=== PATIENT | male | born 1980 | race Caucasian/White ===

== ENCOUNTER → 2019-06-25 | Emergency (ER) | payer MEDICARE, OTHER ==
[~2019-06-25] VITALS: Ht 467.4 cm; Wt 127.0 kg
[~2019-06-25] MED LIST: ACETAMINOPHEN-1 EAC1 PO; AMITRIPTYLINE100 MG PO; ASPIRIN EC325 MG PO; ASPIRIN325 MG PO; ATORVASTATIN CA20 MG PO; BENADRYL25 MG PO; BUPROPION XL150 MG PO; CARVEDILOL12.5 MG PO; CARVEDILOL3.125 MG PO; CARVEDILOL6.25 MG PO; CEPHALEXIN500 MG PO; CYCLOBENZAPRINE10 MG PO; DOXYCYCLINE HY100 MG PO; DULOXETINE HCL60 MG PO; GABAPENTIN300 MG PO; LISINOPRIL10 MG PO; LYRICA75 MG PO; MELOXICAM7.5 MG PO; NORCO 5-325 TA1 EACH PO; OMEPRAZOLE20 MG PO; PROMETHAZINE HC25 M1 PO; VENTOLIN HFA18 GM INH; ZANAFLEX4 MG PO
--- OUTSIDE RECORDS SUMMARY | ~2019-06-25 | XMS | Clinical Summary ---
Demographics + + + | Address | [address] | | | [place] [address] | + + + | Home Phone | | + + + | Preferred Language | Unknown | + + + | Marital Status | Single | + + + | Nondenominational Affiliation | CHR | + + + | Race | White | + + + | Ethnic Group | Not or | + + + Author + + + | Author | [facility] | + + + | Organization | [facility] | + + + | Address | Unknown | + + + | Phone | Unavailable | + + + Support + + +---------+ + | Name | Relationship | Address | Phone | + + +---------+ + | Ramin Lomeli | ECON | Unknown | | + + +---------+ + | Maria Eugenia Razo | ECON | Unknown | | + + +---------+ + Care Team Providers + +------+ + | Care Reed Polisher Name | Role | Phone | + +------+ + | Figueroa Mazariegos MD | PCP | | + +------+ + Source Comments NINO is fully live on both EpicCare Ambulatory and EpicCare InPatient.[facility] Allergies + + + + + + | Active Allergy | Reactions | Severity | Noted | Comments | | | | | Date | | + + + + + + | Diltiazem Hcl | Diarrhea | | 06/12/20 | | | | | | 11 | | + + + + + + | Metoprolol | Diarrhea | | 06/12/20 | | | | | | 11 | | + + + + + + | Penicillin G | Anaphylaxis | High | 06/12/20 | | | | | | 11 | | + + + + + + Medications + + + +---------+------+------+-------+ | Medication | Sig | Dispensed | Refills | Star | End | Statu | | | | | | t | Date | s | | | | | | Date | | | + + + +---------+------+------+-------+ | omeprazole 20 mg | Take 20 mg by mouth | | 0 | | | Activ | | Oral Capsule, | once daily. | | | | | e | | Delayed | | | | | | | | Release(E.C.) | | | | | | | + + + +---------+------+------+-------+ | lisinopril 5 mg | Take 5 mg by mouth | | 0 | | | Activ | | Oral Tablet | once daily. | | | | | e | + + + +---------+------+------+-------+ | sucralfate 1 gram | Take 1 g by mouth | | 0 | | | Activ | | Oral Tablet | four times daily. | | | | | e | + + + +---------+------+------+-------+ | carvedilol 6.25 mg | Take 6.25 mg by | | 0 | | | Activ | | Oral Tablet | mouth two times | | | | | e | | | daily. Administer | | | | | | | | with food. | | | | | | + + + +---------+------+------+-------+ | FLUOXETINE HCL | Take 20 mg by mouth | | 0 | | | Activ | | (FLUOXETINE ORAL) | once daily. | | | | | e | + + + +---------+------+------+-------+ | BUPROPION HCL | Take 100 mg by mouth | | 0 | | | Activ | | (WELLBUTRIN ORAL) | once daily. | | | | | e | + + + +---------+------+------+-------+ | HYDROCODONE | Take 7.5 mg by mouth | | 0 | | | Activ | | BIT/ACETAMINOPHEN | as needed. 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 | + + + + + | Overview: ICD10 | + + + + + | Neck pain | 06/12/2011 | + + + | Nasal drainage | 06/12/2011 | + + + | Headache | 06/12/2011 | + + + + + | Overview: ICD10 | + + + + + | Abnormal smell | 06/12/2011 | + + + | BMI 32.0-32.9,adult | 06/12/2011 | + + + Family History + + +---------+ + | Medical History | Relation | Name | Comments | + + +---------+ + | Heart Disease | Father | moi | grandfather | + + +---------+ + | Hypertension | Father | moi | | + + +---------+ + | Psychiatry | Father | moi | brother,daughter,son | + + +---------+ + | Arthritis | Mother | marita | sister | + + +---------+ + | Cancer | Mother | marita | | + + +---------+ + | Diabetes | Mother | marita | | + + +---------+ + + + + + + | Relation | Name | Status | Comments | + + + + + | Brother | pauline | Alive | mental health issues | | | | (Age 35) | | + + + + + | Daughter | eighva | Alive | | | | | (Age 10) | | + + + + + | Daughter | cindi | Alive | | | | | (Age 9) | | + + + + + | Daughter | kenia | Alive | | | | | (Age 5) | | + + + + + | Father | moi | Alive | poor | | | | (Age 55) | | + + + + + | Mother | marita | | | | | | (Age | | | | | 56) | | + + + + + | Sister | noe | Alive | | | | | (Age 24) | | + + + + + | Sister | ozzy | Alive | poor | | | | (Age 31) | | + + + + + | Sister | ben | Alive | | + + + + + | Sister | nilesh | Alive | | | | | (Age 25) | | + + + + + | Sister | audreye | Alive | poor | | | | (Age 36) | | + + + + + | Son | kamlesh | Alive | | | | | (Age 14) | | + + + + + Social History + + + +--------+------+ | Tobacco Use | Types | Packs/Day | Years | Date | | | | | Used | | + + + +--------+------+ | Current Every Day | Cigarettes | 1 | 16 | | | Smoker | | | | | + + + +--------+------+ + +---+---+---+ | Smokeless Tobacco: | | | | | Never Used | | | | + +---+---+---+ + + | Tobacco Cessation: Ready to Quit: No; Counseling Given: Yes | + + + + +---------+ + | Alcohol Use | Drinks/Week | oz/Week | Comments | + + +---------+ + | No | | | | + + +---------+ + + + + | Sex Assigned at | Date Recorded | | | | + + + | Not on file | | + + + + + + + | Job Start Date | Occupation | Industry | + + + + | Not on file | Not on file | Not on file | + + + + + + + + | Travel History | Travel Start | Travel End | + + + + + + | No recent travel history available. | + + Last Filed Vital Signs + + + + + | Vital Sign | Reading | Time Taken | Comments | + + + + + | Blood Pressure | 129/86 | 06/07/2012 11:28 AM | | | | | PDT | | + + + + + | Pulse | 64 | 06/07/2012 11:28 AM | | | | | PDT | | + + + + + | Temperature | 36.6 C (97.8 F) | 06/07/2012 11:28 AM | | | | | PDT | | + + + + + | Respiratory Rate | 16 | 09/25/2011 12:13 PM | | | | | PST | | + + + + + | Oxygen Saturation | 97% | 07/02/2011 11:06 AM | | | | | PST | | + + + + + | Inhaled Oxygen | - | - | | | Concentration | | | | + + + + + | Weight | 117.7 kg (259 lb 6.4 | 06/07/2012 11:28 AM | | | | oz) | PDT | | + + + + + | Height | 180.3 cm (5' 11") | 09/25/2011 12:13 PM | | | | | PST | | + + + + + | Body Mass Index | 36.18 | 09/25/2011 12:13 PM | | | | | PST | | + + + + + Plan of Treatment + + + + + | Health Maintenance | Due Date | Last Done | Comments | + + + + + | Pneumococcal | | | | | vaccination (1 of 1 | 4 | | | | - PPSV23) | | | | + + + + + | Influenza (Flu) | | | | | vaccination (#1) | 9 | | | + + + + + Results Not on filefrom Last 3 Months Insurance + +--------+ +--------+-------+---------+--------+ | Payer | Benefi | Subscriber | Effect | Phone | Address | Type | | | t Plan | ID | majo | | | | | | / | | Dates | | | | | | Group | | | | | | + +--------+ +--------+-------+---------+--------+ | BRIQUETTER OPERATOR MEDICAID | BRIQUETTER OPERATOR | xxxxxxxx | | | | Medica | | | [place] | | 014-Pr | | | id | | | [place] | | esent | | | | + +--------+ +--------+-------+---------+--------+ + +--------+ +--------+ + + | Guarantor Name | Accoun | Relation to | Date | Phone | Billing Address | | | t Type | Patient | of | | | | | | | | | | + +--------+ +--------+ + + | Uri Pierre | Person | Self [birth year] | [address] | | | al/Fam | | 1980 | [phone] | [place] [address] | | | hola | | | 2 (Home) | | + +--------+ +--------+ + + Advance Directives + + + + + | Code Status | Date | Date | Comments | | | Activated | Inactivated | | + + + + + | Full Code | 07/01/2011 | 07/02/2011 | | | | 6:08 AM | 8:01 PM | | + + + + +
--- OUTSIDE RECORDS SUMMARY | ~2019-06-25 | XMS | Encounter Summary ---
Demographics + + + | Address | [address] | | | [place] [address] | + + + | Home Phone | | + + + | Preferred Language | Unknown | + + + | Marital Status | Single | + + + | Mandaeism Affiliation | CHR | + + + | Race | White | + + + | Ethnic Group | Not or | + + + Author + + + | Author | [facility] | + + + | Organization | [facility] | + + + | Address | [...] Team Providers + +------+ + | Care Weaver Tire Cord Name | Role | Phone | + +------+ + | Daniel Velez DO | PCP | | + +------+ + Reason for Visit + + + | Reason | Comments | + + + | Neoplasm of | | | pituitary gland | | + + + Encounter Details +--------+ + + + + | Date | Type | Department | Care Team | Description | +--------+ + + + + | 06/22/ | Telephone | Neurosurgery at | Alek Elliott, | Neoplasm of | | 2010 | | [facility] [address] | MD | pituitary gland | | | | [place] Mailcode: CH8N | | | | | | [facility] | | | | | | and Healing, | | | | | | [address], | | | | | | Floor [place], [place] | | | | | | [address] | | | | | | [phone] | | | +--------+ + + + [...] recent travel history available. | + + documented as of this encounter Plan of Treatment Not on filedocumented as of this encounter Visit Diagnoses Not on filedocumented in this encounter"
--- OUTSIDE RECORDS SUMMARY | ~2019-06-25 | XMS | Encounter Summary ---
Demographics + + + | Address | [address] | | | [place] [address] | + + + | Home Phone | | + + + | Preferred Language | Unknown | + + + | Marital Status | Single | + + + | Restorationist Affiliation | CHR | + + + | Race | White | + + + | Ethnic Group | Not or | + + + Author + + + | Author | [facility] | + + + | Organization | [facility] | + + + | [...] Team Providers + +------+ + | Care Ed Case Manager Name | Role | Phone | + +------+ + | Alejandro Dowling DO | PCP | | + +------+ + Reason for Visit +---------+ + | Reason | Comments | +---------+ + | Post Op | | +---------+ + PROC - Inpatient Surgery (Routine) +--------+--------+ + + + + | Status | Reason | Specialty | Diagnoses / | Referred By | Referred To | | | | | Procedures | Contact | Contact | +--------+--------+ + + + + | Closed | | Neurological | Diagnoses | [place], | [place], | | | | Surgery | Neoplasm of | Alek D, | Alek D, | | | | | uncertain | MD [address] | MD [address] | | | | | behavior of | [address] | [address] | | | | | pituitary | [place], [place] | [place] | | | | | gland and | [address] | [address] | | | | | craniopharyn | | | | | | | geal duct | | | | | | | (HCC) DX: | | | | | | | 237.0 CPT: | | | | | | | [id number]/[id number]/ | | | | | | | [address] | | | | | | | Procedures | | | | | | | CA EXCIS | | | | | | | SUPRATENT | | | | | | | BRAIN TUMOR | | | | | | | CA SCAN | | | | | | | PROC CRANIAL | | | | | | | INTRA CA | | | | | | | SCAN PROC | | | | | | | CRANIAL | | | | | | | EXTRA CA | | | | | | | MICROSURG | | | | | | | TECHNIQUES,R | | | | | | | EQ OPER | | | | | | | MICROSCOPE | | | | | | | CA | | | | | | | NEUROENDOSCO | | | | | | | P,EXC,PIT | | | | | | | RHYS,TRANSNAS | | | | | | | /SPHEN CA | | | | | | | SCAN PROC | | | | | | | CRANIAL | | | | | | | INTRA CA | | | | | | | SCAN PROC | | | | | | | CRANIAL | | | | | | | EXTRA | | | +--------+--------+ + + + + Encounter Details +--------+---------+ + + + | Date | Type | Department | Care Team | Description | +--------+---------+ + + + | 08/04/ | Office | Otolaryngology | Hamzah Sorensen MD | Pituitary adenoma | | 2010 | Visit | Head and Neck | | ([facility]); Nasal | | | | Surgery Services at | | drainage | | | | [facility] [address] | | | | | | [facility] | | | | | | Mailcode: PV01 | | | | | | Physician's [place] | | | | | | [place], [place] | | | | | | [address] | | | | | | [phone] | | | +--------+---------+ + + + Social History [...] + + + | Blood Pressure | 121/75 | 08/04/2011 10:31 AM | | | | | PST | | + + + + + | Pulse | 80 | 08/04/2011 10:31 AM | | | | | PST | | + + + + + | Temperature | - | - | | + + + + + | Respiratory Rate | - | - | | + + + + + | Oxygen Saturation | - | - | | + + + + + | Inhaled Oxygen | - | - | | | Concentration | | | | + + + + + | Weight | 113.9 kg (251 lb) | 08/04/2011 10:31 AM | | | | | PST | | + + + + + | Height | - | - | | + + + + + | Body Mass Index | 32.23 | 08/03/2011 11:46 AM | | | | | PST | | + + + + + documented in this encounter Progress Notes Hamzah Sorensen MD - 08/04/2011 11:02 AM PST Head and Neck Surgery Follow-Up Note ~1 month s/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 S: Right ear pressure; intermittent fevers and night sweats denies new otalgia, dysphagia, odynophagia, hemoptysis, or hoarseness diet- regular Wt Readings from Last 4 Encounters: 08/04/11 113.853 kg (251 lb) 08/03/11 113 kg (249 lb 1.9 oz) 07/01/11 117.7 kg (259 lb 7.7 oz) 06/12/11 116.121 kg (256 lb) O: BP 121/75 | Pulse 80 | Wt 113.853 kg (251 lb) Gen- comfortable, nontoxic Speech regular Face- no asymmetry, no suspicious cutaneous lesions facial mobility normal Eyes- pupils equal and reactive, EOMI; no chemosis, proptosis Ears- right TM dull but no erythema or purulence; left TM retracted but mobile Nose- external deformity; septum deviates to right; mucosa healing well Mouth- no buccal, lingual or gingival lesions posterior o/p is clear Neck- no adenopathy, thyromegaly or masses Nasal endoscopy- 1% topical xylocaine with epi Septum deviates to right Mucous crusting at left posterior septum No infection nasopharynx, hypopharynx normal A: Stable with s/p endoscopic pituitary surgery Doing well P: Recommend increased saline irrigation Pain Rx refilled but patient told that I will not refill Hamzah Sorensen M.D., F.A.C.S. Pump House Technician, Head & Neck Surgery and Oncology Thyroid and Parathyroid Surgery Director, Head & Neck /Thyroid Robotic Surgery Qa Analyst, Head & Neck Clinical Trials [facility] [place] [email or web address] in this encounter Plan of Treatment Not on filedocumented as of this encounter Procedures + +--------+ + + + | Procedure Name | Priori | Date/Time | Associated Diagnosis | Comments | | | ty | | | | + +--------+ + + + | CA | Routin | 08/04/2011 | Nasal drainage | | | LARYNGOSCOPY,FLEXIBL | e | 11:16 AM | | | | E, DIAGNOSTIC | | PST | | | + +--------+ + + + documented in this encounter Visit Diagnoses + + | Diagnosis | + + | Pituitary adenoma (HCC) Benign neoplasm of pituitary gland and craniopharyngeal duct | | (pouch) | + + | Nasal drainage Other diseases of nasal cavity and sinuses | + + documented in this encounter"
--- OUTSIDE RECORDS SUMMARY | ~2019-06-25 | XMS | Encounter Summary ---
Demographics + + + | Address | [address] | | | [place] [address] | + + + | Home Phone | | + + + | Preferred Language | Unknown | + + + | Marital Status | Single | + + + | Buddhism Affiliation | CHR | + + + | Race | White | + + + | Ethnic Group | Not or | + + + Author + + + | Author | [facility] | + + + | Organization | [facility] | + + + | Address [...] Team Providers + +------+ + | Care Manager Training Name | Role | Phone | + +------+ + | Giovanni Huffman MD | PCP | | + +------+ + Encounter Details +--------+ + + + + | Date | Type | Department | Care Team | Description | +--------+ + + + + | 06/07/ | Documentati | Neurosurgery at | Ashley Duron PA | | | 2011 | on | [facility] [address] | [address] | | | | | [place] Mailcode: CHRyanN | [place], | | | | | [facility] | [place] [address] | | | | | and Healing, | [phone] | | | | | Building | | | | | | Floor [place], [place] | | | | | | [address] | | | | | | [phone] | | | +--------+ + + + [...]
--- OUTSIDE RECORDS SUMMARY | ~2019-06-25 | XMS | Encounter Summary ---
Demographics + + + | Address | [address] | | | [place] [address] | + + + | Home Phone | | + + + | Preferred Language | Unknown | + + + | Marital Status | Single | + + + | Baptism Affiliation | CHR | + + + | Race | White | + + + | Ethnic Group | Not or | + + + Author + + + | Author | [facility] | + + + | Organization | [facility] | + + + | [...] Team Providers + +------+ + | Care Neurology Physician Assistant Name | Role | Phone | + +------+ + | Alejandro Dowling DO | PCP | | + +------+ + Encounter Details +--------+ + + + + | Date | Type | Department | Care Team | Description | +--------+ + + + + | 08/27/ | Telephone | Neurosurgery at | Ashley Duron PA | | | 2011 | | [facility] [address] | [address] | | | | | [place] Mailcode: CH8N | [place] [place], | | | | | [facility] | [place] [address] | | | | | and Healing, | [phone] | | | | | Building | | | | | | Floor [place], [place] | | | | | | [address] | | | | | | [phone] | | | +--------+ + + + [...]
--- OUTSIDE RECORDS SUMMARY | ~2019-06-25 | XMS | Encounter Summary ---
Demographics + + + | Address | [address] | | | [place] [address] | + + + | Home Phone | | + + + | Preferred Language | Unknown | + + + | Marital Status | Single | + + + | Sikh Affiliation | CHR | + + + | Race | White | + + + | Ethnic Group | Not or | + + + Author + + + | Author | [facility] | + + + | Organization | [facility] | + + + | [...] Team Providers + +------+ + | Care Drop Clipper Name | Role | Phone | + +------+ + | Giovanni Huffman MD | PCP | | + +------+ + Reason for Visit + + + | Reason | Comments | + + + | Return Patient | | + + + Consultation (Routine) +--------+--------+ + + + + | Status | Reason | Specialty | Diagnoses / | Referred By | Referred To | | | | | Procedures | Contact | Contact | +--------+--------+ + + + + | Closed | | Neurological | Diagnoses | Agust[place], | [place], | | | | Surgery | Unspecified | DO Daniel | MD [place] | | | | | disorder of | [place] | [address] | | | | | the | INTERNAL | [place] | | | | | pituitary | MEDICINE | [address] [place], | | | | | gland and | [address] | [place] | | | | | its | [place] | [address] | | | | | hypothalamic | [address] | Phone: | | | | | control | [place], | [phone] | | | | | Family Care | [place] [address] | Fax: | | | | | OHP ID# | Phone: | [phone] | | | | | [id number] | [phone] | | | | | | Auth# | Fax: | | | | | | [id number] | [phone] | | | | | | 05/19-05/19/12 | | | | | | | Procedures | | | | | | | CONSULT TO | | | | | | | PITUITARY | | | +--------+--------+ + + + + Encounter Details +--------+---------+ + + + | Date | Type | Department | Care Team | Description | +--------+---------+ + + + | 09/25/ | Office | Neurosurgery at | [place] Pinzon, | Pituitary adenoma | | 2011 | Visit | [facility] [address] | [address] | ([facility]) (Primary Dx); | | | | Ave Mailcode: CH[address]N | [address] | Headache; History of | | | | [facility] | [place], [place] | adrenal | | | | and Healing, | [address] | insufficiency | | | | [address] | [phone] | | | | | [place], [place] | | | | | | [address] | | | | | | [phone] | | | +--------+---------+ + + + [...] + + + | Blood Pressure | 139/92 | 09/25/2011 12:07 PM | | | | | PST | | + + + + + | Pulse | 72 | 09/25/2011 12:07 PM | | | | | PST | | + + + + + | Temperature | 36.3 C (97.4 F) | 09/25/2011 12:07 PM | | | | | PST | | + + + + + | Respiratory Rate | 16 | 09/25/2011 12:07 PM | | | | | PST | | + + + + + | Oxygen Saturation | - | - | | + + + + + | Inhaled Oxygen | - | - | | | Concentration | | | | + + + + + | Weight | 120.7 kg (266 lb) | 09/25/2011 12:07 PM | | | | | PST | | + + + + + | Height | 180.3 cm (5' 11") | 09/25/2011 12:07 PM | | | | | PST | | + + + + + | Body Mass Index | 37.1 | 09/25/2011 12:07 PM | | | | | PST | | + + + + + documented in this encounter Progress Notes Carolina Pinzon MD - 09/25/2011 12:09 PM PSTFormatting of this note might be different fro m the original. Reason for visit: review of symptoms and followup 3 mo s/p resection of a microadenoma. History of Present Illness: Mr. Pierre is a 31 year-old man with several months history of progressively worse headache , sensation of smelling something burning, and pain in the back of his neck. MRI in ED local ly showed evidence of 8 mm microadenoma. He also reported fluctuating weight between 190-30 5 lbs, severe fatigue, nausea, swelling in his ankles and fingers and development of reddish stretch delong on his stomach, back of his knees and under his arms, facial rounding and inc reased thirst. In 10/03 diagnosed with atrial fibrillation and is tx with Atenolol. He underw ent transsphenoidal resection by Dr Elliott 07/01/2011 Recently was told he has heart failure, EF 40%? Per report ( no records avail) Dr Andres sims Headaches daily Presented to [facility] with URI and was treated with Z-pack for strep nasal drainage usually howie spencer has appt with ENT tomorrow. Some blurry vision. Migraine type. Was gone when he woke up. No diplopia or no peripheral v ision changes Some nausea and dizziness with exertion Generalized body aching Does have AFib but feels this is controlled Fatigues Not taken any medication in 2 days. Has some polydipsia , drinks all day long with q 1 hr nocturia. Smokes marijuana at night To sleep Some night sweats and general temperature dysregulation Some swelling in hands No breast discomfort or discharge Exact date of onset of symptoms is unknown Review of systems negative other than as stated above. Physical Exam: Blood pressure 139/92, pulse 72, temperature 36.3 C (97.4 F), temperature source Oral, resp. rate 16, height 1.803 m (5' 11"), weight 120.657 kg (266 lb). General: A pleasant man who looks stated age in no acute distress, well nourished, and well developed. HEENT: Normocephalic and atraumatic. Pupils are equally responsive and reactive to light. E xtraocular movements are intact. Visual spaulding are normal to confrontation as are the remain viviana of cranial nerves. No acne, facial plethora, no facial rounding, frontal bossing, protru ding jaw, or gaps between the teeth. Neck: Without dorsocervical hump or supraclavicular fat pad filling. No lymphadenopathy or jugular vein distention. Thyroid is normal in size and texture without bruits. Lungs: Clear to auscultation. No rhonchi, rales, or wheezes. Abdomen: Positive bowel sounds, nontender, and nondistended. No organomegaly, no truncal ob esity, no violaceous striae. Breasts: Without tenderness : Deferred. Skin: No hyperpigmentation or dry, sweaty, or oily. No skin tags, thinning of skin or bruis ing. Extremities: Upper extremities: Without proximal muscle weakness, no carpal tunnel syndrome . No hand enlargement or tremor. Lower extremities: Without edema. Neurologic: Patient is al ert and oriented x3, 5/5 motor and sensory throughout. LABS BMP, IGF-1, TSH, Free T4, LH, FSH, Testosterone, Prolactin, serum and urine osmolality pend ing SURGICAL PATHOLOGY (no units) Date Value Range Status 07/01/2011 Corrected Value: THIS IS AN AMENDED REPORT SOURCE OF SPECIMEN:A Pituitary lesion Final Pathologic Diagnosis: Amendment This report is amended to include the results of reticulin staining. This revealed a nonneoplastic architecture of the pituitary. The final diagnosis is unchanged. A: Pituitary lesion: - Pituitary tissue and amorphous cellular debris (see comment) Comment: The specimen consists of a small fragment of normal anterior pituitary gland that stains appropriately with all hormone stains. There is also abundant amorphous pink cellular debris. Although no cyst lining is indentified, the overall findings are most consistent with cyst contents. There is no evidence of meningioma, craniopharyngioma, germinoma, or pituitary adenoma in the sample provided. Case seen by: Rob Rojas M.D. / Neuropathology Fellow Madhav Boyer M.D., PhD. / Neuropathologist ; [facility] Amendment seen by: Madhav Boyer M.D., PhD. / Neuropathologist Clinical History: The patient is a 31-year-old male who presents with complaint of headache, neck pain, nasal drainage, bizarre smells. He reports loss of energy, weight fluctuations, thinning skin, development of stria, excessive thirst. Imaging showed an 8 mm enhancing nodule in the pituitary infundibulum with possibilities including small meningioma, papillary variant craniopharyngioma, germinoma, and aneurysm. Hormone work-up was within normal limits. Gross Description: Received is 1 specimen in formalin in a container labeled with the patient name (initials GM) and "pituitary lesion." Received are multiple irregular, soft, gelatinous, [id number] hemorrhagic purple tissues measuring 0.8 x 0.8 x 0.6 cm in aggregate. The entire specimen is submitted. Cassette Index: A1, wrapped JKK:tp IHC Results: Immunohistochemical stains are performed on formalin-fixed, paraffin embedded tissue, using a biotin-free protocol that includes appropriate positive and negative controls. Block A1 Population: anterior pituitary cells Marker Result Comment Adrenocorticotropic Hormone Positive Human Growth Hormone Positive Prolactin Positive Cyto-Keratin CAM 5.2 Normal Somatostatin Receptor 2A Positive focal KI67 % Positive < 1% p53 Negative SF-1 Positive (Analyte specific reagents are used in many laboratory tests necessary for standard medical care and generally do not require FDA approval. This test was developed and its performance characteristics determined by [employer]. It has not been cleared or approved by the U.S. Food and Drug Administration.) My electronic signature indicates that I have personally reviewed all diagnostic slides, the gross and/or microscopic portion of this report and formulated the final diagnosis. Rendering Diagnostician: Madhav Boyer M.D., Ph.D. Pathologist Electronically Signed 07/06/2011 8:00PM Component Latest Ref Rng 08/03/2011 08/03/2011 08/03/2011 12:15 PM 12:15 PM 12:15 PM GLUCOSE, PLASMA (LAB) 60 - 99 mg/dL BUN, PLASMA (LAB) 6 - 20 mg/dL CREATININE PLASMA (LAB) 0.70 - 1.30 mg/dL SODIUM, PLASMA (LAB) 134 - 143 mmol/L POTASSIUM, PLASMA (LAB) 3.4 - 5.0 mmol/L CHLORIDE, PLASMA (LAB) 97 - 108 mmol/L TOTAL CO2, PLASMA (LAB) 22 - 29 mmol/L CALCIUM, PLASMA (LAB) 8.6 - 10.2 mg/dL EGFR - CHINESE > 60 mL/min EGFR NON -CHINESE > 60 mL/min ANION GAP 4 - 11 mmol/L OSMOLALITY, MEASURED 275 - 295 mOsm/kgH20 OSMOLALITY, CALCULATED 275 - 295 mOsm/kgH20 OSMOLALITY GAP -10 - 10 mOsm/kgH20 OSMOLALITY URINE mOsm/Kg H2O FREE T4, SERUM 0.6 - 1.2 ng/dL IGF-1 115 - 307 ng/mL PROLACTIN 3 - 13 ng/ml 7 TESTOSTERONE, SERUM 175 - 781 ng/dl 394 TSH 0.34 - 5.60 uIU/ml 0.60 Component Latest Ref Rng 08/03/2011 08/03/2011 08/03/2011 12:15 PM 12:15 PM 12:15 PM GLUCOSE, PLASMA (LAB) 60 - 99 mg/dL 107 (H) BUN, PLASMA (LAB) 6 - 20 mg/dL 13 CREATININE PLASMA (LAB) 0.70 - 1.30 mg/dL 0.93 SODIUM, PLASMA (LAB) 134 - 143 mmol/L 139 POTASSIUM, PLASMA (LAB) 3.4 - 5.0 mmol/L 3.5 CHLORIDE, PLASMA (LAB) 97 - 108 mmol/L 108 TOTAL CO2, PLASMA (LAB) 22 - 29 mmol/L 22 CALCIUM, PLASMA (LAB) 8.6 - 10.2 mg/dL 9.6 EGFR - CHINESE > 60 mL/min > 60 EGFR NON -CHINESE > 60 mL/min > 60 ANION GAP 4 - 11 mmol/L 9 OSMOLALITY, MEASURED 275 - 295 mOsm/kgH20 OSMOLALITY, CALCULATED 275 - 295 mOsm/kgH20 OSMOLALITY GAP -10 - 10 mOsm/kgH20 OSMOLALITY URINE mOsm/Kg H2O FREE T4, SERUM 0.6 - 1.2 ng/dL 0.8 IGF-1 115 - 307 ng/mL 189 PROLACTIN 3 - 13 ng/ml TESTOSTERONE, SERUM 175 - 781 ng/dl TSH 0.34 - 5.60 uIU/ml Component Latest Ref Rn 08/03/2011 08/03/2011 12:15 PM 12:15 PM GLUCOSE, PLASMA (LAB) 60 - 99 mg/dL BUN, PLASMA (LAB) 6 - 20 mg/dL CREATININE PLASMA (LAB) 0.70 - 1.30 mg/dL SODIUM, PLASMA (LAB) 134 - 143 mmol/L POTASSIUM, PLASMA (LAB) 3.4 - 5.0 mmol/L CHLORIDE, PLASMA (LAB) 97 - 108 mmol/L TOTAL CO2, PLASMA (LAB) 22 - 29 mmol/L CALCIUM, PLASMA (LAB) 8.6 - 10.2 mg/dL EGFR - CHINESE > 60 mL/min EGFR NON -CHINESE > 60 mL/min ANION GAP 4 - 11 mmol/L OSMOLALITY, MEASURED 275 - 295 mOsm/kgH20 298 (H) OSMOLALITY, CALCULATED 275 - 295 mOsm/kgH20 298 (H) OSMOLALITY GAP -10 - 10 mOsm/kgH20 0 OSMOLALITY URINE mOsm/Kg H2O 1016 FREE T4, SERUM 0.6 - 1.2 ng/dL IGF-1 115 - 307 ng/mL PROLACTIN 3 - 13 ng/ml TESTOSTERONE, SERUM 175 - 781 ng/dl TSH 0.34 - 5.60 uIU/ml Assessment and discussion Pt complained of headaches post op and has been treated for suspected strep infection wit h z pac He reports nasal congestion and clear drainage but is not worse with bending forward. He do es complain of some dizziness with standing and nausea after hold his hydrocortisone. He has been using marijuana nightly to help him sleep. We discussed the effects of glucoco rticoids and consequences of inadequate adrenal function. He will follow up with ENT again a s persistent rhinitis symptoms. He reports symptoms of DI improved. Will have pt RTC at 9 mths post op for FLAP CURER with MRI. I explained the pt that pathology was consistent with cyst but this was done at [facility] and did not contain the lesion in his stalk. He will discuss further with Dr Elliott I answered pt questions to his satisfaction Plan: 1. Pituitary functions. 1.1. Adrenal. The patient has a history of adrenal insufficiency. FLAP CURER this visit. Will cont inue hydrocortisone 20mg q am until that time. 1.2. Thyroid. The patient has been euthyroid. Free T 4 is pending, however No thyroid repla cement is anticipated to be indicated. 1.3. Gonadal. Testosterone level pending. Will start replacement if low. Pt will f.up with PCP re rectal exam and PSA prior to starting tx. 1.4. Growth hormone. IGF-1 level is pending. No GH is anticipated to be indicated. 1.5. Prolactin. Level pending, however no dopamine agonist therapy is anticipated to be ind icated. 1.6. Vasopressin. The patient complains of polyuria, polydipsia, or signs and symptoms of diabetes insipidus. 2. Followup.is scheduled with labs in [address] Elliott will discuss with pt and review timing of MRI. Uri Pierre, [id number] Reason for visit: Chief Complaint Patient presents with Return Patient Uri Pierre is a 31 y.o. male, who presented to Pituitary clinic on 09/25/2011 for a consultation and low dose cortrosyn stimulation test. 227.3P Pituitary adenoma 784.0 Headache 255.41BB Adrenal insufficiency. Procedure note: ( In addition to my consultation ) I performed a one mcg cortrosyn stimulation test to test for pituitary caused adrenal insu fficiency in the light of the patient's pituitary symptoms. Risks and benefits of the proce dure were discussed with the patient and questions were answered. After an IV was placed in the patient's arm, baseline cortisol and ACTH as well as other labs were drawn. A dilution of one mcg per cc of cortrosyn was prepared by reconstituting a 250 mcg vial of lyophylise d cortrosyn and injecting this into 250 cc of Normal Saline. One mcg (or one cc) of Cortr osyn was administered to the patient and a second cortisol was drawn hour later. The IV was then removed and the site dressed. There were no adverse events or effects. We discussed diagnosis, treatment, imaging studies and follow up. I spent 40 minutes [id number] time with this patient ( separately from time spent on test ing) of which over 50% was spent in medically indicated counseling and education pertaining to the issues discussed above. Component Latest Ref Rng 09/25/2011 09/25/2011 09/25/2011 09/25/2011 10:25 AM 12:15 PM 12:15 PM 12:15 PM GLUCOSE, PLASMA (LAB) 60 - 99 mg/dL BUN, PLASMA (LAB) 6 - 20 mg/dL CREATININE PLASMA (LAB) 0.70 - 1.30 mg/dL SODIUM, PLASMA (LAB) 134 - 143 mmol/L POTASSIUM, PLASMA (LAB) 3.4 - 5.0 mmol/L CHLORIDE, PLASMA (LAB) 97 - 108 mmol/L TOTAL CO2, PLASMA (LAB) 22 - 29 mmol/L CALCIUM, PLASMA (LAB) 8.6 - 10.2 mg/dL EGFR - CHINESE > 60 mL/min EGFR NON -CHINESE > 60 mL/min ANION GAP 4 - 11 mmol/L CORTISOL, TOTAL SERUM ug/dl TIME Hrs:mins SITE FREE T4, SERUM 0.6 - 1.2 ng/dL FSH,SERUM < 19 mIU/mL LUTEINIZING HORMONE,SERUM < 11 mIU/mL PROLACTIN 3 - 13 ng/ml 8 TESTOSTERONE, SERUM 175 - 781 ng/dl 321 TSH 0.34 - 5.60 uIU/ml 1.37 CREATININE, POC 0.7 - 1.3 mg/dL 1.0 Component Latest Ref Rng 09/25/2011 09/25/2011 09/25/2011 09/25/2011 12:15 PM 12:15 PM 12:15 PM 12:15 PM GLUCOSE, PLASMA (LAB) 60 - 99 mg/dL 114 (H) BUN, PLASMA (LAB) 6 - 20 mg/dL 15 CREATININE PLASMA (LAB) 0.70 - 1.30 mg/dL 0.87 SODIUM, PLASMA (LAB) 134 - 143 mmol/L 138 POTASSIUM, PLASMA (LAB) 3.4 - 5.0 mmol/L 3.9 CHLORIDE, PLASMA (LAB) 97 - 108 mmol/L 103 TOTAL CO2, PLASMA (LAB) 22 - 29 mmol/L 25 CALCIUM, PLASMA (LAB) 8.6 - 10.2 mg/dL 9.0 EGFR - CHINESE > 60 mL/min > 60 EGFR NON -CHINESE > 60 mL/min > 60 ANION GAP 4 - 11 mmol/L 10 CORTISOL, TOTAL SERUM ug/dl TIME Hrs:mins SITE FREE T4, SERUM 0.6 - 1.2 ng/dL 0.7 FSH,SERUM < 19 mIU/mL 5 LUTEINIZING HORMONE,SERUM < 11 mIU/mL 3 PROLACTIN 3 - 13 ng/ml TESTOSTERONE, SERUM 175 - 781 ng/dl TSH 0.34 - 5.60 uIU/ml CREATININE, POC 0.7 - 1.3 mg/dL Component Latest Ref Rn 09/25/2011 09/25/2011 12:15 PM 12:45 PM GLUCOSE, PLASMA (LAB) 60 - 99 mg/dL BUN, PLASMA (LAB) 6 - 20 mg/dL CREATININE PLASMA (LAB) 0.70 - 1.30 mg/dL SODIUM, PLASMA (LAB) 134 - 143 mmol/L POTASSIUM, PLASMA (LAB) 3.4 - 5.0 mmol/L CHLORIDE, PLASMA (LAB) 97 - 108 mmol/L TOTAL CO2, PLASMA (LAB) 22 - 29 mmol/L CALCIUM, PLASMA (LAB) 8.6 - 10.2 mg/dL EGFR - CHINESE > 60 mL/min EGFR NON -CHINESE > 60 mL/min ANION GAP 4 - 11 mmol/L CORTISOL, TOTAL SERUM ug/dl 9.6 21.8 TIME Hrs:mins 0 30 SITE None Given None Given FREE T4, SERUM 0.6 - 1.2 ng/dL FSH,SERUM < 19 mIU/mL LUTEINIZING HORMONE,SERUM < 11 mIU/mL PROLACTIN 3 - 13 ng/ml TESTOSTERONE, SERUM 175 - 781 ng/dl TSH 0.34 - 5.60 uIU/ml CREATININE, POC 0.7 - 1.3 mg/dL Despite stalk abnormalities ( of unclear etiology) pituitary function is OK. Good news. All labs are normal, no need for HC or testosterone. Good luck with your heart testing and see you in 6 months. Regards, MD Yamileth Luciano, 6 mo MRI, FLAP CURER/RM ,CGYLexi ( duong Ramirez order MRI after you ask Dr Elliott if he wants a regular pituitary one or someth ing else to look better at the stalk pathology) Thanks, [place] documented in this en counter Plan of Treatment Not on filedocumented as of this encounter Procedures + +--------+ + + + | Procedure Name | Priori | Date/Time | Associated Diagnosis | Comments | | | ty | | | | + +--------+ + + + | CORTISOL, SERUM | Routin | 09/25/2011 | Pituitary adenoma | Results for this | | | e | 12:45 PM | ([facility]) | procedure are in the | | | | PST | | results section. | + +--------+ + + + | ACTH, PLASMA | Routin | 09/25/2011 | Pituitary adenoma | Results for this | | | e | 12:15 PM | (HCC) | procedure are in the | | | | PST | | results section. | + +--------+ + + + | BASIC METABOLIC SET | Routin | 09/25/2011 | Pituitary adenoma | Results for this | | (NA, K, CL, TCO2, | e | 12:15 PM | (HCC) | procedure are in the | | BUN, CR, GLU, CA) | | PST | | results section. | + +--------+ + + + | INSULIN GROWTH | Routin | 09/25/2011 | Pituitary adenoma | Results for this | | FACTOR-1, SERUM | e | 12:15 PM | (HCC) | procedure are in the | | | | PST | | results section. | + +--------+ + + + | FREE T4 | Routin | 09/25/2011 | Pituitary adenoma | Results for this | | | e | 12:15 PM | (HCC) | procedure are in the | | | | PST | | results section. | + +--------+ + + + | PROLACTIN | Routin | 09/25/2011 | Pituitary adenoma | Results for this | | | e | 12:15 PM | (HCC) | procedure are in the | | | | PST | | results section. | + +--------+ + + + | TSH | Routin | 09/25/2011 | Pituitary adenoma | Results for this | | | e | 12:15 PM | (HCC) | procedure are in the | | | | PST | | results section. | + +--------+ + + + | TESTOSTERONE, SERUM | Routin | 09/25/2011 | Pituitary adenoma | Results for this | | | e | 12:15 PM | (HCC) | procedure are in the | | | | PST | | results section. | + +--------+ + + + | LUTEINIZING HORMONE, | Routin | 09/25/2011 | Pituitary adenoma | Results for this | | SERUM | e | 12:15 PM | (HCC) | procedure are in the | | | | PST | | results section. | + +--------+ + + + | FSH, SERUM | Routin | 09/25/2011 | Pituitary adenoma | Results for this | | | e | 12:15 PM | (HCC) | procedure are in the | | | | PST | | results section. | + +--------+ + + + | CORTISOL, SERUM | Routin | 09/25/2011 | Pituitary adenoma | Results for this | | | e | 12:15 PM | (HCC) | procedure are in the | | | | PST | | results section. | + +--------+ + + + documented in this encounter Results CORTISOL, SERUM (09/25/2011 12:45 PM PST) + + + + + + | Component | Value | Ref Range | Performed | Pathologist | | | | | At | Signature | + + + + + + | CORTISOL, | 21.8 | ug/dl | [facility] | | | TOTAL SERUM | | | REGIONAL | | | | | | LABORATORY | | + + + + + + | TIME | 30 | Hrs:mins | [facility] | | | | | | REGIONAL | | | | | | LABORATORY | | + + + + + + | SITE | None Given | | [facility] | | | | | | [facility]AL | | | | | | LABORATORY | | + + + + + + + + | Specimen | + + | Blood - Blood | + + + + + | Narrative | Performed At | + + + | Cortisol Reference Ranges | [facility] | | AM Reference Range: 7.0 - 23.0 ug/dl | REGIONAL | | PM Reference Range: Less than 10.0 ug/dl | LABORATORY | | [facility] | | | [facility] [place] [address] | | | [place] [address] | | + + + + + + + + | Performing | Address | City/State/Zipcode | Phone Number | | Organization | | | | + + + + + | [facility] | [address] | [place] [address] | | | LABORATORY | | | | + + + + + TSH (09/25/2011 12:15 PM PST) + +-------+ + + + | Component | Value | Ref Range | Performed | Pathologist | | | | | At | Signature | + +-------+ + + + | TSH | 1.37 | 0.34 - 5.60 | [facility] | | | | | uIU/ml | REGIONAL | | | | | | LABORATORY | | + +-------+ + + + + + | Specimen | + + | Blood - Blood | + + + + + | Narrative | Performed At | + + + | [facility]) | [facility] | | [facility] [place] [address] | REGIONAL | | [place] [address] | LABORATORY | + + + + + + + + | Performing | Address | City/State/Zipcode | Phone Number | | Organization | | | | + + + + + | [facility] | [address] | [place] [address] | | | LABORATORY | | | | + + + + + TESTOSTERONE, SERUM (09/25/2011 12:15 PM PST) + +-------+ + + + | Component | Value | Ref Range | Performed | Pathologist | | | | | At | Signature | + +-------+ + + + | TESTOSTERON | 321 | 175 - 781 ng/dl | [facility] | | | E, SERUM | | | REGIONAL | | | | | | LABORATORY | | + +-------+ + + + + + | Specimen | + + | Blood - Blood | + + + + + | Narrative | Performed At | + + + | [facility] | [facility] | | [place] [address] [facility] | REGIONAL | | [place] [address] | LABORATORY | + + + + + + + + | Performing | Address | City/State/Zipcode | Phone Number | | Organization | | | | + + + + + | [facility] | [address] [facility] | [place] [address] | | | LABORATORY | | | | + + + + + PROLACTIN, SERUM (09/25/2011 12:15 PM PST) + +-------+ + + + | Component | Value | Ref Range | Performed | Pathologist | | | | | At | Signature | + +-------+ + + + | PROLACTIN | 8 | 3 - 13 ng/ml | [facility] | | | | | | REGIONAL | | | | | | LABORATORY | | + +-------+ + + + + + | Specimen | + + | Blood - Blood | + + + + + | Narrative | Performed At | + + + | [facility] | [facility] | | [facility] [place] [address] | REGIONAL | | [place] [address] | LABORATORY | + + + + + + + + | Performing | Address | City/State/Zipcode | Phone Number | | Organization | | | | + + + + + | [facility] | [address] | [place] [address] | | | LABORATORY | | | | + + + + + LUTEINIZING HORMONE, SERUM (09/25/2011 12:15 PM PST) + +-------+ + + + | Component | Value | Ref Range | Performed | Pathologist | | | | | At | Signature | + +-------+ + + + | LUTEINIZING | 3 | <11 mIU/mL | [facility] | | | | | | REGIONAL | | | HORMONE,SER | | | LABORATORY | | | UM | | | | | + +-------+ + + + + + | Specimen | + + | Blood - Blood | + + + + + | Narrative | Performed At | + + + | [facility] | [facility] | | [facility] [place] [address] | REGIONAL | | [place] [address] | LABORATORY | + + + + + + + + | Performing | Address | City/State/Zipcode | Phone Number | | Organization | | | | + + + + + | [facility] | [address] | [place] [address] | | | LABORATORY | | | | + + + + + INSULIN GROWTH FACTOR-1, SERUM (09/25/2011 12:15 PM PST) + +-------+ + + + | Component | Value | Ref Range | Performed | Pathologist | | | | | At | Signature | + +-------+ + + + | IGF-1 | 201 | 115 - 307 ng/mL | [facility] | | | | | | REGIONAL | | | | | | LABORATORY | | + +-------+ + + + + + | Specimen | + + | Blood - Blood | + + + + + | Narrative | Performed At | + + + | [facility] | [facility] | | [facility] [place] [address] [facility] [address] [facility] | REGIONAL | | [place] [address] | LABORATORY | + + + + + + + + | Performing | Address | City/State/Zipcode | Phone Number | | Organization | | | | + + + + + | [facility] | [address] | [place] [address] | | | LABORATORY | | | | + + + + + FSH, SERUM (09/25/2011 12:15 PM PST) + +-------+ + + + | Component | Value | Ref Range | Performed | Pathologist | | | | | At | Signature | + +-------+ + + + | FSH,SERUM | 5 | <19 mIU/mL | [facility] | | | | | | REG[facility] | | | | | | LABORATORY | | + +-------+ + + + + + | Specimen | + + | Blood - Blood | + + + + + | Narrative | Performed At | + + + | [facility] | [facility] | | [place] [address] | REGIONAL | | [place] [address] | LABORATORY | + + + + + + + + | Performing | Address | City/State/Zipcode | Phone Number | | Organization | | | | + + + + + | [facility] | [address] | [place] [address] | | | LABORATORY | | | | + + + + + FREE T4, SERUM (09/25/2011 12:15 PM PST) + +-------+ + + + | Component | Value | Ref Range | Performed | Pathologist | | | | | At | Signature | + +-------+ + + + | FREE T4, | 0.7 | 0.6 - 1.2 ng/dL | [facility] | | | SERUM | | | REGIONAL | | | | | | LABORATORY | | + +-------+ + + + + + | Specimen | + + | Blood - Blood | + + + + + | Narrative | Performed At | + + + | [facility] ([facility]) Lai | LAI | | [place] [address] [place] [address] [employer] [facility] | [facility] | | [place] [address] | LABORATORY | + + + + + + + + | Performing | Address | City/State/Zipcode | Phone Number | | Organization | | | | + + + + + | [facility] | [address] | [place] [address] | | | LABORATORY | | | | + + + + + BASIC METABOLIC SET (NA, K, CL, TCO2, BUN, CR, GLU, CA) (09/25/2011 12:15 PM PST) + + + + + + | Component | Value | Ref Range | Performed | Pathologist | | | | | At | Signature | + + + + + + | GLUCOSE, | 114 (H) | 60 - 99 mg/dL | [facility] | | | PLASMA | | | DEPARTMENT | | | (LAB) | | | OF | | | | | | PATHOLOGY | | + + + + + + | BUN, PLASMA | 15 | 6 - 20 mg/dL | [facility] | | | (LAB) | | | DEPARTMENT | | | | | | OF | | | | | | PATHOLOGY | | + + + + + + | CREATININE | 0.87 | 0.70 - 1.30 | [facility] | | | PLASMA | | mg/dL | DEPARTMENT | | | (LAB) | | | OF | | | | | | PATHOLOGY | | + + + + + + | SODIUM, | 138 | 134 - 143 | [facility] | | | PLASMA | | mmol/L | DEPARTMENT | | | (LAB) | | | OF | | | | | | PATHOLOGY | | + + + + + + | POTASSIUM, | 3.9 | 3.4 - 5.0 | [facility] | | | PLASMA | | mmol/L | DEPARTMENT | | | (LAB) | | | OF | | | | | | PATHOLOGY | | + + + + + + | CHLORIDE, | 103 | 97 - 108 mmol/L | [facility] | | | PLASMA | | | DEPARTMENT | | | (LAB) | | | OF | | | | | | PATHOLOGY | | + + + + + + | TOTAL CO2, | 25 | 22 - 29 mmol/L | [facility] | | | PLASMA | | | DEPARTMENT | | | (LAB) | | | OF | | | | | | PATHOLOGY | | + + + + + + | CALCIUM, | 9.0 | 8.6 - 10.2 | [facility] | | | PLASMA | | mg/dL | DEPARTMENT | | | (LAB) | | | OF | | | | | | PATHOLOGY | | + + + + + + | EGFR | > 60 | >60 mL/min | [facility] | | | - | | | DEPARTMENT | | | CHINESE | | | OF | | | | | | PATHOLOGY | | + + + + + + | EGFR NON | > 60Comment: GFR is | >60 mL/min | [facility] | | | -JOSH | estimated using the MDRD | | DEPARTMENT | | | RICAN | equation recommended by | | OF | | | | theNational Kidney | | PATHOLOGY | | | | Disease Education | | | | | | Program. Estimated GFR | | | | | | Interpretive | | | | | | Information: <60 | | | | | | mL/min/1.73 sq m | | | | | | Chronic Kidney Disease | | | | | | <15 mL/min/1.73 sq m | | | | | | Kidney Failure | | | | | | Estimated GFR greater | | | | | | than 60mL/min/1.73 is of | | | | | | limited clinical Value. | | | | | | The MDRD equation is | | | | | | not valid in the | | | | | | following situations: - | | | | | | Patients under 18 years | | | | | | of age - Severe | | | | | | malnutrition or obesity | | | | | | - Vegetarian diet - | | | | | | Rapidly changing kidney | | | | | | function | | | | + + + + + + | ANION GAP | 10 | 4 - 11 mmol/L | [facility] | | | | | [...] | + + + + + | [facility] | [address] | [place] [address] | | | PATHOLOGY | [address] | | | + + + + + CORTISOL, SERUM (09/25/2011 12:15 PM PST) + + + + + + | Component | Value | Ref Range | Performed | Pathologist | | | | | At | Signature | + + + + + + | CORTISOL, | 9.6 | ug/dl | [facility] | | | TOTAL SERUM | | | REGIONAL | | | | | | LABORATORY | | + + + + + + | TIME | 0 | Hrs:mins | [facility] | | | | | | REGIONAL | | | | | | LABORATORY | | + + + + + + | SITE | None Given | | [facility] | | | | | | REGIONAL | | | | | | LABORATORY | | + + + + + + + + | Specimen | + + | Blood - Blood | + + + + + | Narrative | Performed At | + + + | Cortisol Reference Ranges | [facility] | | AM Reference Range: 7.0 - 23.0 ug/dl | REGIONAL | | PM Reference Range: Less than 10.0 ug/dl | LABORATORY | | [facility] ([facility]) | | | [facility] [place] [address] | | | [place] [address] | | + + + + + + + + | Performing | Address | City/State/Zipcode | Phone Number | | Organization | | | | + + + + + | [facility] | [address] | [place] [address] | | | LABORATORY | | | | + + + + + ACTH, PLASMA (09/25/2011 12:15 PM PST) + + + + + + | Component | Value | Ref Range | Performed | Pathologist | | | | | At | Signature | + + + + + + | ACTH,PLASMA | 8 | <46 pg/mL | [facility] | | | | | | REGIONAL | | | | | | LABORATORY | | + + + + + + | TIME | 0 | Hrs:mins | [facility] | | | | | | REGIONAL | | | | | | LABORATORY | | + + + + + + | SITE | None Given | | [facility] | | | | | | REGIONAL | | | | | | LABORATORY | | + + + + + + + + | Specimen | + + | Blood - Blood | + + + + + | Narrative | Performed At | + + + | [facility] ([employer] [facility]) | [facility] | | [facility] [place] [address] | REGIONAL | | [place] [address] | LABORATORY | + + + + + + + + | Performing | Address | City/State/Zipcode | Phone Number | | Organization | | | | + + + + + | [facility] | [address] | [place] [address] | | | LABORATORY | | | | + + + + + documented in this encounter Visit Diagnoses + + | Diagnosis | + + | Pituitary adenoma (HCC) - Primary Benign neoplasm of pituitary gland and | | craniopharyngeal duct (pouch) | + + | Headache(784.0) Headache | + + | History of adrenal insufficiency Personal history of other endocrine, metabolic, and | | immunity disorders | + + documented in this encounter
--- OUTSIDE RECORDS SUMMARY | ~2019-06-25 | XMS | Encounter Summary ---
Demographics + + + | Address | [address] | | | [place] [address] | + + + | Home Phone | | + + + | Preferred Language | Unknown | + + + | Marital Status | Single | + + + | Yazdanism Affiliation | CHR | + + + | Race | White | + + + | Ethnic Group | Not or | + + + Author + + + | Author | [facility] | + + + | Organization | [facility] | + + + | Address [...] Team Providers + +------+ + | Care Section Leader Name | Role | Phone | + +------+ + | Giovanni Huffman MD | PCP | | + +------+ + Encounter Details +--------+ + + + + | Date | Type | Department | Care Team | Description | +--------+ + + + + | 04/01/ | Outside | UNKNOWN DEPARTMENT | Other, Faculty | | | 2011 | Records | [address] [facility] | [phone] | | | | | [address] | | | | | | [place], [place] | | | | | | [address] | | | +--------+ + + + [...]
--- OUTSIDE RECORDS SUMMARY | ~2019-06-25 | XMS | Encounter Summary ---
Demographics + + + | Address | [address] | | | [place] [address] | + + + | Home Phone | | + + + | Preferred Language | Unknown | + + + | Marital Status | Single | + + + | Latter-Day Affiliation | CHR | + + + | Race | White | + + + | Ethnic Group | Not or | + + + Author + + + | Author | [facility] | + + + | Organization | [facility] | + + + | [...] Team Providers + +------+ + | Care Rigging Supervisor Name | Role | Phone | + +------+ + | Giovanni Huffman MD | PCP | | + +------+ + Reason for Visit + + + | Reason | Comments | + + + | Return Patient | | + + + Encounter Details +--------+---------+ + + + | Date | Type | Department | Care Team | Description | +--------+---------+ + + + | 09/25/ | Office | Neurosurgery at | Alek Elliott, | Follow-up | | 2011 | Visit | [facility] [address] | | examination, | | | | Ave Mailcode: CH8N | | following other | | | | [facility] | | surgery (Primary Dx) | | | | and Healing, | | | | | | Building [address], 8th | | | | | | Floor [place], [place] | | | | | | [address] | | | | | | [phone] | | | +--------+---------+ + + + [...] | Blood Pressure | 139/92 | 09/25/2011 12:13 PM | | | | | PST | | + + + + + | Pulse | 71 | 09/25/2011 12:13 PM | | | | | PST | | + + + + + | Temperature | 36.3 C (97.4 F) | 09/25/2011 12:13 PM | | | [...] | 120.7 kg (266 lb) | 09/25/2011 12:13 PM | | | | | PST | | + + + + + | Height | 180.3 cm (5' 11") | 09/25/2011 12:13 PM | | | | | PST | | + + + + + | Body Mass Index | 37.1 | 09/25/2011 12:13 PM | | | | | PST | | + + + + + documented in this encounter Progress Notes Alek Elliott MD - 09/25/2011 5:24 PM PSTNeurosurgery Attending Note I saw and evaluated this patient on 09/25/2011 with Ms. Duron during clinic. 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 Complaining of sinus congestion. MRI reviewed: No recurrent cyst. Persistent 7 mm infundibular enhancing mass unchanged in size compared to MRI from March of 2011. 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 Sorensen from ENT for sinus concerns I spent more than 15 minutes [id number] with the patient of which greater than 50% was sp ent counseling the patient regarding the details of their progress. I answered all question s and the patient expressed understanding at the conclusion of this office visit. In additi on, I instructed the patient to call the office or return should any issues or concerns gregg carroll Ashley Gaitan PA- C - 09/25/2011 12:54 PM [facility] PN Uri Pierre returns to clinic for routine follow up today. He is 3 months post-op from a transphenoidal for resection of cyst. He reports chronic sinus type pressure and un changed occipital headaches. He has seen Dr. Sorensen for follow up who recommended saline irr igation prn. He denies nasal drainage. He denies double vision or loss in vision. He has discontinued oxycodone use, substituted with marijuana for chronic neck and back pain and fo r headaches. Ht 180.3 cm (5' 11")( < 3 %ile), Wt 120.657 kg (266 lbs)( < 3 %ile), BP 139/92, Pulse 71, T emperature 36.3 C (97.4 F), Temperature source Oral, RR 16, BMI 37.10 kg/(m^2). PE: Alert, oriented x3. Pupils brisk, equal. Vision intact. VFF bilat. EOMI, no nystagmus. LT facial sensation intact. Face symmetric. Tongue midline. Shoulder shrug equal. No nasal drainage. Strength full throughout. No drift. Imaging: MRI pit 2/3: Decompressed cyst, expected changes. Impression: 31YOM s/p EEA TSH for biopsy of pituitary cyst, 3 mos post-op. Plan: RTC in 6 mos for repeat MRI. FU with Dr. Sorensen prn NEUROSURGERY [address] Mailcode: Ch8n [facility], 8th Floor [facility] [address] documented in this enco unter Plan of Treatment Not on filedocumented as of this encounter Visit Diagnoses + + | Diagnosis | + + | Follow-up examination, following other surgery - Primary | + + documented in this encounter
--- OUTSIDE RECORDS SUMMARY | ~2019-06-25 | XMS | Encounter Summary ---
Demographics + + + | Address | [address] | | | [place] [address] | + + + | Home Phone | | + + + | Preferred Language | Unknown | + + + | Marital Status | Single | + + + | Caodaism Affiliation | CHR | + + + | Race | White | + + + | Ethnic Group | Not or | + + + Author + + + | Author | [facility] | + + + | Organization | [facility] | + + + | [...] Team Providers + +------+ + | Care Mailroom Associate Name | Role | Phone | + +------+ + | Daniel Velez DO | PCP | | + +------+ + Reason for Visit + + + | Reason | Comments | + + + | Pre-Op Question | | + + + Encounter Details +--------+ + + + + | Date | Type | Department | Care Team | Description | +--------+ + + + + | 06/18/ | Telephone | Neurosurgery at | Alek Elliott, | Pre-Op Question | | 2010 | | [facility] [address] | | | | | | [address] Mailcode: CH8N | | | | | | [facility] | | | | | | and [place], | | | | | | [facility] [address], | | | | | | [place], [place] | | | | | | [address] | | | | | | [phone] | | | +--------+ + + + [...]
--- OUTSIDE RECORDS SUMMARY | ~2019-06-25 | XMS | Encounter Summary ---
Demographics + + + | Address | [address] | | | [place] [address] | + + + | Home Phone | | + + + | Preferred Language | Unknown | + + + | Marital Status | Single | + + + | Samaritan Affiliation | CHR | + + + | Race | White | + + + | Ethnic Group | Not or | + + + Author + + + | Author | [facility] | + + + | Organization | [facility] | + + + | [...] Team Providers + +------+ + | Care Wrap Turner Name | Role | Phone | + +------+ + | Figueroa Mazariegos MD | PCP | | + +------+ + Encounter Details +--------+ + + + + | Date | Type | Department | Care Team | Description | +--------+ + + + + | 02/18/ | Abstract | Digestive Health | Clinic, | | | 2014 | | [facility] [address] | Gastroenterology | | | | | [address] | | | | | | Mailcode: OC8D | | | | | | [facility] | | | | | | and Healing, | | | | | | [address] | | | | | | [place], [place] | | | | | | [address] | | | | | | [phone] | | | +--------+ + + + [...]
--- OUTSIDE RECORDS SUMMARY | ~2019-06-25 | XMS | Encounter Summary ---
Demographics + + + | Address | [address] | | | [place] [address] | + + + | Home Phone | | + + + | Preferred Language | Unknown | + + + | Marital Status | Single | + + + | Pentecostal Affiliation | CHR | + + + | Race | White | + + + | Ethnic Group | Not or | + + + Author + + + | Author | [facility] | + + + | Organization | [facility] | + + + | Address [...] Team Providers + +------+ + | Care Health Center Manager Name | Role | Phone | + +------+ + | Giovanni Huffman MD | PCP | | + +------+ + Reason for Referral Diagnostic Testing (Routine) +--------+--------+ + + + + | Status | Reason | Specialty | Diagnoses / | Referred By | Referred To | | | | | Procedures | Contact | Contact | +--------+--------+ + + + + | Closed | | Radiology | Diagnoses | [place], Ashley | [facility] | | | | | Pituitary | [address] [place] [address] | | | | | adenoma | [address] | [address] | | | | | (HCC) | [address] | [address] | | | | | Procedures | Rd | Mailcode: | | | | | MR PITUITARY | [place], [place] | [address] | | | | | [address] | [address] | [place] | | | | | CONTRAST | Phone: | Research | | | | | | [phone] | [address] | | | | | | Fax: | [place], [place] | | | | | | [phone] | [address] | | | | | | | Phone: | | | | | | | [phone] | | | | | | | Fax: | | | | | | | [phone] | +--------+--------+ + + + + Reason for Visit Diagnostic Testing (Routine) +--------+--------+ + + + + | Status | Reason | Specialty | Diagnoses / | Referred By | Referred To | | | | | Procedures | Contact | Contact | +--------+--------+ + + + + | Closed | | Radiology | Diagnoses | Domi, Ashley | [facility] | | | | | Pituitary | [address] [place] [address] | | | | | adenoma | [facility] | [address] | | | | | ([facility]) | [address] | [address] | | | | | Procedures | Rd | Mailcode: | | | | | MR PIT[address] | [place], [place] | [address] | | | | | [address] | [address] | [place] | | | | | CONTRAST | Phone: | Research | | | | | | [phone] | [address] | | | | | | Fax: | [place], [place] | | | | | | [phone] | [address] | | | | | | | Phone: | | | | | | | [phone] | | | | | | | Fax: | | | | | | | [phone] | +--------+--------+ + + + + Encounter Details +--------+ + + + + | Date | Type | Department | Care Team | Description | +--------+ + + + + | 06/07/ | Hospital | Radiology/Imaging | | | | 2011 | Encounter | Lab at [facility] [address] | | | | | [address] Mailcode: | | | | | | [facility] [place] [facility] | | | | | | Health and Healing, | | | | | | Building [address] | | | | | | Floor [place], [place] | | | | | | [address] | | | | | | [phone] | | | +--------+ + + + [...] + + documented as of this encounter Medications at Time of Discharge + + + +---------+--------+ + | Medication | Sig | Dispensed | Refills | Start | End Date | | | | | | Date | | + + + +---------+--------+ + | BUPROPION HCL | Take 100 mg by mouth | | 0 | | | | (WELLBUTRIN ORAL) | once daily. | | | | | + + + +---------+--------+ + | carvedilol 6.25 mg | Take 6.25 mg by | | 0 | | | | Oral Tablet | mouth two times | | | | | | | daily. Administer | | | | | | | with food. | | | | | + + + +---------+--------+ + | FLUOXETINE HCL | Take 20 mg by mouth | | 0 | | | | (FLUOXETINE ORAL) | once daily. | | | | | + + + +---------+--------+ + | HYDROCODONE | Take 7.5 mg by mouth | | 0 | | | | BIT/ACETAMINOPHEN | as needed. | | | | | | (HYDROCODONE-ACETAMI | | | | | | | NOPHEN ORAL) | | | | | | + + + +---------+--------+ + | lisinopril 5 mg | Take 5 mg by mouth | | 0 | | | | Oral Tablet | once daily. | | | | | + + + +---------+--------+ + | omeprazole 20 mg | Take 20 mg by mouth | | 0 | | | | Oral Capsule, | once daily. | | | | | | Delayed | | | | | | | Release(E.C.) | | | | | | + + + +---------+--------+ + | sucralfate 1 gram | Take 1 g by mouth | | 0 | | | | Oral Tablet | four times daily. | | | | | + + + +---------+--------+ + documented as of this encounter Plan of Treatment Not on filedocumented as of this encounter Procedures + +--------+ + + + | Procedure Name | Priori | Date/Time | Associated Diagnosis | Comments | | | ty | | | | + +--------+ + + + | MRI PITUITARY W[facility] | Routin | 06/07/2012 | Pituitary adenoma | Results for this | | CONTRAST | e | 11:09 AM | (HCC) | procedure are in the | | | | PDT | | results section. | + +--------+ + + + | CREATININE, POC | Routin | 06/07/2012 | | Results for this | | | e | 10:30 AM | | procedure are in the | | | | PDT | | results section. | + +--------+ + + + documented in this encounter Results MR PITUITARY [facility] CONTRAST (06/07/2012 11:09 AM PDT) + + + + + + | Component | Value | Ref Range | Performed | Pathologist | | | | | At | Signature | + + + + + + | MR | MRI Pituitary WITH AND | | | | | PITUITARY | WITHOUT CONTRAST, | | | | | WWO | 06/07/12 11:09:00. | | | | | CONTRAST | INDICATION: Surveillance | | | | | | a cystic lesion status | | | | | | post biopsy.COMPARISON: | | | | | | MR of the brain from | | | | | | 09/25/11. TECHNIQUE: | | | | | | Multiplanar, | | | | | | multi-sequence MR | | | | | | imaging of the | | | | | | pituitarywas performed | | | | | | without and with | | | | | | Omniscan intravenous | | | | | | contrast. FINDINGS: | | | | | | Skull/Marrow/Soft | | | | | | tissues: Unremarkable | | | | | | Orbits/Optic nerves: | | | | | | Normal Sinuses: Clear | | | | | | Brain: No significant | | | | | | cerebral abnormality. | | | | | | Specifically, | | | | | | noevidence of | | | | | | hydrocephalus, neoplasm, | | | | | | infectious/inflammatory | | | | | | process,acute | | | | | | infarction, vascular | | | | | | lesion, or congenital | | | | | | abnormality. | | | | | | Enhancement: There is | | | | | | redemonstration of a | | | | | | 7-mm enhancing | | | | | | nodularfocus involving | | | | | | the superior aspect of | | | | | | the pituitary | | | | | | infundibulum,which is | | | | | | unchanged compared to | | | | | | the prior examination. | | | | | | The pituitarygland | | | | | | itself otherwise | | | | | | enhances normally | | | | | | without evidence | | | | | | ofhypoenhancing regions | | | | | | or masses. The | | | | | | pituitary stalk is | | | | | | slightlydeviated toward | | | | | | the right at its | | | | | | insertion, which is also | | | | | | unchanged. Additional | | | | | | Comments: None | | | | | | IMPRESSION:Unchanged | | | | | | appearance of enhancing | | | | | | nodule along the | | | | | | pituitaryinfundibulum as | | | | | | before. The pituitary | | | | | | gland itself has a | | | | | | normalappearance. | | | | | | Attending Radiologists: | | | | | | Sharif Shaw, | | | | | | M.D.Author: MIKI | | | | | | MD MARINA I have | | | | | | personally viewed this | | | | | | procedure/exam, reviewed | | | | | | this report,and made | | | | | | changes to it where | | | | | | appropriate. | | | | | | Final/Electronically | | | | | | signed / Sharif Shaw | | | | | | 06/07/2012 15:00 PM | | | | | | Pending final approval | | | | | | / MIKI GRAY | | | | | | 06/07/2012 14:56 PM | | | | | | Preliminary / MIKI | | | | | | MARINA 06/07/2012 12:08 | | | | | | PM | | | | + + + + + + + + | Specimen | + + | | + + + +---------+ + + | Performing | Address | City/State/Zipcode | Phone Number | | Organization | | | | + +---------+ + + | [facility] DEPARTMENT OF | | | | | RADIOLOGY | | | | + +---------+ + + ROUTINE CHEMISTRY TESTS (RADIOLOGY), POC (06/07/2012 10:30 AM PDT) + +-------+ + + + | Component | Value | Ref Range | Performed | Pathologist | | | | | At | Signature | + +-------+ + + + | CREATININE, | 1.0 | 0.7 - 1.3 mg/dL | [facility], | | | POC | | | POINT OF | | | | | | CARE TESTS | | + +-------+ + + + + + | Specimen | + + | | + + + + + + + | Performing | Address | City/State/Zipcode | Phone Number | | Organization | | | | + + + + + | [facility] | [address] | [place] [address] | | | OF CARE TESTS | | | | + + + + + documented in this encounter Visit Diagnoses + + | Diagnosis | + + | Pituitary adenoma (HCC) Benign neoplasm of pituitary gland and craniopharyngeal duct | | (pouch) | + + documented in this encounter"
--- OUTSIDE RECORDS SUMMARY | ~2019-06-25 | XMS | Encounter Summary ---
Demographics + + + | Address | [address] | | | [place] [address] | + + + | Home Phone [...] + + + | Author | [facility] | + + + | Organization | [facility] | + + + | Address | [...] Team Providers + +------+ + | Care Grinder Chipper Name | Role | Phone | + +------+ + | Giovanni Huffman MD | PCP | | + +------+ + Reason for Visit + + + | Reason | Comments | + + + | Follow-up in | | | outpatient clinic | | + + + Office Visit - E/M Services (Routine) +--------+--------+ + + + + | Status | Reason | Specialty | Diagnoses / | Referred By | Referred To | | | | | Procedures | Contact | Contact | +--------+--------+ + + + + | Closed | | Neurological | Diagnoses | Non-[facility] | [place], | | | | Surgery | Unspecified | Epic Dept | Caitlyn, | | | | | disorder of | | DNP,[employer] | | | | | the | | [address] | | | | | pituitary | | Ave | | | | | gland and | | [place], [place] | | | | | its | | [address] | | | | | hypothalamic | | Phone: | | | | | control | | [phone] | | | | | [facility] | | Fax: | | | | | [facility] ID# | | [phone] | | | | | [id number] | | | | | | | Procedures | | | | | | | CONSULT TO | | | | | | | PITUITARY | | | +--------+--------+ + + + + Encounter Details +--------+---------+ + + + | Date | Type | Department | Care Team | Description | +--------+---------+ + + + | 06/07/ | Office | Neurosurgery at | [place], | Unspecified disorder | | 2011 | Visit | [facility] [address] | Caitlyn, | of the pituitary | | | | Jen Mailcode: [id number] | DNP,[employer],[place] [address] | gland and its | | | [facility] | Anatoliy Li [place], | hypothalamic | | | | and Healing, | [place] [address] | control; Pituitary | | | | Building [address] | [phone] | adenoma (HCC) | | | | [place], [place] | | | | | | [address] | | | | | | [phone] | | | +--------+---------+ + + + [...] + documented in this encounter Progress Notes Caitlyn Mccormack, DNP,[employer],[place] - 06/07/2012 12:00 PM PDTFormatting of this note might be di fferent from the original. Reason for visit: review of symptoms and followup 6 weeks s/p resection of a microadenoma. History of Present Illness: Mr. Pierre is a 31 year-old man with a 2 month history of progressively worse headache, sen sation of smelling something burning, and pain in the back of his neck. MRI in ED showed ev idence of 8 mm microadenoma. He also reported fluctuating weight between 190-305 lbs, severe fatigue, nausea, swelling in his ankles and fingers and development of reddish stretch osiel s on his stomach, back of his knees and under his arms, facial rounding and increased thirs t. In 10/03 diagnosed with atrial fibrillation and is tx with Atenolol. He underwent transsp henoidal resection by Dr Elliott 07/01/2011 At this visit: Symptoms and Complaints: Hair Loss (on head): Same (06/07/121130) Facial Hair (women-increase; men-decrease): Same (06/07/121130) Headache: Worse (06/07/121130) Increase in space between teeth: Same (06/07/121130) Nasal dripping or salty taste in mouth: Same (06/07/121130) Facial rounding: Same (06/07/121130) Facial redness: Same (06/07/121130) Acne: Same (06/07/121130) Hump on back of neck: Same (06/07/121130) Fat filling around collar bones: Same (06/07/121130) Blurry Vision, intermittent: Same (06/07/121130) Constipation: Same (06/07/121130) Diarrhea: Same (06/07/121130) Breast tenderness (men): Same (06/07/121130) Breast enlargement (men): Same (06/07/121130) Belly discomfort: Worse (06/07/121130) Nausea: Worse (06/07/121130) Dry skin: Worse (06/07/121130) Weakness: Same (06/07/121130) Swelling / edema : Same (06/07/121130) Brittle fingernails: Same (06/07/121130) Joint aches: Same (06/07/121130) Tremor: Same (06/07/121130) Cramping: Same (06/07/121130) Increase in size of hands: Same (06/07/121130) Increase in size of feet: Same (06/07/121130) Hand / finger numbness (carpal tunnel syndrome): Same (06/07/121130) Memory problems: Worse (06/07/121130) Poor concentration: Worse (06/07/12 113) Sleep disturbances: Worse (06/07/121130) Fatigue: Worse (06/07/121130) Anxiety: Worse (06/07/121130) Depression: Worse (06/07/121130) Emotional ups and downs: Worse (06/07/121130) Feelings of social isolation: Worse (06/07/12 113) Dizziness with standing: Worse (06/07/121130) Headaches continuous Eczema on hands. of GI cancer 6 months ago. He is raising 4 children. Has constant nasal discomfort no sig infections. Did have a wisdom tooth removed recently. Some blurry vision. No diplopia or no peripheral vision changes Some nausea and dizziness with exertion Poor memory Generalized body aching with paresthesias in arms and legs Does have AFib but is controlled Persistent Fatigue Has some polydipsia , drinks all day long with Nocturia 2-3 time. Smokes marijuana at night to sleep Pain management by PCP Persistent night sweats and general temperature dysregulation No breast discomfort or discharge Ingrown hairs on legs. Exact date of onset of symptoms is unknown Review of systems negative other than as stated above. Physical Exam: Blood pressure 129/86, pulse 64, temperature 36.6 C (97.8 F), temperature source Forehe ad, weight 117.663 kg (259 lb 6.4 oz). General: A pleasant man who looks stated age in no acute distress, well nourished, and well developed. HEENT: Normocephalic and atraumatic. Pupils are equally responsive and reactive to light. Extraocular movements are intact. Visual spaulding are normal to confrontation as are the remai nder of cranial nerves. No acne, facial plethora, no facial rounding, frontal bossing, prot ruding jaw, or gaps between the teeth. Neck: Without dorsocervical hump or supraclavicular fat pad filling. No lymphadenopathy or jugular vein distention. Thyroid is normal in size and texture without bruits. Heart: Regular rate and rhythm. No murmurs, rubs, or gallops. Lungs: Clear to auscultation. No rhonchi, rales, [...] FSH, Testosterone, Prolactin, serum and urine osmolality pe nding SURGICAL PATHOLOGY (no units) Date Value Range [...] Madhav Boyer M.D., PhD. / Neuropathologist ; gdw Amendment seen by: Madhav Boyer M.D., PhD. [...] lesion." Received are multiple irregular, soft, gelatinous, ecy-ey-bcqgfoa hemorrhagic purple tissues measuring 0.8 x 0.8 [...] developed and its performance characteristics determined by [facility] laboratories. It has not been cleared or approved by the U.S. Food and Drug Administration.) My electronic signature indicates that I have personally reviewed all diagnostic slides, the gross and/or microscopic portion of this report and formulated the final diagnosis. Rendering Diagnostician: Madhav Boyer M.D., Ph.D. Pathologist Electronically Signed 07/06/2011 8:00PM Assessment and discussion Pt complains of constant headache. He has no further sinus infections. No symptoms suggest majo of ADY. No VF changes or deficits. Pt has not had follow up since immediately post oper atively. He has no clear symptoms of pituitary endocrinopathies. We reviewed MRI with pers istent but stable nodule along the pituitary Infundibulum. Radiology read pending. Recommen d follow up in 1-2 years. Recommend he follow up with local secondary education professor for VF exam in a bout 9 months. He denies symptoms of DI currently. Pt is asking for medication for headache. He is refe rred to PCP for management of narcotics. I answered pt questions to his satisfaction Plan: 1. Pituitary functions. 1.1. Adrenal. The patient has a history of adrenal insufficiency but discontinued treatment and was lost to follow up x 22 mths. CATEGORY DIRECTOR pending but no hydrocortisone is anticipated to b e indicated. 1.2. Thyroid. The patient has been euthyroid. Free T 4 is pending, however No thyroid repla cement is anticipated to be indicated. 1.3. Gonadal. Testosterone level pending. Will start replacement if low. Pt will f.up with PCP re rectal exam and PSA prior to starting tx. 1.4. Growth hormone. IGF-1 level is pending. No GH is indicated. 1.5. Prolactin. Level pending, however no dopamine agonist therapy is anticipated to be ind icated. 1.6. Vasopressin. No evidence of polyuria, polydipsia, or signs and symptoms of diabetes i nsipidus. No DDAVP indicated. 2. Followup.is scheduled for 12-18 months with MRI, CATEGORY DIRECTOR. RM or as per current labs. Uri Pierre, [id number] Reason for visit: Chief Complaint Patient presents with Follow-up in outpatient clinic Uri Pierre is a 31 y.o. male, who presented to Pituitary clinic on 06/07/2012 for a consultation and low dose cortrosyn stimulation test. 253.9 Unspecified disorder of the pituitary gland and its hypothalamic control 227.3P Pituitary adenoma. Procedure note: ( In addition to my [...] or effects. We discussed diagnosis, treatment, imaging and follow up. I spent 40 minutes inbi-gm-eekc time with this patient independent of the time spent in testing, of which over 50% was spen t in medically indicated counseling and education pertaining to the issues discussed above CAITLYN MCCORMACK DNP, [employer], [place] Lab Tech [facility] [place] [address] [facility] [place] [address] ACTH,PLASMA (pg/mL) Date Value 06/07/2012 16 03/18/2012 Not Recd 09/25/2011 8 CORTISOL, TOTAL SERUM (ug/dl) Date Value 06/07/2012 25.1 06/07/2012 14.4 03/18/2012 Not Recd PROLACTIN (ng/ml) Date Value 06/07/2012 7 03/18/2012 Not Recd 09/25/2011 8 FREE T4, SERUM (ng/dL) Date Value 06/07/2012 0.9 03/18/2012 Not Recd 09/25/2011 0.7 IGF-1 (ng/mL) Date Value 03/18/2012 Not Recd 09/25/2011 201 08/03/2011 189 IGF-1, SERUM SENDOUT (ng/mL) Date Value 06/12/2011 154 LUTEINIZING HORMONE,SERUM (mIU/mL) Date Value 09/25/2011 3 06/12/2011 5 TSH (uIU/ml) Date Value 06/07/2012 0.46 03/18/2012 Not Recd 09/25/2011 1.37 FSH,SERUM (mIU/mL) Date Value 09/25/2011 5 06/12/2011 6 GROWTH HORMONE (ng/mL) Date Value 06/12/2011 0.1 SODIUM, PLASMA (LAB) (mmol/L) Date Value 06/07/2012 139 SODIUM,WHOLE BLOOD (mmol/L) Date Value 07/02/2011 Discharged POTASSIUM, PLASMA (LAB) (mmol/L) Date Value 06/07/2012 4.0 CHLORIDE, PLASMA (LAB) (mmol/L) Date Value 06/07/2012 107 TOTAL CO2, PLASMA (LAB) (mmol/L) Date Value 06/07/2012 25 BUN, PLASMA (LAB) (mg/dL) Date Value 06/07/2012 13 CREATININE PLASMA (LAB) (mg/dL) Date Value 06/07/2012 0.82 CREATININE, POC (mg/dL) Date Value 06/07/2012 1.0 GLUCOSE, PLASMA (LAB) (mg/dL) Date Value 06/07/2012 87 CALCIUM, PLASMA (LAB) (mg/dL) Date Value 06/07/2012 9.0 MR PITUITARY WWO CONTRAST (no units) Date Value Range Status 06/07/2012 Final Value: MRI Pituitary WITH AND WITHOUT CONTRAST, 06/07/12 11:09:00. INDICATION: Surveillance a cystic lesion status post biopsy. COMPARISON: MR of the brain from 09/25/11. TECHNIQUE: Multiplanar, multi-sequence MR imaging of the pituitary was performed without and with Omniscan intravenous contrast. FINDINGS: Skull/Marrow/Soft tissues: Unremarkable Orbits/Optic nerves: Normal Sinuses: Clear Brain: No significant cerebral abnormality. Specifically, no evidence of hydrocephalus, neoplasm, infectious/inflammatory process, acute infarction, vascular lesion, or congenital abnormality. Enhancement: There is redemonstration of a 7-mm enhancing nodular focus involving the superior aspect of the pituitary infundibulum, which is unchanged compared to the prior examination. The pituitary gland itself otherwise enhances normally without evidence of hypoenhancing regions or masses. The pituitary stalk is slightly deviated toward the right at its insertion, which is also unchanged. Additional Comments: None IMPRESSION: Unchanged appearance of enhancing nodule along the pituitary infundibulum as before. The pituitary gland itself has a normal appearance. Attending Radiologists: Sharif Shaw M.D. Author: MIKI GRAY MD I have personally viewed this procedure/exam, reviewed this report, and made changes to it where appropriate. Final/Electronically signed / Sharif Shaw 06/07/2012 15:00 PM Pending final approval / MIKI GRAY 06/07/2012 14:56 PM Preliminary / MIKI GRAY 06/07/2012 12:08 PM Plan. 1. Pituitary functions normal follow up in 2 years 2. Follow up with PCP MRI in 2 years. Recommend yearly Visual field exam. Electronically si gned by Caitlyn Mccormack, AB[place]HAM,[employer],[place] at 06/13/2012 1:06 PM PDTdocumented in this encounter Plan of Treatment Not on filedocumented as of this encounter Procedures + +--------+ + + + | Procedure Name | Priori | Date/Time | Associated Diagnosis | Comments | | | ty | | | | + +--------+ + + + | LAB REPORTS | | 10/12/2014 | | Results for this | | | | 12:00 AM | | procedure are in the | | | | PST | | results section. | + +--------+ + + + | CORTISOL, SERUM | Routin | 06/07/2012 | Unspecified | Results for this | | | e | 12:15 PM | disorder of the | procedure are in the | | | | PDT | pituitary gland and | results section. | | | | | its hypothalamic | | | | | | control Pituitary | | | | | | adenoma (HCC) | | + +--------+ + + + | ACTH, PLASMA | Routin | 06/07/2012 | Unspecified | Results for this | | | e | 11:45 AM | disorder of the | procedure are in the | | | | PDT | pituitary gland and | results section. | | | | | its hypothalamic | | | | | | control Pituitary | | | | | | adenoma (HCC) | | + +--------+ + + + | BASIC METABOLIC SET | Routin | 06/07/2012 | Unspecified | Results for this | | (NA, K, CL, TCO2, | e | 11:45 AM | disorder of the | procedure are in the | | BUN, CR, GLU, CA) | | PDT | pituitary gland and | results section. | | | | | its hypothalamic | | | | | | control Pituitary | | | | | | adenoma (HCC) | | + +--------+ + + + | INSULIN GROWTH | Routin | 06/07/2012 | Unspecified | Results for this | | FACTOR-1, SERUM | e | 11:45 AM | disorder of the | procedure are in the | | | | PDT | pituitary gland and | results section. | | | | | its hypothalamic | | | | | | control Pituitary | | | | | | adenoma (HCC) | | + +--------+ + + + | FREE T4 | Routin | 06/07/2012 | Unspecified | Results for this | | | e | 11:45 AM | disorder of the | procedure are in the | | | | PDT | pituitary gland and | results section. | | | | | its hypothalamic | | | | | | control Pituitary | | | | | | adenoma (HCC) | | + +--------+ + + + | PROLACTIN | Routin | 06/07/2012 | Unspecified | Results for this | | | e | 11:45 AM | disorder of the | procedure are in the | | | | PDT | pituitary gland and | results section. | | | | | its hypothalamic | | | | | | control Pituitary | | | | | | adenoma (HCC) | | + +--------+ + + + | TSH | Routin | 06/07/2012 | Unspecified | Results for this | | | e | 11:45 AM | disorder of the | procedure are in the | | | | PDT | pituitary gland and | results section. | | | | | its hypothalamic | | | | | | control Pituitary | | | | | | adenoma (HCC) | | + +--------+ + + + | TESTOSTERONE, SERUM | Routin | 06/07/2012 | Unspecified | Results for this | | | e | 11:45 AM | disorder of the | procedure are in the | | | | PDT | pituitary gland and | results section. | | | | | its hypothalamic | | | | | | control Pituitary | | | | | | adenoma (HCC) | | + +--------+ + + + | CORTISOL, SERUM | Routin | 06/07/2012 | Unspecified | Results for this | | | e | 11:45 AM | disorder of the | procedure are in the | | | | PDT | pituitary gland and | results section. | | | | | its hypothalamic | | | | | | control Pituitary | | | | | | adenoma (HCC) | | + +--------+ + + + documented in this encounter Results LAB REPORTS (10/12/2014 12:00 AM PST) + + + | Narrative | Performed At | + + + | | | | | | + + + + + | Procedure Note | + + | Other, Faculty - 10/26/2014 9:48 AM PST | + + CORTISOL, SERUM (06/07/2012 12:15 PM PDT) + + + + + + | Component | Value | Ref Range | Performed | Pathologist | | | | | At | Signature | + + + + + + | CORTISOL, | 25.1 | ug/dl | [facility] | | | TOTAL SERUM | | | [facility] | | | | | | LAB[facility]AT[facility] | | + + + + + + | TIME | +30 MIN | Hrs:mins | [facility] | | | | | | [facility] | | | | | | [facility] | | + + + + + + | SITE | None Given | | [facility] | | | | | | [facility] | | | | | | [facility] | | + + + + + + + + | Specimen | + + | Blood - Blood | + + + + + + + | Performing | Address | City/State/Zipcode | Phone Number | | Organization | | | | + + + + + | [facility] | [address] | [place] [address] | | | LABORATORY | | | | + + + + + PROLACTIN, SERUM (06/07/2012 11:45 AM PDT) + +-------+ + + + | Component | Value | Ref Range | Performed | Pathologist | | | | | At | Signature | + +-------+ + + + | PROLACTIN | 7 | 3 - 13 ng/ml | [facility] | | | | | | [facility] | | | | | | LAB[facility] | | + +-------+ + + + + + | Specimen | + + | Blood - Blood | + + + + + + + | Performing | Address | City/State/Zipcode | Phone Number | | Organization | | | | + + + + + | [facility] | [address] | [place] [address] | | | LABORATORY | | | | + + + + + TESTOSTERONE, SERUM (06/07/2012 11:45 AM PDT) + +-------+ + + + | Component | Value | Ref Range | Performed | Pathologist | | | | | At | Signature | + +-------+ + + + | TESTOSTERON | 322 | 175 - 781 ng/dl | [facility] | | | E, SERUM | | [...] | + + + + + | [facility] | [address] | [place] [address] | | | LABORATORY | | | | + + + + + TSH (06/07/2012 11:45 AM PDT) + +-------+ + + + | Component | Value | Ref Range | Performed | Pathologist | | | | | At | Signature | + +-------+ + + + | TSH | 0.46 | 0.34 - 5.60 | [facility] | | | | | uIU/ml | [facility] | | | | | | LABORATORY | | + +-------+ + + + + + | Specimen | + + | Blood - Blood | + + + + + + + | Performing | Address | City/State/Zipcode | Phone Number | | Organization | | | | + + + + + | [facility] | [address] | [place] [address] | | | LABORATORY | | | | + + + + + INSULIN GROWTH FACTOR-1, SERUM (06/07/2012 11:45 AM PDT) + +-------+ + + + | Component | Value | Ref Range | Performed | Pathologist | | | | | At | Signature | + +-------+ + + + | IGF-1 | 168 | 115 - 307 ng/mL | [facility] | | | | | | [facility] | | | | | | LAB[facility]ORY | | + +-------+ + + + + + | Specimen | + + | Blood - Blood | + + + + + + + | Performing | Address | City/State/Zipcode | Phone Number | | Organization | | | | + + + + + | [facility] | [address] | [place] [address] | | | LABORATORY | | | | + + + + + FREE T4, SERUM (06/07/2012 11:45 AM PDT) + +-------+ + + + | Component | Value | Ref Range | Performed | Pathologist | | | | | At | Signature | + +-------+ + + + | FREE T4, | 0.9 | 0.6 - 1.2 ng/dL | [facility] | | | SERUM | | | [facility] | | | | | | LABORATORY | | + +-------+ + + + + + | Specimen | + + | Blood - Blood | + + + + + + + | Performing | Address | City/State/Zipcode | Phone Number | | Organization | | | | + + + + + | [facility] | [address] | [place] [address] | | | LABORATORY | | | | + + + + + BASIC METABOLIC SET (NA, K, CL, TCO2, BUN, CR, GLU, CA) (06/07/2012 11:45 AM PDT) + + + + + + | Component | Value | Ref Range | Performed | Pathologist | | | | | At | Signature | + + + + + + | GLUCOSE, | 87 | 60 - 99 mg/dL | [facility] | | | PLASMA | | | DEPARTMENT | | | (LAB) | | | OF | | | | | | PATHOLOGY | | + + + + + + | BUN, PLASMA | 13 | 6 - 20 mg/dL | [facility] | | | (LAB) | | | DEPARTMENT | | | | | | OF | | | | | | PATHOLOGY | | + + + + + + | CREATININE | 0.82 | 0.70 - 1.30 | [facility] | | | PLASMA | | mg/dL | DEPARTMENT | | | (LAB) | | | OF | | | | | | PATHOLOGY | | + + + + + + | SODIUM, | 139 | 136 - 145 | [facility] | | | PLASMA | | mmol/L | DEPARTMENT | | | (LAB) | | | OF | | | | | | PATHOLOGY | | + + + + + + | POTASSIUM, | 4.0 | 3.4 - 5.0 | [facility] | | | PLASMA | | mmol/L | DEPARTMENT | | | (LAB) | | | OF | | | | | | PATHOLOGY | | + + + + + + | CHLORIDE, | 107 | 97 - 108 mmol/L | [facility] | | | PLASMA | | | DEPARTMENT | | | (LAB) | | | OF | | | | | | PATHOLOGY | | + + + + + + | TOTAL CO2, | 25 | 21 - 32 mmol/L | [facility] | | | PLASMA [...] | | | DEPARTMENT | | | [facility] | | | OF | | | [...] + + + | ANION GAP | 7 | 4 - 11 mmol/L | [facility] | | | | | | DEPARTMENT | | | | | | OF | | | | | | PATHOLOGY | | + + + + + + + + | Specimen | + + | Blood - Blood | + + + + + | Narrative | Performed At | + + + | New reference ranges for ALT, Amylase, Total CO2, GGT, Lipase and | [facility] | | Sodium effective 04/05/12 | DEPARTMENT OF | | | PATHOLOGY | + + + + + + + + | Performing | Address | City/State/Zipcode | Phone Number | | Organization | | | | + + + + + | [facility] | [address] | [place] [address] | | | PATHOLOGY | [address] | | | + + + + + CORTISOL, SERUM (06/07/2012 11:45 AM PDT) + + + + + + | Component | Value | Ref Range | Performed | Pathologist | | | | | At | Signature | + + + + + + | CORTISOL, | 14.4 | ug/dl | [facility] | | | TOTAL SERUM | | | [facility] | | | | | | LAB[facility]ATORY | | + + + + + + | TIME | BASELINE | Hrs:mins | [facility] | | | | | | [facility] | | | | | | LAB[facility]ATORY | | + + + + + + | SITE | None Given | | [facility] | | | | | | [facility] | | | | | | LAB[facility]ORY | | + + + + + + + + | Specimen | + + | Blood - Blood | + + + + + + + | Performing | Address | City/State/Zipcode | Phone Number | | Organization | | | | + + + + + | [facility] | [address] | [place] [address] | | | LABORATORY | | | | + + + + + ACTH, PLASMA (06/07/2012 11:45 AM PDT) + + + + + + | Component | Value | Ref Range | Performed | Pathologist | | | | | At | Signature | + + + + + + | ACTH,PLASMA | 16 | <46 pg/mL | [facility] | | | | | | [facility] | | | | | | LAB[facility]ATORY | | + + + + + + | TIME | BASELINE | Hrs:mins | [facility] | | | | | | [facility] | | | | | | LAB[facility]ATORY | | + + + + + + | SITE | None Given | | [facility] | | | | | | [facility] | | | | | | LAB[facility]ORY | | + + + + + + + + | Specimen | + + | Blood - Blood | + + + + + + + | Performing | Address | City/State/Zipcode | Phone Number | | Organization | | | | + + + + + | [facility] | [address] | [place] [address] | | | LABORATORY | | | | + + + + + documented in this encounter Visit Diagnoses + + | Diagnosis | + + | Unspecified disorder of the pituitary gland and its hypothalamic control | + + | Pituitary adenoma (HCC) Benign neoplasm of pituitary gland and craniopharyngeal duct | | (pouch) | + + documented in this encounter
--- OUTSIDE RECORDS SUMMARY | ~2019-06-25 | XMS | Encounter Summary ---
Demographics + + + | Address | [address] | | | [place] [address] | + + + | Home Phone | | + + + | Preferred Language | Unknown | + + + | Marital Status | Single | + + + | Lutheran Affiliation | CHR | + + + | Race | White | + + + | Ethnic Group | Not or | + + + Author + + + | Author | [facility] | + + + | Organization | [facility] | + + + | [...] Team Providers + +------+ + | Care Knockout Worker Name | Role | Phone | + [...] Closed | | Radiology | Diagnoses | Beverly, Ashley | [facility] | | | | | Unspecified | [address] [place] [address] | | | | | disorder of | [address] | [address] | | | | | the | [address] | Rd | | | | | pituitary | Rd | Mailcode: | | | | | gland and | [place], [place] | [address] | | | | | its | [address] | [place] | | | | | hypothalamic | Phone: | Research | | | | | control | [phone] | Center | | | | | Procedures | Fax: | [place], [place] | | | | | MR PITUITARY | [phone] | [address] | | | | | [facility] | | Phone: | | | | | CONTRAST | | [phone] | | | | | | | Fax: | | | | | | | [phone] | +--------+--------+ + + + + Reason for Visit Diagnostic Testing (Routine) +--------+--------+ + + + + | Status | Reason | Specialty | Diagnoses / | Referred By | Referred To | | | | | Procedures | Contact | Contact | +--------+--------+ + + + + | Closed | | Radiology | Diagnoses | Beverly, Ashley | Rad [facility] | | | | | Unspecified | [address], [place] [address] | [address] | | | | | disorder of | [facility] | [address] | | | | | the | [address] | Rd | | | | | pituitary | Rd | Mailcode: | | | | | gland and | [place], [place] | [address] | | | | | its | [address] | [place] | | | | | hypothalamic | Phone: | Research | | | | | control | [phone] | Center | | | | | Procedures | Fax: | [place], [place] | | | | | MR PITUITARY | [phone] | [address] | | | | | [facility] | | Phone: | | | | | CONTRAST | | [phone] | | | | | | | Fax: | | | | | | | [phone] | +--------+--------+ + + + + Encounter Details +--------+ + + + + | Date | Type | Department | Care Team | Description | +--------+ + + + + | 09/25/ | Hospital | Radiology/Imaging | | | | 2011 | Encounter | Lab at [facility] [address] | | | | | | [address] Mailcode: | | | | | | [facility] [place] [facility] | | [facility], | | | | | | Building [address], [facility] | | | | | | Floor [place], [place] | | | | | | [address] | | | | | | [phone] | | | +--------+ + + + [...] | MRI PITUITARY [facility] | Routin | 09/25/2011 | Unspecified | Results for this | | CONTRAST | e | 11:00 AM | disorder of the | procedure are in the | | | | PST | pituitary gland and | results section. | | | | | its hypothalamic | | | | | | control | | + +--------+ + + + | CREATININE, POC | Routin | 09/25/2011 | Unspecified | Results for this | | | e | 10:25 AM | disorder of the | procedure are in the | | | | PST | pituitary gland and | results section. | | | | | its hypothalamic | | | | | | control | | + +--------+ + + + documented in this encounter Results MR PITUITARY [facility] CONTRAST (09/25/2011 11:00 AM PST) + + + + + + | Component | Value | Ref Range | Performed | Pathologist | | | | | At | Signature | + + + + + + | MR | Pituitary MRI with | | | | | PITUITARY | gadolinium 09/25/2011 | | | | | [facility] | Clinical History: | | | | | CONTRAST | Pituitary gland | | | | | | abnormality and history | | | | | | oftransphenoidal | | | | | | surgery. Technique: | | | | | | Dedicated thin section | | | | | | imaging was obtained | | | | | | through thepituitary | | | | | | gland using: coronal T1 | | | | | | and T2, dynamic contrast | | | | | | enhancedT1, and delayed | | | | | | post gadolinium coronal | | | | | | and sagittal | | | | | | T1-weightedimages. | | | | | | Limited axial DWI | | | | | | images were additionally | | | | | | obtained throughthe | | | | | | entire brain. Findings: | | | | | | Comparison is made to | | | | | | prior outside MRI dated | | | | | | 04/17/2011.By report | | | | | | there has been anterior | | | | | | pituitary biopsy however | | | | | | this wouldnot reflect | | | | | | histology of the | | | | | | infundibular mass if not | | | | | | separatelybiopsied. | | | | | | This location is | | | | | | extremely unusual for | | | | | | pituitary adenomasand | | | | | | considerations in this | | | | | | location would include | | | | | | neoplasms thatinclude | | | | | | inflammatory and | | | | | | infectious | | | | | | considerations such | | | | | | asinfundibular or a | | | | | | hypophysitis, sarcoid, | | | | | | Langerhans | | | | | | cellhistiocytosis, or | | | | | | granulomatous disorders. | | | | | | Neoplastic | | | | | | considerationsinclude | | | | | | primary pituitary | | | | | | neoplasms (pituicytoma), | | | | | | glial tumors | | | | | | andleukemia/lymphoma | | | | | | (more typically a | | | | | | secondary disseminated | | | | | | process inthis | | | | | | location), and | | | | | | metastatic disease. | | | | | | There is | | | | | | redemonstration | | | | | | ofmasslike enlargement | | | | | | of the superior aspect | | | | | | of the | | | | | | pituitaryinfundibulum | | | | | | which measures about 7 | | | | | | mm in thickness, | | | | | | unchanged fromprevious | | | | | | outside study. The | | | | | | remainder of the | | | | | | pituitary glands | | | | | | isrelatively normal in | | | | | | size and signal | | | | | | intensity. There is | | | | | | noinvolvement of the | | | | | | cavernous sinuses. | | | | | | Mild mucosal | | | | | | thickening ispresent in | | | | | | the sphenoid sinus; this | | | | | | may also represent post | | | | | | operativechange if | | | | | | there is such history. | | | | | | Diffusion weighted | | | | | | images of thebrain are | | | | | | within normal limits. | | | | | | The visible brain | | | | | | shows normalsignal | | | | | | intensity elsewhere with | | | | | | normal appearance of | | | | | | the | | | | | | visualizedventricular | | | | | | system and no midline | | | | | | shift. No other | | | | | | abnormal areas | | | | | | ofenhancement are | | | | | | demonstrated. The mass | | | | | | contacts but does | | | | | | notsignificantly | | | | | | displace the optic | | | | | | chiasm. Impression: | | | | | | Redemonstration of a | | | | | | 7-mm diameter enhancing | | | | | | massinvolving the upper | | | | | | pituitary infundibulum. | | | | | | This location is | | | | | | notcharacteristic for | | | | | | pituitary adenoma and | | | | | | considerations here | | | | | | wouldinclude both | | | | | | inflammatory and | | | | | | neoplastic (primary or | | | | | | secondary)infundibular | | | | | | etiologies, including | | | | | | infundibuloneurohypophys | | | | | | itis, asfurther | | | | | | described above. | | | | | | Attending Radiologists: | | | | | | Fauzia Gramajo, | | | | | | RatnaAuthor: Fauzia Villarreal | | | | | | Ratna Gramajo I have | | | | | | personally viewed this | | | | | | procedure/exam, reviewed | | | | | | this report,and made | | | | | | changes to it where | | | | | | appropriate. | | | | | | Final/Electronically | | | | | | signed / Fauzia Villarreal | | | | | | [place] 09/25/201115:42 | | | | | | PM | | | | + + + + + + + + | Specimen | + + | | + + + +---------+ + + | Performing | Address | City/State/Zipcode | Phone Number | | Organization | | | | + +---------+ + + | [facility] DEPARTMENT OF | | | | | RADIOLOGY | | | | + +---------+ + + ROUTINE CHEMISTRY TESTS (RADIOLOGY), POC (09/25/2011 10:25 AM PST) + +-------+ + + + | Component | Value | Ref Range | Performed | Pathologist | | | | | At | Signature | + +-------+ + + + | CREATININE, | 1.0 | 0.7 - 1.3 mg/dL | [facility], | | | POC | | | POINT OF | | | | | | CARE TESTS | | + +-------+ + + + + + | Specimen | + + | | + + + + + + + | Performing | Address | City/State/Zipcode | Phone Number | | Organization | | | | + + + + + | [facility] | [address] | [place] [address] | | | OF CARE TESTS | | | | + + + + + documented in this encounter Visit Diagnoses + + | Diagnosis | + + | 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
--- OUTSIDE RECORDS SUMMARY | ~2019-06-25 | XMS | Clinical Summary ---
Demographics + + + | Address | [address] | | | [place] [address] | + + + | Home Phone | | + + + | Preferred Language | Unknown | + + + | Marital Status | Single | + + + | Jehovah'S Witness Affiliation | Unknown | + + + | Race | Unknown | + + + | Ethnic Group | Unknown | + + + Author + + + | Author | [facility] (Historical as of | | | 04-08-19) | + + + | Organization | [facility] (Historical as of | | | 04-08-19) | + + + | Address | [...] | | + + +---------+ + | Brian Anderson | ECON | Unknown | | + + +---------+ + Care Team Providers + +------+ + | Care Hydraulic Operator Name | Role | Phone | + +------+ + | Celio Ba | PP | | + +------+ + Allergies + + + + + + | Active Allergy | Reactions | Severity | Noted | Comments | | | | | Date | | + + + + + + | Duloxetine | Other (See Comments) | Medium | 03/07/20 | Increased | | | | | 18 | agitation , anger | + + + + + + | Diltiazem | Diarrhea | Low | 03/02/20 | | | | | | 16 | | + + + + + + | Penicillins | Anaphylaxis | High | 03/02/20 | | | | | | 16 | | + + + + + + Current Medications + + +-------+---------+------+------+-------+ | Prescription | Sig. | Disp. | Refills | Star | End | Statu | | | | | | t | Date | s | | | | | | Date | | | + + +-------+---------+------+------+-------+ | nortriptyline | Take 50 mg by mouth | | 0 | 06/1 | | Activ | | (PAMELOR) 25 MG | nightly. | | | 2/20 | | e | | capsule | | | | 18 | | | + + +-------+---------+------+------+-------+ | omeprazole | Take 20 mg by mouth | | 0 | 07/1 | | Activ | | (PRILOSEC) 20 MG | daily. | | | 4/20 | | e | | capsule | | | | 18 | | | + + +-------+---------+------+------+-------+ | SPIRIVA HANDIHALER | Inhale 18 mcg into | | 0 | 07/1 | | Activ | | 18 MCG inhalation | the lungs daily. | | | 4/20 | | e | | capsule | | | | 18 | | | + + +-------+---------+------+------+-------+ | carvedilol (COREG) | Take 25 mg by mouth | | | | | Activ | | 25 MG tablet | 2 (two) times daily | | | | | e | | | with meals. | | | | | | + + +-------+---------+------+------+-------+ | albuterol | Inhale 2 puffs into | | | | | Activ | | (PROVENTIL | the lungs every 4 | | | | | e | | HFA;VENTOLIN HFA) | (four) hours as | | | | | | | 108 (90 Base) | needed for Wheezing. | | | | | | | MCG/ACT inhaler | | | | | | | + + +-------+---------+------+------+-------+ | meloxicam (MOBIC) | Take 7.5 mg by mouth | | 0 | 08/0 | | Activ | | 7.5 MG tablet | daily. | | | 6/20 | | e | | | | | | 18 | | | + + +-------+---------+------+------+-------+ | | Take 3 tablets by | | | | | Activ | | Glecaprevir-Pibrenta | mouth daily. | | | | | e | | svir 100-40 MG TABS | | | | | | | + + +-------+---------+------+------+-------+ | aspirin 325 MG EC | Take 325 mg by mouth | | | | | Activ | | tablet | daily with | | | | | e | | | breakfast. | | | | | | + + +-------+---------+------+------+-------+ Active Problems + + + | Problem | Noted Date | + + + | Essential hypertension | 01/30/2019 | + + + | Dyslipidemia | 11/09/2018 | + + + | Elevated liver enzymes | 11/09/2018 | + + + | Alcoholic cardiomyopathy (HCC) | 09/29/2018 | + + + | Family history of heart disease in male family member before age | 09/29/2018 | | 55 | | + + + | Atrial flutter (HCC) | 03/07/2018 | + + + | Paroxysmal atrial fibrillation (HCC) | 06/16/2016 | + + + | History of drug abuse | 06/16/2016 | + + + | Hepatitis C virus carrier state (HCC) | 06/16/2016 | + + + | Dyspnea on exertion | 03/10/2016 | + + + + + | Last Assessment & Plan: 35 yr old male with h/o HTN, hepc , | | depression, current smoker with strong fhx of CAD come for | | worsening dyspnea on exertion over last 3-4 months. No chest pain | | but he noticed his exercise capacity has declined significantly. | | He is EX IVDA, meth abuser, current smoker and marijuana user. | | Denies any syncope, orthopnea, PND, edema. He also reports on and | | off sudden palpitations lasting for minutes resolves on its own | | associated with dizziness during palpitations, no loss of | | consciousness. Will do stress MPI to evaluate for CAD statusEvent | | monitor to evaluate for arrhythmiasContinue coregAdvised to use | | ASA 81mg dailyAlso strongly advised to stop smoking and | | marijuanaF/u after tests. | + + + + + | Palpitation | 03/10/2016 | + + + | Chronic obstructive pulmonary disease (COPD) ([facility]) | 12/01/2012 | + + + Immunizations +------+ + + | Name | Dates Previously Given | Next Due | +------+ + + | DTaP | 12/01/2012 | | +------+ + + Family History + + +------+ + | Medical History | Relation | Name | Comments | + + +------+ + | Coronary art dis | Father | | | + + +------+ + | Heart attack | Father | | | + + +------+ + | Heart disease | Father | | | + + +------+ + | High cholesterol | Father | | | + + +------+ + | Hypertension | Father | | | + + +------+ + | Cancer | Mother | | | + + +------+ + | Diabetes type II | Mother | | | + + +------+ + | Lung cancer | Mother | | | + + +------+ + | Stomach cancer | Mother | | | + + +------+ + + +------+ + + | Relation | Name | Status | Comments | + +------+ + + | Father | | Alive | CAD, multiple stent , carotid stenosis w/ | | | | | CEA | + +------+ + + | Mother | | | cancer lung and stomach | | | | (Age | | | | | 52) | | + +------+ + + Social History + +-------+ +--------+------+ | Tobacco Use | Types | Packs/Day | Years | Date | | | | | Used | | + +-------+ +--------+------+ | Current Every Day | | 0.5 | 27 | | | Smoker | | | | | + +-------+ +--------+------+ + +---+---+---+ | Smokeless Tobacco: | | | | | Never Used | | | | + +---+---+---+ + + | Tobacco Cessation: Ready to Quit: No; Counseling Given: Yes | + + + + +---------+ + | Alcohol Use | Drinks/We | oz/Week | Comments | | | ek | | | + + +---------+ + | No | 0 | 0.0 | socially | | | Standard | | | | | drinks or | | | | | | | | | | equivalen | | | | | t | | | + + +---------+ + + + + | Sex Assigned at | Date Recorded | | | | + + + | Not on file | | + + + Last Filed Vital Signs + + + + | Vital Sign | Reading | Time Taken | + + + + | Blood Pressure | 129/85 | 12/12/2018 10:30 AM PDT | + + + + | Pulse | 63 | 12/12/2018 10:30 AM PDT | + + + + | Temperature | 36.1 C (97 F) | 12/12/2018 10:30 AM PDT | + + + + | Respiratory Rate | 16 | 12/12/2018 10:30 AM PDT | + + + + | Oxygen Saturation | 96% | 12/12/2018 10:30 AM PDT | + + + + | Inhaled Oxygen | - | - | | Concentration | | | + + + + | Weight | 121.6 kg (268 lb) | 12/12/2018 10:30 AM PDT | + + + + | Height | 185.4 cm (6' 1") | 12/12/2018 10:30 AM PDT | + + + + | Body Mass Index | 35.36 | 12/12/2018 10:30 AM PDT | + + + + Plan of Treatment + + + + + | Health Maintenance | Due Date | Last Done | Comments | + + + + + | Vaccine: | | | | | Pneumococcal 19-64 | 7 | | | | (PPSV23 only) Medium | | | | | Risk (1 of 1 - | | | | | PPSV23) | | | | + + + + + | Statin Therapy | | | | | (optimal intensity) | 7 | | | + + + + + | Vaccine: Influenza | | | | | (#1) | 9 | | | + + + + + | Vaccine: | | 12/01/2012 | | | Dtap/Tdap/Td (2 - | 3 | | | | Tdap) | | | | + + + + + Results Not on filefrom Last 3 Months Insurance + +--------+ +------+-------+ + | Payer | Benefi | Subscriber | Type | Phone | Address | | | t Plan | ID | | | | | | / | | | | | | | Group | | | | | + +--------+ +------+-------+ + | MEDICARE | MEDICA | [id number] | | | [address] | | | [place] | | | | [place] [address] | | | IP-OP | | | | | + +--------+ +------+-------+ + + +--------+ +--------+ + + | Guarantor Name | Accoun | Relation to | Date | Phone | Billing Address | | | t Type | Patient | of | | | | | | | | | | + +--------+ +--------+ + + | URI PIERRE | Person | Self [birth year] | Home: | [address] | | | al/Fam | | 1980 | [phone] [place] | | | [place] | | | [phone] | [phone] | + +--------+ +--------+ + +
--- OUTSIDE RECORDS SUMMARY | ~2019-06-25 | XMS | Encounter Summary ---
Demographics + + + | Address | [address] | | | [place] [address] | + + + | Home Phone | | + + + | Preferred Language | Unknown | + + + | Marital Status | Single | + + + | Mu-Ism Affiliation | CHR | + + + | Race | White | + + + | Ethnic Group | Not or | + + + Author + + + | Author | [facility] | + + + | Organization | [facility] | + + + | Address | [...] Team Providers + +------+ + | Care Skein Dyer Name | Role | Phone | + +------+ + | Daniel Velez DO | PCP | | + +------+ + Reason for Visit Consultation (Routine) +--------+--------+ + + + + | Status | Reason | Specialty | Diagnoses / | Referred By | Referred To | | | | | Procedures | Contact | Contact | +--------+--------+ + + + + | Closed | | Neurological | Diagnoses | Kervin Velez | | | | Surgery | Unspecified | DO Daniel | MD Carolina | | | | | disorder of | [place] | [address] [facility] | | | | | the | INTERNAL | [address] | | | | | pituitary | MEDICINE | [address] [place], | | | | | gland and | [address] | [place] | | | | | its | [place] | [address] | | | | | hypothalamic | [address] | Phone: | | | | | control | [place], | [phone] | | | | | Family Care | [place] [address] | Fax: | | | | | [facility] ID# | Phone: | [phone] | | | | | [phone] | [phone] | | | | | | Auth# | Fax: | | | | | | [id number] | [phone] | | | | | | 05/19-05/19/12 [...] + + | 06/12/ | Office | Neurosurgery at | Carolina Pinzon, | Abnormal weight | | 2010 | Visit | [address] | gain; Pituitary | | | | Ave Mailcode: CH8N | [address] | adenoma (HCC); | | | | [facility] | [place], [place] | Headache | | | | and Healing, | [address] | | | | | Building [address] | [phone] | | | | | [place], [place] | | | | | | [address] | | | | | | [phone] | | | +--------+---------+ + + + [...] + + + | Blood Pressure | 118/68 | 06/12/2011 10:55 AM | | | | | PDT | | + + + + + | Pulse | 84 | 06/12/2011 10:55 AM | | | | | PDT | | + + + + + | Temperature | 36.3 C (97.4 F) | 06/12/2011 10:55 AM | | | | | PDT | | + + + + + | Respiratory Rate | 16 | 06/12/2011 10:55 AM | | | | | PDT | | + + + + + | Oxygen Saturation | - | - | | + + + + + | Inhaled Oxygen | - | - | | | Concentration | | | | + + + + + | Weight | 116.1 kg (256 lb) | 06/12/2011 10:55 AM | | | | | PDT | | + + + + + | Height | 188 cm (6' 2") | 06/12/2011 10:55 AM | | | | | PDT | | + + + + + | Body Mass Index | 32.87 | 06/12/2011 10:55 AM | | | | | PDT | | + + + + + documented in this encounter Patient Instructions Patient Instructions Sharmaine Murphy MD - 06/12/2011 11:50 AM PDTEndocrine clinic: We would like you to perform 3 separate collections of 24 hours of urine. For each sample you will need to go to a local lab and collect the appropriate number of jugs to complete th e collection. On the mornings that you are going to perform the collections: -when you wake up urinate into the toilet -from that time on make sure to collect all of your urine into the jugs. -the next morning when you wake up urinate into the jug and then the collection is complet e. After you complete these 3 collections we will do another study which you can do at your [facility] lab. Please call use after the urine collections are complete and we will discuss the ne xt study (dexamethasone suppression test). Call Stella [phone]. documented in this encounter Progress Notes [place] Pinzon MD - 06/12/2011 1:14 PM PDTENDOCRINOLOGY STAFF Pt was seen in conjunction with Endocrinology Fellow , JASMIN Astudillo I personally interviewed the patient, duplicated the pertinent parts of the physical examin ation and personally formulated the plan with the Endocrine Fellow. .Please see note below e dited by me for the full details of the visit. I agree with history, exam, assessment and herbert loera plan as detailed there. Discussed at length follow-up of pituitary adenoma, potential risk of growing over time,l ow risk of malignancy,timeline of follow-up and work-up for pituitary disfunction. Reviewed available literature and answered all questions. Discussed with Dr Elliott, reviewed MRi report, images not avail at time of the visit. Not cl ear if this tumor is pittuitary or not, could clearly induce pit dysfunction. Diff diag is b road and reviewed with pt. Sharmaine Viera MD - 06/12/2011 11:02 AM PDT Endocrine Pituitary Clinic: Attending: Dr. Pinzon Referring Physician: Daniel Velez DO Date of Evaluation: 06/12/11 Consultation Question: new diagnosis of pituitary adenoma. Past Medical History Diagnosis Date Complications affecting other specified body systems, hypertension Venereal disease, unspecified Abdominal pain, unspecified site Jaundice, unspecified, not of Headache Unspecified disorders of nervous system Atrial fibrillation GERD (gastroesophageal reflux disease) * Hepatitis C Past Surgical History Procedure Date Umbilical hernia repair 2005 History of Present Illness: Mr. Pierre is a 31 year-old man with a 2 month history of progressively worse headache, sen sation of smelling something burning, and pain in the back of his neck. Due to progressive H A went the the ED in 04/02. During evaluation MRI was done which showed evidence of 8 mm micr oadenoma. Further questioning reveals fluctuating weight between 190-305 lbs, severe fatigue , nausea, swelling in his ankles and fingers and development of reddish stretch delong on his stomach. Also stretch delong on the back of his knees and under his arms. Notes facial round ing and fullness under his chin which is new for him. States that he usually drinks a lot of water and is frequently thirsty, however now feels like he cannot quench his thirst. No sig nificant polyuria and no significant nocturia. Also reported easy bruising and slow healing from minor skin injuries. In 10/03 diagnosed with atrial fibrillation and was initially treated with metoprolol and as pirin. Transitioned to atenolol. Notes intermittent palpitations. Review of Systems: GEN: fluctuating weight, severe fatigue HEENT: [place], blurry vision, increased facial rounding PULM: no dyspnea CARDS: intermittent palpitations GI: no changes in BMs, intermittent nausea : increased thirst, no nocturia M/S: diffuse weakness SKIN: easy bruising, slow wound healing Outpatient Medications: aspirin 325 mg Oral Tablet Take 325 mg by mouth once daily. atenolol 50 mg Oral Tablet Take 50 mg by mouth once daily. citalopram 20 mg Oral Tablet Take 20 mg by mouth once daily. clindamycin 150 mg Oral Capsule Take 150 mg by mouth every six hours. divalproex DR (DEPAKOTE) 500 mg Oral Tablet, Delayed Release (E.C.) Take 500 mg by mout h. lisinopril 5 mg Oral Tablet Take 5 mg by mouth once daily. omeprazole 20 mg Oral Capsule, Delayed Release(E.C.) Take 20 mg by mouth once daily. oxyCODONE-acetaminophen 5-325 mg Oral Tablet Take 1 Tab by mouth every six hours as nee ded. Not to exceed 12 tablets per any 24 hour period. Allergies Allergen Reactions Penicillin G Anaphylaxis Cartia Xt (Diltiazem Hcl) Diarrhea Metoprolol Diarrhea History Social History Marital Status: Single Spouse Name: N/A Number of Children: N/A Years of Education: N/A Occupational History Not on file. Social History Main Topics Smoking status: Current Everyday Smoker -- 1.0 packs/day Types: Cigarettes Smokeless tobacco: Not on file Alcohol Use: Not on file Drug Use: Not on file Sexually Active: Not on file Family History Problem Relation Cancer Mother Diabetes Mother Heart Disease Father grandfather Psychiatry Father brother,daughter,son Hypertension Father Arthritis Mother sister Objective: Filed Vitals: 06/12/2011 10:55 AM Height: 1.88 m (6' 2") Weight: 116.121 kg (256 lb) BP: 118/68 Pulse: 84 Temp: 36.3 C (97.4 F) TempSrc: Oral Resp: 16 PainSc: 08 - Very Severe PainLoc: Head (Generalized) BMI: 32.87 kg/(m^2) Physical Exam: GEN: oriented, alert, NAD, overweight HEENT: NC/AT EOMI PERRLA oropharynx clear, thyroid normal size, rounded face, no facial ple thora, increased weight under chin, VF intact to confrontation, no frontal bossing, prognath ia, or macroglossia LUNGS: CTA, no significant supraclavicular or dorsal cervical fat pads HEART: RRR normal S1S2 ABD: MT/ND, rotund, multiple reddish thick striae on abdomen EXT: no MELLY, strength 12/25 Labs: Ouside labs: 05/21/11 ACTH 17 pg/mL IGF-1 113 L 115-307 ng/mL AM cortisol 16.9 TSH 0.812 FSH 5.15 LH 5.51 Imaging: MRI brain with contrast 04/17/11 [facility] Diagnostic imaging 8 mm enhancing nodule in the pituitary infundibulum with possibilities: small meningioma, n eurosarcoid, papillary variant craniopharyngioma, germinoma. Assessment: 31 year-old man with new of headaches, fatigue, and weight fluctuations, and new finding of pituitary microadenoma. Microadenoma symptomatic with headaches and fatigue. Currently has some features which are suggestive but not diagnostic of a glucocorticoid excess. Also seei neurosurgery today. Plan: 1. ACTH: at this time some symptoms and findings suggestive of glucocorticoid excess. Had a dequate morning cortisol and non-suppressed ACTH. Will start with LDCST to evaluate for AI w hich would be important to determine before considering surgery since he would need hydrocor tisone before surgery. Will also have him complete three 24-hour urine collections for creat inine and cortisol to evaluate for cortisol excess. Once these are completed, will consider low dose dexamethasone suppression test. 2. TSH: repeat TSH and Free T4. Will evaluate for both primary thyroid disorders as well as central hypothyroidism. 3. Prolactin: will check prolactin level. 4. GH: possible some of his symptoms are related to GH deficiency. Will check GH and IGF-1. No clear findings on evaluation suggesting GH excess, however will monitor GH and IGF-1. Wo uld not consider replacement tx at this time. 5. FSH/LH: possible some of his symptoms may be related to testosterone deficiency. Will ch james FSH, and LH. 6. ADH: reported symptoms of polydipsia. Will start with assessment of BMP. This patient was seen and discussed with the endocrine attending Dr. Pinzon who agreed w ith the assessment and plan. documented in this e ncounter Plan of Treatment + +------+--------+ + + | Name | Type | Priori | Associated Diagnoses | Order Schedule | | | | ty | | | + +------+--------+ + + | CREATININE, URINE | Lab | Routin | Abnormal weight | Ordered: 06/12/2011 | | | | e | gain Pituitary | | | | | | adenoma (HCC) | | + +------+--------+ + + | CORTISOL, URINE | Lab | Routin | Abnormal weight | Ordered: 06/12/2011 | | | | e | gain Pituitary | | | | | | adenoma (HCC) | | + +------+--------+ + + | CREATININE, URINE | Lab | Routin | Abnormal weight | Ordered: 06/12/2011 | | | | e | gain Pituitary | | | | | | adenoma (HCC) | | + +------+--------+ + + | CORTISOL, URINE | Lab | Routin | Abnormal weight | Ordered: 06/12/2011 | | | | e | gain Pituitary | | | | | | adenoma (HCC) | | + +------+--------+ + + | CREATININE, URINE | Lab | Routin | Abnormal weight | Ordered: 06/12/2011 | | | | e | gain Pituitary | | | | | | adenoma (HCC) | | + +------+--------+ + + documented as of this encounter Visit Diagnoses + + | Diagnosis | + + | Abnormal weight gain | + + | Pituitary adenoma (HCC) Benign neoplasm of pituitary gland and craniopharyngeal duct | | (pouch) | + + | Headache(784.0) Headache | + + documented in this encounter
--- OUTSIDE RECORDS SUMMARY | ~2019-06-25 | XMS | Encounter Summary ---
Demographics + + + | Address | [address] | | | [place] [address] | + + + | Home Phone [...] Author + + + | Author | [facility] | + + + | Organization | [facility] | + + + | [...] Team Providers + +------+ + | Care Farm Agent Name | Role | Phone | + [...] Follow-up | | 2011 | Visit | [facility] [address] | | examination, | | | | Ave Mailcode: CH8N | | following other | | | | [facility] | | surgery (Primary Dx) | | | | and Healing, | | | | | | Building [address], [address]th | | | | | | Floor [place], [place] | | | | | | [address] | | | | | | [phone] | | | +--------+---------+ + + + [...] concerns I spent more than 15 minutes [id number] with the patient of which greater than [...] Gaitan PA- C - 09/25/2011 12:54 PM [facility] PN Uri Pierre returns to clinic [...] MRI. FU with Dr. Sorensen prn NEUROSURGERY [address] Mailcode: Ch8n [facility], 8th Floor [facility] [address] documented in this enco unter Plan of Treatment Not on filedocumented as of this encounter Visit Diagnoses + + | Diagnosis | + + | Follow-up examination, following other surgery - Primary | + + documented in this encounter
--- OUTSIDE RECORDS SUMMARY | ~2019-06-25 | XMS | Encounter Summary ---
Demographics + + + | Address | [address] | | | [place] [address] | + + + | Home Phone | | + + + | Preferred Language | Unknown | + + + | Marital Status | Single | + + + | Confucianist Affiliation | CHR | + + + | Race | White | + + + | Ethnic Group | Not or | + + + Author + + + | Author | [facility] | + + + | Organization | [facility] | + + + | Address [...] Team Providers + +------+ + | Care Criminal Defense Attorney Name | Role | Phone | + +------+ + | Alejandro Dowling DO | PCP | | + +------+ + Encounter Details +--------+ + + + + | Date | Type | Department | Care Team | Description | +--------+ + + + + | 07/15/ | Telephone | Neurosurgery at | Alek Elliott, | | | 2010 | | [facility] [address] | | | | | [address] Mailcode: CH8N | | | | | | [facility] | | | | | | and Healing, | | | | | | Building | | | | | | Floor [place], [place] | | | | | | [address] | | | | | | [phone] | | | +--------+ + + + [...]
--- OUTSIDE RECORDS SUMMARY | ~2019-06-25 | XMS | Encounter Summary ---
Demographics + + + | Address | [address] | | | [place] [address] | + + + | Home Phone | | + + + | Preferred Language | Unknown | + + + | Marital Status | Single | + + + | Oriental Orthodox Affiliation | CHR | + + + [...] Team Providers + +------+ + | Care Automobile Upholsterer Apprentice Name | Role | Phone | + +------+ + | Alejandro Dowling DO | PCP | | + +------+ + Encounter Details +--------+ + + + + | Date | Type | Department | Care Team | Description | +--------+ + + + + | 07/13/ | Telephone | Neurosurgery at | Alek Elliott, | | | 2010 | | [facility] [address] | | | | | [address] Mailcode: CH8N | | | | | | [facility] | | | | | | and Healing, | | | | | | Building | | | | | | Floor [place], [place] | | | | | | [address] | | | | | | [phone] | | | +--------+ + + + [...]
--- OUTSIDE RECORDS SUMMARY | ~2019-06-25 | XMS | Encounter Summary ---
Demographics + + + | Address | [address] | | | [place] [address] | + + + | Home Phone | | + + + | Preferred Language | Unknown | + + + | Marital Status | Single | + + + | Taoism Affiliation | CHR | + + + | Race | White | + + + | Ethnic Group | Not or | + + + Author + + + | Author | [facility] | + + + | Organization | [facility] | + + + | Address | [...] Team Providers + +------+ + | Care Well Tester Name | Role | Phone | + [...] Closed | | Radiology | Diagnoses | [place], | [facility] | | | | | Pituitary | [place], | [address] | | | | | adenoma | DNP,FARM WORKER,[place] | [place] | | | | | ([facility]) | [address] | | | | | Procedures | Ave | Mailcode: | | | | | MR PITUITARY | [place], [place] | [address] | | | | | [address] | [address] | [place] | | | | | CONTRAST | Phone: | Research | | | | | | [phone] | [place] | | | | | | Fax: | [place], [place] | | | | | | [phone] | [address] | | | | | | | Phone: | | | | | | | [phone] | | | | | | | Fax: | | | | | | | [phone] | +--------+--------+ + + + + Encounter Details +--------+ + + + + | Date | Type | Department | Care Team | Description | +--------+ + + + + | 06/20/ | Ward Maid | Neurosurgery at | [place], | Pituitary adenoma | | 2011 | | [facility] [address] | [place], | ([facility]) (Primary Dx) | | | | Ave Mailcode: CH8N | DNP,FARM WORKER,[place] [address] | | | | | [facility] | [address] [place], | | | | | and Healing, | [place] [address] | | | | | [facility] | [phone] | | | | | Floor [place], [place] | | | | | | [address] | | | | | | [phone] | | | +--------+ + + + [...] as of this encounter Plan of Treatment + +---------+--------+ + + | Name | Type | Priori | Associated Diagnoses | Order Schedule | | | | ty | | | + +---------+--------+ + + | MR PITUITARY [facility] | Imaging | Routin | Pituitary adenoma | Expected: | | CONTRAST | | e | (HCC) | 06/20/2012, Expires: | | | | | | 07/21/2013 | + +---------+--------+ + + documented as of this encounter Visit Diagnoses + + | Diagnosis | + + | Pituitary adenoma (HCC) - Primary Benign neoplasm of pituitary gland and | | craniopharyngeal duct (pouch) | + + documented in this encounter"
--- OUTSIDE RECORDS SUMMARY | ~2019-06-25 | XMS | Encounter Summary ---
Demographics + + + | Address | [address] | | | [place] [address] | + + + | Home Phone | | + + + | Preferred Language | Unknown | + + + | Marital Status | Single | + + + | Church Affiliation | CHR | + + + [...] Team Providers + +------+ + | Care Grinding Room Inspector Name | Role | Phone | + +------+ + | Alejandro Dowling DO | PCP | | + +------+ + Reason for Visit + + + | Reason | Comments | + + + | Sinus congestion | | + + + Encounter Details +--------+ + + + + | Date | Type | Department | Care Team | Description | +--------+ + + + + | 07/14/ | Telephone | Otolaryngology | Hamzah Sorensen MD | Sinus congestion | | 2010 | | Head and Neck | | | | | | Surgery Services at | | | | | | [facility] [address] [facility] | | | | | | [address] | | | | | | Mailcode: PV01 | | | | | | Physician's [address] | | | | | | [place], [place] | | | | | | [address] | | | | | | [phone] | | | +--------+ + + + [...]
--- OUTSIDE RECORDS SUMMARY | ~2019-06-25 | XMS | Clinical Summary ---
Demographics + + + | Address | [address] | | | [place] [address] | + + + | Home Phone | | + + + | Preferred Language | Unknown | + + + | Marital Status | | + + + | Episcopal Affiliation | 1013 | + + + | Race | Unknown | + + + | Ethnic Group | Unknown | + + + Author + + + | Author | [facility] | | | and [place] | + + + | Organization | [facility] | | | [...] Team Providers + +------+ + | Care Desk Monitor Name | Role | Phone | + +------+ + | Giovanni Huffman MD | PCP | Unavailable | + +------+ + Allergies + + + + + + | Active Allergy | Reactions | Severity | Noted | Comments | | | | | Date | | + + + + + + | Cephalexin | Diarrhea, Rash | Low | | | + + + + + + | Diltiazem | Diarrhea | Low | 06/12/20 | | | | | | 11 | | + + + + + + | Duloxetine | Other (See Comments) | Medium | 03/07/20 | Increased | | | | | 18 | agitation , anger | + + + + + + | Metoclopramide | | Medium | 08/24/19 | Stomach upset | | | | | 13 | | + + + + + + | Metoprolol | Diarrhea | | 11/30/19 | | | | | | 15 | | + + + + + + | Penicillins | Anaphylaxis | High | 10/21/20 | | | | | | 11 | | + + + + + + Medications + + + +---------+------+------+-------+ | Medication | Sig | Dispensed | Refills | Star | End | Statu | | | | | | t | Date | s | | | | | | Date | | | + + + +---------+------+------+-------+ | | Take 1 tablet by | | 0 | | | Activ | | oxyCODONE-acetaminop | mouth every 4 hours | | | | | e | | hen (PERCOCET) | as needed. | | | | | | | 10-325 mg per tablet | | | | | | | + + + +---------+------+------+-------+ | buPROPion | Take 100 mg by mouth | | 0 | | | Activ | | (WELLBUTRIN) 100 mg | 2 times daily. | | | | | e | | tablet | | | | | | | + + + +---------+------+------+-------+ | sucralfate | Take 1 g by mouth 4 | | 0 | | | Activ | | (CARAFATE) 1 g | times daily. | | | | | e | | tablet | | | | | | | + + + +---------+------+------+-------+ | | Place in ear(s). 4 | | 0 | | | Activ | | CFGTOKVE-CKHZVIOUJ-A | drops 4 times a day | | | | | e | | C, OTIC, | | | | | | | | (CORTISPORIN) 1 % | | | | | | | | SOLN | | | | | | | + + + +---------+------+------+-------+ | FLUoxetine | Take 20 mg by mouth | | 0 | | | Activ | | (PROZAC) 20 mg | Daily. | | | | | e | | capsule | | | | | | | + + + +---------+------+------+-------+ | fluticasone | 2 sprays by Nasal | | 0 | | | Activ | | (FLONASE) 50 | route 2 times daily. | | | | | e | | mcg/nasal spray | | | | | | | + + + +---------+------+------+-------+ | lisinopril | Take 10 mg by mouth | | 0 | | | Activ | | (PRINIVIL, ZESTRIL) | Daily. | | | | | e | | 10 mg tablet | | | | | | | + + + +---------+------+------+-------+ | omeprazole | Take 20 mg by mouth | | 0 | | | Activ | | (PRILOSEC) 20 mg | nightly. | | | | | e | | capsule | | | | | | | + + + +---------+------+------+-------+ | gabapentin | Take 100 mg by mouth | | 0 | | | Activ | | (NEURONTIN) 100 mg | 2 times daily. | | | | | e | | capsule | | | | | | | + + + +---------+------+------+-------+ | doxepin (SINEQUAN) | Take 150 mg by mouth | | 0 | | | Activ | | 150 MG capsule | nightly. | | | | | e | + + + +---------+------+------+-------+ | amitriptyline | Take 100 mg by mouth | | 0 | | | Activ | | (ELAVIL) 100 MG | nightly. | | | | | e | | tablet | | | | | | | + + + +---------+------+------+-------+ | carvedilol (COREG) | Take 3.125 mg by | | 0 | | | Activ | | 3.125 mg tablet | mouth 2 times daily | | | | | e | | | (with breakfast & | | | | | | | | dinner). | | | | | | + + + +---------+------+------+-------+ | albuterol 90 | Inhale 2 puffs into | | 0 | | | Activ | | mcg/puff inhaler | the lungs every 4 | | | | | e | | | hours as needed for | | | | | | | | Wheezing. | | | | | | + + + +---------+------+------+-------+ | aspirin 325 MG EC | Take 325 mg by mouth | | 0 | | | Activ | | tablet | daily (with | | | | | e | | | breakfast). | | | | | | + + + +---------+------+------+-------+ | meloxicam (MOBIC) | Take 7.5 mg by mouth | | 0 | 08/0 | | Activ | | 7.5 mg tablet | Daily. | | | 6/20 | | e | | | | | | 18 | | | + + + +---------+------+------+-------+ | nortriptyline | Take 50 mg by mouth | | 0 | 06/1 | | Activ | | (PAMELOR) 25 mg | nightly. | | | 20 | | e | | capsule | | | | 18 | | | + + + +---------+------+------+-------+ | tiotropium | Inhale 18 mcg into | | 0 | 07/1 | | Activ | | (SPIRIVA HANDIHALER) | the lungs Daily. | | | 12/10 | | e | | 18 mcg inhalation | | | | 18 | | | | capsule | | | | | | | + + + +---------+------+------+-------+ | carvedilol (COREG) | Take 25 mg by mouth | | 0 | | | Activ | | 25 mg tablet | 2 times daily. With | | | | | e | | | meals | | | | | | + + + +---------+------+------+-------+ | omeprazole | Take 20 mg by mouth | | 0 | 07/1 | | Activ | | (PRILOSEC) 20 mg | Daily. | | | 12/10 | | e | | capsule | | | | 18 | | | + + + +---------+------+------+-------+ | atorvaSTATin | take 1 tablet by | 30 | 11 | 03/24 | | Activ | | (LIPITOR) 20 mg | mouth every evening | tablet | | 10/12 | | e | | tablet | | | | 19 | | | + + + +---------+------+------+-------+ Active Problems + + + | Problem | Noted Date | + + + | Essential hypertension | 01/30/2019 | + + + | Dyslipidemia | 11/09/2018 | + + + | Elevated liver enzymes | 11/09/2018 | + + + | Dilated cardiomyopathy secondary to alcohol | 09/29/2018 | + + + | Family history of heart disease in male family member before age | 09/29/2018 | | 55 | | + + + | Atrial flutter | 03/07/2018 | + + + | Hepatitis C virus carrier state | 06/16/2016 | + + + | History of drug abuse | 06/16/2016 | + + + | Paroxysmal atrial fibrillation | 06/16/2016 | + + + | Dyspnea on exertion | 03/10/2016 | + + + + + | Overview: Last Assessment & Plan: 35 yr old male with h/o | | HTN, hepc , depression, current smoker with strong fhx of CAD | | come for worsening dyspnea on exertion over last 3-4 months. No | | chest pain but he noticed his exercise capacity has declined | | significantly. He is EX IVDA, meth abuser, current smoker and | | marijuana user. Denies any syncope, orthopnea, PND, edema. He | | also reports on and off sudden palpitations lasting for minutes | | resolves on its own associated with dizziness during | | palpitations, no loss of consciousness. Will do stress MPI to | | evaluate for CAD statusEvent monitor to evaluate for | | arrhythmiasContinue coregAdvised to use ASA 81mg dailyAlso | | strongly advised to stop smoking and marijuanaF/u after tests. 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 | + + + | Deviated nasal septum | 12/11/2014 | + + + | Hypertrophy of nasal turbinates | 12/11/2014 | + + + | Chronic obstructive pulmonary disease (COPD) | 12/01/2012 | + + + | Adenoma of pituitary | 07/01/2011 | + + + | History of atrial fibrillation | 06/12/2011 | + + + | Abnormal smell | 06/12/2011 | + + + | Cephalalgia | 06/12/2011 | + + + | Discharge from nose | 06/12/2011 | + + + | Cervical pain | 06/12/2011 | + + + Encounters +--------+--------+ + + + | Date | Type | Specialty | Care Team | Description | +--------+--------+ + + + | 04/13/ | Refill | Cardiology | Rylie Urbano | Medication Refill | | 2018 | | | MARGARET Granda | | +--------+--------+ + + + from Last 3 Months Immunizations + + + + | Name | Dates Previously Given | Next Due | + + + + | DTAP, 5 DOSE (PED) | 12/01/2012 | | + + + + | TDAP, UNSPECIFIED | 12/01/2012 | | | FORMULATION | | | + + + + Family History + + +------+ + | Medical History | Relation | Name | Comments | + + +------+ + | Coronary artery | Father | | | | disease | | | | + + +------+ + [...] | + + +------+ + | Diabetes | Mother | | | + + +------+ + | Diabetes, NIDDM | Mother | | | + + +------+ + | Lung cancer | Mother | | | + + +------+ + | Stomach cancer | Mother | | | + + +------+ + | Stroke | Paternal | | | | | Grandfath | | | | | er | | | + + +------+ + + +------+ + + | Relation | Name | Status | Comments | + +------+ + + | Father | | Alive | CAD, multiple stent , carotid stenosis w/ | | | | | CEA | + +------+ + + | Father | | | | + +------+ + + | Mother | | | cancer lung and stomach | | | | (Age | | | | | 52) | | + +------+ + + | Mother | | | | + +------+ + + | Paternal Grandfather | | | | + +------+ + + Social History + + + [...] +---------+ + | No | | | Alcoholic Drinks/day: socially | + + +---------+ + + + [...] | Blood Pressure | 129/85 | 12/12/2018 1034 PDT | + + + + | Pulse | 63 | 12/12/20181033 PDT | + + + + | Temperature | 36.1 C (97 F) | 12/12/20181033 PDT | + + + + | Respiratory Rate | 16 | 12/12/20181033 PDT | + + + + | Oxygen Saturation | 96% | 01/03/2015 140 PDT | + + + + | Inhaled Oxygen | - | - | | Concentration | | | + + + + | Weight | 121.6 kg (268 lb) | 12/12/20181033 PDT | + + + + | Height | 185.4 cm (6' 1") | 12/12/2018 1034 PDT | + + + + | Body Mass Index | 35.36 | 12/12/2018 1034 PDT | + + + + Plan [...] + + + | Vaccine: | | 12/01/2012, 12/01/2012 | | | Dtap/Tdap/Td (2 - | 3 | | | | Td) | | | | + + + + + Results Not on filefrom Last 3 Months Insurance + +--------+ +--------+ +---------+--------+ | Payer | Benefi | Subscriber | Effect | Phone | Address | Type | | | t Plan | ID | majo | | | | | | / | | Dates | | | | | | Group | | | | | | + +--------+ +--------+ +---------+--------+ | [employer] | [employer] | [id number] | | [phone] | | Medica | | MEDICAID HMO | HEALTH | | 015-Pr | 1 | | id | | | MDCD | | esent | | | | | | [place] | | | | | | + +--------+ +--------+ +---------+--------+ + +--------+ +--------+ + + | Guarantor Name | Accoun | Relation to | Date | Phone | Billing Address | | | t Type | Patient | of | | | | | | | | | | + +--------+ +--------+ + + | Uri Pierre | Person | Self [birth year] [address] | | | al/Fam | | 1980 | [phone] | [place] | | | [place]a | | | 2 (Home) | [address] | + +--------+ +--------+ + + Advance Directives Patient has advance care planning documents on file. For more information, please contact:Joshua [facility] [place] [address]
--- OUTSIDE RECORDS SUMMARY | ~2019-06-25 | XMS | Encounter Summary ---
Demographics + + + | Address | [address] | | | [place] [address] | + + + | Home Phone [...] + + + | Author | [facility] | + + + | Organization | [facility] | + + + | Address [...] Team Providers + +------+ + | Care Outside Plant Supervisor Name | Role | Phone | + +------+ + | Giovanni Huffman MD | PCP | | + +------+ + Encounter Details +--------+ + + + + | Date | Type | Department | Care Team | Description | +--------+ + + + + | 12/15/ | Telephone | Neurosurgery at | Alek Elliott, | | | 2011 | | [facility] [address] | | | | | Jen Mailcode: CH8N | | | | | | [facility] | | | | | | and Healing, | | | | | | [address] | | | | | | Floor [place], [place] | | | | | | [address] | | | | | | [phone] | | | +--------+ + + + [...]
--- OUTSIDE RECORDS SUMMARY | ~2019-06-25 | XMS | Encounter Summary ---
Demographics + + + | Address | [address] | | | [place] [address] | + + + | Home Phone | | + + + | Preferred Language | Unknown | + + + | Marital Status | Single | + + + | Muslim Affiliation | CHR | + + + [...] Team Providers + +------+ + | Care Concaver Name | Role | Phone | + +------+ + | Daniel Velez DO | PCP | | + +------+ + Encounter Details +--------+ + + + + | Date | Type | Department | Care Team | Description | +--------+ + + + + | 06/12/ | Hospital | Cardiac | Sjh, Car Ecg Tech | | | 2010 | Encounter | Non-Invasive Testing | [address] | | | | | at [facility] | [facility] | | | | | [address] | [place] [address] | | | | | [facility] | | | | | | Mailcode: [id number] | | | | | | [address] | | | | | | [place], | | | | | | [place] [address] | | | | | | [phone] | | | +--------+ + + + [...] at Time of Discharge + + + +---------+ + + | Medication | Sig | Dispensed | Refills | Start | End Date | | | | | | Date | | + + + +---------+ + + | lisinopril 5 mg | Take 5 mg by mouth | | 0 | | | | Oral Tablet | once daily. | | | | | + + + +---------+ + + | omeprazole 20 mg | Take 20 mg by mouth | | 0 | | | | Oral Capsule, | once daily. | | | | | | Delayed | | | | | | | Release(E.C.) | | | | | | + + + +---------+ + + | cosyntropin | Inject 1 mL into the | 0.25 mg | 0 | 06/24/20 | | | (CORTROSYN) 0.25 mg | vein (IV) once for | | | 11 | 1 | | Injection Recon | 1 dose. | | | | | | SolnIndications: | | | | | | | Pituitary | | | | | | | dysfunction (HCC), | | | | | | | Headache(784.0), | | | | | | | Abnormal weight | | | | | | | gain, Unspecified | | | | | | | disorder of the | | | | | | | pituitary gland and | | | | | | | its hypothalamic | | | | | | | control | | | | | | + + + +---------+ + + documented as of this encounter [...] + + documented in this encounter Results 12 LEAD ECG (06/12/2011 1:48 PM PDT) [...] view image for the detailed interpretation from [facility] results. | CARDIOLOGY | + + + + + + + + | Performing | Address | City/State/Zipcode | Phone Number | | Organization | | | | + + + + + | [facility] | [address] | [place], [place] | | | CARDIOLOGY | [address] | [address] | | + + + + + documented in this encounter Visit Diagnoses Not on filedocumented in this encounter
--- OUTSIDE RECORDS SUMMARY | ~2019-06-25 | XMS | Encounter Summary ---
Demographics + + + | Address | [address] | | | [place] [address] | + + + | Home Phone | | + + + | Preferred Language | Unknown | + + + | Marital Status | Single | + + + | Restoration Affiliation | CHR | + + + | Race | White | + + + | Ethnic Group | Not or | + + + Author + + + | Author | [facility] | + + + | Organization | [facility] | + + + | [...] Team Providers + +------+ + | Care Real Estate Specialist Name | Role | Phone | + [...] Closed | | Radiology | Diagnoses | [place], [place] | [facility] | | | | | Unspecified | [address] | [address] | | | | | disorder of | [address] | [address] | | | | | the | [address] | Rd | | | | | pituitary | Rd | Mailcode: | | | | | gland and | [place], [place] | [address] | | | | | its | [address] | [place] | | | | | hypothalamic | Phone: | Research | | | | | control | [phone] | Center | | | | | Procedures | Fax: | [place], [place] | | | | | [facility] | [phone] | [address] | | | | | [facility] | | Phone: | | | | | CONTRAST | | [phone] | | | | | | | Fax: | | | | | | | [phone] | +--------+--------+ + + + + Encounter Details +--------+ + + + + | Date | Type | Department | Care Team | Description | +--------+ + + + + | 07/02/ | Multimedia Technician | Neurosurgery at | Ashley Duron PA | Unspecified disorder | | 2010 | | [facility] [address] | [address] | of the pituitary | | | | [address] Mailcode: CH[address] | Cindi Alvarez [place], | gland and its | | | | [facility] | [place] [address] | hypothalamic control | | | | and Healing, | [phone] | (Primary Dx) | | | | Building | | | | | | Floor [place], [place] | | | | | | [address] | | | | | | [phone] | | | +--------+ + + + [...] Final/Electronically | | | | | | bonita / Fauzia Villarreal | | | | [...] | | + +---------+ + + | [facility] | | | | | RADIOLOGY | | | | + +---------+ + + documented in this encounter Visit Diagnoses + + | Diagnosis | + + | 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
--- OUTSIDE RECORDS SUMMARY | ~2019-06-25 | XMS | Encounter Summary ---
Demographics + + + | Address | [address] | | | [place] [address] | + + + | Home Phone | | + + + | Preferred Language | Unknown | + + + | Marital Status | Single | + + + | Restorationism Affiliation | CHR | + + + | Race | White | + + + | Ethnic Group | Not or | + + + Author + + + | Author | [facility] | + + + | Organization | [facility] | + + + | [...] Team Providers + +------+ + | Care Financial Investigator Name | Role | Phone | + +------+ + | Figueroa Mazariegos MD | PCP | | + +------+ + Encounter Details +--------+ + + + + | Date | Type | Department | Care Team | Description | +--------+ + + + + | 02/18/ | Abstract | Dig[facility]ive [facility] | Clinic, | | | 2014 | | [place] at [facility] [address] | Gastroenterology | | | | | [address] | | | | | | Mailcode: OC8D | | | | | | [facility] | | | | | | and Healing, | | | | | | [address] | | | | | | [place], [place] | | | | | | [address] | | | | | | [phone] | | | +--------+ + + + [...]
--- OUTSIDE RECORDS SUMMARY | ~2019-06-25 | XMS | Encounter Summary ---
Demographics + + + | Address | [address] | | | [place] [address] | + + + | Home Phone | | + + + | Preferred Language | Unknown | + + + | Marital Status | Single | + + + | Adventism Affiliation | CHR | + + + [...] Team Providers + +------+ + | Care Funeral Professional Name | Role | Phone | + +------+ + | Alejandro Dowling DO | PCP | | + +------+ + Encounter Details +--------+------+ + + + | Date | Type | Department | Care Team | Description | +--------+------+ + + + | 08/03/ | Lab | Laboratory at [facility] | | Pituitary adenoma | | 2010 | | [address] | | ([facility]); Headache; | | | | [place], [place] | | Nocturnal polyuria | | | | [address] | | | | | | [phone] | | | +--------+------+ + + + Social History + + [...] | BASIC METABOLIC SET | Routin | 08/03/2011 | Pituitary adenoma | Results for this | | (NA, K, CL, TCO2, | e | 12:15 PM | (HCC) Headache | procedure are in the | | BUN, CR, GLU, CA) | | PST | Nocturnal polyuria | results section. | + +--------+ + + + | INSULIN GROWTH | Routin | 08/03/2011 | Pituitary adenoma | Results for this | | FACTOR-1, SERUM | e | 12:15 PM | (HCC) Headache | procedure are in the | | | | PST | Nocturnal polyuria | results section. | + +--------+ + + + | FREE T4 | Routin | 08/03/2011 | Pituitary adenoma | Results for this | | | e | 12:15 PM | (HCC) Headache | procedure are in the | | | | PST | Nocturnal polyuria | results section. | + +--------+ + + + | PROLACTIN | Routin | 08/03/2011 | Pituitary adenoma | Results for this | | | e | 12:15 PM | (HCC) Headache | procedure are in the | | | | PST | Nocturnal polyuria | results section. | + +--------+ + + + | TSH | Routin | 08/03/2011 | Pituitary adenoma | Results for this | | | e | 12:15 PM | (HCC) Headache | procedure are in the | | | | PST | Nocturnal polyuria | results section. | + +--------+ + + + | TESTOSTERONE, SERUM | Routin | 08/03/2011 | Pituitary adenoma | Results for this | | | e | 12:15 PM | (HCC) Headache | procedure are in the | | | | PST | Nocturnal polyuria | results section. | + +--------+ + + + | OSMOLALITY, URINE | Routin | 08/03/2011 | Pituitary adenoma | Results for this | | SPOT | e | 12:15 PM | (HCC) Headache | procedure are in the | | | | PST | Nocturnal polyuria | results section. | + +--------+ + + + | OSMOLALITY, PLASMA | Routin | 08/03/2011 | Pituitary adenoma | Results for this | | | e | 12:15 PM | (HCC) Headache | procedure are in the | | | | PST | Nocturnal polyuria | results section. | + +--------+ + + + documented in this encounter Results TSH (08/03/2011 12:15 PM PST) + +-------+ + + + | Component | Value | Ref Range | Performed | Pathologist | | | | | At | Signature | + +-------+ + + + | TSH | 0.60 | 0.34 - 5.60 | [facility] | | | | | uIU/ml | [facility] | | | | | | LABORATORY | | + +-------+ + + + + + | Specimen | + + | Blood - Blood | + + + + + | Narrative | Performed At | + + + | [facility] | [facility] | | [facility] [address] | REGIONAL | | [place] [address] | LABORATORY | + + + + + + + + | Performing | Address | City/State/Zipcode | Phone Number | | Organization | | | | + + + + + | [facility] | [address] | [place] [address] | | | LABORATORY | | | | + + + + + TESTOSTERONE, SERUM (08/03/2011 12:15 PM PST) + +-------+ + + + | Component | Value | Ref Range | Performed | Pathologist | | | | | At | Signature | + +-------+ + + + | TESTOSTERON | 394 | 175 - 781 ng/dl | [facility] | | | E, SERUM | | | [facility]AL | | | | | | LABORATORY | | + +-------+ + + + + + | Specimen | + + | Blood - Blood | + + + + + | Narrative | Performed At | + + + | [facility] | [facility] | | [facility] [place] [address] | REGIONAL | | [place] [address] | LABORATORY | + + + + + + + + | Performing | Address | City/State/Zipcode | Phone Number | | Organization | | | | + + + + + | [facility] | [address] | [place] [address] | | | LABORATORY | | | | + + + + + PROLACTIN, SERUM (08/03/2011 12:15 PM PST) + +-------+ + + [...] + + | [facility] | [facility] | | [facility] [place] [address] | REGIONAL | | [place] [address] | LABORATORY | + + + + + + + + | Performing | Address | City/State/Zipcode | Phone Number | | Organization | | | | + + + + + | [facility] | [address] | [place] [address] | | | LABORATORY | | | | + + + + + INSULIN GROWTH FACTOR-1, SERUM (08/03/2011 12:15 PM PST) + +-------+ + + + | Component | Value | Ref Range | Performed | Pathologist | | | | | At | Signature | + +-------+ + + + | IGF-1 | 189 | 115 - 307 ng/mL | [facility] | | | | | | [facility]AL | | | | | | LABORATORY | | + +-------+ + + + + + | Specimen | + + | Blood - Blood | + + + + + | Narrative | Performed At | + + + | [facility] | [facility] | | [facility] [place] [address] | REGIONAL | | [place] [address] | LABORATORY | + + + + + + + + | Performing | Address | City/State/Zipcode | Phone Number | | Organization | | | | + + + + + | [facility] | [address] | [place] [address] | | | LABORATORY | | | | + + + + + FREE T4, SERUM (08/03/2011 12:15 PM PST) + +-------+ + + + | Component | Value | Ref Range | Performed | Pathologist | | | | | At | Signature | + +-------+ + + + | FREE T4, | 0.8 | 0.6 - 1.2 ng/dL | [facility] | | | SERUM | | | [facility]AL | | | | | | LABORATORY | | + +-------+ + + + + + | Specimen | + + | Blood - Blood | + + + + + | Narrative | Performed At | + + + | [facility] | [facility] | | [place] [address] | REGIONAL | | [place] [address] | LABORATORY | + + + + + + + + | Performing | Address | City/State/Zipcode | Phone Number | | Organization | | | | + + + + + | [facility] | [address] | [place] [address] | | | LABORATORY | | | | + + + + + BASIC METABOLIC SET (NA, K, CL, TCO2, BUN, CR, GLU, CA) (08/03/2011 12:15 PM PST) + + + + + + | Component | Value | Ref Range | Performed | Pathologist | | | | | At | Signature | + + + + + + | GLUCOSE, | 107 (H) | 60 - 99 mg/dL | [...] + + + + | CREATININE | 0.93 | 0.70 - 1.30 | [facility] | [...] + + + + | POTASSIUM, | 3.5 | 3.4 - 5.0 | [facility] | | | PLASMA | | mmol/L | DEPARTMENT | | | (LAB) | | | OF | | | | | | PATHOLOGY | | + + + + + + | CHLORIDE, | 108 | 97 - 108 mmol/L | [facility] | | | PLASMA | | | DEPARTMENT | | | (LAB) | | | OF | | | | | | PATHOLOGY | | + + + + + + | TOTAL CO2, | 22 | 22 - 29 mmol/L | [facility] | | | PLASMA | | | DEPARTMENT | | | (LAB) | | | OF | | | | | | PATHOLOGY | | + + + + + + | CALCIUM, | 9.6 | 8.6 - 10.2 | [facility] | | | PLASMA | | mg/dL | DEPARTMENT | | | (LAB) | | | OF | | | | | | PATHOLOGY | | + + + + + + | EGFR | > 60 | >60 mL/min | [facility] | | | - | | | DEPARTMENT | | | [place] | | | OF | | | [...] + + + | ANION GAP | 9 | 4 - 11 mmol/L | [facility] [...] | + + + + + | [facility] | [address] | [place] [address] | | | PATHOLOGY | [address] | | | + + + + + OSMOLALITY, URINE SPOT (08/03/2011 12:15 PM PST) + + + + + + | Component | Value | Ref Range | Performed | Pathologist | | | | | At | Signature | + + + + + + | OSMOLALITY | 1016Comment: Reference | mOsm/Kg H2O | [facility] | | | URINE | Ranges: 50-1200 mOsm/kg | | DEPARTMENT | | | | H2O Random Urine | | OF | | | | 300-900 mOsm/kg H2O | | PATHOLOGY | | | | 24 Hr., average fluid | | | | | | intake >850 mOsm/kg | | | | | | H2O After 12 Hr. | | | | | | fluid restriction | | | | + + + + + + + + | Specimen | + + | Urine - Urine | + + + + + + + | Performing | Address | City/State/Zipcode | Phone Number | | Organization | | | | + + + + + | [facility] DEPARTMENT OF | [address] [facility] | [place] [address] | | | PATHOLOGY | [address] | | | + + + + + OSMOLALITY, PLASMA (08/03/2011 12:15 PM PST) + +---------+ + + + | Component | Value | Ref Range | Performed | Pathologist | | | | | At | Signature | + +---------+ + + + | OSMOLALITY, | 298 (H) | 275 - 295 | [facility] | | | MEASURED | | mOsm/kgH20 | DEPARTMENT | | | | | | OF | | | | | | PATHOLOGY | | + +---------+ + + + | OSMOLALITY, | 298 (H) | 275 - 295 | [facility] | | | CALCULATED | | mOsm/kgH20 | DEPARTMENT | | | | | | OF | | | | | | PATHOLOGY | | + +---------+ + + + | OSMOLALITY | 0 | -10 - 10 | [facility] | | | GAP | | mOsm/kgH20 | DEPARTMENT | | | | | [...] + + + + + | [facility] DEPARTMENT OF | [address] | [place] [address] | | | PATHOLOGY | [address] | | | + + + + + documented in this encounter Visit Diagnoses + + | Diagnosis | + + | Pituitary adenoma (HCC) Benign neoplasm of pituitary gland and craniopharyngeal duct | | (pouch) | + + | Headache(784.0) Headache | + + | Nocturnal polyuria Nocturia | + + documented in this encounter"
--- OUTSIDE RECORDS SUMMARY | ~2019-06-25 | XMS | Encounter Summary ---
Demographics + + + | Address | [address] | | | [place] [address] | + + + | Home Phone | | + + + | Preferred Language | Unknown | + + + | Marital Status | Single | + + + | Scientologist Affiliation | CHR | + + + [...] Team Providers + +------+ + | Care Coater Slate Name | Role | Phone | + [...] Closed | | Radiology | Diagnoses | Alplaus, Ashley | [facility] | | | | | Unspecified | [address] | [address] | | | | | disorder of | [address] | [address] | | | | | the | [address] | Rd | | | | | pituitary | Rd | Mailcode: | | | | | gland and | [place], [place] | [address] | | | | | its | [address] | [facility] | | | | | hypothalamic | Phone: | Research | | | | | control | [phone] | Center | | | | | Procedures | Fax: | [place], [place] | | | | | [facility] | [phone] | [address] | | | | | [facility] | | Phone: | | | | | CONTRAST | | [phone] | | | | | | | Fax: | | | | | | | [phone] | +--------+--------+ + + + + Encounter Details +--------+ + + + + | Date | Type | Department | Care Team | Description | +--------+ + + + + | 07/02/ | Chief Service Dispatcher | Neurosurgery at | Ashley Duron PA | Unspecified disorder | | 2010 | | [facility] [address] | [address] | of the pituitary | | | | Ave Mailcode: CH8N | Cindi Alvarez [place], | gland and its | | | | [facility] | [place] [address] | hypothalamic control | | | | and Healing, | [phone] | (Primary Dx) | | | | Building | | | | | | Floor [place], [place] | | | | | | [address] | | | | | | [phone] | | | +--------+ + + + [...]
--- OUTSIDE RECORDS SUMMARY | ~2019-06-25 | XMS | Encounter Summary ---
Demographics + + + | Address | [address] | | | [place] [address] | + + + | Home Phone | | + + + | Preferred Language | Unknown | + + + | Marital Status | Single | + + + | Denominational Affiliation | CHR | + + + | Race | White | + + + | Ethnic Group | Not or | + + + Author + + + | Author | [facility] | + + + | Organization | [facility] | + + + | Address | Unknown | + + + | Phone | Unavailable | + + + Support + + +---------+ + | Name | Relationship | Address | Phone | + + +---------+ + | Ramin oLmeli | ECON | Unknown | | + + +---------+ + | Maria Eugenia Razo | ECON | Unknown | | + + +---------+ + Care Team Providers + +------+ + | Care Application Support Intern Name | Role | Phone | + +------+ + | Daniel Velez DO | PCP | | + +------+ + Reason for Visit + + + | Reason | Comments | + + + | New patient | | | consultation | | + + + Consultation (Routine) [...] disorder of | [facility] | [address] | | | | | the | INTERNAL | [place] | | | | | pituitary | MEDICINE | [address] [place], | | | | | gland and | [address] | [place] | | | | | its | [place] | [address] | | | | | hypothalamic | [address] | Phone: | | | | | control | [place], | [phone] | | | | | Family Care | [place] [address] | Fax: | | | | | [facility] ID# | Phone: | [phone] | | | | | [id number] | [phone] | | | | | | Auth# | Fax: | | | | | | [id number] | [phone] | | | | | | 05/19-05/19/12 [...] 06/12/ | Office | Neurosurgery at | [place], | Pituitary | | 2010 | Visit | [facility] [address] | [place], | dysfunction (HCC) | | | | Ave Mailcode: CH8N | DNP,COPY READER,[place] [address] | (Primary Dx); | | | | [facility] | [address] [place], | Headache; Abnormal | | | | and Healing, | [place] [address] | weight gain; | | | | [address] | [phone] | Unspecified disorder | | | | [place], [place] | | of the pituitary | | | | [address] | | gland and its | | | | [phone] | | hypothalamic control | +--------+---------+ + + + Social History [...] + | Tobacco Cessation: Ready to Quit: No | + + + + +---------+ + [...] | Blood Pressure | 118/68 | 06/12/2011 10:40 AM | | | | | PDT | | + + + + + | Pulse | 84 | 06/12/2011 10:40 AM | | | | | PDT | | + + + + + | Temperature | 36.4 C (97.5 F) | 06/12/2011 10:40 AM | | | | | PDT | | + + + + + | Respiratory Rate | 16 | 06/12/2011 10:40 AM | | | | | PDT | | + + + + + | Oxygen Saturation | - | - | | + + + + + | Inhaled Oxygen | - | - | | | Concentration | | | | + + + + + | Weight | 116.1 kg (256 lb) | 06/12/2011 10:40 AM | | | | | PDT | | + + + + + | Height | 188 cm (6' 2") | 06/12/2011 10:40 AM | | | | | PDT | | + + + + + | Body Mass Index | 32.87 | 06/12/2011 10:40 AM | | | | | PDT | | + + + + + documented in this encounter Progress Notes Caitlyn Mccormack, ABRAHAM,MARGARET,[place] - 06/12/2011 11:21 AM PDTFormatting of this note might be di fferent from the original. Uri Pierre, [id number] Reason for visit: Chief Complaint Patient presents with New patient consultation Uri Pierre is a 30 y.o. male, who presented to Pituitary clinic on 06/12/2011 for a consultation and low dose cortrosyn stimulation test. 1. Pituitary dysfunction ACTH, PLASMA, CORTISOL, SERUM, CORTISOL, SERUM, GROWTH HORMONE, S GELACIO, BASIC METABOLIC SET (NA, K, CL, TCO2, BUN, CR, GLU, CA), FREE T4, SERUM, FSH, SERUM, I NSULIN GROWTH FACTOR-1, SERUM, LUTEINIZING HORMONE, SERUM, PROLACTIN, SERUM, TESTOSTERONE, S GELACIO, TSH, IGF-1 INSULIN GROWTH FACTOR-1, SERUM SENDOUT, VITAMIN D, 25-HYDROXY, SERUM 2. Headache 3. Abnormal weight gain 4. 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 I spent 40 minutes icmo-ba-zshp time with this patient independent of the time spent in testing, of which over 50% was spen t in medically indicated counseling and education pertaining to the issues discussed above MARGARET OTT DNP, [place] [facility] [place] [address] [facility] [address] documented in this encounter Plan of Treatment Not on filedocumented as of this encounter Procedures + +--------+ + + + | Procedure Name | Priori | Date/Time | Associated Diagnosis | Comments | | | ty | | | | + +--------+ + + + | CORTISOL, SERUM | Routin | 06/12/2011 | Pituitary | Results for this | | | e | 10:30 AM | dysfunction (HCC) | procedure are in the | | | | PDT | | results section. | + +--------+ + + + | IGF-1 INSULIN GROWTH | Routin | 06/12/2011 | Pituitary | Results for this | | FACTOR-1, SERUM | e | 10:00 AM | dysfunction (HCC) | procedure are in the | | SENDOUT | | PDT | | results section. | + +--------+ + + + | VITAMIN D, | Routin | 06/12/2011 | Pituitary | Results for this | | 25-HYDROXY, SERUM | e | 10:00 AM | dysfunction (HCC) | procedure are in the | | | | PDT | | results section. | + +--------+ + + + | ACTH, PLASMA | Routin | 06/12/2011 | Pituitary | Results for this | | | e | 10:00 AM | dysfunction (HCC) | procedure are in the | | | | PDT | | results section. | + +--------+ + + + | BASIC METABOLIC SET | Routin | 06/12/2011 | Pituitary | Results for this | | (NA, K, CL, TCO2, | e | 10:00 AM | dysfunction (HCC) | procedure are in the | | BUN, CR, GLU, CA) | | PDT | | results section. | + +--------+ + + + | INSULIN GROWTH | Routin | 06/12/2011 | Pituitary | Results for this | | FACTOR-1, SERUM | e | 10:00 AM | dysfunction (HCC) | procedure are in the | | | | PDT | | results section. | + +--------+ + + + | FREE T4 | Routin | 06/12/2011 | Pituitary | Results for this | | | e | 10:00 AM | dysfunction (HCC) | procedure are in the | | | | PDT | | results section. | + +--------+ + + + | PROLACTIN | Routin | 06/12/2011 | Pituitary | Results for this | | | e | 10:00 AM | dysfunction (HCC) | procedure are in the | | | | PDT | | results section. | + +--------+ + + + | TSH | Routin | 06/12/2011 | Pituitary | Results for this | | | e | 10:00 AM | dysfunction (HCC) | procedure are in the | | | | PDT | | results section. | + +--------+ + + + | TESTOSTERONE, SERUM | Routin | 06/12/2011 | Pituitary | Results for this | | | e | 10:00 AM | dysfunction (HCC) | procedure are in the | | | | PDT | | results section. | + +--------+ + + + | LUTEINIZING HORMONE, | Routin | 06/12/2011 | Pituitary | Results for this | | SERUM | e | 10:00 AM | dysfunction (HCC) | procedure are in the | | | | PDT | | results section. | + +--------+ + + + | FSH, SERUM | Routin | 06/12/2011 | Pituitary | Results for this | | | e | 10:00 AM | dysfunction (HCC) | procedure are in the | | | | PDT | | results section. | + +--------+ + + + | GROWTH HORMONE, | Routin | 06/12/2011 | Pituitary | Results for this | | SERUM | e | 10:00 AM | dysfunction (HCC) | procedure are in the | | | | PDT | | results section. | + +--------+ + + + | CORTISOL, SERUM | Routin | 06/12/2011 | Pituitary | Results for this | | | e | 10:00 AM | dysfunction (HCC) | procedure are in the | | | | PDT | | results section. | + +--------+ + + + documented in this encounter Results CORTISOL, SERUM (06/12/2011 10:30 AM PDT) + + + + + [...] + + + + | TIME | 00:30 | Hrs:mins | [facility] | | | [...] + + | Cortisol Reference Ranges | [facility] | | AM Reference Range: 7.0 - 23.0 ug/dl | REGIONAL | | PM Reference Range: Less than 10.0 ug/dl | LABORATORY | | [facility] [facility]) | | | [facility] [place] [address] | | | [place] [address] | | + + + + + + + + | Performing | Address | City/State/Zipcode | Phone Number | | Organization | | | | + + + + + | [facility] | [address] | [place] [address] | | | LABORATORY | | | | + + + + + VITAMIN D, 25-HYDROXY, SERUM (06/12/2011 10:00 AM PDT) + + + + + + | Component | Value | Ref Range | Performed | Pathologist | | | | | At | Signature | + + + + + + | VITAMIN D | 24 (L)Comment: | 30 - 80 ng/mL | [facility] | | | 25 HYDROXY | REFERENCE INTERVAL: | | DEPARTMENT | | | | Vitamin D, 25-Hydroxy | | OF | | | | 0-17 years: | | PATHOLOGY | | | | Deficiency: less than 20 | | | | | | ng/mL Optimum | | | | | | level: greater than or | | | | | | equal to 20 ng/mL* | | | | | | *(Samuel CL et al. | | | | | | Pediatrics 2008; 122: | | | | | | 1128-38.) 18 | | | | | | years and older: | | | | | | Deficiency: less than 20 | | | | | | ng/mL | | | | | | Insufficiency: 20-29 | | | | | | ng/mL Optimum | | | | | | level: 30-80 ng/mL | | | | | | Possible toxicity: | | | | | | greater than 150 ng/mL | | | | | | This assay | | | | | | accurately quantifies | | | | | | the sum of vitamin D3, | | | | | | 25-hydroxy and | | | | | | vitamin D2, 25-hydroxy. | | | | | | Testing performed | | | | | | in Special Immunology & | | | | | | Coagulation | | | | | | Department as of October | | | | | | 2010. | | | | + + + + + + + + | Specimen | + + | Blood - Blood | + + + + + + + | Performing | Address | City/State/Zipcode | Phone Number | | Organization | | | | + + + + + | [facility] | [address] | [place] [address] | | | PATHOLOGY | [address] | | | + + + + + IGF-1 INSULIN GROWTH FACTOR-1, SERUM SENDOUT (06/12/2011 10:00 AM PDT) + + + + + + | Component | Value | Ref Range | Performed | Pathologist | | | | | At | Signature | + + + + + + | IGF-1, | 154Comment: | 132 - 333 ng/mL | [facility] | | | SERUM | Reference Ranges: | | | | | SENDOUT | Term | | | | | | Pre-Term Age | | | | | | Range Range | | | | | | | | | | | | | | | | | | ---- 15-109 | | | | | | 21-93 2m | | | | | | 15-109 23-163 | | | | | | 4m 7-124 | | | | | | 23-171 6m | | | | | | 7-93 | | | | | | 15-132 12m 15-101 | | | | | | 15-179 Test | | | | | | performed by: [facility] | | | | | | [address] | | | | | | [place], [place] | | | | | | [address] | | | | + + + + + + + + | Specimen | + + | Blood - Blood | + + + + + + + | Performing | Address | City/State/Zipcode | Phone Number | | Organization | | | | + + + + + | [facility] | [address] [facility] | [place], [place] | | | | | [address] | | + + + + + TSH (06/12/2011 10:00 AM PDT) + +-------+ + + + [...] Way Lab) | [facility] | | [facility] [place] [address] | REGIONAL | | [place] [address] | LABORATORY | + + + + + + + + | Performing | Address | City/State/Zipcode | Phone Number | | Organization | | | | + + + + + | [facility] | [address] | [place] [address] | | | LABORATORY | | | | + + + + + TESTOSTERONE, SERUM (06/12/2011 10:00 AM PDT) + +-------+ + + + | Component | Value | Ref Range | Performed | Pathologist | | | | | At | Signature | + +-------+ + + + | TESTOSTERON | 309 | 175 - 781 ng/dl | [facility] | | | E, SERUM | | | REGIONAL | | | | | | LABORATORY | | + +-------+ + + + + + | Specimen | + + | Blood - Blood | + + + + + | Narrative | Performed At | + + + | [facility] ([address] [facility]) [facility] | LAI | | [place] [address] | REGIONAL | | [place] [address] | LABORATORY | + + + + + + + + | Performing | Address | City/State/Zipcode | Phone Number | | Organization | | | | + + + + + | [facility] | [address] | [place] [address] | | | LABORATORY | | | | + + + + + PROLACTIN, SERUM (06/12/2011 10:00 AM PDT) + +-------+ + + + | Component | Value | Ref Range | Performed | Pathologist | | | | | At | Signature | + +-------+ + + + | PROLACTIN | 9 | 3 - 13 ng/ml | [facility] | | | | | | REGIONAL | | | | | | LABORATORY | | + +-------+ + + + + + | Specimen | + + | Blood - Blood | + + + + + | Narrative | Performed At | + + + | [facility] ([facility]) [facility] | LAI | | [place] [address] | REGIONAL | | [place] [address] | LABORATORY | + + + + + + + + | Performing | Address | City/State/Zipcode | Phone Number | | Organization | | | | + + + + + | [facility] | [address] | [place] [address] | | | LABORATORY | | | | + + + + + LUTEINIZING HORMONE, SERUM (06/12/2011 10:00 AM PDT) + +-------+ + + + | Component | Value | Ref Range | Performed | Pathologist | | | | | At | Signature | + +-------+ + + + | LUTEINIZING | 5 | <11 mIU/mL | [facility] | | | | | [...] Way Lab) [facility] | [facility] | | [place] [address] | REGIONAL | | [place] [address] | LABORATORY | + + + + + + + + | Performing | Address | City/State/Zipcode | Phone Number | | Organization | | | | + + + + + | [facility] | [address] | [place] [address] | | | LABORATORY | | | | + + + + + INSULIN GROWTH FACTOR-1, SERUM (06/12/2011 10:00 AM PDT) + +-------+ + + + | Component | Value | Ref Range | Performed | Pathologist | | | | | At | Signature | + +-------+ + + + | IGF-1 | 186 | 115 - 307 ng/mL | [facility] [...] [facility] | [facility] | | [facility] [place] [address] [facility] | REGIONAL | | [place] [address] | LABORATORY | + + + + + + + + | Performing | Address | City/State/Zipcode | Phone Number | | Organization | | | | + + + + + | [facility] | [address] | [place] [address] | | | LABORATORY | | | | + + + + + FSH, SERUM (06/12/2011 10:00 AM PDT) + +-------+ + + + | Component | Value | Ref Range | Performed | Pathologist | | | | | At | Signature | + +-------+ + + + | FSH,SERUM | 6 | <19 mIU/mL | [facility] | | | | | | REGIONAL | | | | | | LABORATORY | | + +-------+ + + + + + | Specimen | + + | Blood - Blood | + + + + + | Narrative | Performed At | + + + | [facility] ([facility]) [facility] | [facility] | | [facility] [place] [address] | REGIONAL | | [place] [address] | LABORATORY | + + + + + + + + | Performing | Address | City/State/Zipcode | Phone Number | | Organization | | | | + + + + + | [facility] | [address] | [place] [address] | | | LABORATORY | | | | + + + + + FREE T4, SERUM (06/12/2011 10:00 AM PDT) + +-------+ + + + | Component | Value | Ref Range | Performed | Pathologist | | | | | At | Signature | + +-------+ + + + | FREE T4, | 0.7 | 0.6 - 1.2 ng/dL | [facility] | | | SERUM | | | REGIONAL | | | | | | LABORATORY | | + +-------+ + + + + + | Specimen | + + | Blood - Blood | + + + + + | Narrative | Performed At | + + + | [facility] [facility]) [facility] | [facility] | | [facility] [place] [address] [facility] | REGIONAL | | [place] [address] | LABORATORY | + + + + + + + + | Performing | Address | City/State/Zipcode | Phone Number | | Organization | | | | + + + + + | [facility] | [address] | [place] [address] | | | LABORATORY | | | | + + + + + BASIC METABOLIC SET (NA, K, CL, TCO2, BUN, CR, GLU, CA) (06/12/2011 10:00 AM PDT) + + + + + + | Component | Value | Ref Range | Performed | Pathologist | | | | | At | Signature | + + + + + + | GLUCOSE, | 88 | 60 - 99 mg/dL | [facility] | | | PLASMA | | | DEPARTMENT | | | (LAB) | | | OF | | | | | | PATHOLOGY | | + + + + + + | BUN, PLASMA | 19 | 6 - 20 mg/dL | [facility] | | | (LAB) | | | DEPARTMENT | | | | | | OF | | | | | | PATHOLOGY | | + + + + + + | CREATININE | 0.84 | 0.70 - 1.30 | [facility] | [...] + + + + | POTASSIUM, | 4.5 | 3.4 - 5.0 | [facility] | [...] + + + + | CALCIUM, | 9.3 | 8.6 - 10.2 | [facility] | | | PLASMA | | mg/dL | DEPARTMENT | | | (LAB) | | | OF | | | | | | PATHOLOGY | | + + + + + + | EGFR | > 60 | >60 mL/min | [facility] | | | - | | | DEPARTMENT | | | [facility] | | | OF | | | [...] + + + | ANION GAP | 6 | 4 - 11 mmol/L | [facility] [...] DEPARTMENT OF | [address] | [place] [address] | | | PATHOLOGY | [address] | | | + + + + + GROWTH HORMONE, SERUM (06/12/2011 10:00 AM PDT) + + + + + + | Component | Value | Ref Range | Performed | Pathologist | | | | | At | Signature | + + + + + + | GROWTH | 0.1 | <5.0 ng/mL | [facility] | | | HORMONE | | | REGIONAL | | | | | | LABORATORY | | + + + + + + | TIME | 00:00 | Hrs:mins | [facility] | | | [...] Performed At | + + + | Results standardized to WHO 2nd IS 98/574 beginning | [facility] | | 11/27/10. [facility] [facility] | REGIONAL | | [place] [address] | LABORATORY | | [place] [address] | | + + + + + + + + | Performing | Address | City/State/Zipcode | Phone Number | | Organization | | | | + + + + + | [facility] | [address] | [place] [address] | | | LABORATORY | | | | + + + + + CORTISOL, SERUM (06/12/2011 10:00 AM PDT) + + + + + + | Component | Value | Ref Range | Performed | Pathologist | | | | | At | Signature | + + + + + + | CORTISOL, | 7.4 | ug/dl | [facility] | | | TOTAL SERUM | | | REGIONAL | | | | | | LABORATORY | | + + + + + + | TIME | 00:00 | Hrs:mins | [facility] | | | [...] + + | Cortisol Reference Ranges | [facility] | | AM Reference Range: 7.0 - 23.0 ug/dl | REGIONAL | | PM Reference Range: Less than 10.0 ug/dl | LABORATORY | | [facility] ([facility]) | | | [facility] [address] | | | [place] [address] | | + + + + + + + + | Performing | Address | City/State/Zipcode | Phone Number | | Organization | | | | + + + + + | [facility] | [address] | [place] [address] | | | LABORATORY | | | | + + + + + ACTH, PLASMA (06/12/2011 10:00 AM PDT) + + + + + + | Component | Value | Ref Range | Performed | Pathologist | | | | | At | Signature | + + + + + + | ACTH,PLASMA | 9 | <46 pg/mL | [facility] | | | | | | REGIONAL | | | | | | LABORATORY | | + + + + + + | TIME | 00:00 | Hrs:mins | [facility] | | | [...] ([address] [facility]) | [facility] | | [facility] [place] [address] [address] | REGIONAL | | [place] [address] | LABORATORY | + + + + + + + + | Performing | Address | City/State/Zipcode | Phone Number | | Organization | | | | + + + + + | [facility] | [address] | [place] [address] | | | LABORATORY | | | | + + + + + documented in this encounter Visit Diagnoses + + | Diagnosis | + + | 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
--- OUTSIDE RECORDS SUMMARY | ~2019-06-25 | XMS | Encounter Summary ---
Demographics + + + | Address | [address] | | | [place] [address] | + + + | Home Phone | | + + + | Preferred Language | Unknown | + + + | Marital Status | | + + + | Voodoo Affiliation | 1013 | + + + | Race | Unknown | + + + | Ethnic Group | Unknown | + + + Author + + + | Author | [facility] | | | and [place] | + + + | Organization | [facility] | | | [...] Team Providers + +------+ + | Care Fruit Grower Name | Role | Phone | + +------+ + | Giovanni Huffman MD | PCP | Unavailable | + +------+ + Reason for Visit + + + | Reason | Comments | + + + | Medication Refill | | + + + Encounter Details +--------+--------+ + + + | Date | Type | Department | Care Team | Description | +--------+--------+ + + + | 04/13/ | Refill | [facility] | Rylie Urbano | Medication Refill | | 2019 | | CARDIOLOGY [place] | [address] | | | | | [address] | [address] | | | | | [address] | [place] [address] | | | | | [place] | [phone] | | | | | [address] | | | | | | [phone] | | | +--------+--------+ + + + [...]
--- OUTSIDE RECORDS SUMMARY | ~2019-06-25 | XMS | Encounter Summary ---
Demographics + + + | Address | [address] | | | [place] [address] | + + + | Home Phone | | + + + | Preferred Language | Unknown | + + + | Marital Status | Single | + + + | Congregation Affiliation | CHR | + + + | Race | White | + + + | Ethnic Group | Not or | + + + Author + + + | Author | [facility] | + + + | Organization | [facility] | + + + | Address [...] Team Providers + +------+ + | Care Industrial Chemicals Supervisor Name | Role | Phone | + +------+ + | Alejandro Dowling DO | PCP | | + +------+ + Reason for Visit + + + | Reason | Comments | + + + | Refill Request | | + + + Encounter Details +--------+--------+ + + + | Date | Type | Department | Care Team | Description | +--------+--------+ + + + | 07/06/ | Refill | Neurosurgery at | Alek Elliott, | Refill Request | | 2010 | | [facility] [address] | | | | | Jen Mailcode: CH8N | | | | | | [facility] | | | | | | and Healing, | | | | | | Building | | | | | | Floor [place], [place] | | | | | | [address] | | | | | | [phone] | | | +--------+--------+ + + + [...]
--- OUTSIDE RECORDS SUMMARY | ~2019-06-25 | XMS | Encounter Summary ---
Demographics + + + | Address | [address] | | | [place] [address] | + + + | Home Phone [...] Author + + + | Author | [facility] | + + + | Organization | [facility] | + + + | Address [...] Team Providers + +------+ + | Care E/M Engineer Name | Role | Phone | + +------+ + | Giovanni Huffman MD | PCP | | + +------+ + Encounter Details +--------+ + + + + | Date | Type | Department | Care Team | Description | +--------+ + + + + | 04/21/ | MyChart | Neurosurgery at | [place], | RE:Neurosurgery Appt | | 2011 | Encounter | [facility] [address] | Caitlyn | | | | | Jen Mailcode: CH8N | DNP,HEATING UNIT MECHANIC,[place] [address] | | | | | [facility] | [address] [place], | | | | | and [place], | [place] [address] | | | | | [address] | [phone] | | | | | [place], [place] | | | | | | [address] | | | | | | [phone] | | | +--------+ + + + [...]
--- OUTSIDE RECORDS SUMMARY | ~2019-06-25 | XMS | Encounter Summary ---
Demographics + + + | Address | [address] | | | [place] [address] | + + + | Home Phone [...] Team Providers + +------+ + | Care Route Aide Name | Role | Phone | + [...] | | | | | pituitary | [place] | | | | | gland and | [address] | [address] | | | | | craniopharyn | | | | | | | geal duct | | | | | | | (HCC) DX: | | | | | | | 237.0 CPT: | | | | | | | [id number]/ | | | | | | | [address] | | | | | | | Procedures | | | | | | | SC EXCIS | | | | | | | SUPRATENT | | | | | | | BRAIN TUMOR | | | | | | | SC SCAN | | | | | | | PROC CRANIAL | | | | | | | INTRA SC | | | | | | | SCAN PROC | | | | | | | CRANIAL | | | | | | | EXTRA SC | | | | | | | MICROSURG | | | | | | | TECHNIQUES,R | | | | | | | EQ OPER | | | | | | | MICROSCOPE | | | | | | | SC | | | | | | | NEUROENDOSCO | | | | | | | P,EXC,PIT | | | | | | | RHYS,TRANSNAS | | | | | | | /SPHEN SC | | | | | | | SCAN PROC | | | | | | | CRANIAL | | | | | | | INTRA SC | | | | | | | [...] Visit | Head and Neck | | ([facility]); Nasal | | | | Surgery Services at | | drainage | | | | [facility] [address] | | | | | | [facility] | | | | | | Mailcode: PV01 | | | | | | Physician's [place]ne[place] | | | | | | [place], [place] | | | | | | [address] | | | | | | [phone] | | | +--------+---------+ + + + [...] will not refill Hamzah Sorensen M.D., F.A.C.S. Sales Appointment Coordinator, Head & Neck Surgery and Oncology Thyroid and Parathyroid Surgery Director, Head & Neck /Thyroid Robotic Surgery World Geography Teacher, Head & Neck Clinical Trials [facility] [place] [email or web address] in this encounter Plan of Treatment Not on filedocumented as of this encounter Procedures + +--------+ + + + | Procedure Name | Priori | Date/Time | Associated Diagnosis | Comments | | | ty | | | | + +--------+ + + + | SC | Routin | 08/04/2011 | Nasal drainage [...]
--- OUTSIDE RECORDS SUMMARY | ~2019-06-25 | XMS | Encounter Summary ---
Demographics + + + | Address | [address] | | | [place] [address] | + + + | Home Phone | | + + + | Preferred Language | Unknown | + + + | Marital Status | Single | + + + | Jainism Affiliation | CHR | + + + [...] Team Providers + +------+ + | Care Clinical Psychiatrist Name | Role | Phone | + [...] Closed | | Neurological | Diagnoses | Agustin | [place] | | | | Surgery | Unspecified | DO Daniel | MD [place] | | | | | disorder of | [place] | [address] | | | | | the | INTERNAL | [address] [place] | | | | | pituitary | MEDICINE | [address] [place], | | | | | gland and | [address] | [place] | | | | | its | [place] | [address] | | | | | hypothalamic | [address] | Phone: | | | | | control | [place], | [phone] | | | | | Family Care | [place] [address] | Fax: | | | | | [facility] ID# | Phone: | [phone] | | | | | [id number] | [phone] | | | | | | Auth# | Fax: | | | | | | [id number] | [phone] | | | | | | 05/19-05/19/12 | | | | | | | Procedures | | | | | | | CONSULT TO | | | | | | | PITUITARY | | | +--------+--------+ + + + + Encounter Details +--------+---------+ + + + | Date | Type | Department | Care Team | Description | +--------+---------+ + + + | 08/03/ | Office | Neurosurgery at | [place], | Pituitary adenoma | | 2010 | Visit | [facility] [address] | [place], | ([facility]) (Primary Dx); | | | | Joele Mailcode: [id number] | DNP,ASW/ASUW TACTICAL AIR CONTROLLER,[place] [address] | Headache; Nocturnal | | | | [facility] | [address] [place], | polyuria | | | | and Healing, | [place] [address] | | | | | [address] | [phone] | | | | | [place], [place] | | | | | | [address] | | | | | | [phone] | | | +--------+---------+ + + + [...] + + + | Blood Pressure | 136/93 | 08/03/2011 11:46 AM | | | | | PST | | + + + + + | Pulse | 89 | 08/03/2011 11:46 AM | | | | | PST | | + + + + + | Temperature | 37.2 C (98.9 F) | 08/03/2011 11:46 AM | | | | | PST | | + + + + + | Respiratory Rate | 16 | 08/03/2011 11:46 AM | | | | | PST | | + + + + + | Oxygen Saturation | - | - | | + + + + + | Inhaled Oxygen | - | - | | | Concentration | | | | + + + + + | Weight | 113 kg (249 lb 1.9 | 08/03/2011 11:46 AM | | | | oz) | PST | | + + + + + | Height | 188 cm (6' 2") | 08/03/2011 11:46 AM | | | | | PST | | + + + + + | Body Mass Index | 31.99 | 08/03/2011 11:46 AM | | | | | PST | | + + + + + documented in this encounter Progress Notes Caitlyn Mccormack, ABRAHAM,ASW/ASUW TACTICAL AIR CONTROLLER,[place] - 08/03/2011 11:55 AM PSTReason for visit: review of symptom s and followup 6 weeks s/p resection of [...] 07/01/2011 At this visit: Symptoms and Complaints: Headache: Worse (08/03/11 1149) Nasal dripping or salty taste in mouth: Worse (08/03/11 1149) Blurry Vision, intermittent: Worse (08/03/11 114)Diarrhea: Worse (08/03/11 114) Belly discomfort: Worse (08/03/111148) Nausea: Worse (08/03/111148) Vomiting: Worse (08/03/11 114) Temperature fluctuations: Worse (08/03/111148) Temperature fluctuations - Hot, Cold, or Both?: Both hot & cold (08/03/111148) Night sweats: Worse (08/03/111148) Decreased sexual interest: Worse (08/03/11 114) Increased urination: Worse (08/03/111148) Increased urination - Day , Night or Both?: Night (08/03/111148) Heart racing or pounding: Worse (08/03/111148) Chest pain: Worse (08/03/111148) Shortness of breath: Worse (08/03/111148) Weakness: Worse (08/03/111148) Weakness - Arms, Legs, Both?: Both: Arms & Legs (08/03/111148) Tremor: Worse (08/03/111148)Memory problems: Worse (08/03/111148) Poor concentration: Worse (08/03/111148) Sleep disturbances: Worse (08/03/111148) Fatigue: Worse (08/03/111148) Anxiety: Worse (08/03/111148) Depression: Worse (08/03/111148) Emotional ups and downs: Worse (08/03/111148) Dizziness with standing: Worse (08/03/111148) Headaches daily Presented to [facility] with URI and was treated with Z-pack for strep nasal drainage usually howie spencer has appt with ENT tomorrow. Some blurry vision. Noted when he closed his eyes last night experienced a 'srtobe light ef fect' . Was gone when he woke up. No diplopia or no peripheral vision changes [...] as stated above. Physical Exam: Blood pressure 136/93, pulse 89, temperature 37.2 C (98.9 F), resp. rate 16, height 1.8 8 m (6' 2"), weight 113 kg (249 lb 1.9 oz). General: A pleasant man who looks [...] lesion." Received are multiple irregular, soft, gelatinous, swn-ad-xskgnvz hemorrhagic purple tissues measuring 0.8 x 0.8 [...] developed and its performance characteristics determined by [employer]. It has not been cleared or approved by the U.S. Food and Drug Administration.) My electronic signature indicates that I have personally reviewed all diagnostic slides, the gross and/or microscopic portion of this report and formulated the final diagnosis. Rendering Diagnostician: Madhav Boyer M.D., Ph.D. Pathologist Electronically Signed 07/06/2011 8:00PM Assessment and discussion Pt continues to complain of headaches post op and has been treated for suspected strep infe ction with z pac. He reports nasal congestion and clear drainage but is not worse with bendi ng forward. He does complain of some dizziness with standing and nausea after hold his hydr ocortisone. Given the probability of a recent infection and ADY, will no do SENIOR INFORMATION SECURITY ENGINEER at this visi t and will have pt restart hydrocortisone. He also reports he stopped this about 2 days ago because he was feeling poorly. He has been using marijuana nightly to help him sleep. We dis cussed the effects of glucocorticoids and consequences of inadequate adrenal function. He wi ll follow up with ENT tomorrow. He reports symptoms of DI. Will get urine and serum osmolality and BMP at this visit and st art Desmopressin if DI confirmed. Will have pt RTC at 3 mths post op for SENIOR INFORMATION SECURITY ENGINEER with MRI. I answered pt questions to his satisfaction Plan: 1. Pituitary functions. 1.1. Adrenal. The patient has a history of adrenal insufficiency. SENIOR INFORMATION SECURITY ENGINEER at next visit. Will c ontinue hydrocortisone 20mg q am until that time. [...] or signs and symptoms of diabetes insipidus. Serum and urine osmolality and bmp pending will s tart 0.05mg DDAVP bid if indicated. 2. Followup.is scheduled for 3 months post op with MRI and review I spent 30 minutes xvdq-fv-foph time with this patient of which over 50% was spent in medic ally indicated counseling and education pertaining to the issues discussed above. CAITLYN MCCORMACK DNP, MARGARET, TAYLER [facility] [address] [place] [address] documented in this encounter Plan of Treatment Not on filedocumented as of this encounter Procedures + +--------+ + + + | Procedure Name | Priori | Date/Time | Associated Diagnosis | Comments | | | ty | | | | + +--------+ + + + | LAB REPORTS | | 2011 | | Results for this | | [...] | 0.60 | 0.34 - 5.60 | [facility] | | | | | uIU/ml | REGIONAL | | | | | | LABORATORY | | + +-------+ + + + + + | Specimen | + + | Blood - Blood | + + + + + | Narrative | Performed At | + + + | [facility] ([facility]) | [facility] | | [facility] [place] [address] | REGIONAL | | [place] [address] | LABORATORY | + + + + + + + + | Performing | Address | City/State/Zipcode | Phone Number | | Organization | | | | + + + + + | [facility] | [address] | [place] [address] | | | LABORATORY | | | | + + + + + TESTOSTERONE, SERUM (08/03/2011 12:15 PM PST) + +-------+ + + + | Component | Value | Ref Range | Performed | Pathologist | | | | | At | Signature | + +-------+ + + + | TESTOSTERON | 394 | 175 - 781 ng/dl | [facility] [...] [facility] | [facility] | | [facility] [place] [address] | REGIONAL | | [place] [address] | LABORATORY | + + + + + + + + | Performing | Address | City/State/Zipcode | Phone Number | | Organization | | | | + + + + + | [facility] | [address] | [place] [address] | | | LABORATORY | | | | + + + + + PROLACTIN, SERUM (08/03/2011 12:15 PM PST) + +-------+ + + + | Component | Value | Ref Range | Performed | Pathologist | | | | | At | Signature | + +-------+ + + + | PROLACTIN | 7 | 3 - 13 ng/ml | [facility] [...] [facility] | [facility] | | [place] [address] | REGIONAL | | [place] [address] | LABORATORY | + + + + + + + + | Performing | Address | City/State/Zipcode | Phone Number | | Organization | | | | + + + + + | [facility] | [address] | [place] [address] | | | LABORATORY | | | | + + + + + INSULIN GROWTH FACTOR-1, SERUM (08/03/2011 12:15 PM PST) + +-------+ + + + | Component | Value | Ref Range | Performed | Pathologist | | | | | At | Signature | + +-------+ + + + | IGF-1 | 189 | 115 - 307 ng/mL | [facility] | | | | | | REGIONAL | | | | | | LABORATORY | | + +-------+ + + + + + | Specimen | + + | Blood - Blood | + + + + + | Narrative | Performed At | + + + | [facility] ([employer] [facility]) Lai | [facility] | | [place] [address] [place] [facility] | [facility] | | [place] [address] | LABORATORY | + + + + + + + + | Performing | Address | City/State/Zipcode | Phone Number | | Organization | | | | + + + + + | [facility] | [address] | [place] [address] | | | LABORATORY | | | | + + + + + FREE T4, SERUM (08/03/2011 12:15 PM PST) + +-------+ + + + | Component | Value | Ref Range | Performed | Pathologist | | | | | At | Signature | + +-------+ + + + | FREE T4, | 0.8 | 0.6 - 1.2 ng/dL | [facility] | | | SERUM | | | REGIONAL | | | | | | LABORATORY | | + +-------+ + + + + + | Specimen | + + | Blood - Blood | + + + + + | Narrative | Performed At | + + + | [facility] [address] [facility]) L[facility] | LAI | | [place] [address] | REGIONAL | | [place] [address] | LABORATORY | + + + + + + + + | Performing | Address | City/State/Zipcode | Phone Number | | Organization | | | | + + + + + | [facility] | [address] | [place] [address] | | | LABORATORY | | | [...] | | | DEPARTMENT | | | AUSTRIAN | | | OF | | | [...] | [facility] | [address] [facility] | [place] [address] | | | PATHOLOGY | [address] [...] + + + + + | [facility] DEPARTMENT OF | [address] | [place] [address] | | | PATHOLOGY | [address] [...] | 0 | -10 - 10 | [facility] | | | GAP | | mOsm/kgH20 [...] [facility] | [address] | [place] [address] | | | PATHOLOGY | [address] | | | + + + + + LAB REPORTS (2011 12:00 AM PDT) + + + | Narrative | Performed At | + + + | | | + + + + + | Transcriptions | + + | Bony Whitlock - 09/18/2011 3:34 PM PST | + + documented in this encounter Visit Diagnoses + + | Diagnosis | + + | Pituitary adenoma (HCC) - Primary Benign neoplasm of pituitary gland and | | craniopharyngeal duct (pouch) | + + | Headache(784.0) Headache | + + | Nocturnal polyuria Nocturia | + + documented in this encounter
--- OUTSIDE RECORDS SUMMARY | ~2019-06-25 | XMS | Encounter Summary ---
Demographics + + + | Address | [address] | | | [place] [address] | + + + | Home Phone [...] Team Providers + +------+ + | Care Aeronautical Engineering Technologist Name | Role | Phone | + [...] + + | 07/01/ | Hospital | [facility] [address] | Alek Elliott, | | | 2010 - | Encounter | [address] | | | | | [id number] [address]IAN | | | | 07/02/ | | [place], | | | | 2010 | | [place] [address] | | | | | | [phone] | | | +--------+ + + + [...] 12:34 PM PST NEUROSURGERY DISCHARGE SUMMARY: Patient: Uri Pierre Admission Date: 07/01/2011 Discharge Date: 07/02/2011 Attending Physician: Alek Elliott MD PCP: Alejandro Dowling DO Service: [facility] Neurosurgery Diagnoses Principal Final Diagnosis: 1. [...] pituitary lesion 06/30/11 Brief Hospital Course 1. Uri Pierre was admitted to [facility] and underwent transsphenoidal hypophysectomy f or [...] of discharge pathology results were not pelon lized. BP 144/72 | Pulse 70 | Temp [...] although working at a desk on a [employer] mputer is often possible after 7 to 10 days. Destination: Destination: Home Condition on Discharge Good Discharge Follow Up- Facility MD to follow 1. Have a repeat BMP drawn on Friday 07/06. Use the lab slip provided for you. Results stephanie reid be faxed to Dr. Hernandez's office. 2. Follow up with endocrinology in 1 month at the [facility] on the 8th floor. Please call to schedule this appointment: [phone]. You will then need to ret urn for continued follow up at 3 months with endocrinology and neurosurgery with a repeat MR I. This appointment will be scheduled for you. 3. Please call Dr Junior Stephens's office (otolaryngology) to schedule an outpatient ap pointment two weeks after discharge. His office number is [phone]. PCP:Alejandro Dowling, DO When: Please follow-up with [...] 1-2 weeks. Use of saline irr igation ([place] Poston) 2-3 times a day, a decongestant or [...] although working at a desk on a [employer] mputer is often possible after 7 to 10 days. Special Instructions/Tests: Repeat BMP to be drawn on Friday 07/06, results faxed to Dr. Abena spain. Lab slip given to patient. Condition On Discharge: Good Vital Signs at discharge as appropriate: BP: 144/72 mmHg (07/02/11 1106) Pulse: 70 (07/02/11 1106) Resp: 16 (07/02/11 110) Roby ght: 117.7 kg (259 lb 7.7 oz) (07/01/11 0600) Discharge Patient To: Home Does patient have a planned readmission: No Discharge Summary Completed?: Yes. 07/02/2011 Discharging Provider: BINU DURON PA-C Date Completed: 07/02/2011 Time Completed: 12:34 PM Discharging Attending: Alek Elliott MD [facility] [address] [id number] [facility] [phone] documented in this enco unter Discharge Instructions [...] documented as of this encounter Progress Notes Debby Hernandez MD - 07/02/2011 3:20 PM PSTENDOCRINOLOGY [...] at bedtime and peak values in the estimator lumber before waking Use the lowest possible dose [...] patient-separately from time spent with fellow of [facility] over 50% was spent in [...] PO4 -- -- -- -- Results for URI PIERRE ( ) as of 07/02/2011 15:28 [...] MD Fellow, Endocrinology, Diabetes & Metabolism Pager [phone] uk, Tanya Ovalle MD - 1 09/01/2010 [...] (%): 40 fraction of O2 ( 05/03 1547)@FLOW([id number]) 24 Hour Vital Min/Max: Systolic (24hrs), Av [...] 32 5-650 mg, Oral, Q6H PRN, Rossana Sorenson MD, 650 mg at 07/02/11 1100 atenolol (aka TENORMIN) tablet 50 mg, 50 mg, Oral, DAILY, Rossana Sorenson MD, 50 mg at 07/02/11 1010 citalopram (ak a CELEXA) tablet 20 mg, 20 mg, Oral, DAILY, Rossana Sorenson MD, 20 mg at 07/02/11 08 hydrocortisone (aka CORTEF) tablet 20 mg, 20 mg, Oral, DAILY, Binu Duron PA-C, 20 mg at 814 hydrocortisone (aka CORTEF) tablet 50 mg, 50 mg, Oral, DAILY, Binu Duron PA-C, 50 mg at 07/01/11 1730 lisinopril (aka PRINIVIL) tablet 5 mg, 5 mg, Oral, DAILY, Rossana moon MD, 5 mg at 07/02/11814 morphine injection Inj 1-4 mg, 1-4 mg, Intravenous, Q2H PRN, Rossana Sorenson MD, 2 mg at 07/02/11 1045 NaCl 0.9%-KCl 20 mEq/L IV infusion, , Intravenous, CONTINUOUS, Rossana Sorenson MD nicotine (aka NICOTROL) 14 mg/24 hr 1 Patch, 1 Patch, Transdermal, DAILY, Meaghan Denton MD, 1 Patch at 07/01/112114 nicotine polacrilex (aka COMMIT) lozenge 2 mg, 2 mg, Oral, Q1H PRN, Meaghan Denton MD, 2 mg at 07/01/11 1940 oxyCODONE (aka ROXICODONE) oral solution 5-15 mg, 5-15 mg, Feeding tube, Q3H PRN, Rossana Sorenson MD, 15 mg at 07/02/11 1100 pneumococcal (23-valent) polysaccharide vaccine (aka PNEUMOVAX) injection 0.5 mL, 0.5 mL, I ntramuscular, ONE TIME IN THE MORNING, Alek Elliott MD ranitidine (aka ZANTAC) tablet 1 50 mg, 150 mg, Oral, BID, Rossana Sorenson MD, 150 mg at 07/02/11 08 REMOVE nicotine patch, , Transdermal, DAILY, Meaghan Denton MD senna-docusate (aka SENOKOT S) 8.6-50 mg 1 Tab, 1 T ab, Oral, BID, Rossana Sorenson MD, 1 Tab at 07/02/11 0815 Assessment and Plan: Uri Pierre is a 31 y.o. male who is POD #1 s/p transphenoid al resection of pititary mass. No CSF leak Continue HC per NSG D/c home today F/u with ENT in 2-3 weeks or when seeing NSG This patient was seen and examined on ENT rounds, and our team agrees with this assessment and plan. TANYA CERVANTES [place]Y1 [place] [id number] Hospital Day:1 Attending Physician: Alek Elliott MD noBinu PA-C - 05/2011 11:31 AM PST Neurosurgery [...] Repeat BMP lab draw on Wednesday per endo. BINU DURON PA-C [address] [id number] [place] [id number] Alek Tavarez MD - 07/02/2011 9:23 AM PSTMr. Ignacio is doing well. Awake, alert, bright. [...] pituitary mass Keep packs in Will follow inu Duron PA-C - 04/2011 5:19 PM PSTNeurosurgery Post-op [...] prn. OOB ad valentina. SCD DVT ppx. Debby Oakley MD - 1 08/31/2010 2:22 PM [...] will be put on HC taper per [facility] protocol. 1.1. Electrolytes: We will continue [...] will follow up with primary care physician. DEBBY HERNANDEZ MD Jeb Deal M D - 07/01/2011 2:22 PM PST Pituitary Clinic New Consult Fellow: Dr. Jeb Salgado Attending Physician: Dr. Debby Hernandez PCP: Alejandro Dowling DO HPI: Uri Pierre is a 31 y.o. Male with recent diagnosis of pituitary microadenoma on MRI which was done for the evaluation of his headaches, fatigue, and weight fluctuations . He is s/p Expanded endoscopic biopsy for pituitary adenoma POD 0. He has been transferred to PACU in the stable condition. His procedure was uneventful received 2L of NS, 100cc of DE BCs. His UOP is 400 ml since [...] and speech normal. Laboratory Data: Results for URI PIERRE ( ) as of 07/01/2011 14:28 Ref. Range 06/12/2011 10:00 06/12/2011 10:00 06/12/2011 10:00 06/12/2011 10:30 ACTH,PLASMA < 46 pg/mL 9 CORTISOL, TOTAL SERUM No range found 7.4 25.1 GROWTH HORMONE < 5.0 ng/mL 0.1 IGF-1 115-307 ng/mL 186 IGF-1, SERUM SENDOUT 132-333 ng/mL 154 Results for URI PIERRE ( ) as of 07/01/2011 14:28 [...] 06/12/2011 Radiology: MRI brain with contrast 04/17/11 [facility] Diagnostic imaging 8 mm enhancing nodule [...] MD Fellow, Endocrinology, Diabetes & Metabolism Pager [phone] signed by Debby Hernandez MD at 07/02/2011 12:46 PM PSTdocumented in this encounter Plan of Treatment [...] | + + | Other, Faculty - 2011 7:35 AM PDT | + + PROCEDURE NOTE (09/27/2015 4:59 AM PST) + + | Transcriptions | + + | Other, Faculty - 06/16/2011 6:51 AM PDT | + + PROCEDURE NOTE (09/27/2015 4:50 AM PST)PROCEDURE NOTE (09/27/2015 4:44 AM PST) + + | Transcriptions | + + | Other, Faculty - 07/05/2011 2:08 PM PST | + + OPERATION RECORD (07/03/2011 11:33 AM PST) + + | Transcriptions | + + | Alek Elliott MD - 07/02/2011 7:11 AM [facility] [id number] | | [id number] [id number] IGNACIO Ovalle | | [phone] Date: 07/01/2011 Attending Surgeon: Alek | | MD Lexi Ore Crushing Dust Collector(s): Rossana Sorenson M.D. Preoperative | | Diagnosis(es):Pituitary lesion. Postoperative [...] angiography sequence wasperformed and exported to the Stealth machine | | and planning of the surgicaltrajectory was carried out. The patient was taken to the | | OR, placed on ORtable in supine position. All pressure points were padded. | | Generalendotracheal anesthesia was induced by the Anesthesia without complication.The | | head attached to the table using [place] headholder and kept in aslightly rotated and [...] | procedure. There were no complications. Rossana Sorenson M.D. Alek Elliott MD AR | | / [id number] / [id number] / [id number] / T: 07/01/2011 | |Sent for permanent. [...] |The head attached to the table using [place] headholder and kept in a | |slightly [...] | | | | | | |Rossana Sorensno M.D. | | | | | | | | | |Alek Elliott MD | | | | | |AR / HS | |[id number] / [id number] / [id number] / | | | | | | | | | | | | | | | | | | | | | + + | Hamzah Sorensen MD - 07/02/2011 7:42 AM [facility] [id number] | | [id number] IG[place] | | [id number] Date: 07/01/2011 Attending Surgeon: Hamzah Kaplan | | Ratna Sorensen Ore Crushing Dust Collector(s): Phoebe Carrera MD Preoperative | | Diagnosis(es):Pituitary [...] endoscope was used for visualization, and a Stitzer elevator wasused to | | lateralize the [...] the case was | | turned over toDionisio Elliott for dissection of the pituitary. His portion will be | | dictatedseparately. There were no complications during the exposure. The | | patienttolerated the procedure well, and I was present for all portions of thecase. | | Hamzah Sorensen M.D.Nitric Acid Concentrator Operator,Head and Neck Surgery and OncologyDept. of | | Otolaryngology - Head and Neck Surgery [facility] / [id number] / [id number] / [id number] /D: | | 07/01/2011T: 07/02/2011 | |room [...] endoscope was used for visualization, and a Stitzer elevator was | |used to lateralize the [...] | | | |Hamzah Sorensen M.D. | |Nitric Acid Concentrator Operator, | |Head and Neck Surgery and Oncology | |Dept. of Otolaryngology - Head and Neck Surgery | | | | | |NDG / HS | |[id number] / [id number] / [id number] / | | | | | | [...] | Patient discharged. spoke to Devan | [facility] | | | DEPARTMENT OF | | | PATHOLOGY | + + + + + + + + | Performing | Address | City/State/Zipcode | Phone Number | | Organization | | | | + + + + + | [facility] DEPARTMENT OF | [address] | [place] [address] | | | PATHOLOGY | [address] | | | + + + + + TEACHING PHYSICIAN (07/02/2011 10:50 AM PST) + + | Transcriptions | + + | Alek Elliott MD - 07/02/2011 4:22 AM PST [id number] | | [phone] IGNACIO DEANORY Vasquez | | [phone] Date: 07/01/2011 Attending Surgeon: Alek | | MD Lexi Co-Surgeon: Hamzah Sorensen M.D.Ore Crushing Dust Collector(s): | | Rossana Sorenson M.D. Preoperative Diagnosis(es):Sellar lesion. | | Postoperative [...] operative report to be dictated by Dr.Ahmed Sorenson. This operation | | was performed in its entirety by Dr. Hamzah Sorensen and myself.For further details, please | | refer to his operative report. MD Hamzah Cam M.D.Ore Crushing Dust Collector | | Professor,Head and Neck Surgery and OncologyDept. of Otolaryngology - Head and Neck | | Surgery [place] / [id number] / [id number] / [id number] / T: 07/02/2011 | | | |Procedures [...] report to be dictated by | |Rossana Sorenson. | | | | | |This operation was performed in its entirety by Dr. Hamzah Sorensen and myself. | |For further details, please refer to his operative report. | | | | | | | | | |Alek Elliott MD | | | | | | | | | |Hamzah Sorensen M.D. | |Nitric Acid Concentrator Operator, | |Head and Neck Surgery and Oncology | |Dept. of Otolaryngology - Head and Neck Surgery | | | | | |[place] / HS | |[id number] / [id number] / [id number] / | | | | | | [...] | + + + + + | [facility] | [address] | [place] [address] | | | PATHOLOGY | [address] [...] | + + + + + | [facility] DEPARTMENT OF | [address] | [place] [address] | | | PATHOLOGY | [address] [...] (H) | 60 - 99 mg/dL | [facility] | | | PLASMA | | [...] | + + + + + | [facility] | [address] | [place] [address] | | | PATHOLOGY | [address] [...] | + + + + + | [facility] | [address] | [place] [address] | | | PATHOLOGY | [address] [...] DEPARTMENT OF | [address] | [place] [address] | | | PATHOLOGY | [address] [...] | + + + + + | [facility] | [address] | [place] [address] | | | PATHOLOGY | [address] [...] | + + | Bony Whitlock - 07/01/2011 11:04 AM PST | + [...] Boyer, | | | | | | M.Rosaura, PhD. / | | | | | [...] gelatinous, | | | | | | [id number]-gmfximm | | | | | | hemorrhagic [...] | | | | | | Block [id number]: | | | | | | anterior [...] Positive | | | | | | [id number] % Positive | | | | | [...] | + + + + + | [facility] | [address] | [place] [address] | | | PATHOLOGY | [address] [...] | | | | | | Until Eusebia 07/02/11 at 2000, pain | | | [...] First dose on Wed07/01/11 at | | AM PST | | [...] IV 10 mL/hr, | New Bag | 07/01/20 | 10 mL/hr | 10 mL/hr | [...] | | | | | CONTINUOUS, Starting 07/01/11 | | PM PST | | | [...] oxyCODONE (aka ROXICODONE) oral | Given | 11/10/20 | 15 mg | | | | solution 5-15 mg 5-15 mg, | | 11 2:00 | | | | | feeding tube, EVERY 3 HOURS | | PM PST | | | | | NEEDED, Starting Wed07/01/11 at | | | | | | | 1149, Until Eusebia 07/02/11 at 2001, | | | | | | | [...]
--- OUTSIDE RECORDS SUMMARY | ~2019-06-25 | XMS | Encounter Summary ---
Demographics + + + | Address | [address] | | | [place] [address] | + + + | Home Phone [...] + + + | Author | [facility] | + + + | Organization | [facility] | + + + | [...] Team Providers + +------+ + | Care Slasher Tender Helper Name | Role | Phone | [...] Question | | 2010 | | [place] [address] | | | | | | Jen Mailcode: CH8N | | | | | | [facility] | | | | | | and [place], | | | | | | [facility] [address], | | | | | | [place], [place] | | | | | | [address] | | | | | | [phone] | | | +--------+ + + + [...]
--- OUTSIDE RECORDS SUMMARY | ~2019-06-25 | XMS | Encounter Summary ---
Demographics + + + | Address | [address] | | | [place] [address] | + + + | Home Phone | | + + + | Preferred Language | Unknown | + + + | Marital Status | Single | + + + | Evangelical Affiliation | CHR | + + + | Race | White | + + + | Ethnic Group | Not or | + + + Author + + + | Author | [facility] | + + + | Organization | [facility] | + + + | Address | [...] Providers + +------+ + | Care Manager Paid Name | Role | Phone | + +------+ + | Alejandro Dowling DO | PCP | | + +------+ + Encounter Details +--------+ + + + + | Date | Type | Department | Care Team | Description | +--------+ + + + + | 07/13/ | Telephone | Neurosurgery at | Alek Elliott, | | | 2010 | | [facility] [address] | | | | | Jen Mailcode: CH8N | | | | | | [facility] | | | | | | and Healing, | | | | | | Building | | | | | | Floor [place], [place] | | | | | | [address] | | | | | | [phone] | | | +--------+ + + + [...]
--- OUTSIDE RECORDS SUMMARY | ~2019-06-25 | XMS | Encounter Summary ---
Demographics + + + | Address | [address] | | | [place] [address] | + + + | Home Phone | | + + + | Preferred Language | Unknown | + + + | Marital Status | Single | + + + | Gnosticist Affiliation | CHR | + + + | Race | White | + + + | Ethnic Group | Not or | + + + Author + + + | Author | [facility] | + + + | Organization | [facility] | + + + | Address [...] Team Providers + +------+ + | Care Lab Support Service Tech Name | Role | Phone | + [...] | | Neurological | Diagnoses | Kervin Velez, | | | | Surgery | Unspecified | DO Daniel | Alek Parsons | | | | | disorder of | [place] | [address] | | | | | the | INTERNAL | [address] | | | | | pituitary | MEDICINE | [place], [place] | | | | | gland and | [address] | [address] | | | | | its | [address] | | | | | | hypothalamic | [address] | | | | | | control | [place], | | | | | | Family Care | [place] [address] | | | | | | OHP ID# | Phone: | | | | | | [id number] | [phone] | | | | | | Procedures | Fax: | | | | | | CONSULT TO | [phone] | | | | | | PITUITARY | | | +--------+--------+ + + + + Encounter Details +--------+---------+ + + + | Date | Type | Department | Care Team | Description | +--------+---------+ + + + | 06/12/ | Office | Neurosurgery at | Alek Elliott, | [place] | | 2010 | Visit | [facility] [address] | | suprasellar mass | | | | Ave Mailcode: CH8N | | (Primary Dx) | | | | [place] for [facility] | | | | | | and Healing, | | | | | | Building | | | | | | Floor [place], [place] | | | | | | [address] | | | | | | [phone] | | | +--------+---------+ + + + [...] | Blood Pressure | 118/68 | 06/12/2011 10:56 AM | | | | | PDT | | + + + + + | Pulse | 84 | 06/12/2011 10:56 AM | | | | | PDT | | + + + + + | Temperature | 36.4 C (97.5 F) | 06/12/2011 10:56 AM | | | | | PDT | | + + + + + | Respiratory Rate | 16 | 06/12/2011 10:56 AM | | | | | PDT | | + + + + + | Oxygen Saturation | - | - | | + + + + + | Inhaled Oxygen | - | - | | | Concentration | | | | + + + + + | Weight | 116.1 kg (256 lb) | 06/12/2011 10:56 AM | | | | | PDT | | + + + + + | Height | 188 cm (6' 2") | 06/12/2011 10:56 AM | | | | | PDT | | + + + + + | Body Mass Index | 32.87 | 06/12/2011 10:56 AM | | | | | PDT | | + + + + + documented in this encounter Progress Notes Alek Elliott MD - 06/12/2011 12:16 PM PDTFormatting of this note might be different f rom the original. Neurosurgery History & Physical CC: Neck pain, nasal drainage HPI: Uri Pierre is a 30 y.o. male who presents with complaint of headache, neck pain, nasal drainage, bizarre smells. He reports loss of energy, weight fluctuations, thinn ing skin, development of stria, excessive thirst. He underwent lumbar puncture at outside E D when headaches and neck pain developed. He reports that there was no evidence of subarach noid hemorrhage or meningitis. Unfortunately, these data are not available to me today. Th is patient denies any difficulties with double vision, numbness or weakness of face, difficu lty with swallowing, history of seizures, numbness or weakness of extremities, or difficulty with gait. Past Medical History Diagnosis Date Complications affecting other specified body systems, hypertension Venereal disease, unspecified Abdominal pain, unspecified site Jaundice, unspecified, not of Headache Unspecified disorders of nervous system Atrial fibrillation GERD (gastroesophageal reflux disease) Past Surgical History Procedure Date Umbilical hernia repair 2005 Family History Problem Relation Cancer Mother Diabetes Mother Heart Disease Father grandfather Psychiatry Father brother,daughter,son Hypertension Father Arthritis Mother sister History Smoking status Current Everyday Smoker -- 1.0 packs/day Types: Cigarettes Smokeless tobacco Not on file History Alcohol Use: Not on file Current Outpatient Prescriptions Medication Sig aspirin 325 mg Oral Tablet Take 325 [...] Cartia Xt (Diltiazem Hcl) Diarrhea Metoprolol Diarrhea Review of Systems: Positive for: headache and endocrine abnormalities: see HPI Negative for: fever/chills, nausea/vomiting, swallowing difficulties, seizure, numbness/we akness of extremities and difficulty with gait Physical Exam: Vitals: BP Readings from Last 1 Encounters: 06/12/11 118/68 Pulse Readings from Last 1 Encounters: 06/12/11 84 Resp Readings from Last 1 Encounters: 06/12/11 16 Wt Readings from Last 1 Encounters: 06/12/11 116.121 kg (256 lb) General appearance: No acute distress, appears stated age, and good historian. Mental status & speech: Alert, oriented to person, place, and time. Speech is fluent. Cranial nerves: Pupils are equal, round, and reactive to light. EOMI. Sensation to touch in face is present and symmetrical. Faces symmetrical. Hearing grossly intact. Tongue pr otrudes into midline. Palate elevates at midline. Good SCM and Trapezius muscle function b ilaterally. Motor / Extremity exam: MOTOR SCORE: Nerve root (motion/muscle/nerve) RIGHT LEFT C5 (Shoulder Abduct / Deltoid / Axillary n.) 5 5 C6 (Elbow Flex / Biceps / Musculocutaneous n.) 5 5 C7 (Elbow Ext / Triceps / Ulnar n.) 5 5 C8 (Wrist Ext / / ) 5 5 T1 (Pinky Abd / / ) 5 5 L2 (Hip Flex / Iliopsoas / ) 5 5 L3 (Knee Ext / Quadriceps / ) 5 5 L4 (Dorsiflex / Anterior Tibialis / Peroneal n.) 5 5 L4 (PF and inversion / Posterior Tibialis / Post Tibial n.) 5 5 L5 (Toe Ext / EHL / Peroneal n.) 5 5 S1 (Plantar Flex / Gastroc / Peroneal n.) 5 5 Sensory exam in extremities: No sensory deficits in right upper extremity to light touch. No sensory deficits in left upper extremity to light touch No sensory deficits in right lower extremity to light touch No sensory deficits in left lower extremity to light touch Gait: Normal Skin: Thin, tight skin with stria over his abdomen. No evidence of prior surgical scars i n the region of interest. Imaging: Not available to review today. CDs did not have any content on them. Reports in dicate a 9 mm suprasellar lesion that enhances within the stalk of the pituitary gland. The neuro-radiologist rendered a wide differential diagnosis for this lesion. Assessment: Suprasellar lesion (DDx: adenoma (secreting vs. non-secreting), meningioma, lym phoma, germinoma, aneurysm) Plan: MRI brain with and without gadolinium will be reviewed after it's mailed to my office Will plan for surgery, right frameless stereotactic craniotomy for excision/biopsy of lesi on I explained that surgical plan may be revised after my review of images and that I will ca ll him with my interpretation Comprehensive neuro-endocrine evaluation today by Dr. Pinzon Pre-anesthesia appointment today with basic lab testing Told patient to stop ASA now in anticipation of surgery A discussion regarding the patient's presentation, examination, and imaging studies was had . The surgical plan was reviewed. This included a description of the procedure in detail, the risks and benefits of the surgery, as well as therapeutic alternatives. I specifically discussed the risks of bleeding, infection, stroke, neurological deficits (including but not limited to paralysis, sensory loss, vision loss, double vision, swallowing difficulties, he aring loss, coma, ) leakage of cerebrospinal fluid and hypothalamic / pituitary dysfunc tion. I reviewed the risks of general anesthesia and its effects on the heart and lungs. I made it clear that this may not be the definitive operation and that subsequent surgery in the future may be indicated. I answered all questions and the patient expressed understandi ng at the conclusion of this encounter. The patient has agreed to surgery and we will tenta tively schedule for July 01, 2011. I spent 60 minutes [id number] with the patient. I spent more than 50% of this visit in [facility]. I answered all questions and the patient expressed understanding at the conclusi on of this office visit. In addition, I instructed the patient to call the office or return should any issues or concerns arise. documented in this encounter Plan of Treatment Not on filedocumented as of this encounter Procedures + +--------+ + + + | Procedure Name | Priori | Date/Time | Associated Diagnosis | Comments | | | ty | | | | + +--------+ + + + | LAB REPORTS | | 06/12/2011 | | Results for this | | | | 12:00 AM | | procedure are in the | | | | PDT | | results section. | + +--------+ + + + | RADIOLOGY | | 06/12/2011 | | Results for this | | | | 12:00 AM | | procedure are in the | | | | PDT | | results section. | + +--------+ + + + | RADIOLOGY | | 06/12/2011 | | Results for this | | | | 12:00 AM | | procedure are in the | | | | PDT | | results section. | + +--------+ + + + | RADIOLOGY | | 06/12/2011 | | Results for this | | | | 12:00 AM | | procedure are in the | | | | PDT | | results section. | + +--------+ + + + | RADIOLOGY | | 06/12/2011 | | Results for this | | | | 12:00 AM | | procedure are in the | | | | PDT | | results section. | + +--------+ + + + documented in this encounter Results LAB REPORTS (06/12/2011 12:00 AM PDT) + + + | Narrative | Performed At | + + + | | | + + + + + | Transcriptions | + + | Bony Whitlock - 07/09/2011 10:12 AM PST | + + RADIOLOGY (06/12/2011 12:00 AM PDT) + + + | Narrative | Performed At | + + + | | | + + + + + | Transcriptions | + + | Bony Whitlock - 07/09/2011 10:11 AM PST | + + RADIOLOGY (06/12/2011 12:00 AM PDT) + + + | Narrative | Performed At | + + + | | | + + + + + | Transcriptions | + + | Kamlesh Faculty - 07/09/2011 10:11 AM PST | + + RADIOLOGY (06/12/2011 12:00 AM PDT) + + + | Narrative | Performed At | + + + | | | + + + + + | Transcriptions | + + | Bony Whitlock - 06/30/2011 7:18 AM PST | + + RADIOLOGY (06/12/2011 12:00 AM PDT) + + + | Narrative | Performed At | + + + | | | + + + + + | Transcriptions | + + | Bony Whitlock - 06/26/2011 3:35 PM PDT | + + documented in this encounter Visit Diagnoses + + | Diagnosis | + + | Sellar or suprasellar mass - Primary Swelling, mass, or lump in head and neck | + + documented in this encounter
--- OUTSIDE RECORDS SUMMARY | ~2019-06-25 | XMS | Encounter Summary ---
Demographics + + + | Address | [address] | | | [place] [address] | + + + | Home Phone | | + + + | Preferred Language | Unknown | + + + | Marital Status | Single | + + + | Islam Affiliation | CHR | + + + [...] Team Providers + +------+ + | Care Medical Esthetician Name | Role | Phone | + +------+ + | Giovanni Huffman MD | PCP | | + +------+ + Encounter Details +--------+ + + + + | Date | Type | Department | Care Team | Description | +--------+ + + + + | 06/07/ | Documentati | Neurosurgery at | Ashley Duron PA | | | 2011 | on | [facility] [address] | [address] | | | | | [place] Mailcode: CHRyanN | Cindi Alvarez [place], | | | | | [facility] | [place] [address] | | | | | and Healing, | [phone] | | | | | Building | | | | | | Floor [place], [place] | | | | | | [address] | | | | | | [phone] | | | +--------+ + + + [...]
--- OUTSIDE RECORDS SUMMARY | ~2019-06-25 | XMS | Encounter Summary ---
Demographics + + + | Address | [address] | | | [place] [address] | + + + | Home Phone [...] Team Providers + +------+ + | Care Php Mysql Web Developer Name | Role | Phone | + +------+ + | Alejandro Dowling DO | PCP | | + +------+ + Encounter Details +--------+------+ + + + | Date | Type | Department | Care Team | Description | +--------+------+ + + + | 08/03/ | Lab | Laboratory at [facility] | | Pituitary adenoma | | 2010 | | [address] | | ([facility]IN [facility]); Headache; | | | | [place], [place] | | Nocturnal polyuria | | | | [address] | | | | | | [phone] | | | +--------+------+ + + + [...] Way Lab) | [facility] | | [facility] [address] | REGIONAL | | [place] [address] | LABORATORY | + + + + + + + + | Performing | Address | City/State/Zipcode | Phone Number | | Organization | | | | + + + + + | [facility] | [address] | [place] [address] | | | LABORATORY | | | [...] [facility] | [facility] | | [place] [address] | REGIONAL | | [place] [address] | LABORATORY | + + + + + + + + | Performing | Address | City/State/Zipcode | Phone Number | | Organization | | | | + + + + + | [facility] | [address] | [place] [address] | | | LABORATORY | | | [...] [facility] | [facility] | | [place] [address] [facility] | REGIONAL | | [place] [address] | LABORATORY | + + + + + + + + | Performing | Address | City/State/Zipcode | Phone Number | | Organization | | | | + + + + + | [facility] | [address] | [place] [address] | | | LABORATORY | | | [...] At | + + + | [facility] | [facility] | | [place] [address] [facility] | REGIONAL | | [place] [address] | LABORATORY | + + + + + + + + | Performing | Address | City/State/Zipcode | Phone Number | | Organization | | | | + + + + + | [facility] | [address] | [place] [address] | | | LABORATORY | | | [...] At | + + + | [facility] ([employer] [facility] | [place] | | [place] [address] [place] [address] | REGIONAL | | [place] [address] | LABORATORY | + + + + + + + + | Performing | Address | City/State/Zipcode | Phone Number | | Organization | | | | + + + + + | [facility] | [address] | [place] [address] | | | LABORATORY | | | [...] | | | DEPARTMENT | | | [place] | | | OF | | | [...] | + + + + + | [facility] | [address] | [place] [address] | | | PATHOLOGY | [address] [...] + + + + + | [facility] DEPARTMENT OF | [address] [facility] | [place] [address] | | | PATHOLOGY | [address] [...] | 0 | -10 - 10 | [facility] | | | GAP | | mOsm/kgH20 [...] + + + + + | [facility] DEPARTMENT OF | [address] | [place] [address] | | | PATHOLOGY | [address] [...]
--- OUTSIDE RECORDS SUMMARY | ~2019-06-25 | XMS | Encounter Summary ---
Demographics + + + | Address | [address] | | | [place] [address] | + + + | Home Phone [...] Team Providers + +------+ + | Care Construction Administrative Assistant Name | Role | Phone | + +------+ + | Giovanni Huffman MD | PCP | | + +------+ + Encounter Details +--------+ + + + + | Date | Type | Department | Care Team | Description | +--------+ + + + + | 04/01/ | Outside | UNKNOWN DEPARTMENT | Other, Faculty | | | 2011 | Records | [address] [facility] | [phone] | | | | | [address] | | | | | | [place], [place] | | | | | | [address] | | | +--------+ + + + [...]
--- OUTSIDE RECORDS SUMMARY | ~2019-06-25 | XMS | Clinical Summary ---
Demographics + + + | Address | [address] | | | [place] [address] | + + + | Home Phone [...] Team Providers + +------+ + | Care Sales Representative Sales Manager Name | Role | Phone | + +------+ + | Figueroa Mazariegos MD | PCP | | + +------+ + Source Comments NINO is fully live on both EpicCare Ambulatory and EpicCare InPatient.[facility] Allerg[facility] + + + + + + [...] | | | + +--------+ +--------+-------+---------+--------+ | TICKETING CLERK MEDICAID | TICKETING CLERK | xxxxxxxx | | | | Medica [...] | 1980 | [phone] | [place] [address] | | | hola | | | [...]
--- OUTSIDE RECORDS SUMMARY | ~2019-06-25 | XMS | Encounter Summary ---
Demographics + + + | Address | [address] | | | [place] [address] | + + + | Home Phone | | + + + | Preferred Language | Unknown | + + + | Marital Status | Single | + + + | Druze Affiliation | CHR | + + + | Race | White | + + + | Ethnic Group | Not or | + + + Author + + + | Author | [facility] | + + + | Organization | [facility] | + + + | [...] Team Providers + +------+ + | Care Tank Pumper Name | Role | Phone | + [...] | | disorder of | [place] | [address] | | | | | the | INTERNAL | [address] | | | | | pituitary | MEDICINE | [place], [place] | | | | | gland and | [address] | [address] | | | | | its | [address] | | | | | | hypothalamic | [address] | | | | | | control | [place], | | | | | | Family Care | [place] [address] | | | | | | OHP ID# | Phone: | | | | | | [id number] | [phone] | | | | | | Procedures | Fax: | | | | | | CONSULT TO | [phone] | | | | | | PITUITARY | | | +--------+--------+ + + + + Encounter Details +--------+---------+ + + + | Date | Type | Department | Care Team | Description | +--------+---------+ + + + | 06/12/ | Office | Neurosurgery at | Alek Elliott, | [place] | | 2010 | Visit | [facility] [address] | | suprasellar mass | | | | Ave Mailcode: CH8N | | (Primary Dx) | | | | [place] for [facility] | | | | | | and Healing, | | | | | | Building | | | | | | Floor [place], [place] | | | | | | [address] | | | | | | [phone] | | | +--------+---------+ + + + [...] July 01, 2011. I spent 60 minutes [id number] with the patient. I spent more than 50% of this visit in [facility]. I answered all questions and the patient [...]
--- OUTSIDE RECORDS SUMMARY | ~2019-06-25 | XMS | Encounter Summary ---
Demographics + + + | Address | [address] | | | [place] [address] | + + + | Home Phone | | + + + | Preferred Language | Unknown | + + + | Marital Status | Single | + + + | Judaism Affiliation | CHR | + + + [...] Team Providers + +------+ + | Care Metal Hanging Supervisor Name | Role | Phone | [...] Closed | | Radiology | Diagnoses | [place], Ashley | [facility] | | | | | Pituitary | [address], [place] [address] | | | | | adenoma | [address] | [address] | | | | | (HCC) | [address] | Rd | | | | | Procedures | Rd | Mailcode: | | | | | MR PITUITARY | [place], [place] | [address] | | | | | [place] | [address] | [address] | | | | | CONTRAST | Phone: | Research | | | | | | [phone] | [place] | | | | | | Fax: | [place], [place] | | | | | | [phone] | [address] | | | | | | | Phone: | | | | | | | [phone] | | | | | | | Fax: | | | | | | | [phone] | +--------+--------+ + + + + Encounter Details +--------+ + + + + | Date | Type | Department | Care Team | Description | +--------+ + + + + | 09/29/ | Sprinkler Driver | Neurosurgery at | Ashley Duron PA | Pituitary adenoma | | 2011 | | [facility] [address] | [address] | (HCC) (Primary Dx) | | | | Ave Mailcode: CH8N | [address]indi Alvarez [place], | | | | | [facility] | [place] [address] | | | | | and Healing, | [phone] | | | | | Building , | | | | | | Floor [place], [place] | | | | | | [address] | | | | | | [phone] | | | +--------+ + + + [...]
--- OUTSIDE RECORDS SUMMARY | ~2019-06-25 | XMS | Encounter Summary ---
Demographics + + + | Address | [address] | | | [place] [address] | + + + | Home Phone | | + + + | Preferred Language | Unknown | + + + | Marital Status | Single | + + + | Jain Affiliation | CHR | + + + [...] Team Providers + +------+ + | Care Parcel Post Truck Driver Name | Role | Phone | [...] Closed | | Radiology | Diagnoses | [place], Ashley | Rad [facility] | | | | | Unspecified | [address], [place] [address] | [address] | | | | | disorder of | [address] | [address] | | | | | the | [address] | Rd | | | | | pituitary | Rd | Mailcode: | | | | | gland and | [place], [place] | [address] | | | | | its | [address] | [address] | | | | | hypothalamic | Phone: | Research | | | | | control | [phone] | Center | | | | | Procedures | Fax: | [place], [place] | | | | | MR PITUITARY | [phone] | [address] | | | | | [address] | | Phone: | | | | | CONTRAST | | [phone] | | | | | | | Fax: | | | | | | | [phone] | +--------+--------+ + + + + Reason for Visit Diagnostic Testing (Routine) +--------+--------+ + + + + | Status | Reason | Specialty | Diagnoses / | Referred By | Referred To | | | | | Procedures | Contact | Contact | +--------+--------+ + + + + | Closed | | Radiology | Diagnoses | [place], Ashley | Rad Mri Hrc | | | | | Unspecified | [place], [place] [address] | [address] | | | | | disorder of | [facility] | [address] | | | | | the | [address] | Rd | | | | | pituitary | Rd | Mailcode: | | | | | gland and | [place], [place] | [address] | | | | | its | [address] | [place] | | | | | hypothalamic | Phone: | Research | | | | | control | [phone] | Center | | | | | Procedures | Fax: | [place], [place] | | | | | MR PITUITARY | [phone] | [address] | | | | | W[address] | | Phone: | | | | | CONTRAST | | [phone] | | | | | | | Fax: | | | | | | | [phone] | +--------+--------+ + + + + Encounter Details +--------+ + + + + | Date | Type | Department | Care Team | Description | +--------+ + + + + | 09/25/ | Hospital | Radiology/Imaging | | | | 2011 | Encounter | Lab at [facility] [address] | | | | | [address] Mailcode: | | | | | | [facility] [place] [facility] | | | | | | Health and Healing, | | | | | | Building [address], [facility] | | | | | | Floor [place], [place] | | | | | | [address] | | | | | | [phone] | | | +--------+ + + + [...] | | + +---------+ + + | [facility] DEPARTMENT OF | | | | [...] 1.0 | 0.7 - 1.3 mg/dL | [facility], | | | POC | [...] + + | TEJA [facility] | [address] [facility] | [place] [address] | | | OF CARE TESTS | | | | + + + + + documented in this encounter Visit Diagnoses + + | Diagnosis | + + | 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
--- OUTSIDE RECORDS SUMMARY | ~2019-06-25 | XMS | Encounter Summary ---
Demographics + + + | Address | [address] | | | [place] [address] | + + + | Home Phone | | + + + | Preferred Language | Unknown | + + + | Marital Status | Single | + + + | Pentecostalism Affiliation | CHR | + + + | Race | White | + + + | Ethnic Group | Not or | + + + Author + + + | Author | [facility] | + + + | Organization | [facility] | + + + | [...] Team Providers + +------+ + | Care Wetlands Conservation Laborer Name | Role | Phone | + [...] | | | disorder of | | DNP,[place]SE[place] | | | | | the | | [address] | | | | | pituitary | | Ave | | | | | gland and | | [place], [place] | | | | | its | | [address] | | | | | hypothalamic | | Phone: | | | | | control | | [phone] | | | | | Family Care | | Fax: | | | | | [facility] ID# | | [phone] | | | | | [id number] | | | | | | | [...] disorder | | 2011 | Visit | [facility] [address] | Caitlyn, | of the pituitary | | | | Ave Mailcode: CH8N | DNP,[place] HOUSEKEE[place] [address] | gland and its | | | | [place] [facility] | [address] [place], | hypothalamic | | | | and Healing, | [place] [address] | control; Pituitary | | | | Building 1 | [phone] | adenoma (HCC) | | | | [place], [place] | | | | | | [address] | | | | | | [phone] | | | +--------+---------+ + + + [...] documented as of this encounter Progress Notes Caitlyn Mccormack DNP, FNP, [place] - 04/08/2012 5:07 PM [...] + + + | [facility] | [address] | [place] [address] | | | LABORATORY | | | [...] + + + | [facility] | [address] | [place] [address] | | | LABORATORY | | | [...] + + + | [facility] | [address] | [place] [address] | | | LABORATORY | | | [...] + + + | [facility] | [address] | [place] [address] | | | LABORATORY | | | [...] + + + | [facility] | [address] | [place] [address] | | | LABORATORY | | | [...] | + + + + + | [facility] | [address] | [place] [address] | | | LABORATORY | | | [...] + + + + + | [facility] | [address] | [place] [address] | | | PATHOLOGY | [address] [...] + + + | [facility] | [address] | [place] [address] | | | LABORATORY | | | [...] + + + | [facility] | [address] | [place] [address] | | | LABORATORY | | | [...]
--- OUTSIDE RECORDS SUMMARY | ~2019-06-25 | XMS | Encounter Summary ---
Demographics + + + | Address | [address] | | | [place] [address] | + + + | Home Phone [...] Team Providers + +------+ + | Care Deputy Chief Counsel Name | Role | Phone | + +------+ + | Alejandro Dowling DO | PCP | | + +------+ + Encounter Details +--------+ + + + + | Date | Type | Department | Care Team | Description | +--------+ + + + + | 07/15/ | Telephone | Neurosurgery at | Alek Elliott, | | | 2010 | | [facility] [address] MD | | | | | Jen Mailcode: CH8N | | | | | | [facility] | | | | | | and Healing, | | | | | | Building | | | | | | Floor [place], [place] | | | | | | [address] | | | | | | [phone] | | | +--------+ + + + [...]
--- OUTSIDE RECORDS SUMMARY | ~2019-06-25 | XMS | Encounter Summary ---
Demographics + + + | Address | [address] | | | [place] [address] | + + + | Home Phone [...] Team Providers + +------+ + | Care Maritime Engineer Name | Role | Phone | [...] | | pituitary | MEDICINE | [address] [place], | | | | | gland and | [address] | [place] | | | | | its | [place] | [address] | | | | | hypothalamic | [address] | Phone: | | | | | control | [place], | [phone] | | | | | Family Care | [place] [address] | Fax: | | | | | OHP ID# | Phone: | [phone] | | | | | [id number] | [phone] | | | | | | Auth# | Fax: | | | | | | [id number] | [phone] | | | | | | 05/19-05/19/12 [...] [address] | [address] | ([facility]) (Primary Dx); | | | | Ave Mailcode: CH8N | [address] | Headache; History of | | | | [facility] | [place], [place] | adrenal | | | | and Healing, | [address] | insufficiency | | | | Building 1 | [phone] | | | | | [place], [place] | | | | | | [address] | | | | | | [phone] | | | +--------+---------+ + + + [...] Madhav Boyer M.D., PhD. / Neuropathologist ; [facility] Amendment seen by: Madhav Boyer M.D., PhD. [...] lesion." Received are multiple irregular, soft, gelatinous, ush-tv-jzogkfb hemorrhagic purple tissues measuring 0.8 x 0.8 [...] developed and its performance characteristics determined by [employer]. It has not been cleared or approved [...] (LAB) 8.6 - 10.2 mg/dL EGFR - SINGAPOREAN > 60 mL/min EGFR NON -SINGAPOREAN > 60 mL/min ANION GAP 4 - [...] 8.6 - 10.2 mg/dL 9.6 EGFR - SINGAPOREAN > 60 mL/min > 60 EGFR NON -SINGAPOREAN > 60 mL/min > 60 ANION GAP [...] (LAB) 8.6 - 10.2 mg/dL EGFR - SINGAPOREAN > 60 mL/min EGFR NON -SINGAPOREAN > 60 mL/min ANION GAP 4 - [...] RTC at 9 mths post op for CLINICAL LABORATORY ASSISTANT with MRI. I explained the pt that pathology was consistent with cyst but this was done at [facility] and did not contain the lesion in his stalk. He will discuss further with Dr Elliott I answered pt questions to his satisfaction Plan: 1. Pituitary functions. 1.1. Adrenal. The patient has a history of adrenal insufficiency. CLINICAL LABORATORY ASSISTANT this visit. Will cont inue hydrocortisone 20mg [...] and review timing of MRI. Uri Pierre, [id number] Reason for visit: Chief Complaint Patient presents [...] and follow up. I spent 40 minutes ckro-og-mpue time with this patient ( separately from [...] (LAB) 8.6 - 10.2 mg/dL EGFR - SINGAPOREAN > 60 mL/min EGFR NON -SINGAPOREAN > 60 mL/min ANION GAP 4 - [...] 8.6 - 10.2 mg/dL 9.0 EGFR - SINGAPOREAN > 60 mL/min > 60 EGFR NON -SINGAPOREAN > 60 mL/min > 60 ANION GAP [...] (LAB) 8.6 - 10.2 mg/dL EGFR - SINGAPOREAN > 60 mL/min EGFR NON -SINGAPOREAN > 60 mL/min ANION GAP 4 - [...] Regards, MD Yamileth Luciano, 6 mo MRI, CLINICAL LABORATORY ASSISTANT/RM ,CGYLexi ( duong Ramirez order MRI after [...] | | e | 12:45 PM | ([facility]) | procedure are in the | | [...] 10.0 ug/dl | LABORATORY | | RLB ([facility]) | | | [facility] [place] [address] | | | [place] [address] | | + + + + + + + + | Performing | Address | City/State/Zipcode | Phone Number | | Organization | | | | + + + + + | [facility] | [address] | [place] [address] | | | LABORATORY | | | [...] ([facility]) | [facility] | | [facility] [place] [place] [address] | REGIONAL | | [place] [address] | LABORATORY | + + + + + + + + | Performing | Address | City/State/Zipcode | Phone Number | | Organization | | | | + + + + + | [facility] | [address] | [place] [address] | | | LABORATORY | | | [...] Way Lab) [facility] | [facility] | | [place] [address] [facility] | REGIONAL | | [place] [address] | LABORATORY | + + + + + + + + | Performing | Address | City/State/Zipcode | Phone Number | | Organization | | | | + + + + + | [facility] | [address] [facility] | [place] [address] | | | LABORATORY | | | [...] [facility] | [facility] | | [place] [address] | REGIONAL | | [place] [address] | LABORATORY | + + + + + + + + | Performing | Address | City/State/Zipcode | Phone Number | | Organization | | | | + + + + + | [facility] | [address] | [place] [address] | | | LABORATORY | | | [...] [facility] | [facility] | | [place] [address] | REGIONAL | | [place] [address] | LABORATORY | + + + + + + + + | Performing | Address | City/State/Zipcode | Phone Number | | Organization | | | | + + + + + | [facility] | [address] | [place] [address] | | | LABORATORY | | | [...] + + + | R[facility] ([facility]) [facility] | [facility] | | [place] [address] [address] [facility] | REGIONAL | | [place] [address] | LABORATORY | + + + + + + + + | Performing | Address | City/State/Zipcode | Phone Number | | Organization | | | | + + + + + | [facility] | [address] | [place] [address] | | | LABORATORY | | | [...] At | + + + | [facility] ([facility]) [facility] | [facility] | | [place] [address] | REGIONAL | | [place] [address] | LABORATORY | + + + + + + + + | Performing | Address | City/State/Zipcode | Phone Number | | Organization | | | | + + + + + | [facility] | [address] | [place] [address] | | | LABORATORY | | | [...] At | + + + | RLB ([facility]) Lai | LAI | | [place] [address] [address] [facility] | [facility] | | [place] [address] | LABORATORY | + + + + + + + + | Performing | Address | City/State/Zipcode | Phone Number | | Organization | | | | + + + + + | [facility] | [address] | [place] [address] | | | LABORATORY | | | [...] | | | DEPARTMENT | | | SINGAPOREAN | | | OF | | | [...] | + + + + + | [facility] | [address] | [place] [address] | | | PATHOLOGY | [address] [...] RLB ([facility]) | | | [place] [address] | | | [place] [address] | | + + + + + + + + | Performing | Address | City/State/Zipcode | Phone Number | | Organization | | | | + + + + + | [facility] | [address] | [place] [address] | | | LABORATORY | | | [...] At | + + + | RLB ([facility]) | [facility] | | [facility] [place] [address] [address] | REGIONAL | | [place] [address] | LABORATORY | + + + + + + + + | Performing | Address | City/State/Zipcode | Phone Number | | Organization | | | | + + + + + | [facility] | [address] | [place] [address] | | | LABORATORY | | | [...]
--- OUTSIDE RECORDS SUMMARY | ~2019-06-25 | XMS | Encounter Summary ---
Demographics + + + | Address | [address] | | | [place] [address] | + + + | Home Phone | | + + + | Preferred Language | Unknown | + + + | Marital Status | Single | + + + | Anglican Affiliation | CHR | + + + [...] Phone | + + +---------+ + | Ramni Lomeli | ECON | Unknown | | + + +---------+ + | Maria Eugenia Razo | ECON | Unknown | | + + +---------+ + Care Team Providers + +------+ + | Care Canning Machine Operator Name | Role | Phone [...] | | | | | adenoma | DNP,CLINICAL SCIENTIST,[place] | [address] | | | | | ([facility]) | [address] | | | | | Procedures | Ave | Mailcode: | | | | | MR PITUITARY | [place], [place] | [address] | | | | | [address] | [address] | [place] | | | | | CONTRAST | Phone: | Research | | | | | | [phone] | Dwarf | | | | | | Fax: | [place], [place] | | | | | | [phone] | [address] | | | | | | | Phone: | | | | | | | [phone] | | | | | | | Fax: | | | | | | | [phone] | +--------+--------+ + + + + Encounter Details +--------+ + + + + | Date | Type | Department | Care Team | Description | +--------+ + + + + | 06/20/ | Prosthetic Aides Teacher | Neurosurgery at | [place], | Pituitary adenoma | | 2011 | | [facility] [address] | [place], | ([facility]) (Primary Dx) | | | | Ave Mailcode: CH8N | DNP,CLINICAL SCIENTIST,[place] [address] | | | | | [facility] | [address] [place], | | | | | and Healing, | [place] [address] | | | | | [facility] | [phone] | | | | | Floor [place], [place] | | | | | | [address] | | | | | | [phone] | | | +--------+ + + + [...]
--- OUTSIDE RECORDS SUMMARY | ~2019-06-25 | XMS | Encounter Summary ---
Demographics + + + | Address | [address] | | | [place] [address] | + + + | Home Phone [...] Team Providers + +------+ + | Care Tie Binder Name | Role | Phone | + [...] Visit | Medicine Clinic at | [address] | (Primary Dx); | | | | [facility] 4th Floor [address] | [place], [place] | History of atrial | | | | [address] | [address] | fibrillation; | | | | Mailcode: CH4S | [phone] | Unspecified disorder | | | | [facility] | | of the pituitary | | | | and Healing, | | gland and its | | | | Building 1,4th Floor | | hypothalamic | | | | [place], [place] | | control; Screening | | | | [address] | | for diabetes | | | | [phone] | | mellitus; Neck pain; | | [...] this encounter Patient Instructions Patient Instructions Valentina Wright, TEACHING MUSIC LESSONS - 06/12/2011 1:56 PM PDTFormatting of this [...] [place] NON-STEROIDAL ANTI-INFLAMMATORY DRUGS (NSAIDs) Advil, Aleve, January-[place], Anacin, Arthopan, Ascriptin, Aspergum, Aspirin with and [...] ersantine, Phenylbutazone, Piroxicam, Relafen, Robomol, Rufen, Sine-aid, [place] s cold tablets, Sulindac, Talwin, Tolectin, Triaminicin, [...] perfume, lotions or powder. Remove any nail amharic from at least one fingernail. Do not [...] or walk. Surgery Check in Locations Admitting [facility] Surgery Check in Time: Someone from your [...] it is after office hours, call the [facility] electron microprobe operator at [phone] and ask them to page your doc [...] clarified and answered satisfactorily. Mamie Wright, MSN, ACNP-BC Nurse Practitioner Pre-operative Medicine Clinic [facility] [place], Mail code : [facility] [address] [place] [address] (DIRECT LINE) (FAX) [phone] ACC/ AHA Perioperative Guidelines 1. Need for emergency noncardiac surgery? b. No -> Proceed to next step. 2. Active Cardiac Conditions? These conditions mandate further investigation and manageme nt. A. Acute SC within 7 days: no B. Unstable angina/Recent SC (7- 30 days): no C. Decompensated CHF: [...] consider noninvasive giancarlo ting if it will manager exchange. 3 or more risk factors AND high risk surgery- consider testing if it will manager exchange . documented in this enco unter Plan of [...] DEPARTMENT OF | [address] | [place] [address] | | | PATHOLOGY | [address] | | | + + + + + HEMOGLOBIN A1C, POC (06/12/2011 2:21 PM PDT) + +-------+ + + + | Component | Value | Ref Range | Performed | Pathologist | | | | | At | Signature | + +-------+ + + + | HEMOGLOBIN | 5.7 | 4.0 - 5.7 % | [facility], | | | A1C,POC | | | [...] POINT | [address] | [place] [address] | | | OF CARE TESTS | [...] | + + + + + | [facility] | [address] | [place] [address] | | | PATHOLOGY | [address] [...] DEPARTMENT OF | [address] | [place] [address] | | | PATHOLOGY | [address] [...] | + + + + + | [facility] DEPARTMENT | [address] | [place] [address] | | | PATHOLOGY | [address] [...] view image for the detailed interpretation from [employer] results. | CARDIOLOGY | + + + + + + + + | Performing | Address | City/State/Zipcode | Phone Number | | Organization | | | | + + + + + | [facility] | [address] | [place], [place] | | | CARDIOLOGY | [address] | [address] | | + + + + + [...]
--- OUTSIDE RECORDS SUMMARY | ~2019-06-25 | XMS | Encounter Summary ---
Demographics + + + | Address | [address] | | | [place] [address] | + + + | Home Phone [...] Team Providers + +------+ + | Care Canvas Goods Supervisor Name | Role | Phone | + +------+ + | Alejandro Dowling DO | PCP | | + +------+ + Encounter Details +--------+ + + + + | Date | Type | Department | Care Team | Description | +--------+ + + + + | 07/15/ | Telephone | Neurosurgery at | Alek Elliott, | | | 2010 | | [facility] [address] | | | | | Jen Mailcode: CH8N | | | | | | [facility] | | | | | | and Healing, | | | | | | Building | | | | | | Floor [place], [place] | | | | | | [address] | | | | | | [phone] | | | +--------+ + + + [...]
--- OUTSIDE RECORDS SUMMARY | ~2019-06-25 | XMS | Encounter Summary ---
Demographics + + + | Address | [address] | | | [place] [address] | + + + | Home Phone | | + + + | Preferred Language | Unknown | + + + | Marital Status | Single | + + + | Orthodox Affiliation | CHR | + + [...] Team Providers + +------+ + | Care Radiologic Technology Instructor Name | Role | Phone | + +------+ + | Daniel Velez DO | PCP | | + +------+ + Encounter Details +--------+ + + + + | Date | Type | Department | Care Team | Description | +--------+ + + + + | 06/15/ | MyChart | Neurosurgery at | [place], | RE: Pulse | | 2010 | Encounter | [facility] [address] | [place], | | | | | Jen Mailcode: CH8N | DNP,AUXILIARY ENGINEER,[place] [address] | | | | | [facility] | [address] [place], | | | | | and Healing, | [place] [address] | | | | | [facility] 1 | [phone] | | | | | [place], [place] | | | | | | [address] | | | | | | [phone] | | | +--------+ + + + [...]
--- OUTSIDE RECORDS SUMMARY | ~2019-06-25 | XMS | Encounter Summary ---
Demographics + + + | Address | [address] | | | [place] [address] | + + + | Home Phone [...] Team Providers + +------+ + | Care Electrician Shop Name | Role | Phone | + +------+ + | Alejandro Dowling DO | PCP | | + +------+ + Encounter Details +--------+ + + + + | Date | Type | Department | Care Team | Description | +--------+ + + + + | 08/27/ | Telephone | Neurosurgery at | Ashley Duron PA | | | 2011 | | [facility] [address] | [address] | | | | | Jen Mailcode: CH8N | [address] [place], | | | | | [facility] | [place] [address] | | | | | and Healing, | [phone] | | | | | Building | | | | | | Floor [place], [place] | | | | | | [address] | | | | | | [phone] | | | +--------+ + + + [...]
--- OUTSIDE RECORDS SUMMARY | ~2019-06-25 | XMS | Encounter Summary ---
Demographics + + + | Address | [address] | | | [place] [address] | + + + | Home Phone | | + + + | Preferred Language | Unknown | + + + | Marital Status | Single | + + + | Presybeterian Affiliation | CHR | + + + | Race | White | + + + | Ethnic Group | Not or | + + + Author + + + | Author | [facility] | + + + | Organization | [facility] | + + + | [...] Team Providers + +------+ + | Care Cuff Setter Overlock Name | Role | Phone | + [...] | +--------+ + + + + | 09/14/ | Telephone | Neurosurgery at | [place], | Refill Request | | 2011 | | [facility] [address] | [place] | | | | | Jen Mailcode: CH8N | DNP,SALES OPERATIONS,[place] [address] | | | | | [facility] | [address] [place], | | | | | and Healing, | [place] [address] | | | | | Building 1 | [phone] | | | | | [place], [place] | | | | | | [address] | | | | | | [phone] | | | +--------+ + + + [...]
--- OUTSIDE RECORDS SUMMARY | ~2019-06-25 | XMS | Encounter Summary ---
Demographics + + + | Address | [address] | | | [place] [address] | + + + | Home Phone | | + + + | Preferred Language | Unknown | + + + | Marital Status | Single | + + + | Hoahaoism Affiliation | CHR | + + + [...] Team Providers + +------+ + | Care Vest Maker Name | Role | Phone | + [...] Closed | | Radiology | Diagnoses | [place], [place] | Rad Mri Hrc | | | | | Pituitary | [address], [address] | [address] | | | | | adenoma | [address] | [address] | | | | | (HCC) | [address] | Rd | | | | | Procedures | Rd | Mailcode: | | | | | MR PITUITARY | [place], [place] | [address] | | | | | [address] | [address] | [place] | | | | | CONTRAST | Phone: | Research | | | | | | [phone] | [place] | | | | | | Fax: | [place], [place] | | | | | | [phone] | [address] | | | | | | | Phone: | | | | | | | [phone] | | | | | | | Fax: | | | | | | | [phone] | +--------+--------+ + + + + Reason [...] | | | | | adenoma | [facility] | [address] | | | | | ([facility]) | [address] | Rd | | | | | Procedures | Rd | Mailcode: | | | | | MR PITUITARY | [place], [place] | [address] | | | | | [address] | [address] | [place] | | | | | CONTRAST | Phone: | Research | | | | | | [phone] | [place] | | | | | | Fax: | [place], [place] | | | | | | [phone] | [address] | | | | | | | Phone: | | | | | | | [phone] | | | | | | | Fax: | | | | | | | [phone] | +--------+--------+ + + + + Encounter Details +--------+ + + + + | Date | Type | Department | Care Team | Description | +--------+ + + + + | 06/07/ | Hospital | Radiology/Imaging | | | | 2011 | Encounter | Lab at [facility] [address] | | | | | [address] Mailcode: | | | | | | CH3G [place] for | | | | | | Health and Healing, | | | | | | Building 1 | | | | | | Floor [place], [place] | | | | | | [address] | | | | | | [phone] | | | +--------+ + + + [...] | | + +---------+ + + | [facility] DEPARTMENT OF | | | | [...] POINT | [address] | [place] [address] | | | OF CARE TESTS | | | | + + + + + documented in this encounter Visit Diagnoses + + | Diagnosis | + + | Pituitary adenoma (HCC) Benign neoplasm of pituitary gland and craniopharyngeal duct | | (pouch) | + + documented in this encounter"
--- OUTSIDE RECORDS SUMMARY | ~2019-06-25 | XMS | Encounter Summary ---
Demographics + + + | Address | [address] | | | [place] [address] | + + + | Home Phone [...] Providers + +------+ + | Care Elevator Repairer Apprentice Name | Role | Phone | [...] | | | | | adenoma | DNP,CALL CENTER TEAM LEADER,[place] | [address] | | | | | ([facility]) | [address] | [address] | | | | | Procedures | Ave | Mailcode: | | | | | MRI | [place], [place] | [address] | | | | | PITUITARY | [address] | [place] | | | | | [address] CONTRAST | Phone: | Research | | | | | | [phone] | [place] | | | | | | Fax: | [place], [place] | | | | | | [phone] | [address] | | | | | | | Phone: | | | | | | | [phone] | | | | | | | Fax: | | | | | | | [phone] | +--------+--------+ + + + + Encounter Details +--------+ + + + + | Date | Type | Department | Care Team | Description | +--------+ + + + + | 03/21/ | Salesperson Terrazzo Tiles | Neurosurgery at | [place], | Pituitary adenoma | | 2013 | | [facility] [address] | [place], | ([facility]) (Primary Dx) | | | | Ave Mailcode: CH8N | DNP,CALL CENTER TEAM LEADER,[place] [address] | | | | | [facility] | [address] [place], | | | | | and Healing, | [place] [address] | | | | | [facility] 1 | [phone] | | | | | [place], [place] | | | | | | [address] | | | | | | [phone] | | | +--------+ + + + [...] CONTRAST | | e | (HCC) | 11/12/2019, Expires: | | | | | | 11/12/2019 | + +---------+--------+ + + documented as of this encounter Visit Diagnoses + + | Diagnosis | + + | Pituitary adenoma (HCC) - Primary Benign neoplasm of pituitary gland and | | craniopharyngeal duct (pouch) | + + documented in this encounter"
--- OUTSIDE RECORDS SUMMARY | ~2019-06-25 | XMS | Encounter Summary ---
Demographics + + + | Address | [address] | | | [place] [address] | + + + | Home Phone [...] Team Providers + +------+ + | Care Automation Driver Name | Role | Phone | [...] Closed | | Radiology | Diagnoses | [place], Ashley | Rad Mri Hrc | | | | | Pituitary | [address], [place] [address] | [address] | | | | | adenoma | [address] | [place] | | | | | (HCC) | [address] | Rd | | | | | Procedures | Rd | Mailcode: | | | | | MR PITUITARY | [place], [place] | [address] | | | | | [address] | [address] | [place] | | | | | CONTRAST | Phone: | Research | | | | | | [phone] | [place] | | | | | | Fax: | [place], [place] | | | | | | [phone] | [address] | | | | | | | Phone: | | | | | | | [phone] | | | | | | | Fax: | | | | | | | [phone] | +--------+--------+ + + + + Encounter Details +--------+ + + + + | Date | Type | Department | Care Team | Description | +--------+ + + + + | 09/29/ | Pleat Patternmaker | Neurosurgery at | Ashley Duron PA | Pituitary adenoma | | 2011 | | [facility] [address] | [address] | (HCC) (Primary Dx) | | | | Ave Mailcode: CH8N | [address] [place], | | | | | [facility] | [place] [address] | | | | | and Healing, | [phone] | | | | | Building , | | | | | | Floor [place], [place] | | | | | | [address] | | | | | | [phone] | | | +--------+ + + + [...]
--- OUTSIDE RECORDS SUMMARY | ~2019-06-25 | XMS | Encounter Summary ---
Demographics + + + | Address | [address] | | | [place] [address] | + + + | Home Phone | | + + + | Preferred Language | Unknown | + + + | Marital Status | | + + + | Temple Affiliation | 1013 | + + + | Race | Unknown | + + + | Ethnic Group | Unknown | + + + Author + + + | Author | [facility] | | | and [place] | + + + | Organization | [facility] | | | [...] Team Providers + +------+ + | Care Subscription Crew Leader Name | Role | Phone | [...] + + | 04/13/ | Refill | [facility] | Rylie Urbano | Medication Refill | | 2019 | | CARDIOLOGY [place] | [address] | | | | | [address] | [address] | | | | | [address] | [place] [address] | | | | | [place] | [phone] | | | | | [address] | | | | | | [phone] | | | +--------+--------+ + + + [...]
--- OUTSIDE RECORDS SUMMARY | ~2019-06-25 | XMS | Encounter Summary ---
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 | | | | and Healing, | | gland and its | | | | Building 1,4th Floor | | hypothalamic | | | | [place], [place] | | control; Screening | | | | [address] | | for diabetes | | | | [phone] | | mellitus; Neck pain; | | [...] encounter Patient Instructions Patient Instructions Valentina Wright, RING SPINNER - 06/12/2011 1:56 PM PDTFormatting of this [...] OR NON-STEROIDAL ANTI-INFLAMMATORY DRUGS (NSAIDs) Advil, Aleve, January-Catawba, Anacin, Arthopan, Ascriptin, Aspergum, Aspirin with and [...] ersantine, Phenylbutazone, Piroxicam, Relafen, Robomol, Rufen, Sine-aid, Jensen s cold tablets, Sulindac, Talwin, Tolectin, Triaminicin, [...] perfume, lotions or powder. Remove any nail syriac from at least one fingernail. Do not [...] or walk. Surgery Check in Locations Admitting [facility], [facility] Surgery Check in Time: Someone from your [...] it is after office hours, call the [facility] transfer iron operator at [phone] and ask them to page your doc [...] MSN, ACNP-BC Nurse Practitioner Pre-operative Medicine Clinic [facility] [place], Mail code : [facility] [address] [place] [address] (DIRECT LINE) (FAX) [phone] ACC/ AHA Perioperative Guidelines 1. Need for emergency noncardiac surgery? b. No -> Proceed to next step. 2. Active Cardiac Conditions? These conditions mandate further investigation and manageme nt. A. Acute IL within 7 days: no B. Unstable angina/Recent IL (7- 30 days): no C. Decompensated CHF: [...] consider noninvasive giancarlo ting if it will exchange floor manager. 3 or more risk factors AND high risk surgery- consider testing if it will exchange floor manager . documented in this enco unter Plan [...] DEPARTMENT OF | [address] | [place] [address] | | | PATHOLOGY | [address] [...] POINT | [address] | [place] [address] | | | OF CARE TESTS | [...] MEDICAL CENTER | [address] | [place] [address] | | | PATHOLOGY | [address] [...] DEPARTMENT OF | [address] | [place] [address] | | | PATHOLOGY | [address] [...] + + + + | [facility] DEPARTMENT | [address] | [place] [address] | | | PATHOLOGY | [address] [...] image for the detailed interpretation from [employer] results. | CARDIOLOGY | + + + + + + + + | Performing | Address | City/State/Zipcode | Phone Number | | Organization | | | | + + + + + | [facility] | [address] | [place], [place] | | | CARDIOLOGY | [address] | [address] | | + + + + + [...]
--- OUTSIDE RECORDS SUMMARY | ~2019-06-25 | XMS | Encounter Summary ---
Demographics + + + | Address | [address] | | | [place] [address] | + + + | Home Phone [...] Author + + + | Author | [facility] | + + + | Organization | [facility] | + + + | [...] Team Providers + +------+ + | Care Ibm Mainframe Developer Name | Role | Phone | [...] Refill Request | | 2010 | | [facility] [address] | | | | | Jen Mailcode: CH8N | | | | | | [facility] | | | | | | and Healing, | | | | | | Building | | | | | | Floor [place], [place] | | | | | | [address] | | | | | | [phone] | | | +--------+--------+ + + + [...]
--- OUTSIDE RECORDS SUMMARY | ~2019-06-25 | XMS | Clinical Summary ---
Demographics + + + | Address | [address] | | | [place] [address] | + + + | Home Phone | | + + + | Preferred Language | Unknown | + + + | Marital Status | | + + + | Sabianist Affiliation | 1013 | + + + | Race | Unknown | + + + | Ethnic Group | Unknown | + + + Author + + + | Author | [facility] | | | and [place] | + + + | Organization | [facility] | | | and [...] Providers + +------+ + | Care Sales Marketing Coordinator Name | Role | Phone | + [...] 0 | | | Activ | | [id number] | drops 4 times a day | [...] | [employer] | [employer] | [id number] | | [phone] | | Medica | [...] Self | [birth year] | [address] | | | al/Fam | | 1980 | [phone] | [place] | | | hola | | | 2 (Home) | [address] | + +--------+ +--------+ + + Advance Directives Patient has advance care planning documents on file. For more information, please contact:[facility] [place] [address]
--- OUTSIDE RECORDS SUMMARY | ~2019-06-25 | XMS | Encounter Summary ---
Demographics + + + | Address | [address] | | | [place] [address] | + + + | Home Phone | | + + + | Preferred Language | Unknown | + + + | Marital Status | Single | + + + | Sikhism Affiliation | CHR | + + + | Race | White | + + + | Ethnic Group | Not or | + + + Author + + + | Author | [facility] | + + + | Organization | [facility] | + + + | Address | [...] Team Providers + +------+ + | Care Mucker Cofferdam Name | Role | Phone | + [...] | | pituitary | MEDICINE | [address] [place], | | | | | gland and | [address] | [place] | | | | | its | [address] | [address] | | | | | hypothalamic | [address] | Phone: | | | | | control | [place], | [phone] | | | | | Family Care | [place] [address] | Fax: | | | | | [facility] ID# | Phone: | [phone] | | | | | [id number] | [phone] | | | | | | Auth# | Fax: | | | | | | [id number] | [phone] | | | | | | 05/19-05/19/12 [...] 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 Uri Pierre, [id number] Reason for visit: Chief Complaint Patient presents [...] and follow up. I spent 40 minutes gbnp-ku-hyvq time with this patient independent of the time spent in testing, of which over 50% was spen t in medically indicated counseling and education pertaining to the issues discussed above MARGARET OTT DNP, [place] [facility] [place] [address] [facility] [address] documented in this encounter Plan of Treatment [...] ([facility]) | | | [facility] [place] [address] | | | [place] [address] | | + + + + + + + + | Performing | Address | City/State/Zipcode | Phone Number | | Organization | | | | + + + + + | [facility] | [address] | [place] [address] | | | LABORATORY | | | [...] | + + + + + | [facility] | [address] | [place] [address] | | | PATHOLOGY | [address] [...] | | | | | | [address] [facility] | | | | | | [place], [place] | | | | | | [address] | | | | + + + + + + + + | Specimen | + + | Blood - Blood | + + + + + + + | Performing | Address | City/State/Zipcode | Phone Number | | Organization | | | | + + + + + | [facility] | [address] [facility] | [place], [place] | | | | | [address] | | + + + + + [...] | [facility] | | [facility] [place] [address] | REGIONAL | | [place] [address] | LABORATORY | + + + + + + + + | Performing | Address | City/State/Zipcode | Phone Number | | Organization | | | | + + + + + | [facility] | [address] | [place] [address] | | | LABORATORY | | | [...] At | + + + | [facility] ([facility]) Lai | LAI | | [place] [address] | REGIONAL | | [place] [address] | LABORATORY | + + + + + + + + | Performing | Address | City/State/Zipcode | Phone Number | | Organization | | | | + + + + + | [facility] | [address] | [place] [address] | | | LABORATORY | | | [...] At | + + + | [facility] ([facility]) Lai | LAI | | [place] [address] | REGIONAL | | [place] [address] | LABORATORY | + + + + + + + + | Performing | Address | City/State/Zipcode | Phone Number | | Organization | | | | + + + + + | [facility] | [address] | [place] [address] | | | LABORATORY | | | [...] Way Lab) [facility] | [facility] | | [facility] [place] [address] [facility] | REGIONAL | | [place] [address] | LABORATORY | + + + + + + + + | Performing | Address | City/State/Zipcode | Phone Number | | Organization | | | | + + + + + | [facility] | [address] [facility] | [place] [address] | | | LABORATORY | | | [...] [facility] | [facility] | | [place] [address] [facility] | REGIONAL | | [place] [address] | LABORATORY | + + + + + + + + | Performing | Address | City/State/Zipcode | Phone Number | | Organization | | | | + + + + + | [facility] | [address] | [place] [address] | | | LABORATORY | | | [...] [facility] | [facility] | | [place] [address] | REGIONAL | | [place] [address] | LABORATORY | + + + + + + + + | Performing | Address | City/State/Zipcode | Phone Number | | Organization | | | | + + + + + | [facility] | [address] | [place] [address] | | | LABORATORY | | | [...] + + + | [facility] ([facility]) [facility] | [facility] | | [place] [address] [address] [facility] | REGIONAL | | [place] [address] | LABORATORY | + + + + + + + + | Performing | Address | City/State/Zipcode | Phone Number | | Organization | | | | + + + + + | [facility] | [address] | [place] [address] | | | LABORATORY | | | [...] | | | DEPARTMENT | | | [facility] | | | OF | | | [...] DEPARTMENT OF | [address] | [place] [address] | | | PATHOLOGY | [address] [...] [facility] | REGIONAL | | [place] [address] | LABORATORY | | [place] [address] | | + + + + + + + + | Performing | Address | City/State/Zipcode | Phone Number | | Organization | | | | + + + + + | [facility] | [address] | [place] [address] | | | LABORATORY | | | [...] [facility] ([facility]) | | | [facility] [address] | | | [place] [address] | | + + + + + + + + | Performing | Address | City/State/Zipcode | Phone Number | | Organization | | | | + + + + + | [facility] | [address] | [place] [address] | | | LABORATORY | | | [...] ([address] [address] [facility]) | [facility] | | [facility] [place] [address] | REGIONAL | | [place] [address] | LABORATORY | + + + + + + + + | Performing | Address | City/State/Zipcode | Phone Number | | Organization | | | | + + + + + | [facility] | [address] | [facility] [place] [address] | | | LABORATORY | | | [...]
--- OUTSIDE RECORDS SUMMARY | ~2019-06-25 | XMS | Encounter Summary ---
Demographics + + + | Address | [address] | | | [place] [address] | + + + | Home Phone | | + + + | Preferred Language | Unknown | + + + | Marital Status | Single | + + + | Catholic Affiliation | CHR | + + + | Race | White | + + + | Ethnic Group | Not or | + + + Author + + + | Author | [facility] | + + + | Organization | [facility] | + + + | Address | [...] Team Providers + +------+ + | Care Bone Char Puller Name | Role | Phone | + [...] | | | disorder of | | DNP,PRINT CONTROLLER,[place] | | | | | the | | [address] | | | | | pituitary | | Ave | | | | | gland and | | [place], [place] | | | | | its | | [address] | | | | | hypothalamic | | Phone: | | | | | control | | [phone] | | | | | Family Care | | Fax: | | | | | [facility] ID# | | [phone] | | | | | [id number] | | | | | | | [...] disorder | | 2011 | Visit | [facility] [address] | [place], | of the pituitary | | | | Ave Mailcode: CH8N | DNP,PRINT CONTROLLER,[place] [address] | gland and its | | | | [facility] | [address] [place], | hypothalamic | | | | and Healing, | [place] [address] | control; 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) | | | | [place], [place] | | | | | | [address] | | | | | | [phone] | | | +--------+---------+ + + + [...] + + + | [facility] | [address] | [place] [address] | | | LABORATORY | | | [...] + + + | [facility] | [address] | [place] [address] | | | LABORATORY | | | [...] + + + | [facility] | [address] | [place] [address] | | | LABORATORY | | | [...] + + + | [facility] | [address] | [place] [address] | | | LABORATORY | | | [...] + + + | [facility] | [address] | [place] [address] | | | LABORATORY | | | [...] | + + + + + | [facility] | [address] | [place] [address] | | | LABORATORY | | | [...] | + + + + + | [facility] | [address] | [place] [address] | | | PATHOLOGY | [address] [...] + + + | [facility] | [address] | [place] [address] | | | LABORATORY | | | [...] + + + | [facility] | [address] | [place] [address] | | | LABORATORY | | | [...]
--- OUTSIDE RECORDS SUMMARY | ~2019-06-25 | XMS | Encounter Summary ---
Demographics + + + | Address | [address] | | | [place] [address] | + + + | Home Phone [...] Author + + + | Author | [facility] | + + + | Organization | [facility] | + + + | Address | [...] Team Providers + +------+ + | Care Completions Engineer Name | Role | Phone | [...] | | | | | [facility] [address] [facility] | | | | | | [address] | | | | | | Mailcode: PV01 | | | | | | Physician's [address]ine | | | | | | [place], [place] | | | | | | [address] | | | | | | [phone] | | | +--------+ + + + [...]
--- OUTSIDE RECORDS SUMMARY | ~2019-06-25 | XMS | Encounter Summary ---
Demographics + + + | Address | [address] | | | [place] [address] | + + + | Home Phone [...] + + + | Author | [facility] | + + + | Organization | [facility] | + + + [...] Team Providers + +------+ + | Care Printing Engineer Name | Role | Phone | [...] | | | Jen Mailcode: CH8N | DNP,TARIFF COMPILING CLERK,[place] [address] | | | | | [facility] | [address] [place], | | | | | and [place], | [place] [address] | | | | | Building 1 | [phone] | | | | | [place], [place] | | | | | | [address] | | | | | | [phone] | | | +--------+ + + + [...]
--- OUTSIDE RECORDS SUMMARY | ~2019-06-25 | XMS | Encounter Summary ---
Demographics + + + | Address | [address] | | | [place] [address] | + + + | Home Phone | | + + + | Preferred Language | Unknown | + + + | Marital Status | Single | + + + | Zoroastrian Affiliation | CHR | + + + [...] Team Providers + +------+ + | Care Segment Assembler Name | Role | Phone | + +------+ + | Alejandro Dowling DO | PCP | | + +------+ + Encounter Details +--------+ + + + + | Date | Type | Department | Care Team | Description | +--------+ + + + + | 07/15/ | Telephone | Neurosurgery at | Alek [place], | | | 2010 | | [facility] [address] | | | | | Jen Mailcode: CH8N | | | | | | [facility] | | | | | | and Healing, | | | | | | Building | | | | | | Floor [place], [place] | | | | | | [address] | | | | | | [phone] | | | +--------+ + + + [...]
--- OUTSIDE RECORDS SUMMARY | ~2019-06-25 | XMS | Encounter Summary ---
Demographics + + + | Address | [address] | | | [place] [address] | + + + | Home Phone [...] Author + + + | Author | [facility] | + + + | Organization | [facility] | + + + | Address [...] Providers + +------+ + | Care Clinical Application Manager Name | Role | Phone | + +------+ + | Giovanni Huffman MD | PCP | | + +------+ + Encounter Details +--------+ + + + + | Date | Type | Department | Care Team | Description | +--------+ + + + + | 04/01/ | Outside | UNKNOWN DEPARTMENT | Other, Faculty | | | 2011 | Records | [address] [facility] | [phone] | | | | | [address] | | | | | | [place], [place] | | | | | | [address] | | | +--------+ + + + [...]
--- OUTSIDE RECORDS SUMMARY | ~2019-06-25 | XMS | Encounter Summary ---
Demographics + + + | Address | [address] | | | [place] [address] | + + + | Home Phone [...] Author + + + | Author | [facility] | + + + | Organization | [facility] | + + + | Address [...] Team Providers + +------+ + | Care Actimize Architect Name | Role | Phone | + [...] | | | disorder of | | DNP,VISUALIZATION DEVELOPER,[place] | | | | | the | | [address] | | | | | pituitary | | Ave | | | | | gland and | | [place], [place] | | | | | its | | [address] | | | | | hypothalamic | | Phone: | | | | | control | | [phone] | | | | | Family Care | | Fax: | | | | | O[facility] ID# | | [phone] | | | | | [id number] | | | | | | | [...] disorder | | 2011 | Visit | [facility] [address] | [place], | of the pituitary | | | | Jen Mailcode: CH8N | DNP,VISUALIZATION DEVELOPER,[place] [address] | gland and its | | | [facility] | [address] [place], | hypothalamic | | | | and Healing, | [place] [address] | control; 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 It has not been cleared or [...] years. Recommend he follow up with local arboreal scientist for VF exam in a bout 9 [...] lost to follow up x 22 mths. SMOOTH PLATER pending but no hydrocortisone is anticipated to [...] Followup.is scheduled for 12-18 months with MRI, SMOOTH PLATER. RM or as per current labs. Uri Pierre, [id number] Reason for visit: Chief Complaint Patient presents [...] and follow up. I spent 40 minutes ribq-ah-sydf time with this patient independent of the time spent in testing, of which over 50% was spen t in medically indicated counseling and education pertaining to the issues discussed above CAITLYN MCCORMACK DNP, VISUALIZATION DEVELOPER, [place] Metals Sales Representative [facility] [place] [address] [facility] [place] [address] ACTH,PLASMA (pg/mL) Date Value 06/07/2012 16 03/18/2012 [...] exam. Electronically si gned by Caitlyn Mccormack, ABRAHAM,VISUALIZATION DEVELOPER,[place] at 06/13/2012 1:06 PM PDTdocumented in this [...] + + + | [facility] | [address] | [place] [address] | | | LABORATORY | | | [...] + + + | [facility] | [address] | [place] [address] | | | LABORATORY | | | [...] + + + | [facility] | [address] | [place] [address] | | | LABORATORY | | | [...] + + + | [facility] | [address] | [place] [address] | | | LABORATORY | | | [...] + + + | [facility] | [address] | [place] [address] | | | LABORATORY | | | [...] + + + | [facility] | [address] | [place] [address] | | | LABORATORY | | | [...] | | | DEPARTMENT | | | [place] | | | OF | | | [...] DEPARTMENT OF | [address] | [place] [address] | | | PATHOLOGY | [address] [...] + + + | [facility] | [address] | [place] [address] | | | LABORATORY | | | [...] | + + + + + | [facility] | [address] | [place] [address] | | | LABORATORY | | | [...]
--- OUTSIDE RECORDS SUMMARY | ~2019-06-25 | XMS | Encounter Summary ---
Demographics + + + | Address | [address] | | | [place] [address] | + + + | Home Phone | | + + + | Preferred Language | Unknown | + + + | Marital Status | Single | + + + | Yazidism Affiliation | CHR | + + + [...] Team Providers + +------+ + | Care Flying I Instructor Name | Role | Phone | + +------+ + | Daniel Velez DO | PCP | | + +------+ + Encounter Details +--------+ + + + + | Date | Type | Department | Care Team | Description | +--------+ + + + + | 06/15/ | MyChart | Neurosurgery at | [place], | RE: Pulse | | 2010 | Encounter | [facility] [address] | [place], | | | | | Jen Mailcode: CH8N | DNP,OFFICE MACHINES WIRER,[place] [address] | | | | | [facility] | [address] [place], | | | | | and Healing, | [place] [address] | | | | | [facility] 1 | [phone] | | | | | [place], [place] | | | | | | [address] | | | | | | [phone] | | | +--------+ + + + [...]
--- OUTSIDE RECORDS SUMMARY | ~2019-06-25 | XMS | Encounter Summary ---
Demographics + + + | Address | [address] | | | [place] [address] | + + + | Home Phone [...] Team Providers + +------+ + | Care Revenue Analyst Name | Role | Phone | [...] CH8N | | | | | | [facility] | | | | | | and Healing, | | | | | | Building 1, | | | | | | Floor [place], [place] | | | | | | [address] | | | | | | [phone] | | | +--------+ + + + [...]
--- OUTSIDE RECORDS SUMMARY | ~2019-06-25 | XMS | Encounter Summary ---
Demographics + + + | Address | [address] | | | [place] [address] | + + + | Home Phone | | + + + | Preferred Language | Unknown | + + + | Marital Status | Single | + + + | Anabaptist Affiliation | CHR | + + + [...] Team Providers + +------+ + | Care Vendor Management Associate Name | Role | Phone | + +------+ + | Giovanni Huffman MD | PCP | | + +------+ + Encounter Details +--------+ + + + + | Date | Type | Department | Care Team | Description | +--------+ + + + + | 12/15/ | Telephone | Neurosurgery at | Alek Elliott, | | | 2011 | | [facility] [address] | | | | | Jen Mailcode: CH8N | | | | | | [facility] | | | | | | and Healing, | | | | | | Building 1, 8th | | | | | | Floor [place], [place] | | | | | | [address] | | | | | | [phone] | | | +--------+ + + + [...]
--- OUTSIDE RECORDS SUMMARY | ~2019-06-25 | XMS | Encounter Summary ---
Demographics + + + | Address | [address] | | | [place] [address] | + + + | Home Phone [...] Team Providers + +------+ + | Care Exec. Creative Director Name | Role | Phone | + +------+ + | Giovanni Huffman MD | PCP | | + +------+ + Encounter Details +--------+ + + + + | Date | Type | Department | Care Team | Description | +--------+ + + + + | 04/01/ | Outside | UNKNOWN DEPARTMENT | Other, Faculty | | | 2011 | Records | [address] [facility] | [phone] | | | | | [address] | | | | | | [place], [place] | | | | | | [address] | | | +--------+ + + + [...]
--- OUTSIDE RECORDS SUMMARY | ~2019-06-25 | XMS | Clinical Summary ---
Demographics + + + | Address | [address] | | | [place] [address] | + + + | Home Phone | | + + + | Preferred Language | Unknown | + + + | Marital Status | Single | + + + | Restorationist Affiliation | Unknown | + + + | Race | Unknown | + + + | Ethnic Group | Unknown | + + + Author + + + | Author | [employer] [facility] (Historical as of | | | 04-08-19) | + + + | Organization | [facility] (Historical as of | | | 04-08-19) [...] Team Providers + +------+ + | Care Protection Specialist Name | Role | Phone | [...] + | Chronic obstructive pulmonary disease (COPD) ([facility]) | 12/01/2012 | + + + Immunizations [...] +------+-------+ + | MEDICARE | MEDICA | [id number] | | | [address] | | | RE | | | | [place] [address] | | | IP-OP | | | [...] | hola | | | [phone] | [address] | + +--------+ +--------+ + +
--- OUTSIDE RECORDS SUMMARY | ~2019-06-25 | XMS | Encounter Summary ---
Demographics + + + | Address | [address] | | | [place] [address] | + + + | Home Phone [...] Team Providers + +------+ + | Care Pavilion Cutter Name | Role | Phone | + [...] | disorder of | [place] | [address] [facility] | | | | | the | INTERNAL | [address] | | | | | pituitary | MEDICINE | [address] [place], | | | | | gland and | [address] | [place] | | | | | its | [place] | [address] | | | | | hypothalamic | [address] | Phone: | | | | | control | [place], | [phone] | | | | | Family Care | [place] [address] | Fax: | | | | | OHP ID# | Phone: | [phone] | | | | | [id number] | [phone] | | | | | | Auth# | Fax: | | | | | | [id number] | [phone] | | | | | | 05/19-05/19/12 [...] | adenoma (HCC); | | | | [facility] | [place], [place] | Headache | | | | and Healing, | [address] | | | | | Building 1 | [phone] | | | | | [place], [place] | | | | | | [address] | | | | | | [phone] | | | +--------+---------+ + + + [...] study which you can do at your [facility] lab. Please call use after the urine collections are complete and we will discuss the ne xt study (dexamethasone suppression test). Call Stella [phone]. documented in this encounter Progress Notes [place] [...] 5.51 Imaging: MRI brain with contrast 04/17/11 [facility] Diagnostic imaging 8 mm enhancing nodule [...]
--- OUTSIDE RECORDS SUMMARY | ~2019-06-25 | XMS | Encounter Summary ---
Demographics + + + | Address | [address] | | | [place] [address] | + + + | Home Phone [...] Team Providers + +------+ + | Care Grain And Yeast Plants Supervisor Name | Role | Phone | [...] | disorder of | [place] | [address] [facility] | | | | | the | INTERNAL | [address] | | | | | pituitary | MEDICINE | Rd [place], | | | | | gland and | [address] | [place] | | | | | its | [place] | [address] | | | | | hypothalamic | [address] | Phone: | | | | | control | [place], | [phone] | | | | | Family Care | [place] [address] | Fax: | | | | | OHP ID# | Phone: | [phone] | | | | | [id number] | [phone] | | | | | | Auth# | Fax: | | | | | | [id number] | [phone] | | | | | | 05/19-05/19/12 [...] adenoma | | 2010 | Visit | [facility] [address] | [place], | ([facility]) (Primary Dx); | | | | Joele Mailcode: CH8N | DNP,MINE ENGINEERING SUPERVISOR,[place] [address] | Headache; Nocturnal | | | | [facility] | [address] [place], | polyuria | | | | and Healing, | [place] [address] | | | | | Building 1 | [phone] | | | | | [place], [place] | | | | | | [address] | | | | | | [phone] | | | +--------+---------+ + + + [...] in this encounter Progress Notes Caitlyn Mccormack, ABRAHAM,MINE ENGINEERING SUPERVISOR,[place] - 08/03/2011 11:55 AM PSTReason for visit: [...] lesion." Received are multiple irregular, soft, gelatinous, xoa-lm-wqgqhko hemorrhagic purple tissues measuring 0.8 x 0.8 [...] developed and its performance characteristics determined by [employer] It has not been cleared or approved [...] recent infection and ADY, will no do PIPE ORGAN MECHANIC APPRENTICE at this visi t and will have [...] RTC at 3 mths post op for PIPE ORGAN MECHANIC APPRENTICE with MRI. I answered pt questions to his satisfaction Plan: 1. Pituitary functions. 1.1. Adrenal. The patient has a history of adrenal insufficiency. PIPE ORGAN MECHANIC APPRENTICE at next visit. Will c ontinue hydrocortisone [...] MRI and review I spent 30 minutes paqn-uc-pkye time with this patient of which over 50% was spent in medic ally indicated counseling and education pertaining to the issues discussed above. CAITLYN MCCORMACK DNP, MARGARET, TAYLER [facility] [address] [place] [address] documented in this encounter Plan of Treatment [...] | [facility] | | [place] [address] | REGIONAL | | [place] [address] | LABORATORY | + + + + + + + + | Performing | Address | City/State/Zipcode | Phone Number | | Organization | | | | + + + + + | [facility] | [address] | [place] [address] | | | LABORATORY | | | [...] [place] | [facility] | | [place] [address] | REGIONAL | | [place] [address] | LABORATORY | + + + + + + + + | Performing | Address | City/State/Zipcode | Phone Number | | Organization | | | | + + + + + | [facility] | [address] | [place] [address] | | | LABORATORY | | | [...] [facility] | [facility] | | [place] [address] | REGIONAL | | [place] [address] | LABORATORY | + + + + + + + + | Performing | Address | City/State/Zipcode | Phone Number | | Organization | | | | + + + + + | [facility] | [address] | [place] [address] | | | LABORATORY | | | [...] At | + + + | RLB ([facility]) Lai | LAI | | [place] [address] [place] [facility] | [facility] | | [place] [address] | LABORATORY | + + + + + + + + | Performing | Address | City/State/Zipcode | Phone Number | | Organization | | | | + + + + + | [facility] | [address] | [place] [address] | | | LABORATORY | | | [...] At | + + + | RLB ([facility] [facility]) Lai | LAI | | [place] [address] | REGIONAL | | [place] [address] | LABORATORY | + + + + + + + + | Performing | Address | City/State/Zipcode | Phone Number | | Organization | | | | + + + + + | [facility] | [address] | [place] [address] | | | LABORATORY | | | [...] | | | DEPARTMENT | | | DJIBOUTIAN | | | OF | | | [...] | + + + + + | [facility] | [address] [facility] | [place] [address] | | | PATHOLOGY | [address] [...] | + + + + + | [facility] DEPARTMENT OF | [address] | [place] [address] | | | PATHOLOGY | [address] [...] | + + + + + | [facility] | [address] | [place] [address] | | | PATHOLOGY | [address] [...]
--- OUTSIDE RECORDS SUMMARY | ~2019-06-25 | XMS | Encounter Summary ---
Demographics + + + | Address | [address] | | | [place] [address] | + + + | Home Phone [...] Team Providers + +------+ + | Care Process Development Chemist Name | Role | Phone | + [...] Hernandez | | | | | at [facility] | [facility] | | | | | [address] [facility] | [place] [address] | | | | | [facility] | | | | | | Mailcode: OP12B David | | | | | | [address] | | | | | | [place], | | | | | | [place] [address] | | | | | | [phone] | | | +--------+ + + + [...] view image for the detailed interpretation from Compliance Control results. | CARDIOLOGY | + + + + + + + + | Performing | Address | City/State/Zipcode | Phone Number | | Organization | | | | + + + + + | [facility] | [address] | [place], [place] | | | CARDIOLOGY | [address] | [address] | | + + + + + documented in this encounter Visit Diagnoses Not on filedocumented in this encounter
--- OUTSIDE RECORDS SUMMARY | ~2019-06-25 | XMS | Encounter Summary ---
Demographics + + + | Address | [address] | | | [place] [address] | + + + | Home Phone | | + + + | Preferred Language | Unknown | + + + | Marital Status | Single | + + + | Synagogue Affiliation | CHR | + + + | Race | White | + + + | Ethnic Group | Not or | + + + Author + + + | Author | [facility] | + + + | Organization | [facility] | + + + | Address [...] Team Providers + +------+ + | Care Agronomy Technician Name | Role | Phone | + [...] Refill Request | | 2011 | | [facility] [address] | [place] | | | | | Jen Mailcode: CH8N | DNP,ASSEMBLY MACHINE OFFBEARER,[place] [address] | | | | | [facility] | [address] [place], | | | | | and Healing, | [place] [address] | | | | | Building 1 | [phone] | | | | | [place], [place] | | | | | | [address] | | | | | | [phone] | | | +--------+ + + + [...]
--- OUTSIDE RECORDS SUMMARY | ~2019-06-25 | XMS | Encounter Summary ---
Demographics + + + | Address | [address] | | | [place] [address] | + + + | Home Phone [...] | Author | [facility] | + + + | Organization | [facility] | + + + | Address | [...] Team Providers + +------+ + | Care Waxer Name | Role | Phone | + [...] | | | | | adenoma | DNP,DIRECTOR SALES AND TRADE MARKETING,[place] | [place] | | | | | (FORMERLY [facility]) | [address] | | | | | Procedures | Ave | Mailcode: | | | | | MRI | [place], [place] | [address] | | | | | PITUITARY | [address] | [place] | | | | | WWO CONTRAST | Phone: | Research | | | | | | [phone] | [place] | | | | | | Fax: | [place], [place] | | | | | | [phone] | [address] | | | | | | | Phone: | | | | | | | [phone] | | | | | | | Fax: | | | | | | | [phone] | +--------+--------+ + + + + Encounter Details +--------+ + + + + | Date | Type | Department | Care Team | Description | +--------+ + + + + | 03/21/ | Suction Dredge Dumping Supervisor | Neurosurgery at | [place], | Pituitary adenoma | | 2013 | | [facility] [address] | [place], | ([facility]ERLY [facility]) (Primary Dx) | | | | Ave Mailcode: CH8N | DNP,DIRECTOR SALES AND TRADE MARKETING,[place] [address] | | | | | [facility] | [address] [place], | | | | | and Healing, | [place] [address] | | | | | [facility] 1 | [phone] | | | | | [place], [place] | | | | | | [address] | | | | | | [phone] | | | +--------+ + + + [...]
--- OUTSIDE RECORDS SUMMARY | ~2019-06-25 | XMS | Encounter Summary ---
Demographics + + + | Address | [address] | | | [place] [address] | + + + | Home Phone [...] Author + + + | Author | [facility] | + + + | Organization | [facility] | + + + | [...] Team Providers + +------+ + | Care Track Production Engineer Name | Role | Phone | [...] + + | 07/01/ | Hospital | [facility] [address] | Alek Elliott, | | | 2010 - | Encounter | [address] | | | | | [address]/[id number] DEMIAN | | | | 07/02/ | | ADITI [place], | | | | 2010 | | [place] [address] | | | | | | [phone] | | | +--------+ + + + [...] Elliott MD PCP: Alejandro Dowling DO Service: [facility] Neurosurgery Diagnoses Principal Final Diagnosis: 1. Pituitary [...] Course 1. Uri Pierre was admitted to [facility] and underwent transsphenoidal hypophysectomy f or resection [...] although working at a desk on a Identiv mputer is often possible after 7 to 10 days. Destination: Destination: Home Condition on Discharge Good Discharge Follow Up- Facility MD to follow 1. Have a repeat BMP drawn on Friday 07/06. Use the lab slip provided for you. Results stephanie reid be faxed to Dr. Hernandez's office. 2. Follow up with endocrinology in 1 month at the [place] [facility] on the 8th floor. Please call to schedule this appointment: [phone]. You will then need to ret urn for continued follow up at 3 months with endocrinology and neurosurgery with a repeat MR I. This appointment will be scheduled for you. 3. Please call Dr Junior Stephens's office (otolaryngology) to schedule an outpatient ap pointment two weeks after discharge. His office number is [phone]. PCP:Alejandro Dowling, DO When: Please follow-up with [...] 1-2 weeks. Use of saline irr igation ([place]) 2-3 times a day, a decongestant or [...] although working at a desk on a Identiv mputer is often possible after 7 to [...] 12:34 PM Discharging Attending: Alek Elliott MD [facility] [address] [address]/kpq12 [facility] [id number] documented in this enco unter Discharge Instructions [...] at bedtime and peak values in the end maker before waking Use the lowest possible dose [...] patient-separately from time spent with [facility] over 50% was spent in counseling regarding [...] MD Fellow, Endocrinology, Diabetes & Metabolism Pager [phone] uk, Tanya Ovalle MD - 1 09/01/2010 [...] (%): 40 fraction of O2 ( 05/03 1547)@FLOW([id number]) 24 Hour Vital Min/Max: Systolic (24hrs), Av [...] and plan. [place] [id number] Hospital Day:1 Attending Physician: Alek Elliott MD [...] on Wednesday per endo. BINU DURON PA-C [address] [address]/hry5BlackStratus [place] [id number] Alek Tavarez MD - 07/02/2011 9:23 AM [...] will be put on HC taper per [facility] protocol. 1.1. Electrolytes: We will continue to [...] uneventful received 2L of NS, 100cc of VA BCs. His UOP is 400 ml since [...] MD Fellow, Endocrinology, Diabetes & Metabolism Pager [phone] signed by Debby Hernandez MD at 07/02/2011 [...] Alek Elliott MD - 07/02/2011 7:11 AM [facility] [id number] | | [id number] IGNACIO Ovalle | | [id number] Date: 07/01/2011 Attending Surgeon: Alek | | MD Lexi Ticket Chopper Assembler(s): Rossana Sorenson M.D. Preoperative | | Diagnosis(es):Pituitary [...] | head attached to the table using [place] headholder and kept in aslightly rotated and [...] Alek Elliott MD [place] | | / [id number] / [id number] / [id number] / T: 07/01/2011 | |Sent for permanent. [...] | | | | | | |Rossana Sorenson M.D. | | | | | | | | | |Alek Elliott MD | | | | | |AR / HS | |[id number] / [id number] / [id number] / | | | | | | | | | | | | | | | | | | | | | + + | Hamzah Sorensen MD - 07/02/2011 7:42 AM [facility] [id number] | | [id number] [id number] IGNACIO Ovalle | | [id number] Date: 07/01/2011 Attending Surgeon: Hamzah Kaplan | | Ratna Sorensen Ticket Chopper Assembler(s): Phoebe Carrera MD Preoperative | | Diagnosis(es):Pituitary [...] endoscope was used for visualization, and a Vance elevator wasused to | | lateralize the [...] portions of thecase. | | Hamzah Sorensen M.D.Cylinder Die Machine Helper,Head and Neck Surgery and OncologyDept. of | | Otolaryngology - Head and Neck Surgery [facility] / [id number] / [id number] / [id number] /D: | | 07/01/2011T: 07/02/2011 | |room [...] endoscope was used for visualization, and a Vance elevator was | |used to lateralize the [...] | | | |Hamzah Sorensen M.D. | |Cylinder Die Machine Helper, | |Head and Neck Surgery and Oncology | |Dept. of Otolaryngology - Head and Neck Surgery | | | | | |NDG / HS | |[id number] / [id number] / [id number] / | | | | | | [...] | Patient discharged. spoke to Devan | [facility] | | | DEPARTMENT OF | | | PATHOLOGY | + + + + + + + + | Performing | Address | City/State/Zipcode | Phone Number | | Organization | | | | + + + + + | [facility] DEPARTMENT OF | [address] | [place] [address] | | | PATHOLOGY | [address] | | | + + + + + TEACHING PHYSICIAN (07/02/2011 10:50 AM PST) + + | Transcriptions | + + | Alek Elliott MD - 07/02/2011 4:22 AM PST [id number] | | [phone] IGNACIO DEANORY Vasquez | | [id number] Date: 07/01/2011 Attending Surgeon: Alek | | MD Lexi Co-Surgeon: Hamzah Sorensen M.D.Ticket Chopper Assembler(s): | | Rossana Sorenson M.D. Preoperative Diagnosis(es):Sellar [...] to his operative report. MD Hamzah Cam M.D.Ticket Chopper Assembler | | Professor,Head and Neck Surgery and OncologyDept. of Otolaryngology - Head and Neck | | Surgery [place] / [id number] / [id number] / [id number] / T: 07/02/2011 | | | |Procedures [...] | | | |Hamzah Sorensen M.D. | |Cylinder Die Machine Helper, | |Head and Neck Surgery and Oncology | |Dept. of Otolaryngology - Head and Neck Surgery | | | | | |[place] / HS | |[id number] / [id number] / [id number] / | | | | | | [...] + + + + + | [facility] | [address] | [place] [address] | | | PATHOLOGY | [address] [...] | + + + + + | [facility] DEPARTMENT OF | [address] | [place] [address] | | | PATHOLOGY | [address] [...] (H) | 60 - 99 mg/dL | [facility] | | | PLASMA | | | [...] + + + + + | [facility] | [address] | [place] [address] | | | PATHOLOGY | [address] [...] + + + + + | [facility] | [address] | [place] [address] | | | PATHOLOGY | [address] [...] DEPARTMENT OF | [address] | [place] [address] | | | PATHOLOGY | [address] [...] + + + + + | [facility] | [address] | [place] [address] | | | PATHOLOGY | [address] [...] gelatinous, | | | | | | alh-sm-xqiyokq | | | | | | hemorrhagic [...] | | | | | | Block C5Immhncjexs: | | | | | | anterior [...] Positive | | | | | | qvykuDM89 % Positive | | | | | [...] + + + + + | [facility] | [address] | [place] [address] | | | PATHOLOGY | [address] [...]
== END ==
LOC: ED 22:47
DX: S01.01XA Laceration without foreign body of scalp, initial encounter (principal); S61.217A Laceration without foreign body of left little finger without damage to nail, initial encounter; S61.214A Laceration without foreign body of right ring finger without damage to nail, initial encounter; Y04.8XXA Assault by other bodily force, initial encounter; I10 Essential (primary) hypertension; I48.91 Unspecified atrial fibrillation; F17.200 Nicotine dependence, unspecified, uncomplicated; Z88.0 Allergy status to penicillin; Z88.1 Allergy status to other antibiotic agents; Z88.8 Allergy status to other drugs, medicaments and biological substances; Z79.899 Other long term (current) drug therapy; Z79.82 Long term (current) use of aspirin
CPT/HCPCS: 12005; 70450; 73130; 90471; 90715; 99284-25

== ENCOUNTER 2019-10-25 18:20 | Emergency (ER) | payer OTHER, MEDICARE ==
[~2019-10-25] VITALS: Ht 467.4 cm; Wt 127.0 kg
[2019-10-25] MEDS ORDERED: ULTRAM50 MG PO (20:36)
== END 2019-10-25 20:56 | disposition home or self-care (01) ==
LOC: ED 18:20
DX: S16.1XXA Strain of muscle, fascia and tendon at neck level, initial encounter (principal); G89.29 Other chronic pain; M54.5 Low back pain; I10 Essential (primary) hypertension; F17.200 Nicotine dependence, unspecified, uncomplicated; Z86.19 Personal history of other infectious and parasitic diseases; Z88.0 Allergy status to penicillin; Z88.1 Allergy status to other antibiotic agents; Z88.8 Allergy status to other drugs, medicaments and biological substances; Z79.82 Long term (current) use of aspirin; Z79.899 Other long term (current) drug therapy; V89.2XXA Person injured in unspecified motor-vehicle accident, traffic, initial encounter
CPT/HCPCS: 72040; 99284-25

== ENCOUNTER 2019-11-03 09:29 | Emergency (ER) | payer OTHER, MEDICARE ==
[~2019-11-03] VITALS: Ht 188 cm; Wt 122.5 kg
[~2019-11-03 09:29] MED LIST changes: +ULTRAM50 MG PO
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
[2019-11-03] MEDS ORDERED: VALIUM10 MG PO (11:18)
== END 2019-11-03 11:43 | disposition home or self-care (01) ==
LOC: ED 09:29
DX: S39.012A Strain of muscle, fascia and tendon of lower back, initial encounter (principal); I10 Essential (primary) hypertension; I48.91 Unspecified atrial fibrillation; F17.200 Nicotine dependence, unspecified, uncomplicated; Z88.0 Allergy status to penicillin; Z88.1 Allergy status to other antibiotic agents; Z79.899 Other long term (current) drug therapy; Z79.82 Long term (current) use of aspirin; V89.2XXA Person injured in unspecified motor-vehicle accident, traffic, initial encounter
CPT/HCPCS: 72100; 96372; 99283-25; J1885

== ENCOUNTER 2020-04-19 14:47 | Emergency (ER) | payer OTHER, MEDICARE, MEDICAID ==
[~2020-04-19] VITALS: Ht 188 cm; Wt 124.7 kg
--- OUTSIDE RECORDS SUMMARY | ~2020-04-19 | XMS | Encounter Summary ---
Demographics + + + | Address | [address] | | | [place] [address] | + + + | Home Phone | | + + + | Preferred Language | Unknown | + + + | Marital Status | Single | + + + | Uatsdin Affiliation | CHR | + + + | Race | White | + + + | Ethnic Group | Not or | + + + Author + + + | Author | [facility] | + + + | Organization | [facility] | + + + | Address | [...] Team Providers + +------+ + | Care Banquet Food Server Name | Role | Phone | + +------+ + | Giovanni Huffman MD | PCP | | + +------+ + Encounter Details +--------+ + + + + | Date | Type | Department | Care Team | Description | +--------+ + + + + | 12/15/ | Telephone | Neurosurgery at | Alek Elliott, | | | 2011 | | [facility] [address] | | | | | [place] for | | | | | | Health and Healing, | | | | | | | | | | | | floor [place], [place] | | | | | | [address] | | | | | | [phone] | | | +--------+ + + + + Social History + [...] | | | + +---+---+---+ + + +---------+ + | Alcohol Use | Drinks/Week | oz/Week | Comments | + + +---------+ + | No | | | | + + +---------+ + + + + | Sex Assigned at | Date Recorded | | | | + + + | Not on file | | + + + documented as of this encounter Miscellaneous Notes Telephone Encounter - Julia Spencer PA - 12/17/2011 10:56 AM PDTCalled PCP's office rakel goff spoke with Pauly to relay information below. She will review with provider. elephone Encounter - Tello Spencer PA - 12/17/2011 8:16 AM PDTAttempted to call office, but they are closed for a robles ting until 10 am. Mixer Operator Raw Salt unable to direct me to voicemail. Could you relay that Mr Mirna boss was taking Depakote at his first office visit--in other words, we did not prescribe this m edication for him. elephone Encounter - Sudha Medina LPN - 12/16/2011 4:46 PM PDTPlease advise if approp riate. Thank you. e lephone Encounter - Carol Huang - 12/16/2011 4:36 PM PDTJudy from patients PCP/Dr. Delgado's office called today and LVM asking if patient needs to keep taking Depakote and if not , they would like to know when he can stop taking it. Please advise. Pauly can be reached a t [phone]. Thanks! documented in this encounter Plan of Treatment Not on filedocumented as of this encounter Visit Diagnoses Not on filedocumented in this encounter"
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
--- OUTSIDE RECORDS SUMMARY | ~2020-04-19 | XMS | Encounter Summary ---
Demographics + + + | Address | [address] | | | [place] [address] | + + + | Home Phone | | + + + | Preferred Language | Unknown | + + + | Marital Status | | + + + | Religion Affiliation | 1013 | + + + | Race | White | + + + | Ethnic Group | Not or | + + + Author + + + | Author | [facility] | | | and [place] | + + + | Organization | [facility] | | | and [place] | + + + | Address | Unknown | + + + | Phone | Unavailable | + + + Support + + +---------+ + | Name | Relationship | Address | Phone | + + +---------+ + | Stephani Pierre | ECON | Unknown | | + + +---------+ + | Sudha Mayoover | ECON | Unknown | | + + +---------+ + Care Team Providers + +------+ + | Care Elevator Dispatcher Name | Role | Phone | + +------+ + | Giovanni Huffman MD | PCP | | + +------+ + Encounter Details +--------+ + + + + | Date | Type | Department | Care Team | Description | +--------+ + + + + | 04/14/ | Orders Only | [facility] | Rc Garcia | | | 2016 | | CARDIOLOGY [place] | MD [address] | | | | | [address] | [address] | | | | | [address] | [place] [address] | | | | | [place], [place] | [phone] | | | | | [address] | | | | | | [phone] | | | +--------+ + + + + Social History + + + +--------+ + | Tobacco Use | Types | Packs/Day | Years | Date | | | | | Used | | + + + +--------+ + | Current Every Day | Cigarettes | 0.5 | | Started: 11/30/1999 | | Smoker | | | | | + + + +--------+ + + +---+---+---+ | Smokeless Tobacco: | | [...] Not on filedocumented as of this encounter Procedures + +--------+ + + + | Procedure Name | Priori | Date/Time | Associated Diagnosis | Comments | | | ty | | | | + +--------+ + + + | NM NUCLEAR STRESS | Routin | 04/14/2016 | | Results for this | | TEST (PHARMACOLOGIC | e | 11:13 AM | | procedure are in the | | - VASODILATOR) | | PDT | | results section. | + +--------+ + + + documented in this encounter Results NM Nuclear Stress Test (Vasodilator) (04/14/2016 11:13 AM PDT) + + | Specimen | + + | | + + + + + | Impressions | Performed At | + + + | No ischemia noted on this myocardial perfusion imaging. Small | | | apical infarct noted. Stress EKG is non diagnostic for ischemia. | | | Mild LV systolic dysfunction with apical akinesis noted. | | | Rc Garcia MD | | + + + + + + | Narrative | Performed At | + + + | [facility] [address], [place], [place] | | | [phone] NUCLEAR LEXISCAN STRESS TEST ? TEST DATE: | | | 04/14/2016 NAME: Uri Pierre : 1980 MRN: | | | [id number] ORDERING MD: Rc Garcia INDICATION FOR TEST: | | | 35 year old male being evaluated for dyspnea on exertion. RISK | | | FACTORS: hypertension, tobacco abuse, family history, stress | | | PROCEDURE: 10.9 mCi of 99m Tc Myoview was given intravenously for rest | | | images. The patient received 0.4 mg of Lexiscan given intravenously | | | over 10 seconds. At 35 seconds 32.7 mCi of 99m Tc Myoview was given | | | intravenously for stress images, and 50 mg of aminophylline | | | intravenously for post infusion. Effective Dose Equivalent: 14.9 mSv. | | | REST DATA: HR: 58 bpm BP: 121 / 83. Resting EKG showed sinus | | | bradycardia 58BPM. STRESS DATA: Peak heart rate 95 bpm, Peak BP: | | | 141/86. Symptoms shortness of breath, dizzy, nausea Stress EKG showed | | | no significant ST T changes noted. EJECTION FRACTION: Rest EF: 37% | | | Stress EF: 40% IMAGIN. The quality of the study is good. | | | 2. Perfusion showed small apical irreversible perfusion defect of | | | moderate intensity noted with apical akinesis likely related to | | | cardiomyopathy. 3. LV cavity size is normal with TID: 1.05). 4. | | | Gated SPECT images showed mild LV systolic dysfunction with global | | | hypokinesis noted. 5. Comparison with previous Nuclear stress from | | | 12/2011 showed . | | + + + + + | Procedure Note | + + | [place], Rad Conversion - 04/14/2019 11:[address] [facility] [id number] | | , [place], [phone] NUCLEAR LEXISCAN STRESS TEST?TEST DATE: | | 04/14/2016NAME: Uri PierreB: 1980MRN: [id number] MD: Rc | | Jose INDICATION FOR TEST: 35 year old male being evaluated for dyspnea on exertion. | | RISK FACTORS: hypertension, tobacco abuse, family history, stress PROCEDURE: 10.9 mCi | | of 99m Tc Myoview was given intravenously for rest images. The patient received 0.4 mg | | of Lexiscan given intravenously over 10 seconds. At 35 seconds 32.7 mCi of 99m Tc | | Myoview was given intravenously for stress images, and 50 mg of aminophylline | | intravenously for post infusion. Effective Dose Equivalent: 14.9 mSv. REST DATA: HR: 58 | | bpm BP: 121 / 83. Resting EKG showed sinus bradycardia 58BPM. STRESS DATA: Peak heart | | rate 95 bpm, Peak BP: 141/86. Symptoms shortness of breath, dizzy, nausea Stress EKG | | showed no significant ST T changes noted. EJECTION FRACTION: Rest EF: 37% Stress EF: 40% | | IMAGIN. The quality of the study is good.2. Perfusion showed small apical | | irreversible perfusion defect of moderate intensity noted with apical akinesis likely | | related to cardiomyopathy.3. LV cavity size is normal with TID: 1.05).4. Gated SPECT | | images showed mild LV systolic dysfunction with global hypokinesis noted.5. Comparison | | with previous Nuclear stress from 12/2011 showed . IMPRESSION: No ischemia noted on this | | myocardial perfusion imaging.Small apical infarct noted.Stress EKG is non diagnostic | | for ischemia.Mild LV systolic dysfunction with apical akinesis noted. Rc | | MD Jose | |REST DATA: HR: 58 bpm BP: 121 / 83. Resting EKG showed sinus bradycardia 58BPM. | | | |STRESS DATA: Peak heart rate 95 bpm, Peak BP: 141/86. Symptoms shortness of breath, dizzy, nausea Stress EKG showed no significant ST T changes noted. | | | |EJECTION FRACTION: Rest EF: 37% Stress EF: 40% | | | |IMAGING: | |1. The quality of the study is good. | |2. Perfusion showed small apical irreversible perfusion defect of moderate intensity noted with apical akinesis likely related to cardiomyopathy. | |3. LV cavity size is normal with TID: 1.05). | |4. Gated SPECT images showed mild LV systolic dysfunction with global hypokinesis noted. | |5. Comparison with previous Nuclear stress from 12/2011 showed . | | | |IMPRESSION: | |No ischemia noted on this myocardial perfusion imaging. | |Small apical infarct noted. | |Stress EKG is non diagnostic for ischemia. | |Mild LV systolic dysfunction with apical akinesis noted. | | | | | | | |Rc Garcia MD | | | | | + + documented in this encounter Visit Diagnoses Not on filedocumented in this encounter"
--- OUTSIDE RECORDS SUMMARY | ~2020-04-19 | XMS | Encounter Summary ---
Demographics + + + | Address | [address] | | | [place] [address] | + + + | Home Phone | | + + + | Preferred Language | Unknown | + + + | Marital Status | Single | + + + | Methodist Affiliation | CHR | + + + | Race | White | + + + | Ethnic Group | Not or | + + + Author + + + | Author | [facility] | + + + | Organization | [facility] | + + + | Address | [...] Team Providers + +------+ + | Care Fire Control Mechanic Name | Role | Phone | + +------+ + | Daniel Velez DO | PCP | | + +------+ + Reason for Visit + + + | Reason | Comments | + + + | Pre-op evaluation | | + + + Encounter Details +--------+---------+ + + + | Date | Type | Department | Care Team | Description | +--------+---------+ + + + | 06/12/ | Office | Preoperative | Valentina Wright NP | Pre-op evaluation | | 2010 | Visit | Medicine Clinic at | [address] | (Primary Dx); | | | | [facility] 4th Floor [address] | [place], [place] | History of atrial | | | | [address] | [address] | fibrillation; | | | | Mailcode: CH4S | [phone] | 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 | | | | and Healing, | | gland and its | | | | Building 1[address]4th Floor | | hypothalamic | | | | [place], [place] | | control; Screening | | | | [phone] | | for diabetes | | | | [phone] | | mellitus; Neck pain; | | | | | | Nasal drainage; | | | | | | Headache; Abnormal | | | | | | smell; BMI | | | | | | 32.0-32.9,adult | +--------+---------+ + + + Social History + + [...] + + documented as of this encounter Last Filed Vital Signs + + + + + | Vital Sign | Reading | Time Taken | Comments | + + + + + | Blood Pressure | 125/69 | 06/12/2011 1:36 PM | | | | | PDT | | + + + + + | Pulse | 47 | 06/12/2011 1:36 PM | | | | | PDT | | + + + + + | Temperature | 35.9 C (96.6 F) | 06/12/2011 1:36 PM | | | | | PDT | | + + + + + | Respiratory Rate | 14 | 06/12/2011 1:36 PM | | | | | PDT | | + + + + + | Oxygen Saturation | 96% | 06/12/2011 1:36 PM | | | | | PDT | | + + + + + | Inhaled Oxygen | - | - | | | Concentration | | | | + + + + + | Weight | 116.1 kg (256 lb) | 06/12/2011 1:36 PM | | | | | PDT | | + + + + + | Height | 188 cm (6' 2") | 06/12/2011 1:36 PM | | | | | PDT | | + + + + + | Body Mass Index | 32.87 | 06/12/2011 1:36 PM | | | | | PDT | | + + + + + documented in this encounter Patient Instructions Patient Instructions Valentina Wright NP - 06/12/2011 1:56 PM PDTFormatting of this note jennifer ht be different from the original. PREOPERATIVE INSTRUCTIONS Do not eat or drink anything after midnight the night before surgery. TAKE the following medications with a sip of water on the morning of surgery: Atenolol 50 mg Oral Tablet Take 50 mg by mouth once daily. citalopram 20 mg Oral Tablet Take 20 mg by mouth once daily. Divalproex DR (DEPAKOTE) 500 mg Oral Tablet, Delayed Release (E.C.) Take 500 mg by mouth. Omeprazole 20 mg Oral Capsule, Delayed Release(E.C.) Take 20 mg by mouth once daily. Do not take any Aspirin, vitamin E or non-steroidal anti-inflammatory (NSAIDs i.e. Advil , Aleve, Ibuprofen) or herbal supplements seven days prior to your surgery. These drugs may interfere with normal blood clotting and may cause excessive bleeding and bruising during or after the surgery. Please see the list below for more products that contain Aspirin, Ibupro fen, or Vitamin E If you are taking Coumadin (warfarin), Plavix or any other blood thinners please let you r surgical team know as medication changes will be necessary. If you need a pain medication for general purposes, use Tylenol as directed. If you are in doubt about any medications that you are taking, please contact our office . AVOID THESE MEDICATIONS FOR 7 DAYS BEFORE SURGERY PRODUCTS CONTAINING ASPIRIN OR NON-STEROIDAL ANTI-INFLAMMATORY DRUGS (NSAIDs) Advil, Aleve, January-[place], Anacin, Arthopan, Ascriptin, Aspergum, Aspirin with and without codeine, Jimmie aspirin. Bufferin, Butalbital, Butazone, Cataflam, Clinoril, Co-Advil, Coges ic, Daypro, Diclofenac, Diflunisal, Dipyridamole, Disalcid, Crispin s, Dolene, Dolobid, Easpi rin, Etodolac, Feldene, Fenoprofen, Ibuprofen, Indocin, Indomethacin, Lodine, Meclofenamate, Menadol, Meprobamate/Aspirin, Midol, Motrin and Motrin IB, Nabumetone, Naproxen, Norgesic, Nuprin, Nytol, Nyquil, Orudis, Oruvail, Oxyphenbutazone, Pamprin, Pepto Bismol, Percodan, P ersantine, Phenylbutazone, Piroxicam, Relafen, Robomol, Rufen, Sine-aid, Converse s cold tablets, Sulindac, Talwin, Tolectin, Triaminicin, Trigesic, Voltaren, Zorprin. OTHER PRODUCTS WHICH MAY PROMOTE BLEEDING Vitamin E, Gingko Biloba Important Guidelines Please do not shave the surgical site before the surgery Do not smoke, drink alcohol or use recreational drugs for 24 hours before your surgery Do not eat any hard candy or chew gum after midnight the night before your surgery. Watch for any change in your health condition. Let your surgeon know right away if you do not feel well. Do not wear makeup, perfume, lotions or powder. Remove any nail mongolian from at least one fingernail. Do not wear any jewelry to the hospital. Wear loose, comfortable clothing. Bring the case and solution for your contact lenses or wear your glasses. Leave all your valuables at home. Allow enough travel time so you re not late for your check in for surgery. Take a bath or shower and remember to shampoo your hair using your usual hair product be fore your arrival at the hospital. Please remember to brush your teeth the night before and the morning of your procedure. HIBICLENS GUIDE TO GENERAL SKIN CLEANSING AT HOME BEFORE SURGERY General Skin Cleansing Instructions: Hibiclens is not to be used on the head or face, keep out of the eyes, ears and mouth. Hibiclens is not to be used in the genital area. Hibiclens should not be used if you are allergic to chlorhexidine gluconate or any other in gredients in this preparation. *See Hibiclens label for full product information and precautions. When you bathe or shower the night before your surgery: If you plan to wash your hair, do so with your regular shampoo. Then rinse hair and body th oroughly to remove any shampoo residue. Wash your face with your regular soap or water only. Thoroughly rinse your body with warm water from neck down. Use Hibiclens as you would any other liquid soap. Please do not put the Hibiclens on a wash cloth, apply directly to the skin and wash gently. Apply the minimum amount of Hibiclens n ecessary to cover the skin. Leave the Hibiclens on your skin for 1 minute, then rinse off. Rinse thoroughly with warm water. Do not use your regular soap after applying and rinsing Hibiclens. When using Hibiclens for a second day in a row (morning of surgery, as soon as you wake up) : Shower/bathe again using Hibiclens in the same method as described above. Do not apply any lotions, deodorants, powders or perfumes to the body areas that have been cleaned with Hibiclens. Pain management after surgery Following surgery, at regular intervals, your nurse will ask you to rate your pain on a scale of 0-10 (0 is no pain and 10 is the worst pain you can imagine). A variety of pain management strategies may be appropriate, such as intravenous medicati ons, oral medications, peripheral nerve bocks or epidural catheters that can deliver local a nesthetic to cover the area of your surgical incision. Please discuss this with your anesth esiologist to receive additional information about what might be appropriate for you. The goal for pain control therapy is to be comfortable enough to change your position, c ough and take deep breaths. You will be asked to do such activities to help prevent complic ations. Preventing post op complications Use an incentive spirometer or peep breathe to keep your lungs working properly an d to help prevent respiratory complications. It helps you take long, deep breaths. Use it at least once every hour while you are awake. Leg and feet exercises will maintain good circulation and help prevent blood clots in yo ur legs. Sometimes your doctor will order air compression stockings. Compressed air helps the circulation in your legs. Walking and moving will help stimulate normal circulation and deep breathing. After you r surgery, your nurse may ask you to sit, stand or walk. Surgery Check in Locations Admitting [facility], ninth floor [facility] Check in Time: Someone from your surgeon's office will provide you with informat ion regarding your check in time. If you have any questions about this, please contact your surgeon's office. Going Home Your surgical team will decide when you are medically ready to go home. You will require transportation home on the day of discharge. Pain medications and physi tyrel activity restrictions may limit your ability to drive safely. It is also recommended th at you have someone assist you and look after you on the first night after you are released to go home. If you are released to go home on the same day as your procedure/surgery please note the following: You will not be competent to drive and will require someone else to transport y ou home on the day of discharge since pain medications and physical activity restrictions li christian your ability to drive safely. It is also required that you have someone assist you and look after you on the first night after you have undergone regional blocks, deep sedation, a nd/or general anesthesia. If you stayed in the hospital after surgery, please arrange for your ride to come for yo u around 9AM on the day your doctor says you can go home. Check out time is 11AM. If you have questions or concerns after you go home, call your doctor s office. If it is after office hours, call the [facility] wheel press operator at [phone] and ask them to page your doc tor. documented in this encounter Progress Notes Valentina Wright NP - 06/12/2011 1:55 PM PDTUri Pierre was evaluated today in Preo perative Medicine Clinic for his scheduled procedure on 07/01/2011. Uri Pierre do es not require further medical optimization or risk stratification, and can proceed to surge ry as scheduled according to 2007 AHA/ACC guidelines. Please see scanned Preoperative History & Physical in the "Media" tab under ANESTHESIA PREO P EVALUATION and Centricity. Please also find additional test results under "Media" tab in E PIC. I spent 45 minutes in the care of this patient, > 50% of which was spent in counseling and coordination of care. All patient's questions clarified and answered satisfactorily. Mamie Wright, MSN, ACNP- Nurse Practitioner Pre-operative Medicine Clinic [facility], Mail code : [facility] [address] [place] [address] (DIRECT LINE) (FAX) 2007 ACC/ AHA Perioperative Guidelines 1. Need for emergency noncardiac surgery? b. No -> Proceed to next step. 2. Active Cardiac Conditions? These conditions mandate further investigation and manageme nt. A. Acute NM within 7 days: no B. Unstable angina/Recent NM (7- 30 days): no C. Decompensated CHF: no D. Significant arrhythmia: None E. Severe valvular disease: NONE 3. Low risk surgery? b. No -> proceed with next step. 4. Good functional capacity? (>4 METS)a. Yes -> proceed with surgery. Recommendations (based on risk factors): 0 risk factors- proceed with surgery 1- 2 risk factors- proceed with planned surgery with HR control or consider noninvasive giancarlo ting if it will campaign management specialist. 3 or more risk factors AND high risk surgery- consider testing if it will campaign management specialist . documented in this enco unter Procedure Notes Other, Faculty - 2011 7:43 AM PDTAssociated Order(s): OUTSIDE CARDIOLOGYElectronical ly signed by Faculty Other at 2011 7:43 AM PDTOther, Faculty - 2011 7:43 AM PD TAssociated Order(s): OUTSIDE CARDIOLOGY ther, Faculty - 2011 7:43 AM PDTAssociated Order(s): OUTSIDE CARDIOLOGY documented in this encounte r Plan of Treatment Not on filedocumented as of this encounter Procedures + +--------+ + + + | Procedure Name | Priori | Date/Time | Associated Diagnosis | Comments | | | ty | | | | + +--------+ + + + | CONFIRMATORY ABO/RH | Routin | 07/01/2011 | | Results for this | | | e | 7:22 AM | | procedure are in the | | | | PST | | results section. | + +--------+ + + + | HEMOGLOBIN A1C, POC | Routin | 06/12/2011 | Pre-op evaluation | Results for this | | | e | 2:21 PM | Screening for | procedure are in the | | | | PDT | diabetes mellitus | results section. | + +--------+ + + + | INR | Routin | 06/12/2011 | Pre-op evaluation | Results for this | | | e | 1:50 PM | Unspecified | procedure are in the | | | | PDT | disorder of the | results section. | | | | | pituitary gland and | | | | | | its hypothalamic | | | | | | control | | + +--------+ + + + | CBC ONLY | Routin | 06/12/2011 | Pre-op evaluation | Results for this | | | e | 1:50 PM | Unspecified | procedure are in the | | | | PDT | disorder of the | results section. | | | | | pituitary gland and | | | | | | its hypothalamic | | | | | | control | | + +--------+ + + + | TYPE AND SCREEN | Routin | 06/12/2011 | Pre-op evaluation | Results for this | | | e | 1:50 PM | Unspecified | procedure are in the | | | | PDT | disorder of the | results section. | | | | | pituitary gland and | | | | | | its hypothalamic | | | | | | control | | + +--------+ + + + | 12 LEAD ECG | Routin | 06/12/2011 | Pre-op evaluation | Results for this | | | e | 1:48 PM | History of atrial | procedure are in the | | | | PDT | fibrillation | results section. | + +--------+ + + + | OUTSIDE CARDIOLOGY | | 02/15/2011 | | Results for this | | | | 12:00 AM | | procedure are in the | | | | PDT | | results section. | + +--------+ + + + | OUTSIDE CARDIOLOGY | | 10/01/2010 | | Results for this | | | | 12:00 AM | | procedure are in the | | | | PST | | results section. | + +--------+ + + + | OUTSIDE CARDIOLOGY | | 10/01/2010 | | Results for this | | | | 12:00 AM | | procedure are in the | | | | PST | | results section. | + +--------+ + + + documented in this encounter Results CONFIRMATORY ABO/RH (07/01/2011 7:22 AM PST) + + + + + + | Component | Value | Ref Range | Performed | Pathologist | | | | | At | Signature | + + + + + + | ABO GROUP | A | | [facility] | | | | | | DEPARTMENT | | | | | | OF | | | | | | PATHOLOGY | | + + + + + + | RH TYPE | Positive | | [facility] | | | | | | DEPARTMENT | | | | | | OF | | | | | | PATHOLOGY | | + + + + + + + + | Specimen | + + | | + + + + + + + | Performing | Address | City/State/Zipcode | Phone Number | | Organization | | | | + + + + + | [facility] | [address] | [place] [address] | | | PATHOLOGY | [address] | | | + + + + + HEMOGLOBIN A1C, POC (06/12/2011 2:21 PM PDT) + +-------+ + + + | Component | Value | Ref Range | Performed | Pathologist | | | | | At | Signature | + +-------+ + + + | HEMOGLOBIN | 5.7 | 4.0 - 5.7 % | [facility], | | | A1C,POC | | | POINT OF | | | | | | CARE TESTS | | + +-------+ + + + + + | Specimen | + + | Blood | + + + + + + + | Performing | Address | City/State/Zipcode | Phone Number | | Organization | | | | + + + + + | [facility] | [address] | [place] [address] | | | OF CARE TESTS | | | | + + + + + INR (06/12/2011 1:50 PM PDT) + + + + + + | Component | Value | Ref Range | Performed | Pathologist | | | | | At | Signature | + + + + + + | INR | 1.02Comment: | 0.90 - 1.20 INR | [facility] | | | | INR Therapeutic ranges | | DEPARTMENT | | | | for full | | OF | | | | anticoagulation: | | PATHOLOGY | | | | INR for Venous | | | | | | Thromboembolism | | | | | | (2.0-3.0) | | | | | | INR INR for most | | | | | | patients with mech. | | | | | | valves (2.5-3.5) | | | | | | INR | | | | + + + + + + + + | Specimen | + + | Blood - Blood | + + + + + + + | Performing | Address | City/State/Zipcode | Phone Number | | Organization | | | | + + + + + | [facility] | [address] | [place] [address] | | | PATHOLOGY | [address] | | | + + + + + TYPE AND SCREEN (06/12/2011 1:50 PM PDT) + + + + + + | Component | Value | Ref Range | Performed | Pathologist | | | | | At | Signature | + + + + + + | ABO GROUP | A | | [facility] | | | | | | DEPARTMENT | | | | | | OF | | | | | | PATHOLOGY | | + + + + + + | RH TYPE | Positive | | [facility] | | | | | | DEPARTMENT | | | | | | OF | | | | | | PATHOLOGY | | + + + + + + | Antibody | Negative | | [facility] | | | Screen | | | DEPARTMENT | | | | | | OF | | | | | | PATHOLOGY | | + + + + + + + + | Specimen | + + | Blood - Blood | + + + + + + + | Performing | Address | City/State/Zipcode | Phone Number | | Organization | | | | + + + + + | [facility] | [address] | [place] [address] | | | PATHOLOGY | [address] | | | + + + + + CBC ONLY (06/12/2011 1:50 PM PDT) + + + + + + | Component | Value | Ref Range | Performed | Pathologist | | | | | At | Signature | + + + + + + | WHITE CELL | 7.0 | 4.4 - 11.0 K/cu | [facility] | | | COUNT | | mm | DEPARTMENT | | | | | | OF | | | | | | PATHOLOGY | | + + + + + + | RED CELL | 4.24 (L) | 4.50 - 5.90 | [facility] | | | COUNT | | M/cu mm | DEPARTMENT | | | | | | OF | | | | | | PATHOLOGY | | + + + + + + | HEMOGLOBIN | 13.4 (L) | 13.5 - 17.5 | [facility] | | | | | g/dL | DEPARTMENT | | | | | | OF | | | | | | PATHOLOGY | | + + + + + + | HEMATOCRIT | 39.2 (L) | 41.0 - 53.0 % | [facility] | | | | | | DEPARTMENT | | | | | | OF | | | | | | PATHOLOGY | | + + + + + + | MCV | 92.4 | 80.0 - 96.0 fL | [facility] | | | | | | DEPARTMENT | | | | | | OF | | | | | | PATHOLOGY | | + + + + + + | MCHC | 34.2 | 33.4 - 35.5 | [facility] | | | | | g/dL | DEPARTMENT | | | | | | OF | | | | | | PATHOLOGY | | + + + + + + | RDW | 14.1 | 11.5 - 15.0 % | [facility] | | | | | | DEPARTMENT | | | | | | OF | | | | | | PATHOLOGY | | + + + + + + | PLATELET | 128 (L) | 150 - 400 K/cu | [facility] | | | COUNT | | mm | DEPARTMENT | | | | | | OF | | | | | | PATHOLOGY | | + + + + + + + + | Specimen | + + | Blood - Blood | + + + + + + + | Performing | Address | City/State/Zipcode | Phone Number | | Organization | | | | + + + + + | [facility] DEPARTMENT OF | [address] | [place] [address] | | | PATHOLOGY | [address] | | | + + + + + 12 LEAD ECG (06/12/2011 1:48 PM PDT) + + + + + + | Component | Value | Ref Range | Performed | Pathologist | | | | | At | Signature | + + + + + + | VENTRICULAR | 48 | BPM | [facility] | | | RATE | | | OF | | | | | | CARDIOLOGY | | + + + + + + | ATRIAL RATE | 48 | BPM | [facility] | | | | | | OF | | | | | | CARDIOLOGY | | + + + + + + | P-R | 148 | ms | [facility] | | | INTERVAL | | | OF | | | | | | CARDIOLOGY | | + + + + + + | QRS | 88 | ms | [facility] | | | DURATION | | | OF | | | | | | CARDIOLOGY | | + + + + + + | QT | 466 | ms | [facility] | | | | | | OF | | | | | | CARDIOLOGY | | + + + + + + | QTC | 416 | ms | [facility] | | | | | | OF | | | | | | CARDIOLOGY | | + + + + + + | P AXIS | 67 | degrees | [facility] | | | | | | OF | | | | | | CARDIOLOGY | | + + + + + + | R AXIS | 31 | degrees | [facility] | | | | | | OF | | | | | | CARDIOLOGY | | + + + + + + | T AXIS | 35 | degrees | [facility] | | | | | | OF | | | | | | CARDIOLOGY | | + + + + + + | EKG | Marked sinus | | [facility] | | | DIAGNOSIS | bradycardiaAbnormal | | OF | | | | ECG"I have personally | | CARDIOLOGY | | | | interpreted this report, | | | | | | either alone or with a | | | | | | trainee."Confirmed by | | | | | | CLAUDE MARKS ([id number]) on | | | | | | 06/13/2011 9:39:35 AM | | | | + + + + + + + + | Specimen | + + | | + + + + + | Narrative | Performed At | + + + | Please click | [facility] | | on view image for the detailed interpretation from [employer]: [employer] results. | CARDIOLOGY | + + + + + + + + | Performing | Address | City/State/Zipcode | Phone Number | | Organization | | | | + + + + + | [facility] | [address] | [place], [place] | | | CARDIOLOGY | [address] | [address] | | + + + + + OUTSIDE CARDIOLOGY (02/15/2011 12:00 AM PDT) + + + | Narrative | Performed At | + + + | | | + + + + + | Transcriptions | + + | Kamlesh Faculty - 2011 7:43 AM PDT | + + OUTSIDE CARDIOLOGY (10/01/2010 12:00 AM PST) + + + | Narrative | Performed At | + + + | | | + + + + + | Transcriptions | + + | Bony Whitlock - 2011 7:43 AM PDT | + + OUTSIDE CARDIOLOGY (10/01/2010 12:00 AM PST) + + + | Narrative | Performed At | + + + | | | + + + + + | Transcriptions | + + | Bony Whitlock - 2011 7:43 AM PDT | + + documented in this encounter Visit Diagnoses + + | Diagnosis | + + | Pre-op evaluation - Primary Preoperative examination, unspecified | + + | History of atrial fibrillation Personal history of other diseases of circulatory | | system | + + | 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
--- OUTSIDE RECORDS SUMMARY | ~2020-04-19 | XMS | Encounter Summary ---
Demographics + + + | Address | [address] | | | [place] [address] | + + + | Home Phone | | + + + | Preferred Language | Unknown | + + + | Marital Status | Single | + + + | Anabaptism Affiliation | CHR | + + + | Race | White | + + + | Ethnic Group | Not or | + + + Author + + + | Author | [facility] | + + + | Organization | [facility] | + + + | Address [...] Team Providers + +------+ + | Care Automatic Brine Mixer Operator Name | Role | Phone | + +------+ + | Alejandro Dowling DO | PCP | | + +------+ + Encounter Details +--------+ + + + + | Date | Type | Department | Care Team | Description | +--------+ + + + + | 07/13/ | Telephone | Neurosurgery at | Alek Elliott, | | | 2010 | | [facility] [id number] | | | | | | [facility] | | [facility], | | | | | | | | | | | | floor [place], [place] | | | | | | [address] | | | | | | [phone] | | | +--------+ + + + [...] this encounter Miscellaneous Notes Telephone Encounter - Carol Huang - 07/14/2011 11:04 AM PSTLVM [facility] to crab picker his additional 60 tabs of Oxycodone. As ked that she call back with an update when she has approved/denied request. elephone Encounter - Julia Spencer PA - 07/14/2011 9:[address] Dowling's office to reiterate that we would like Paola dickerson to contact Dr Sorensen for instruction for nasal irrigation/etc. Phone number for Dr Davin brown provided. eleph one Encounter - Julia Spencer PA - 07/14/2011 9:[address] Susan lemus. No head CT indicated; no CSF leak encountered during surgery and in absence of clear r hinorrhea no evidence of leak at this time. Contact Dr Sorensen' office regarding his symptoms and instructions for nasal rinses. Per Dr Elliott, patient will need follow up with MRI. We can discuss timing when Dr Elliott re turns to clinic. el ephone Encounter - Julia Spencer PA - 07/14/2011 8:55 AM PSTSpoke to Uri serina alesia mendes. He reports considerable nasal discharge of blood and mucus yesterday; then developed "severe headaches"; clear, but sticky nasal drainage throughout the day; sinus pain/pressure . Woke up with a considerable amount of mucus , but now no nasal drainage and feels congested . When asked if he is having any clear, watery drainage now that he's up, he s aid, "no". BINGHAM s are nonpositional. No fevers. No nausea/emesis. No clear, water-like d rainage. Has not been using ocean spray nasal spray. Has been taking oxycodone for pain. No nasal decongestants. Going to see PCP today for evaluation. Will discuss further with Dr Elliott (re: whether he needs imaging). Also recommended Uri contact Dr Sorensen' office to review symptoms with them. This does not sound like CSF leak, however, do agree with medical evaluation. Obtain ocean spray nasal spray for irrigation. Please call [facility] to get authorization for release of oxycodone tablets Dee at [phone] elephone Encounte r - Julia Spencer PA - 07/13/2011 4:23 PM PSTWe can call in Vicodin or mail oxycodone script. I anticipate he's ready to transition to Vicodin. elephone Encounter - Joselin Babcock LPN - 2010 4:16 PM PSTPlease fill if appropriate, thank you. elephone Encounter - Carol Huang - 07/13/2011 3:29 PM PSTPatient calls today and LVM to ask for pain medication refill. He reports on that [facility] will need authorization for them to pay for more pain medications. Please advise patient. Thanks! docume nted in this encounter Plan of Treatment Not on filedocumented as of this encounter Visit Diagnoses Not on filedocumented in this encounter
--- OUTSIDE RECORDS SUMMARY | ~2020-04-19 | XMS | Encounter Summary ---
Demographics + + + | Address | [address] | | | [place] [address] | + + + | Home Phone | | + + + | Preferred Language | Unknown | + + + | Marital Status | | + + + | Confucianist Affiliation | 1013 | + + + | Race | White | + + + | Ethnic Group | Not or | + + + Author + + + | Author | [facility] | | | and [place] | + + + | Organization | [facility] | | | [...] Team Providers + +------+ + | Care Cremator Name | Role | Phone | + +------+ + | Giovanni Huffman MD | PCP | | + +------+ + Encounter Details +--------+ + + + + | Date | Type | Department | Care Team | Description | +--------+ + + + + | 08/19/ | Abstract | [facility] [place] | [facility], | | | 2011 | | GASTROENTEROLOGY | [facility] [address] | | | | | [address] [place] | [address] | | | | | [address] [place], [place] | [place], [place] | | | | | [address] | [address] | | | | | [phone] | | | +--------+ + + + + Social History + +-------+ +--------+------+ | Tobacco Use | Types | Packs/Day | Years | Date | | | | | Used | | + +-------+ +--------+------+ | Current Every Day | | 0.5 | | | | Smoker | | | | | + +-------+ +--------+------+ + + +---------+ + | Alcohol Use [...]
--- OUTSIDE RECORDS SUMMARY | ~2020-04-19 | XMS | Encounter Summary ---
Demographics + + + | Address | [address] | | | [place] [address] | + + + | Home Phone [...] Author | [facility] | + + + | Organization | [facility] | + + + | Address | [...] Team Providers + +------+ + | Care Help Desk Intern Name | Role | Phone | + +------+ + | Alejandro Dowling DO | PCP | | + +------+ + Reason for Visit AUTH/CERT (Routine) +--------+--------+ + + + + | Status | Reason | Specialty | Diagnoses / | Referred By | Referred To | | | | | Procedures | Contact | Contact | +--------+--------+ + + + + | Closed | | | | | | +--------+--------+ + + + + Encounter Details +--------+ + + + + | Date | Type | Department | Care Team | Description | +--------+ + + + + | 07/01/ | Hospital | [facility] [address] | Alek Elliott, | | | 2010 - | Encounter | [address] Kervin DICKINSON | | | | | [id number] [facility] | | | | 07/02/ | | [facility] [place], | | | | 2010 | | [place] [address] | | | | | | [phone] | | | +--------+ + + + [...] + + + | Blood Pressure | 144/72 | 07/02/2011 11:06 AM | | | | | PST | | + + + + + | Pulse | 70 | 07/02/2011 11:06 AM | | | | | PST | | + + + + + | Temperature | 36.2 C (97.2 F) | 07/02/2011 11:06 AM | | | | | PST | | + + + + + | Respiratory Rate | 16 | 07/02/2011 11:06 AM | | | [...] | Weight | 117.7 kg (259 lb 7.7 | 07/01/2011 6:00 AM | | | | oz) | PST | | + + + + + | Height | 188 cm (6' 2") | 07/01/2011 6:00 AM | | | | | PST | | + + + + + | Body Mass Index | 33.32 | 07/01/2011 6:00 AM | | | | | PST | | + + + + + documented in this encounter Discharge Summaries Binu Duron PA-C - 07/02/2011 12:34 PM PST NEUROSURGERY DISCHARGE SUMMARY: Patient: Keith Pierre Admission Date: 07/01/2011 Discharge Date: 07/02/2011 Attending Physician: Alek Elliott MD PCP: Alejandro Dowling DO Service: [facility] Neurosurgery Diagnoses Principal Final Diagnosis: 1. Pituitary lesion Additional Diagonses: Past Medical History: Complications affecting other specified body s* Venereal disease, unspecified Abdominal pain, unspecified site Jaundice, unspecified, not of Headache Unspecified disorders of nervous system Atrial fibrillation GERD (gastroesophageal reflux disease) History of atrial fibrillation 06/12/2011 Unspecified disorder of the pituitary gland an* 06/12/2011 Neck pain 06/12/2011 Nasal drainage 06/12/2011 Abnormal smell 06/12/2011 BMI 32.0-32.9,adult 06/12/2011 Procedures 1. Transphenoidal biopsy of pituitary lesion 06/30/11 Brief Hospital Course 1. Keith Pierre was admitted to [facility] and underwent transsphenoidal hypophysectomy f or resection of pituitary mass. A lumbar drain and nasal packs were not placed intraoperati vely. Post operatively, the patient was monitored on the chapa by neurosurgery, otolaryngolo gy, and neuroendocrinology. Serum sodium, urinary output/ intake, and specific gravity (urin e) were monitored for evidence of DI or SIADH. Labs remained within normal range without ev idence of disturbance. While on the floor he demonstrated no evidence for CSF leak. He tolerated a regular diet w ithout nausea or vomiting and his pain was controlled with oral analgesia. He had no compla int of visual deficits. He ambulated independently and voided without delvalle catheter. He w as cleared for discharge home n post op day #1. He will follow up with endocrinology, ENT, and neurosurgery as an outpatient. At the time of discharge pathology results were not pelon posey. BP 144/72 | Pulse 70 | Temp 36.2 C (97.2 F) | RR 16 | Ht 188 cm (6' 2") | Wt 117.7 kg ( 259 lb 7.7 oz) | SpO2 97% | BMI 33.32 kg/(m^2) Chemistries: Last 72 Hours (or 3 results): Basename 07/02/11 07/02/11 07/01/11 07/01/11 0721 0031 1835 1110 NA 137|139 138 137 -- K 4.0 -- -- 4.2 CL 107 -- -- 109* BICARB 25 -- -- 25 BUN 9 -- -- 9 CR 0.74 -- -- 0.90 GLU 116* -- -- 108* CA 8.8 -- -- 8.2* MG -- -- -- -- PO4 -- -- -- -- Diet Regular Regular diet- There are no restrictions to your diet. You may eat or drink whatever you pr efer, though healthy food choices are recommended. Activity ACTIVITY: Get plenty of rest. For the first week after surgery, avoid heavy lifting (over 5 lbs), bending over, excessive straining and blowing your nose. For the first two weeks afte r surgery, you should not drive or exercise, however, walking is encouraged. After two weeks , you can begin to resume all normal activities including driving and exercise. DRIVING: You may resume driving two weeks after surgery provided your vision is not impaire d since surgery and you do not have double vision. You should not drive while you are on jim cotics. WORK: You should have clearance from your doctor before going back to work. At least 2-3 we eks off after surgery is recommended before resuming work although working at a desk on a [employer] mputer is often possible after 7 to 10 days. Destination: Destination: Home Condition on Discharge Good Discharge Follow Up- Facility MD to follow 1. Have a repeat BMP drawn on Friday 07/06. Use the lab slip provided for you. Results stephanie lexieuld be faxed to Dr. Hernandez's office. 2. Follow up with endocrinology in 1 month at the [facility] on the 8th floor. Please call to schedule this appointment: [phone]. You will then need to ret urn for continued follow up at 3 months with endocrinology and neurosurgery with a repeat MR Greg. This appointment will be scheduled for you. 3. Please call Dr Junior Stephens's office (otolaryngology) to schedule an outpatient ap pointment two weeks after discharge. His office number is [phone]. PCP:Alejandro Dowling, DO When: Please follow-up with your primary care physician as soon as po ssible to review new medications and recent interventions Call: Please call and ask for the Neurosurgery Resident on-call if you have any of the following: - Difficulty breathing or unusual shortness of breath - Excessive bleeding, drainage at the operative site - Fevers, chills, increased pain that is not relieved by pain medications - Persistent nausea or vomiting - Severe headaches, dizziness, or visual changes Current Discharge Medication List START taking these medications Details hydrocortisone 20 mg Oral Tablet Take 1 Tab by mouth once daily. Qty: 30 Tab, Refills: 1 oxyCODONE, immediate release, 5 mg Oral Tablet Take 1-3 Tabs by mouth every four hours as n eeded for severe pain. Qty: 60 Tab, Refills: 0 senna-docusate 8.6-50 mg Oral Tablet Take 1 Tab by mouth two times daily. Qty: 30 Tab, Refills: 1 CONTINUE these medications which have NOT CHANGED Details aspirin 325 mg Oral Tablet Take 325 mg by mouth once daily. atenolol 50 mg Oral Tablet Take 50 mg by mouth once daily. citalopram 20 mg Oral Tablet Take 20 mg by mouth once daily. divalproex DR (DEPAKOTE) 500 mg Oral Tablet, Delayed Release (E.C.) Take 500 mg by mouth tw o times daily. lisinopril 5 mg Oral Tablet Take 5 mg by mouth once daily. omeprazole 20 mg Oral Capsule, Delayed Release(E.C.) Take 20 mg by mouth once daily. STOP taking these medications clindamycin 150 mg Oral Capsule Comments: Reason for Stopping: oxyCODONE-acetaminophen 5-325 mg Oral Tablet Comments: Reason for Stopping: ACTIVITY: Get plenty of rest. For the first week after surgery, avoid heavy lifting (over 5 lbs), bending over, excessive straining and blowing your nose. For the first two weeks afte r surgery, you should not drive or exercise, however, walking is encouraged. After two weeks , you can begin to resume all normal activities including driving and exercise. BATHING: You may shower or bathe when you go home. If you have an abdominal incision from a fat graft, avoid getting it wet for the first 4 days after surgery by covering it with plas tic wrap. After the 4th post-operative day your abdominal incision needs no dressing. Suture removal is not necessary as the sutures are buried. NASAL CARE: Expected nasal drainage after endonasal surgery is usually yellow or blood-ting ed and of a thicker mucus consistency compared to cerebrospinal fluid (CSF) which is watery. This normal drainage should decrease or stop completely within 1-2 weeks. Use of saline irr igation ([place]) 2-3 times a day, a decongestant or steam bath are helpful to improve n vilma airflow. A Q-tip or tissue can also be used to clear your nasal passageways. Do not for cefully blow your nose and try to avoid sneezing for the first week after surgery. DRIVING: You may resume driving two weeks after surgery provided your vision is not impaire d since surgery and you do not have double vision. You should not drive while you are on jim cotics. DIET: You may resume the type of diet you had before surgery. WORK: You should have clearance from your doctor before going back to work. At least 2-3 we eks off after surgery is recommended before resuming work although working at a desk on a [employer] mputer is often possible after 7 to 10 days. Special Instructions/Tests: Repeat BMP to be drawn on Friday 07/06, results faxed to Dr. Abena spain. Lab slip given to patient. Condition On Discharge: Good Vital Signs at discharge as appropriate: BP: 144/72 mmHg (07/02/11 1106) Pulse: 70 (07/02/11 1106) Resp: 16 (07/02/11 1106) Roby ght: 117.7 kg (259 lb 7.7 oz) (07/01/11 0600) Discharge Patient To: Home Does patient have a planned readmission: No Discharge Summary Completed?: Yes. 07/02/2011 Discharging Provider: BINU DURON PA-C Date Completed: 07/02/2011 Time Completed: 12:34 PM Discharging Attending: Alek Elliott MD [facility] [address] [id number] Leanne Boateng [facility] [address] documented in this enco unter Discharge Instructions Instructions Sheri Fermin - 07/02/2011Patient Education Materials: Home care after n eurosurgery Additional Instructions: Discharge Nurse: Shanna Date: 07/02/2011 Discharge Time: 1300 PM documented in this encounter Medications at Time of Discharge [...] +---------+--------+ + documented as of this encounter Progress Notes Carolina Hernandez MD - 07/02/2011 3:20 PM PSTENDOCRINOLOGY STAFF Pt was seen in conjunction with Endocrinology Fellow ,Dr Jeb Salgado MDI personally interviewed the patient, duplicated the pertinent parts of the physical examination and pers onally formulated the plan with the Endocrine Fellow. .Please see note below edited by me aysha spencer the full details of the visit. I agree with history, exam, assessment and management plan as detailed there. We discussed in detail about adrenal insufficiency The nature of the hormonal deficit and the rationale for treatment Maintenance medications and adjustment during minor illnesses When to consult a physician When and how to inject a glucocorticoid for emergencies Glucocorticoid regimens The ideal glucocorticoid replacement therapy would: Mimic the endogenous cortisol rhythm, with a janet at bedtime and peak values in the special projects coordinator before waking Use the lowest possible dose without inducing Cushingoid signs and symptom The average daily secretion rate of cortisol in normal subjects is 2.7 to 14 mg/M2/day, wit h some interindividual variation in metabolism of the steroids and the fact that a single do se is less effective than the same amount of steroid administered in multiple doses. Discussed at length follow-up of pituitary adenoma, potential risk of growing over time,l ow risk of malignancy,timeline of follow-up and work-up for pituitary disfunction. Reviewed available literature and answered all questions. F/u arranged I answered all questions to apparent satisfaction and patient verbalized understanding and told me how much enjoyed overall clinical care here. I spent 35 minutes in the care of this patient-separately from time spent with fellow of [facility] over 50% was spent in counseling regarding the above mentioned issues and coordinating c are with primary team and family. Jeb Deal M D - 07/02/2011 3:20 PM PST ENDOCRINE CONSULT INPATIENT PROGRESS NOTE 07/02/2011 3:22 PM Hospital Day:1 Author: Jeb Salgado MD Attending Physician: David Li MD Interval Hx: No acute issue overnight. Current Inpatient Medications Medication Dose Route Frequency acetaminophen (aka TYLENOL) tablet 325-650 mg 325-650 mg Oral Q6H PRN atenolol (aka TENORMIN) tablet 50 mg 50 mg Oral DAILY citalopram (aka CELEXA) tablet 20 mg 20 mg Oral DAILY hydrocortisone (aka CORTEF) tablet 20 mg 20 mg Oral DAILY hydrocortisone (aka CORTEF) tablet 50 mg 50 mg Oral DAILY lisinopril (aka PRINIVIL) tablet 5 mg 5 mg Oral DAILY morphine injection Inj 1-4 mg 1-4 mg Intravenous Q2H PRN NaCl 0.9%-KCl 20 mEq/L IV infusion Intravenous CONTINUOUS nicotine (aka NICOTROL) 14 mg/24 hr 1 Patch 1 Patch Transdermal DAILY nicotine polacrilex (aka COMMIT) lozenge 2 mg 2 mg Oral Q1H PRN oxyCODONE (aka ROXICODONE) oral solution 5-15 mg 5-15 mg Feeding tube Q3H PRN pneumococcal (23-valent) polysaccharide vaccine (aka PNEUMOVAX) injection 0.5 mL 0.5 m L Intramuscular ONE TIME IN THE MORNING ranitidine (aka ZANTAC) tablet 150 mg 150 mg Oral BID REMOVE nicotine patch Transdermal DAILY senna-docusate (aka SENOKOT S) 8.6-50 mg 1 Tab 1 Tab Oral BID Current Inpatient Medications Medication aspirin 325 mg Oral Tablet atenolol 50 mg Oral Tablet citalopram 20 mg Oral Tablet divalproex DR (DEPAKOTE) 500 mg Oral Tablet, Delayed Release (E.C.) hydrocortisone 20 mg Oral Tablet lisinopril 5 mg Oral Tablet omeprazole 20 mg Oral Capsule, Delayed Release(E.C.) oxyCODONE, immediate release, 5 mg Oral Tablet senna-docusate 8.6-50 mg Oral Tablet Physical Exam: Last Vitals: BP 144/72 | Pulse 70 | Temp 36.2 C (97.2 F) | RR 16 | Ht 188 cm (6' 2") | Wt 117.7 kg (259 lb 7.7 oz) | SpO2 97% | BMI 33.32 kg/(m^2) Gross per 24 hour Intake 2150 ml Output 4125 ml Net -1975 ml General: Awake, alert and oriented. In no acute distress, Obese. Neck: No JVD Respiratory: Lungs clear to auscultation Cardiovascular: RRR, no M/R/G. Extremities: No edema Skin: Warm and well perfused Neurologic: Grossly intact. Labs/Imaging: Chemistries: Last 72 Hours (or 3 results): Recent Labs Basename 07/02/11 1005 07/02/11 0721 07/02/11 0031 07/01/11 1110 NA 140 137|139 138 -- K -- 4.0 -- 4.2 CL -- 107 -- 109* BICARB -- 25 -- 25 BUN -- 9 -- 9 CR -- 0.74 -- 0.90 CA -- 8.8 -- 8.2* MG -- -- -- -- PO4 -- -- -- -- Results for KEITH PIERRE ( ) as of 07/02/2011 15:28 07/01/2011 20:13 07/02/2011 01:27 07/02/2011 08:16 SPECIFIC GRAVITY 1.018 1.007 1.009 Lab Results Component Value Date FREET4 0.7 06/12/2011 TSH 0.60 06/12/2011 Assessment: 31 y.o. Male with recent diagnosis of pituitary microadenoma on MRI which was d one for the evaluation of his headaches, fatigue, and weight fluctuations. He is s/p Expande d endoscopic biopsy for pituitary adenoma POD 1. Pathology pending. Patient's serum Na and U OP is stable and being discharged today. Recommendations: 1. ACTH: at risk for AI in post-op setting. Pre-op cosyntropin stimulation test normal. -hydrocortisone 20mg Qday -pituitary-adrenal axis will need to be reassessed after discharge. 2. ADH: at risk for DI though also for SIADH in post-op setting. Labs in 3 days 3. Prolactin: pre-op level normal, no evidence of hormone excess 4. GH: pre-op IGF-1 was in normal range 5. TSH: pre-op TSH/Free T4 were in a normal range however will need to be reassessed post-o p as an outpatient to evaluate for development of central hypothyroidism. 6. FSH/LH: pre-op in normal range. Consider re-testing as outpatient. The case has been discussed with Dr. Hernandez, she agrees with assessment and plan as descr ibed above JEB SALGADO MD Fellow, Endocrinology, Diabetes & Metabolism Pager [phone] uk, Tanya Ovalle MD - 1 09/01/2010 12:55 PM PST OTOLARYNGOLOGY HEAD & NECK SURGERY Hospital Day:1 Author; TANYA CERVANTES MD Attending Physician: Alek Elliott MD Interval Hx: OR yesterday. No adverse events overnight. This am c/o blurry vision but no h emianopsia or double vision. Physical Exam: Last Vitals: BP 144/72 | Pulse 70 | Temp 36.2 C (97.2 F) | RR 16 | Ht 188 cm (6' 2") | Wt 117.7 kg (259 lb 7.7 oz) | SpO2 97% | BMI 33.32 kg/(m^2)FIO2 (%): 40 fraction of O2 ( 05/03 1547)@FLOW([id number]) 24 Hour Vital Min/Max: Systolic (24hrs), Av mmHg, Min:109 mmHg, Max:160 mmHgDiastolic (24hrs), Av mmHg, M in:47 mmHg, Max:89 mmHgPulse Av.9 Min: 43 Max: 95 Temp Av.4 C (97.5 F) Min: 36.1 C (97 F) Max: 36.8 C (98.2 F) Resp Av.4 Min: 10 Max: 16 SpO2 Av.5 % Min: 93 % Max: 98 % Intake/Output Summary (Last 24 hours) at 07/02/11 1255 Last data filed at 07/02/11 1108 Gross per 24 hour Intake 2355 ml Output 3600 ml Net -1245 ml Physical Exam: Gen: awake and alert, NAD HEENT: neck soft and flat, OP clear, no nasal drainage Resp: comfortable, unlabored, no stridor Medications: Current facility-administered medications:acetaminophen (aka TYLENOL) tablet 325-650 mg, 32 5-650 mg, Oral, Q6H PRN, Rossana Bach MD, 650 mg at 07/02/11 1100 atenolol (aka TENORMIN) tablet 50 mg, 50 mg, Oral, DAILY, Rossana Bach MD, 50 mg at 07/02/11 1010 citalopram (ak a CELEXA) tablet 20 mg, 20 mg, Oral, DAILY, Rossana Bach MD, 20 mg at 07/02/11 0815 hydrocortisone (aka CORTEF) tablet 20 mg, 20 mg, Oral, DAILY, Binu Duron PA-C, 20 mg at 0815 hydrocortisone (aka CORTEF) tablet 50 mg, 50 mg, Oral, DAILY, Binu Duron PA-C, 50 mg at 07/01/11 1730 lisinopril (aka PRINIVIL) tablet 5 mg, 5 mg, Oral, DAILY, Rossana moon MD, 5 mg at 07/02/11 0815 morphine injection Inj 1-4 mg, 1-4 mg, Intravenous, Q2H PRN, Rossana Bach MD, 2 mg at 07/02/11 1045 NaCl 0.9%-KCl 20 mEq/L IV infusion, , Intravenous, CONTINUOUS, Rossana Bach MD nicotine (aka NICOTROL) 14 mg/24 hr 1 Patch, 1 Patch, Transdermal, DAILY, Meaghan Denton MD, 1 Patch at 07/01/112114 nicotine polacrilex (aka COMMIT) lozenge 2 mg, 2 mg, Oral, Q1H PRN, Meaghan Denton MD, 2 mg at 07/01/11 194 oxyCODONE (aka ROXICODONE) oral solution 5-15 mg, 5-15 mg, Feeding tube, Q3H PRN, Rossana Bach MD, 15 mg at 07/02/111099 pneumococcal (23-valent) polysaccharide vaccine (aka PNEUMOVAX) injection 0.5 mL, 0.5 mL, I ntramuscular, ONE TIME IN THE MORNING, Alke Elliott MD ranitidine (aka ZANTAC) tablet 1 50 mg, 150 mg, Oral, BID, Rossana Bach MD, 150 mg at 07/02/11 0815 REMOVE nicotine patch, , Transdermal, DAILY, Meaghan Denton MD senna-docusate (aka SENOKOT S) 8.6-50 mg 1 Tab, 1 T ab, Oral, BID, Rossana Bach MD, 1 Tab at 07/02/11 0815 Assessment and Plan: Keith Pierre is a 31 y.o. male who is POD #1 s/p transphenoid al resection of pititary mass. No CSF leak Continue HC per NSG D/c home today F/u with ENT in 2-3 weeks or when seeing NSG This patient was seen and examined on ENT rounds, and our team agrees with this assessment and plan. [place] [phone] Hospital Day:1 Attending Physician: Alek Elliott MD no, Binu Grijalva PA-C - 05/2011 11:31 AM PST Neurosurgery Progress Note Hospital Day:1 Author; BINU DURON PA-C Attending Physician: Alek Elliott MD Interval Hx: No nasal drainage. Mild AMAYA. OOB, walking independently. Last Vitals: BP 144/72 | Pulse 70 | Temp 36.2 C (97.2 F) | RR 16 | Ht 188 cm (6' 2") | Wt 117.7 kg (259 lb 7.7 oz) | SpO2 97% | BMI 33.32 kg/(m^2)FIO2 (%): 40 fraction of O2 ( 05/03 1547)O2 Delivery Device: None (room air) (07/02/11 1106) 24 Hour Vital Min/Max: Systolic (24hrs), Av mmHg, Min:102 mmHg, Max:160 mmHgDiastolic (24hrs), Av mmHg, M in:47 mmHg, Max:89 mmHgPulse Min: 43 Max: 95 Temp Min: 36.1 C (97 F) Max: 36.8 C (98.2 F) Resp Min: 10 Max: 16 SpO2 Min: 93 % Max: 98 % Intake/Output Summary (Last 24 hours) at 07/02/11 1131 Last data filed at 07/02/11 1108 Gross per 24 hour Intake 2465 ml Output 3600 ml Net -1135 ml Exam: Alert, oriented x3. Appears well. Speech clear, fluent. Pupils equal, brisk. Vision intact, VF full. Gaze conjugate. EOMI. Face symmetric. Tongu e midline. No nasal drainage. Strength full throughout. No drift. Labs: Chemistries: Last 72 Hours (or 3 results): Recent Labs Basename 07/02/11 0721 07/02/11 0031 07/01/11 1835 07/01/11 1110 NA 137|139 138 137 -- K 4.0 -- -- 4.2 CL 107 -- -- 109* BICARB 25 -- -- 25 BUN 9 -- -- 9 CR 0.74 -- -- 0.90 GLU 116* -- -- 108* CA 8.8 -- -- 8.2* MG -- -- -- -- PO4 -- -- -- -- Current Medications: HC 20mg daily. Impression: 31YOM s/p transphenoidal biopsy of sellar lesion, POD#1. Neuro stable. No csf leak. Plan: Cont HC 20mg daily. DC home today. FU with endocrinology, NSG, ENT. Repeat BMP lab draw on Wednesday per vinh. BINU DURON PA-C [facility] [address] [id number] [facility] [id number] Alek Tavarez MD - 07/02/2011 9:23 AM PST. Ignacio is doing well. Awake, alert, bright. Speech fluent. Vi phil good. Labs and urine output OK. OK to discharge from my standpoint and follow-up as o utpatient. Await final pathology. Will discuss with endocrine team to ensure that their DC criteria are met as well. 9:2 4 AM Robert Sparrow MD - 07/01/2011 7:31 PM PSTENT Post-op Doing well, no complaints of vision changes or drainage in back of throat BP 118/62 | Pulse 58 | Temp 36.1 C (97 F) | RR 16 | Ht 188 cm (6' 2") | Wt 117.7 kg (25 9 lb 7.7 oz) | SpO2 96% | BMI 33.32 kg/(m^2) Awake and alert Nasal packs in S/p transphenoidal resection of pituitary mass Keep packs in Will follow Binu Gaitan PA-C - 04/2011 5:19 PM PSTNeurosurgery Post-op Check S/p Expanded endoscopic biopsy for pituitary adenoma Occipital type AMAYA(baseline) 03/01, unchanged from preop. No metallic taste in mouth. Minim al bloody drainage. OOB to void. Fariba clears. Hungry. Ht 188 cm (6' 2")( < 3 %ile), Wt 117.7 kg (259 lbs 7.7 oz)( < 3 %ile), BP 118/62, Pulse 58, Temperature 36.1 C (97 F), RR 16, SpO2 96%, BMI 33.32 kg/(m^2). Alert, oriented x3. Pupils equal, brisk. Vision intact. VF full bilat. Gaze conjugate. EOMI. SILT bilat, fa cial expressions symmetric. Tongue midline. Moustache dressing in place with minimal thick blood per gauze. Imp: 31YOM s/p Expanded endoscopic biopsy of pituitary lesion, POD#0. Neuro stable. Plan: Per endo: HC 50mg tonight, 20mg daily tomorrow. Follow Na, SpG q6hrs. Strict I and Os. Oxycodone prn. Usu takes ~30mg oxy daily for AMAYA. ADAT. SLIV once fariba po. Bowel regimen prn. OOB ad valentina. SCD DVT ppx. Carolina Oakley MD - 1 08/31/2010 2:22 PM PSTEndocrinology attending Requesting consultation Dr Alek Elliott MD Pt was seen in conjunction with Endocrinology Fellow , Dr Jeb Salgado MD .I personal ly examined the patient, reviewed fellow note.Please see note below edited by me for the ful l details of the visit. I agree with history, exam, assessment and management plan as detail ed there. Exact date of onset of symptoms is unknown. Old records were obtained and reviewed as part of this hospital consult Diagnosis Pituitary tumor Headache A/P Briefly, complex PMH and severe headache, pituitary tumor /cyst With enlarged stalk, no w s/p TSS biopsy he is doing well postop, no CSF leak, still some persistent headache. Examined immediately postop. Discussed at length follow-up of pituitary adenoma, potential risk of growing over time,low risk of malignancy,timeline of follow-up and work-up for pituitary disfunction. Reviewed available literature and answered all questions. No diabetes insipidus at this point. Plan: 1. Steroid taper: The patient will be put on HC taper per [facility] protocol. 1.1. Electrolytes: We will continue to monitor electrolytes in the hospital We will have the patient do several electrolytes checks at an outside lab. He will return in 3 months with MRI and evaluation with Dr. Elliott and me. We will continue to have labs drawn at an outpatient facility 1 week after D/C, and we will monitor for electrolyte imbalance. For chronic issue, the patient will follow up with primary care physician. CAROLINA HERNANDEZ MD Jeb Deal M D - 07/01/2011 2:22 PM PST Pituitary Clinic New Consult Fellow: Dr. Jeb Salgado Attending Physician: Dr. Carolina Hernandez PCP: Alejandro Dowling DO HPI: Keith Pierre is a 31 y.o. Male with recent diagnosis of pituitary microadenoma on MRI which was done for the evaluation of his headaches, fatigue, and weight fluctuations . He is s/p Expanded endoscopic biopsy for pituitary adenoma POD 0. He has been transferred to PACU in the stable condition. His procedure was uneventful received 2L of NS, 100cc of PA BCs. His UOP is 400 ml since procedure. He is c/o pain in the neck, AMAYA, mild dizziness and fatigue and blurry vision. NEUROENDOCRINE REVIEW: TSH: The patient denies constipation or diarrhea. No any temperature dysregulation. No dry skin, hair loss, brittle fingernails, or decrease in memory. C/o fatigue but is not weak. C/o weight fluctuations with recent weight gain 15 Lb in 1 week Growth Hormone: C/o fatigue but no central weight gain. h/o hypertension, no diabetes. No e nlargement of the hands, feet, or jaw. + increased gaps in his teeth (chronic), no skin tags , no carpal tunnel syndrome, and no oily skin or has symptoms consistent with sleep apnea (n ever had sleep study) Prolactin: No nipple discharge. ACTH: The patient denies nausea, vomiting, abdominal discomfort, or orthostasis. No signs o r symptoms consistent with ACTH excess. ROS: As noted in HPI. A full 13 system ROS was reviewed and is otherwise negative. Past Medical History Diagnosis Date Complications affecting other specified body systems, hypertension Venereal disease, unspecified Abdominal pain, unspecified site Jaundice, unspecified, not of Headache Unspecified disorders of nervous system Atrial fibrillation GERD (gastroesophageal reflux disease) History of atrial fibrillation 06/12/2011 Unspecified disorder of the pituitary gland and its hypothalamic control 06/12/2011 Neck pain 06/12/2011 Nasal drainage 06/12/2011 Abnormal smell 06/12/2011 BMI 32.0-32.9,adult 06/12/2011 Current Medication List 07/01/11 6:10 AM Name Sig ASPIRIN 325 MG TAB Take 325 mg by mouth once daily. ATENOLOL 50 MG TAB Take 50 mg by mouth once daily. CITALOPRAM 20 MG TAB Take 20 mg by mouth once daily. CLINDAMYCIN 150 MG CAP Take 150 mg by mouth every six hours. DIVALPROEX 500 MG TAB, DELAYED RELEASE Take 500 mg by mouth. LISINOPRIL 5 MG TAB Take 5 mg by mouth once daily. OMEPRAZOLE 20 MG CAP, DELAYED RELEASE Take 20 mg by mouth once daily. OXYCODONE-ACETAMINOPHEN 5 MG-325 MG TAB Take 1 Tab by mouth every six hours as needed. Not to exceed 12 tablets per any 24 hour period. Allergies Allergen Reactions Penicillin G Anaphylaxis Cartia Xt (Diltiazem Hcl) Diarrhea Metoprolol Diarrhea Social History: reports that he has been smoking cigarettes. He has a 16 pack-year smoking history. He amaya s never used smokeless tobacco. He reports that he does not currently drink alcohol or use illicit drugs. Family History Problem Relation Cancer Mother Diabetes Mother Heart Disease Father grandfather Psychiatry Father brother,daughter,son Hypertension Father Arthritis Mother sister PE: BP 144/62 | Pulse 54 | Temp 36.7 C (98.1 F) | RR 10 | Ht 188 cm (6' 2") | Wt 117.7 kg (259 lb 7.7 oz) | SpO2 97% | BMI 33.32 kg/(m^2) General: Pleasant male in no apparent distress, alert and oriented x 3. HEENT: Nasal packs in place. NC/AT PERRL, EOMs intact without lid lag, retraction or stare . + gaps between her teeth Neck: No LAD.Thyroid exam reveals no thyromegaly Lungs: Clear to auscultation bilaterally. CV: Bradycardia, no murmur, gallops or rubs. Abd: soft, non-tender, non-distended, bowel sounds are present, + truncal obesity. + striae . Ext: No edema Neuro: normal without focal findings,mental status and speech normal. Laboratory Data: Results for KEITH PIERRE ( ) as of 07/01/2011 14:28 Ref. Range 06/12/2011 10:00 06/12/2011 10:00 06/12/2011 10:00 06/12/2011 10:30 ACTH,PLASMA < 46 pg/mL 9 CORTISOL, TOTAL SERUM No range found 7.4 25.1 GROWTH HORMONE < 5.0 ng/mL 0.1 IGF-1 115-307 ng/mL 186 IGF-1, SERUM SENDOUT 132-333 ng/mL 154 Results for KEITH PIERRE ( ) as of 07/01/2011 14:28 06/12/2011 10:00 PROLACTIN 9 06/12/2011 10:00 FREE T4, 0.7 FSH,SERUM 6 LUTEINIZING HORMONE 5 PROLACTIN 9 TESTOSTERONE 309 TSH 0.60 VITAMIN D 25 HYDROXY 24 (L) Lab Results Component Value Date NA 139 07/01/2011 K 4.2 07/01/2011 CL 109* 07/01/2011 BICARB 25 07/01/2011 BUN 9 07/01/2011 CR 0.90 07/01/2011 GLU 108* 07/01/2011 CA 8.2* 07/01/2011 Lab Results Component Value Date WBC 7.0 06/12/2011 HB 13.4* 06/12/2011 HCT 39.2* 06/12/2011 PLT 128* 06/12/2011 MCV 92.4 06/12/2011 RDW 14.1 06/12/2011 Radiology: MRI brain with contrast 04/17/11 [facility] Diagnostic imaging 8 mm enhancing nodule in the pituitary infundibulum with possibilities: small meningioma, n eurosarcoid, papillary variant craniopharyngioma, germinoma. Pathology: Pending Assessment: 31 y.o. Male with recent diagnosis of pituitary microadenoma on MRI which was d one for the evaluation of his headaches, fatigue, and weight fluctuations. He is s/p Expande d endoscopic biopsy for pituitary adenoma POD 0. He has been transferred to PACU in the stab le condition. His procedure was uneventful received 2L of NS, 100cc of PRBCs. He UOP is sinc e procedure is 400 ml. He is c/o pain in the neck, AMAYA, mild dizziness and fatigue and blurry vision. Recommendations: 1. ACTH: at risk for AI in post-op setting. Pre-op cosyntropin stimulation test normal. -hydrocortisone 50 mg tonight -hydrocortisone 20mg Qday -pituitary-adrenal axis will need to be reassessed after discharge. 2. ADH: at risk for DI though also for SIADH in post-op setting. -Plasma sodium Q6H -Urine specific gravity Q6H -monitor UO -contact endocrinology team for evidence of DI: sodium >146, UO > 350 ml/hr x 2 hrs, low s pecific gravity, report by patient of increasing thirst. 3. Prolactin: pre-op level normal, no evidence of hormone excess 4. GH: pre-op IGF-1 was in normal range 5. TSH: pre-op TSH/Free T4 were in a normal range however will need to be reassessed post-o p as an outpatient to evaluate for development of central hypothyroidism. 6. FSH/LH: pre-op in normal range. Consider re-testing as outpatient. Thank you for consulting us on this patient, we will continue to f/u. Please call us for an y question. The case has been discussed with Dr. Hernandez, she agrees with assessment and plan as descr ibed above. JEB SALGADO MD Fellow, Endocrinology, Diabetes & Metabolism Pager [phone] signed by Carolina Hernandez MD at 07/02/2011 12:46 PM PSTdocumented in this encounter H&P Notes Other, Faculty - 07/07/2011 12:19 PM PSTElectronically signed by Faculty Other at 1 12:19 PM PSTdocumented in this encounter Procedure Notes Other, Faculty - 07/05/2011 2:08 PM PSTAssociated Order(s): ORDERS OTHERElectronically sig enrique by Faculty Other at 07/05/2011 2:08 PM PSTOther, Faculty - 07/05/2011 2:08 PM PSTAssoc iated Order(s): PROCEDURE NOTE ther, Faculty - 07/02/2011 5:33 PM PSTAssociated Order(s): ANESTHESIA/SEDATIONElectroni wilmer signed by Faculty Other at 07/02/2011 5:34 PM Hamzah Lang MD - 07/02/2011 7:42 AM PSTAssociated Order(s): OPERATION RECORD [id number] / [id number] IGNACIO Ovalle [id number] Date: 07/01/2011 Attending Surgeon: Hamzah Sorensen M.D. Mission Coordinator(s): Phoebe Carrera MD Preoperative Diagnosis(es): Pituitary mass. Postoperative Diagnosis(es): Pituitary mass. Procedure: Endoscopic approach for endoscopic transsphenoidal approach to the pituitary gland. Anesthesia: General. Complications: None. Indication: Mr. Pierre is a 31-year-old gentleman with a pituitary mass, seen and evaluated by Dr. Elliott. He was advised to have biopsy of the pituitary lesion and comes to the operating room today for elective transsphenoidal approach to the pituitary. Findings: The patient had a markedly deviated septum. There was bone predominantly to the right anteriorly. The septum was shifted off the maxillary crest towards the left inferiorly. The intranasal anatomy was otherwise unremarkable. The sphenoid sinuses were well aerated. The intersphenoid septum deviated to the patient's right side. The sella was unremarkable. Procedure: The patient was taken to the operating room, placed supine on the operating room table. The patient was identified. Anesthesia was administered, and an endotracheal tube was inserted. The patient was prepped and draped in the standard surgical fashion, including the application of intraoperative navigation. The procedure began with nasal endoscopy bilaterally. The rigid endoscope was inserted into the left and right nasal cavities. The aforementioned findings were noted. Specifically, there was predominant septal deflection to the right, markedly occluding the right nasal passage. At this point, the decision was made not to perform an upfront nasal septal flap as this would likely require a simultaneous nasal septoplasty. The procedure then began with just a straightforward approach to the pituitary while preserving the nasal septal flap, including the pedicle bilaterally. The procedure began on the left-hand side. The middle turbinate was reflected laterally and then transected at the skull base. This was removed and set aside for possible later use. Suction cautery was used to cauterize the stump of the turbinate. The superior turbinate was then visualized, and up-biting forceps was used to resect the inferior portion of this until the natural ostium of the sphenoid sinus was visualized. This was then entered and widened with Kerrison forceps. An Onodi air cell was identified, and posterior ethmoidectomy was performed to widen the exposure of the sphenoid sinus. This was performed with upbiting forceps, Kerrison forceps, and a microdebrider. The intersphenoid septum was noted to be deviating to the right. The posterior bony septum was then defined, and backbiting forceps were used to resect the upper portion of the posterior septum. Nasal pledgets were then applied, and attention was focused on the right-hand side. Again, on the right-hand side, the zero-degree endoscope was used for visualization, and a Elizabeth elevator was used to lateralize the inferior turbinate. The middle turbinate was then resected sharply, and Bovie suction cautery was used to fulgurate the mucosal edges of the remnant. The superior turbinate was resected partially inferiorly, and the natural ostium of the sphenoid sinus was entered. This was then widened in continuity with the broad exposure from the contralateral side. The posterior nasal septum was resected superiorly to allow for a large common cavity working space. Care was taken to preserve the rostrum of the sphenoid sinus as well as the inferior portion of the posterior nasal septal mucosa, thus allowing possible secondary nasal septal flap if needed. At this point, the case was turned over to Dr. Elliott for dissection of the pituitary. His portion will be dictated separately. There were no complications during the exposure. The patient tolerated the procedure well, and I was present for all portions of the case. Hamzah Sorensen M.D. Analytical Lab Analyst, Head and Neck Surgery and Oncology Dept. of Otolaryngology - Head and Neck Surgery [facility] / [id number] / [id number] / [id number] / opAlek delgado MD - 07/02/2011 7:11 AM PSTAssociated Order(s): OPERATION RECORD [id number] IGNACIO KEITH [id number] Date: 07/01/2011 Attending Surgeon: Alek Elliott MD Mission Coordinator(s): Rossana Bach M.D. Preoperative Diagnosis(es): Pituitary lesion. Postoperative Diagnosis(es): Pituitary lesion. Procedures Performed: 1. Endoscopic endonasal approach for transsphenoidal biopsy of sellar lesion. 2. Use of Stealth frameless stereotactic neuronavigation based on CT angiography. Anesthesia: Endotracheal anesthesia. Estimated Blood Loss: 200 cc. Fluids Given: As per anesthesia records. Complications: None. Drains: None. Specimens: Sent for permanent. Indications: Please refer to EPIC note for full details. Procedure: The patient was properly identified in the preoperative holding area. Site was marked and consent was signed. Please note that prior to the procedure, a stereotactic CT scan with CT angiography sequence was performed and exported to the [employer] machine and planning of the surgical trajectory was carried out. The patient was taken to the OR, placed on OR table in supine position. All pressure points were padded. General endotracheal anesthesia was induced by the Anesthesia without complication. The head attached to the table using Gifford headholder and kept in a slightly rotated and flexed and contralaterally tilted position to allow for navigation for right handed surgeon. Stereotactic registration of the scalp to the Stealth machine was carried out. A prepping of the face was performed. Operative team pause was performed, preoperative antibiotic was given. The approach was performed by the Dr. Hamzah Sorensen from ENT, which will dictated as separate note. But in brief, the endoscope was white balanced and zoomed in and focused, and it was used to access the left nostril and after accessing into the left nostril, the middle turbinate was resected from the left nostril after topical instillation of a nasal decongestant. The maxillary antrum was identified and then the posterior smaller air cells were entered using Waleska forceps. The sphenoid ostium was in view at this point and as well as the choana. The sphenoid ostium was used to access the sphenoid sinus using Kerrison from the left nostril and after entry into the sphenoid sinus, our attention was directed towards the right nasal cavity, where the nasal septum was ( ) severely and obstructing the view. Partial resection of the middle turbinate on the right side was also performed, and the posterior septectomy was also performed to allow for communication of the right nasal cavity. After this was performed, the mucosa was stripped from the middle sphenoid sinus, and using a four-hand technique, navigation was performed from the right nostril by using the endoscopic camera and the procedure was performed from the left nostril. Using high-speed drill, the rostrum was drilled, and the carotid artery was identified as well as the optic nerve as well as the optic carotid recess and the medial and lateral ones from the sphenoid approach. We navigationally confirmed the position of these structures. Using high-speed drill, the floor of the sella was drilled and using Kerrison rongeur, window into the floor of the sella was widened. Using a BVI knife, a V-shaped opening was made into the dura of the sella, and the pituitary gland was identified. Using Cantu dissector, the pituitary gland was palpated and incision in the middle of the pituitary gland was performed. Using curettes, softer, midline, slightly posterior lesion was palpated and was biopsied, which revealed a greenish yellow structure that looked like pituitary adenoma. This was sent for permanent pathology, and further manipulation of the gland revealed no further lesion. Adequate hemostasis was then achieved and DuraSeal was applied to the floor of the sella, and then a closure was performed by removing the scope and irrigation. At the end of the procedure, needle and sponge count was correct. Dr. Elliott was present and scrubbed for the entire procedure. There were no complications. Rossana Bach M.D. Alek Elliott MD AR / HS [id number] / [id number] / [id number] / opAlke delgado MD - 07/02/2011 4:22 AM PSTAssociated Order(s): TEACHING PHYSICIAN [id number] IGNACIO KEITH J [id number] Date: 07/01/2011 Attending Surgeon: Alek Elliott MD Co-Surgeon: Hamzah Sorensen M.D. Mission Coordinator(s): Rossana Bach M.D. Preoperative Diagnosis(es): Sellar lesion. Postoperative Diagnosis(es): Sellar lesion. Procedures Performed: 1. Endoscopic endonasal approach for transsphenoidal biopsy of sellar lesion. 2. Use of Stealth frameless stereotactic neuronavigation based on CT angiography. 3. Left middle turbinectomy. 4. Left posterior ethmoidectomy. 5. Left maxillary antrostomy. 6. Posterior nasal septectomy. 7. Bilateral sphenoidotomies. This is Dr. Alek Elliott dictating a staff operative addendum to state I was present for guan portions of this procedure, which include positioning, registering the Stealth, prepping and draping. I was present for sinonasal exploration, middle turbinectomy, maxillary antrostomy, nasal septectomy, ethmoidectomy, and wide sphenoidostomy. I was present for opening the sella and performing the biopsy of sellar lesion. I was present for hemostasis and closure. These include the guan portions. For further details, please refer to the full operative report to be dictated by Dr. Rossana Bach. This operation was performed in its entirety by Dr. Hamzah Sorensen and myself. For further details, please refer to his operative report. MD Hamzah Cam M.D. Analytical Lab Analyst, Head and Neck Surgery and Oncology Dept. of Otolaryngology - Head [place] Neck Surgery [place] / [id number] / [id number] / [id number] / ther, Faculty - 1 08/31/2010 11:04 AM PSTAssociated Order(s): ANESTHESIA/SEDATION Maynor Dickinson, Rossana Connolly - 07/01/2011 10:58 AM PSTAssociated Or viviana(s): PROCEDURE NOTEINPATIENT BRIEF OPERATIVE NOTE Procedure Date: 07/01/11 Author: ROSSANA BACH MD Attending Physician: Jorge Luis Assistants: donald At 0800 (time), prior to the beginning of the procedure the team paused to verify the patie nt's identity, as well as the procedure to be performed and the correct side/site. All equi pment required was ready and available. The patient was positioned appropriately. [facility] were present during the team pause: Nsx/Anesthesia/OR staff Preoperative Diagnosis: Pituitary lesion Postoperative Diagnosis: Same Procedure Performed: EEEA for pituitary adenoma. Estimated Blood Loss: 100 CC Fluids: As per anesthesia records Specimens: permanent Complications: none Drains: none Disposition: PACU ther, Faculty - 6:51 AM PDTAssociated Order(s): PROCEDURE NOTE ther, Faculty - 2011 7:35 AM PDTAssociated Order(s): PA OCEDURE NOTE documented in t his encounter Consult Notes Delia Matthews [facility] - 07/02/2011 10:40 AM PSTPharmacy Services Pneumococcal Screening Note Keith Pierre has not been previously vaccinated with pneumococcal vaccine. This pa tient qualifies for vaccination this admission due to the following criteria: Cigarette smok er with no known or unknown history of prior receipt of pneumococcal 23-valent polysaccharid e vaccine. Per P&T approved protocol, a pneumococcal vaccination has been ordered for tomorrow. Ayla solis clinical pharmacist (#[phone]) or call central inpatient pharmacy ([phone]) with dilma schmidt ,Thank you Delia Matthews, PharmD Clinical Pharmac[place]g [phone] documented in this encou nter Miscellaneous Notes Scan - Other, Faculty - 07/05/2011 2:08 PM PSTElectronically signed by Faculty Other at 2:08 PM PSTScan - Other, Faculty - 07/05/2011 2:08 PM PST can - Other, Faculty - 07/05/2011 2:08 PM PSTElec tronically signed by Faculty Other at 07/05/2011 2:08 PM PSTScan - Other, Faculty - 011 2:08 PM PST lan of Ayala Geronimo - 07/02/2011 2:58 PM PSTProblem: Case Management Goals Goal: Patient-specific goals Outcome: Goal met Date Met: 07/02/11 Reason for Admission: Resection of Pituitary Adenoma day of admit Living Situation: At home in [facility] with lots of family around Insurance:[facility] Familycare D-C Plan: Home with family Kobi BRIGHT CM pager [phone] valuation - Roddy Fermin - 07/02/2011 1:50 PM PSTNursing Discharge Note Discharge Date: 07/02/2011 1400 Additional Discharge Information: Pt. discharged ambulatory to self dressed in own clothes, discharged with all belongings, scripts, + instructions/handouts, questions answered, to be returning home late tonight, or tomorrow, pt. aware + has lab slip/instructions for lab dra zambrano on 07/06/11. Discharge Nurse: Sheri Fermin valuation - Sheri Lim - 07/02/2011 1:43 PM PSTProblem: Pain, Acute (Adult) Goal: Acute Pain: Acceptable Pain Control/Comfort Level Goals: - Pt will report adequate pain management of < 4/10 rating. - Prevent/manage post-op complications r/t pituitary biopsy (ie. DI, CSF leak, meningitis, fluid/electrolyte imbalances). Interventions: - Assess pain Q4H and as indicated. Offer and administer pain medications as ordered. Offer non-pharmacological pain interventions as needed to offer comfort and relief. - Assess for signs of DI. Look for copious amounts of pale urine (>200 ml/hour for at least 3 consecutive hours) and a low urine specific gravity (145 mEq/liter), along with increased UO and thirst. - Assess for CSF leak. Monitor drainage from the moustache dressing (if applicable) and nos trils and assess for color and quantity. Observe for frequent swallowing and ask if he has a salty/metallic taste and/or post-nasal drip in his mouth. - Observe for meningitis. Assess for headache, stiff neck, lethargy, and confusion. - Prevent fluid loss. Assess the pt for serum electrolyte levels, urine SG, and Na+ levels. Notify MD for UO> 250ml x 2 and Na+ > 145. Maintain strict I/Os and measure SG Q6H. Interventions that worked/didn't work:Interventions working. My recommendations forward: Continue to monitor. Patient Stability:Moderately Stable lan of Care - Sheri Ledezma - 07/02/2011 1:42 PM PSTProblem: Pain, Acute (Adult) Goal: Acute Pain: Acceptable Pain Control/Comfort Level Problem: Pain, Acute (Adult) Goal: Acute Pain: Acceptable Pain Control/Comfort Level Goals: - Pt will report adequate pain management of <4/10 rating by the end of the night. - Prevent/manage post-op complications r/t pituitary biopsy (ie. DI, CSF leak, meningitis, fluid/electrolyte imbalances). Interventions: - Assess pain Q4H and as indicated. Offer and administer pain medications as ordered. Offer non-pharmacological pain interventions as needed to offer comfort and relief. - Assess for signs of DI. Look for copious amounts of pale urine (>200 ml/hour for at least 3 consecutive hours) and a low urine specific gravity (145 mEq/liter), along with increased UO and thirst. - Assess for CSF leak. Monitor drainage from the moustache dressing (if applicable) and nos trils and assess for color and quantity. Observe for frequent swallowing and ask if he has a salty/metallic taste and/or post-nasal drip in his mouth. - Observe for meningitis. Assess for headache, stiff neck, lethargy, and confusion. - Prevent fluid loss. Assess the pt for serum electrolyte levels, urine SG, and Na+ levels. Notify MD for UO> 250ml x 2 and Na+ > 145. Maintain strict I/Os and measure SG Q6H. heri Charles - 07/02/2011 7:26 AM PSTNursing Handoff Report Primary focus of stay:07/01 Expanded endoscopic endonasal biopsy for pituitary adenoma. Hep atitis C+. Pertinent physical findings: A/O x 4, neuro intact except for blurred vision and up ad valentina. Mustache drsg with some SS drainage; pt does own 4x4 drsg changes. PIV x 1 SL; tolerating P O fine. Orders to follow up on: Q6H Na+ (last was 140) and SG (last was 1.009 ). Last pain assessment/reassessment: 15mg Oxycodone last given [id number]. 2mg Morphine IV given at 1310. Psych/social issues: Pleasant. Last patient visit (i.e. Falls/Activity/Comfort/Environment/Toileting/Skin): 1400 Anticipated or pending procedures: Pt. discharged @ 1400, to [facility] to thuy l his scripts prior to returning home to [place], [place]; to be going to [facility] today until transportation arrives from [place] later today. andne - Teri Shepard RN - 07/02/2011 6:08 AM PSTNursing Handoff Report Primary focus of stay:07/01 Expanded endoscopic endonasal biopsy for pituitary adenoma. Hep atitis C+. Pertinent physical findings: A/O x 4, neuro intact except for blurred vision and up ad valentina. Mustache drsg with some SS drainage; pt does own 4x4 drsg changes. PIV x 1 SL; tolerating P O fine. Orders to follow up on: Q6H Na+ (last was 138 at 0000) and SG (last was 1.007 at 0130). Last pain assessment/reassessment: 15mg Oxycodone last given at 0330. 2mg Morphine IV given at 0500. Psych/social issues: Pleasant. Last patient visit (i.e. Falls/Activity/Comfort/Environment/Toileting/Skin): 0600. Anticipated or pending procedures: DC today per pt? valuation - Sharmaine Shepard RN - 07/02/2011 6:07 AM PSTProblem: Pain, Acute (Adult) Goal: Acute Pain: Acceptable Pain Control/Comfort Level Goals: - Pt will report adequate pain management of <4/10 rating by the end of the night. - Prevent/manage post-op complications r/t pituitary biopsy (ie. DI, CSF leak, meningitis, fluid/electrolyte imbalances). Interventions: - Assess pain Q4H and as indicated. Offer and administer pain medications as ordered. Offer non-pharmacological pain interventions as needed to offer comfort and relief. - Assess for signs of DI. Look for copious amounts of pale urine (>200 ml/hour for at least 3 consecutive hours) and a low urine specific gravity (145 mEq/liter), along with increased UO and thirst. - Assess for CSF leak. Monitor drainage from the moustache dressing (if applicable) and nos trils and assess for color and quantity. Observe for frequent swallowing and ask if he has a salty/metallic taste and/or post-nasal drip in his mouth. - Observe for meningitis. Assess for headache, stiff neck, lethargy, and confusion. - Prevent fluid loss. Assess the pt for serum electrolyte levels, urine SG, and Na+ levels. Notify MD for UO> 250ml x 2 and Na+ > 145. Maintain strict I/Os and measure SG Q6H. Interventions that worked/didn't work: Interventions worked. My recommendations forward: Continue current cares. Patient Stability:Moderately Stable lan of Care - Bahman wilcox, Sharmaine Bell RN - 07/01/2011 8:42 PM PSTProblem: Pain, Acute (Adult) Goal: Acute Pain: Acceptable Pain Control/Comfort Level Goals: - Pt will report adequate pain management of <4/10 rating by the end of the night. - Prevent/manage post-op complications r/t pituitary biopsy (ie. DI, CSF leak, meningitis, fluid/electrolyte imbalances). Interventions: - Assess pain Q4H and as indicated. Offer and administer pain medications as ordered. Offer non-pharmacological pain interventions as needed to offer comfort and relief. - Assess for signs of DI. Look for copious amounts of pale urine (>200 ml/hour for at least 3 consecutive hours) and a low urine specific gravity (145 mEq/liter), along with increased UO and thirst. - Assess for CSF leak. Monitor drainage from the moustache dressing (if applicable) and nos trils and assess for color and quantity. Observe for frequent swallowing and ask if he has a salty/metallic taste and/or post-nasal drip in his mouth. - Observe for meningitis. Assess for headache, stiff neck, lethargy, and confusion. - Prevent fluid loss. Assess the pt for serum electrolyte levels, urine SG, and Na+ levels. Notify MD for UO> 250ml x 2 and Na+ > 145. Maintain strict I/Os and measure SG Q6H. andoff - Sheri Graham rd - 07/01/2011 7:49 PM PSTNursing Handoff Report Primary focus of stay:07/01 s/p Expanded endoscopic biopsy for pituitary adenoma Pertinent physical findings: Neuro intact. mustache dressing changed x1 for small amt. dry serosanguinous drainage. Hep C + Orders to follow up on: Last pain assessment/reassessment: 1824 Psych/social issues: Last patient visit (i.e. Falls/Activity/Comfort/Environment/Toileting/Skin): 1899 Anticipated or pending procedures: d/c tomorrow per pt. ? valuation - Sheri Lim - 07/01/2011 7:47 PM PSTProblem: Pain, Acute (Adult) Goal: Acute Pain: Acceptable Pain Control/Comfort Level Problem: Craniotomy (Adult) Goal: Prevent/Manage Potential Problems Goals: Prevent surgical site complications. Prevent/manage electrolyte disturbances related to pituitary resection. Prevent/manage nausea/vomiting. Keep pain at or below 3/10. Promote effective communication Interventions: Monitor drainage from nasal cavity. Monitor vision, EOMs, neuro status q4hrs. Notify MD of excess swelling, bleeding; neuro status change. Monitor sodium q6hrs; urine output, urine specific gravity q4hrs. Notify MD of results outs molly of defined ranges. Monitor for nausea/vomiting q4hrs, administer scheduled antiemetics and PRN meds as needed. Notify MD of vomiting. Pain meds PRN. Notify MD of uncontrolled pain. Interventions that worked/didn't work:Painful, posterior H/A continues, pain med. providing little relief. My recommendations forward:Cont. To monitor. Patient Stability:Moderately Unstable lan of Care - Sheri Ledezma - 07/01/2011 7:46 PM PSTProblem: Pain, Acute (Adult) Goal: Acute Pain: Acceptable Pain Control/Comfort Level Problem: Craniotomy (Adult) Goal: Prevent/Manage Potential Problems Goals: Prevent surgical site complications. Prevent/manage electrolyte disturbances related to pituitary resection. Prevent/manage nausea/vomiting. Keep pain at or below 3/10. Promote effective communication Interventions: Monitor drainage from nasal cavity. Monitor vision, EOMs, neuro status q4hrs. Notify MD of excess swelling, bleeding; neuro status change. Monitor sodium q6hrs; urine output, urine specific gravity q4hrs. Notify MD of results outs molly of defined ranges. Monitor for nausea/vomiting q4hrs, administer scheduled antiemetics and PRN meds as needed. Notify MD of vomiting. Pain meds PRN. Notify MD of uncontrolled pain. Provide belarusian-speaking RN at bedside andoff - Lawanda Aleman RN - 07/01/2011 11:53 AM PSTSurgical procedure FRAMELESS STEREOTACTIC EXPANDED ENDOSCOPIC BIOPSY OF PITUITARY MASS Length of procedure: Time Entered [id number] Time Left Room 1049 Surgical diagnosis:pituitary tumor Medical history pertinent to surgery: AMAYA, neck pain , nasal discharge, bizarre smells, HTN, Hx of a.fib,GERD, chronic pain Major deviations/events or pertinent findings of perioperative stay: TOMAS OSORIO, follows com mands, no nasal packing just dressing underneath his nose, SB in 40-50's when asleep and NS R when awake, BP In 130's, PIV x2, on garcia mask ( mouth breather) sats at 98% on 4 liters, f oley dc in pacu, urinal, denies nausea, blood work sent from pacu Surgeon:JORGE LUIS Type(s) of anesthesia:GA OR positioning: Supine N/V status: none Last void: delvalle dc in pacu Last pain medication given: Tylenol and Oxycodone Pain medication totals: Additional pain medication information: Mental health/psychosocial: Language/sensory issues: none Family: Family/Home Transport: In [facility] Waiting Room (07/01/11599) Contact Name: Ramin Lomeli (uncle) (07/01/11599) Contact Number: [phone] (07/01/11599) Family contacted: yes Anticipated post-op needs/devices/follow up: transfer to the floor For fluid replacement, EBL, and antibiotics administered in OR: SEE ANESTHESIA RECORD b Bony Frazier - 07/01/2011 8:24 AM PST Manjeet Whitlock Faculty - 06/25/2011 10:24 AM PDT documented in this encounter Plan of Treatment Not on filedocumented as of this encounter Procedures + +--------+ + + + | Procedure Name | Priori | Date/Time | Associated Diagnosis | Comments | | | ty | | | | + +--------+ + + + | PROCEDURE NOTE | Routin | 09/27/2015 | | Results for this | | | e | 4:59 AM | | procedure are in the | | | | PST | | results section. | + +--------+ + + + | PROCEDURE NOTE | Routin | 09/27/2015 | | Results for this | | | e | 4:59 AM | | procedure are in the | | | | PST | | results section. | + +--------+ + + + | PROCEDURE NOTE | Routin | 09/27/2015 | | Results for this | | | e | 4:50 AM | | procedure are in the | | | | PST | | results section. | + +--------+ + + + | PROCEDURE NOTE | Routin | 09/27/2015 | | Results for this | | | e | 4:44 AM | | procedure are in the | | | | PST | | results section. | + +--------+ + + + | OPERATION RECORD | | 07/03/2011 | | Results for this | | | | 11:33 AM | | procedure are in the | | | | PST | | results section. | + +--------+ + + + | SODIUM, WHOLE BLOOD | Urgent | 07/02/2011 | | Results for this | | | | 6:01 PM | | procedure are in the | | | | PST | | results section. | + +--------+ + + + | TEACHING PHYSICIAN | | 07/02/2011 | | Results for this | | | | 10:50 AM | | procedure are in the | | | | PST | | results section. | + +--------+ + + + | SODIUM, WHOLE BLOOD | Urgent | 07/02/2011 | | Results for this | | | | 10:05 AM | | procedure are in the | | | | PST | | results section. | + +--------+ + + + | SPECIFIC GRAVITY | Routin | 07/02/2011 | | Results for this | | URINE, POC RESULT | e | 8:16 AM | | procedure are in the | | | | PST | | results section. | + +--------+ + + + | SODIUM, WHOLE BLOOD | Urgent | 07/02/2011 | | Results for this | | | | 7:21 AM | | procedure are in the | | | | PST | | results section. | + +--------+ + + + | BASIC METABOLIC SET | Routin | 07/02/2011 | | Results for this | | (NA, K, CL, TCO2, | e | 7:21 AM | | procedure are in the | | BUN, CR, GLU, CA) | | PST | | results section. | + +--------+ + + + | SPECIFIC GRAVITY | Routin | 07/02/2011 | | Results for this | | URINE, POC RESULT | e | 1:27 AM | | procedure are in the | | | | PST | | results section. | + +--------+ + + + | SODIUM, WHOLE BLOOD | Urgent | 07/02/2011 | | Results for this | | | | 12:31 AM | | procedure are in the | | | | PST | | results section. | + +--------+ + + + | SPECIFIC GRAVITY | Routin | 07/01/2011 | | Results for this | | URINE, POC RESULT | e | 8:13 PM | | procedure are in the | | | | PST | | results section. | + +--------+ + + + | SODIUM, WHOLE BLOOD | Urgent | 07/01/2011 | | Results for this | | | | 6:35 PM | | procedure are in the | | | | PST | | results section. | + +--------+ + + + | BASIC METABOLIC SET | Urgent | 07/01/2011 | | Results for this | | (NA, K, CL, TCO2, | | 11:10 AM | | procedure are in the | | BUN, CR, GLU, CA) | | PST | | results section. | + +--------+ + + + | ANESTHESIA/SEDATION | | 07/01/2011 | | Results for this | | | | 12:00 AM | | procedure are in the | | | | PST | | results section. | + +--------+ + + + | ANESTHESIA/SEDATION | | 07/01/2011 | | Results for this | | | | 12:00 AM | | procedure are in the | | | | PST | | results section. | + +--------+ + + + | ORDERS OTHER | | 07/01/2011 | | Results for this | | | | 12:00 AM | | procedure are in the | | | | PST | | results section. | + +--------+ + + + | SURGICAL PATHOLOGY | Routin | 07/01/2011 | | Results for this | | | e | | | procedure are in the | | | | | | results section. | + +--------+ + + + documented in this encounter Results PROCEDURE NOTE (09/27/2015 4:59 AM PST) + + | Transcriptions | + + | Kamlesh Faculty - 2011 7:35 AM PDT | + + PROCEDURE NOTE (09/27/2015 4:59 AM PST) + + | Transcriptions | + + | Kamlesh Faculty - 06/16/2011 6:51 AM PDT | + + PROCEDURE NOTE (09/27/2015 4:50 AM PST)PROCEDURE NOTE (09/27/2015 4:44 AM PST) + + | Transcriptions | + + | Kamlesh, Faculty - 07/05/2011 2:08 PM PST | + + OPERATION RECORD (07/03/2011 11:33 AM PST) + + | Transcriptions | + + | Alek Elliott MD - 07/02/2011 7:11 AM PST [id number] | | [id number] IGNACIO Ovalle | | [id number] Date: 07/01/2011 Attending Surgeon: Alek | | MD Jorge Luis Mission Coordinator(s): Rossana Bach M.D. Preoperative | | Diagnosis(es):Pituitary lesion. Postoperative Diagnosis(es):Pituitary lesion. | | Procedures Performed:1. Endoscopic endonasal approach for transsphenoidal biopsy of | | sellar lesion. 2. Use of Stealth frameless stereotactic neuronavigation based on CT | | angiography. Anesthesia:Endotracheal anesthesia. Estimated Blood Loss:200 cc. | | Fluids Given:As per anesthesia records. Complications:None. Drains:None. | | Specimens:Sent for permanent. Indications:Please refer to EPIC note for full details. | | Procedure:The patient was properly identified in the preoperative holding area. Sitewas | | marked and consent was signed. Please note that prior to theprocedure, a stereotactic | | CT scan with CT angiography sequence wasperformed and exported to the [employer] machine | | and planning of the surgicaltrajectory was carried out. The patient was taken to the | | OR, placed on ORtable in supine position. All pressure points were padded. | | Generalendotracheal anesthesia was induced by the Anesthesia without complication.The | | head attached to the table using [place] headholder and kept in aslightly rotated and | | flexed and contralaterally tilted position to allowfor navigation for right handed | | surgeon. Stereotactic registration of thescalp to the Stealth machine was carried out. | | A prepping of the face wasperformed. Operative team pause was performed, preoperative | | antibiotic wasgiven. The approach was performed by the Dr. Hamzah Sorensen from ENT, | | whichwill dictated as separate note. But in brief, the endoscope was whitebalanced and | | zoomed in and focused, and it was used to access the leftnostril and after accessing | | into the left nostril, the middle turbinate wasresected from the left nostril after | | topical instillation of a nasaldecongestant. The maxillary antrum was identified and | | then the posteriorsmaller air cells were entered using Waleska forceps. The | | sphenoidostium was in view at this point and as well as the choana. The sphenoidostium | | was used to access the sphenoid sinus using Kerrison from the leftnostril and after | | entry into the sphenoid sinus, our attention was directedtowards the right nasal cavity, | | where the nasal septum was( ) severely and obstructing the view. Partial | | resection ofthe middle turbinate on the right side was also performed, and theposterior | | septectomy was also performed to allow for communication of theright nasal cavity. | | After this was performed, the mucosa was stripped fromthe middle sphenoid sinus, and | | using a four-hand technique, navigation wasperformed from the right nostril by using the | | endoscopic camera and theprocedure was performed from the left nostril. Using | | high-speed drill, therostrum was drilled, and the carotid artery was identified as well | | as theoptic nerve as well as the optic carotid recess and the medial and lateralones | | from the sphenoid approach. We navigationally confirmed the positionof these | | structures. Using high-speed drill, the floor of the sella wasdrilled and using | | Kerrison rongeur, window into the floor of the sella waswidened. Using a BVI knife, a | | V-shaped opening was made into the dura ofthe sella, and the pituitary gland was | | identified. Using Cantu dissector,the pituitary gland was palpated and incision in the | | middle of thepituitary gland was performed. Using curettes, softer, midline, | | slightlyposterior lesion was palpated and was biopsied, which revealed a greenishyellow | | structure that looked like pituitary adenoma. This was sent forpermanent pathology, and | | further manipulation of the gland revealed nofurther lesion. Adequate hemostasis was | | then achieved and DuraSeal wasapplied to the floor of the sella, and then a closure was | | performed byremoving the scope and irrigation. At the end of the procedure, needle | | andsponge count was correct. Dr. Elliott was present and scrubbed for theentire | | procedure. There were no complications. Rossana Bach M.D. Alek Elliott MD AR | | / [id number] / [id number] / [id number] / T: 07/01/2011 | |Sent for permanent. | | | | | |Indications: | |Please refer to EPIC note for full details. | | | | | |Procedure: | |The patient was properly identified in the preoperative holding area. Site | |was marked and consent was signed. Please note that prior to the | |procedure, a stereotactic CT scan with CT angiography sequence was | |performed and exported to the Stealth machine and planning of the surgical | |trajectory was carried out. The patient was taken to the OR, placed on OR | |table in supine position. All pressure points were padded. General | |endotracheal anesthesia was induced by the Anesthesia without complication. | |The head attached to the table using Gifford headholder and kept in a | |slightly rotated and flexed and contralaterally tilted position to allow | |for navigation for right handed surgeon. Stereotactic registration of the | |scalp to the Stealth machine was carried out. A prepping of the face was | |performed. Operative team pause was performed, preoperative antibiotic was | |given. The approach was performed by the Dr. Hamzah Sorensen from ENT, which | |will dictated as separate note. But in brief, the endoscope was white | |balanced and zoomed in and focused, and it was used to access the left | |nostril and after accessing into the left nostril, the middle turbinate was | |resected from the left nostril after topical instillation of a nasal | |decongestant. The maxillary antrum was identified and then the posterior | |smaller air cells were entered using Waleska forceps. The sphenoid | |ostium was in view at this point and as well as the choana. The sphenoid | |ostium was used to access the sphenoid sinus using Kerrison from the left | |nostril and after entry into the sphenoid sinus, our attention was directed | |towards the right nasal cavity, where the nasal septum was | |( ) severely and obstructing the view. Partial resection of | |the middle turbinate on the right side was also performed, and the | |posterior septectomy was also performed to allow for communication of the | |right nasal cavity. After this was performed, the mucosa was stripped from | |the middle sphenoid sinus, and using a four-hand technique, navigation was | |performed from the right nostril by using the endoscopic camera and the | |procedure was performed from the left nostril. Using high-speed drill, the | |rostrum was drilled, and the carotid artery was identified as well as the | |optic nerve as well as the optic carotid recess and the medial and lateral | |ones from the sphenoid approach. We navigationally confirmed the position | |of these structures. Using high-speed drill, the floor of the sella was | |drilled and using Kerrison rongeur, window into the floor of the sella was | |widened. Using a BVI knife, a V-shaped opening was made into the dura of | |the sella, and the pituitary gland was identified. Using Cantu dissector, | |the pituitary gland was palpated and incision in the middle of the | |pituitary gland was performed. Using curettes, softer, midline, slightly | |posterior lesion was palpated and was biopsied, which revealed a greenish | |yellow structure that looked like pituitary adenoma. This was sent for | |permanent pathology, and further manipulation of the gland revealed no | |further lesion. Adequate hemostasis was then achieved and DuraSeal was | |applied to the floor of the sella, and then a closure was performed by | |removing the scope and irrigation. At the end of the procedure, needle and | |sponge count was correct. Dr. Elliott was present and scrubbed for the | |entire procedure. There were no complications. | | | | | | | | | |Rossana Bach M.D. | | | | | | | | | |Alek Elliott MD | | | | | |AR / HS | |[id number] / [id number] / [id number] / | | | | | | | | | | | | | | | | | | | | | + + | Hamzah Sorensen MD - 07/02/2011 7:42 AM [facility] [id number] | | [id number] IGNACIO Ovalle | | [id number] Date: 07/01/2011 Attending Surgeon: Hamzah Kaplan | | Ratna Sorensen Mission Coordinator(s): Phoebe Carrera MD Preoperative | | Diagnosis(es):Pituitary mass. Postoperative Diagnosis(es):Pituitary mass. | | Procedure:Endoscopic approach for endoscopic transsphenoidal approach to thepituitary | | gland. Anesthesia:General. Complications:None. Indication:Mr. Pierre is a 31-year-old | | gentleman with a pituitary mass, seen andevaluated by Dr. Elliott. He was advised to | | have biopsy of the pituitarylesion and comes to the operating room today for elective | | transsphenoidalapproach to the pituitary. Findings:The patient had a markedly deviated | | septum. There was bone predominantlyto the right anteriorly. The septum was shifted | | off the maxillary cresttowards the left inferiorly. The intranasal anatomy was | | otherwiseunremarkable. The sphenoid sinuses were well aerated. The intersphenoidseptum | | deviated to the patient's right side. The sella was unremarkable. Procedure:The | | patient was taken to the operating room, placed supine on the operatingroom table. The | | patient was identified. Anesthesia was administered, andan endotracheal tube was | | inserted. The patient was prepped and draped inthe standard surgical fashion, including | | the application of intraoperativenavigation. The procedure began with nasal endoscopy | | bilaterally. Therigid endoscope was inserted into the left and right nasal cavities. | | Theaforementioned findings were noted. Specifically, there was predominantseptal | | deflection to the right, markedly occluding the right nasal passage.At this point, the | | decision was made not to perform an upfront nasal septalflap as this would likely | | require a simultaneous nasal septoplasty. Theprocedure then began with just a | | straightforward approach to the pituitarywhile preserving the nasal septal flap, | | including the pedicle bilaterally. The procedure began on the left-hand side. The | | middle turbinate wasreflected laterally and then transected at the skull base. This | | wasremoved and set aside for possible later use. Suction cautery was used tocauterize | | the stump of the turbinate. The superior turbinate was thenvisualized, and up-biting | | forceps was used to resect the inferior portionof this until the natural ostium of the | | sphenoid sinus was visualized.This was then entered and widened with Kerrison forceps. | | An On[place] air cellwas identified, and posterior ethmoidectomy was performed to widen | | theexposure of the sphenoid sinus. This was performed with upbiting forceps,Kerrison | | forceps, and a microdebrider. The intersphenoid septum was notedto be deviating to the | | right. The posterior bony septum was then defined,and backbiting forceps were used to | | resect the upper portion of theposterior septum. Nasal pledgets were then applied, and | | attention wasfocused on the right-hand side. Again, on the right-hand side, | | thezero-degree endoscope was used for visualization, and a Elizabeth elevator wasused to | | lateralize the inferior turbinate. The middle turbinate was thenresected sharply, and | | Bovie suction cautery was used to fulgurate themucosal edges of the remnant. The | | superior turbinate was resectedpartially inferiorly, and the natural ostium of the | | sphenoid sinus wasentered. This was then widened in continuity with the broad exposure | | fromthe contralateral side. The posterior nasal septum was resected superiorlyto allow | | for a large common cavity working space. Care was taken topreserve the rostrum of the | | sphenoid sinus as well as the inferior portionof the posterior nasal septal mucosa, thus | | allowing possible secondarynasal septal flap if needed. At this point, the case was | | turned over toDr. Elliott for dissection of the pituitary. His portion will be | | dictatedseparately. There were no complications during the exposure. The | | patienttolerated the procedure well, and I was present for all portions of thecase. | | Hamzah Sorensen M.D.Analytical Lab Analyst,Head and Neck Surgery and OncologyDept. of | | Otolaryngology - Head and Neck Surgery [facility] / [id number] / [id number] / [id number] /D: | | 07/01/2011T: 07/02/2011 | |room table. The patient was identified. Anesthesia was administered, and | |an endotracheal tube was inserted. The patient was prepped and draped in | |the standard surgical fashion, including the application of intraoperative | |navigation. The procedure began with nasal endoscopy bilaterally. The | |rigid endoscope was inserted into the left and right nasal cavities. The | |aforementioned findings were noted. Specifically, there was predominant | |septal deflection to the right, markedly occluding the right nasal passage. | |At this point, the decision was made not to perform an upfront nasal septal | |flap as this would likely require a simultaneous nasal septoplasty. The | |procedure then began with just a straightforward approach to the pituitary | |while preserving the nasal septal flap, including the pedicle bilaterally. | | | | | |The procedure began on the left-hand side. The middle turbinate was | |reflected laterally and then transected at the skull base. This was | |removed and set aside for possible later use. Suction cautery was used to | |cauterize the stump of the turbinate. The superior turbinate was then | |visualized, and up-biting forceps was used to resect the inferior portion | |of this until the natural ostium of the sphenoid sinus was visualized. | |This was then entered and widened with Kerrison forceps. An Onodi air cell | |was identified, and posterior ethmoidectomy was performed to widen the | |exposure of the sphenoid sinus. This was performed with upbiting forceps, | |Kerrison forceps, and a microdebrider. The intersphenoid septum was noted | |to be deviating to the right. The posterior bony septum was then defined, | |and backbiting forceps were used to resect the upper portion of the | |posterior septum. Nasal pledgets were then applied, and attention was | |focused on the right-hand side. Again, on the right-hand side, the | |zero-degree endoscope was used for visualization, and a Elizabeth elevator was | |used to lateralize the inferior turbinate. The middle turbinate was then | |resected sharply, and Bovie suction cautery was used to fulgurate the | |mucosal edges of the remnant. The superior turbinate was resected | |partially inferiorly, and the natural ostium of the sphenoid sinus was | |entered. This was then widened in continuity with the broad exposure from | |the contralateral side. The posterior nasal septum was resected superiorly | |to allow for a large common cavity working space. Care was taken to | |preserve the rostrum of the sphenoid sinus as well as the inferior portion | |of the posterior nasal septal mucosa, thus allowing possible secondary | |nasal septal flap if needed. At this point, the case was turned over to | |Dr. Elliott for dissection of the pituitary. His portion will be dictated | |separately. There were no complications during the exposure. The patient | |tolerated the procedure well, and I was present for all portions of the | |case. | | | | | | | | | |Hamzah Sorensen M.D. | |Analytical Lab Analyst, | |Head and Neck Surgery and Oncology | |Dept. of Otolaryngology - Head and Neck Surgery | | | | | |NDG / HS | |[id number] / [id number] / [id number] / | | | | | | | | | | | | | | | | | | | | | + + SODIUM, WHOLE BLOOD (07/02/2011 6:01 PM PST) + + + + + + | Component | Value | Ref Range | Performed | Pathologist | | | | | At | Signature | + + + + + + | SODIUM,WHOL | Discharged | 134 - 143 | [facility] | | | E BLOOD | | mmol/L | DEPARTMENT | | | | | | OF | | | | | | PATHOLOGY | | + + + + + + + + | Specimen | + + | Blood - Blood | + + + + + | Narrative | Performed At | + + + | Patient discharged. spoke to Devan | [facility] | | | DEPARTMENT OF | | | PATHOLOGY | + + + + + + + + | Performing | Address | City/State/Zipcode | Phone Number | | Organization | | | | + + + + + | [facility] DEPARTMENT OF | [address] | [place] [address] | | | PATHOLOGY | [address] | | | + + + + + TEACHING PHYSICIAN (07/02/2011 10:50 AM PST) + + | Transcriptions | + + | Alek Elliott MD - 07/02/2011 4:22 AM [facility] [id number] | | [id number] IGNACIO [place]le | | [id number] Date: 07/01/2011 Attending Surgeon: Alek | | MD Jorge Luis Co-Surgeon: Hamzah Sorensen M.D.Mission Coordinator(s): | | Rossana Bach M.D. Preoperative Diagnosis(es):Sellar lesion. | | Postoperative Diagnosis(es):Sellar lesion. Procedures Performed:1. Endoscopic | | endonasal approach for transsphenoidal biopsy of sellar lesion.2. Use of | | Stealth frameless stereotactic neuronavigation based on CT angiography.3. Left | | middle turbinectomy.4. Left posterior ethmoidectomy.5. Left maxillary | | antrostomy.6. Posterior nasal septectomy.7. Bilateral sphenoidotomies. This is | | Dr. Alek Elliott dictating a staff operative addendum to state Iwas present for guan | | portions of this procedure, which include positioning,registering the Stealth, prepping | | and draping. I was present for sinonasalexploration, middle turbinectomy, maxillary | | antrostomy, nasal septectomy,ethmoidectomy, and wide sphenoidostomy. I was present for | | opening thesella and performing the biopsy of sellar lesion. I was present | | forhemostasis and closure. These include the guan portions. For furtherdetails, please | | refer to the full operative report to be dictated by Dr.Ahmed Bach. This operation | | was performed in its entirety by Dr. Hamzah Sorensen and myself.For further details, please | | refer to his operative report. MD Hamzah Cam M.D.Mission Coordinator | | Professor,Head and Neck Surgery and OncologyDept. of Otolaryngology - Head and Neck | | Surgery [place] / [id number] / [id number] / [id number] / T: 07/02/2011 | | | |Procedures Performed: | |1. Endoscopic endonasal approach for transsphenoidal biopsy of sellar | | lesion. | |2. Use of Stealth frameless stereotactic neuronavigation based on CT | | angiography. | |3. Left middle turbinectomy. | |4. Left posterior ethmoidectomy. | |5. Left maxillary antrostomy. | |6. Posterior nasal septectomy. | |7. Bilateral sphenoidotomies. | | | | | | | |This is Dr. Alek Elliott dictating a staff operative addendum to state I | |was present for guan portions of this procedure, which include positioning, | |registering the Stealth, prepping and draping. I was present for sinonasal | |exploration, middle turbinectomy, maxillary antrostomy, nasal septectomy, | |ethmoidectomy, and wide sphenoidostomy. I was present for opening the | |sella and performing the biopsy of sellar lesion. I was present for | |hemostasis and closure. These include the guan portions. For further | |details, please refer to the full operative report to be dictated by | |Rossana Bach. | | | | | |This operation was performed in its entirety by Dr. Hamzah Sorensen and myself. | |For further details, please refer to his operative report. | | | | | | | | | |Alek Elliott MD | | | | | | | | | |Hamzah Sorensen M.D. | |Analytical Lab Analyst, | |Head and Neck Surgery and Oncology | |Dept. of Otolaryngology - Head and Neck Surgery | | | | | |IN / HS | |[id number] / [id number] / [id number] / | | | | | | | | | | | | | | | | | | | | | + + SODIUM, WHOLE BLOOD (07/02/2011 10:05 AM PST) + +-------+ + + + | Component | Value | Ref Range | Performed | Pathologist | | | | | At | Signature | + +-------+ + + + | SODIUM,WHOL | 140 | 134 - 143 | [facility] | | | E BLOOD | | mmol/L | DEPARTMENT | | | | | | OF | | | | | | PATHOLOGY | | + +-------+ + + + + + | Specimen | + + | Blood - Blood | + + + + + + + | Performing | Address | City/State/Zipcode | Phone Number | | Organization | | | | + + + + + | [facility] | [address] | [place] [address] | | | PATHOLOGY | [address] | | | + + + + + SPECIFIC GRAVITY URINE, POC RESULT (07/02/2011 8:16 AM PST) + +-------+ + + + | Component | Value | Ref Range | Performed | Pathologist | | | | | At | Signature | + +-------+ + + + | SPECIFIC | 1.009 | 1.002 - 1.03 | | | | GRAVITY, | | | | | | RANDOM UR | | | | | | POC | | | | | + +-------+ + + + SODIUM, WHOLE BLOOD (07/02/2011 7:21 AM PST) + +-------+ + + + | Component | Value | Ref Range | Performed | Pathologist | | | | | At | Signature | + +-------+ + + + | SODIUM,WHOL | 139 | 134 - 143 | [facility] | | | E BLOOD | | mmol/L | DEPARTMENT | | | | | | OF | | | | | | PATHOLOGY | | + +-------+ + + + + + | Specimen | + + | Blood - Blood | + + + + + + + | Performing | Address | City/State/Zipcode | Phone Number | | Organization | | | | + + + + + | [facility] DEPARTMENT OF | [address] | [place] [address] | | | PATHOLOGY | [address] | | | + + + + + BASIC METABOLIC SET (NA, K, CL, TCO2, BUN, CR, GLU, CA) (07/02/2011 7:21 AM PST) + +---------+ + + + | Component | Value | Ref Range | Performed | Pathologist | | | | | At | Signature | + +---------+ + + + | GLUCOSE, | 116 (H) | 60 - 99 mg/dL | [facility] | | | PLASMA | | | DEPARTMENT | | | (LAB) | | | OF | | | | | | PATHOLOGY | | + +---------+ + + + | BUN, PLASMA | 9 | 6 - 20 mg/dL | [facility] | | | (LAB) | | | DEPARTMENT | | | | | | OF | | | | | | PATHOLOGY | | + +---------+ + + + | CREATININE | 0.74 | 0.70 - 1.30 | [facility] | | | PLASMA | | mg/dL | DEPARTMENT | | | (LAB) | | | OF | | | | | | PATHOLOGY | | + +---------+ + + + | SODIUM, | 137 | 134 - 143 | [facility] | | | PLASMA | | mmol/L | DEPARTMENT | | | (LAB) | | | OF | | | | | | PATHOLOGY | | + +---------+ + + + | POTASSIUM, | 4.0 | 3.4 - 5.0 | [facility] | | | PLASMA | | mmol/L | DEPARTMENT | | | (LAB) | | | OF | | | | | | PATHOLOGY | | + +---------+ + + + | CHLORIDE, | 107 | 97 - 108 mmol/L | [facility] | | | PLASMA | | | DEPARTMENT | | | (LAB) | | | OF | | | | | | PATHOLOGY | | + +---------+ + + + | TOTAL CO2, | 25 | 22 - 29 mmol/L | [facility] | | | PLASMA | | | DEPARTMENT | | | (LAB) | | | OF | | | | | | PATHOLOGY | | + +---------+ + + + | CALCIUM, | 8.8 | 8.6 - 10.2 | [facility] | | | PLASMA | | mg/dL | DEPARTMENT | | | (LAB) | | | OF | | | | | | PATHOLOGY | | + +---------+ + + + | ANION GAP | 5 | 4 - 11 mmol/L | [facility] | | | | | | DEPARTMENT | | | | | | OF | | | | | | PATHOLOGY | | + +---------+ + + + + + | Specimen | + + | Blood - Blood | + + + + + + + | Performing | Address | City/State/Zipcode | Phone Number | | Organization | | | | + + + + + | [facility] | [address] | [place] [address] | | | PATHOLOGY | [address] | | | + + + + + SPECIFIC GRAVITY URINE, POC RESULT (07/02/2011 1:27 AM PST) + +-------+ + + + | Component | Value | Ref Range | Performed | Pathologist | | | | | At | Signature | + +-------+ + + + | SPECIFIC | 1.007 | 1.002 - 1.03 | | | | GRAVITY, | | | | | | RANDOM UR | | | | | | POC | | | | | + +-------+ + + + SODIUM, WHOLE BLOOD (07/02/2011 12:31 AM PST) + +-------+ + + + | Component | Value | Ref Range | Performed | Pathologist | | | | | At | Signature | + +-------+ + + + | SODIUM,WHOL | 138 | 134 - 143 | [facility] | | | E BLOOD | | mmol/L | DEPARTMENT | | | | | | OF | | | | | | PATHOLOGY | | + +-------+ + + + + + | Specimen | + + | Blood - Blood | + + + + + + + | Performing | Address | City/State/Zipcode | Phone Number | | Organization | | | | + + + + + | [facility] | [address] | [place] [address] | | | PATHOLOGY | [address] | | | + + + + + SPECIFIC GRAVITY URINE, POC RESULT (07/01/2011 8:13 PM PST) + +-------+ + + + | Component | Value | Ref Range | Performed | Pathologist | | | | | At | Signature | + +-------+ + + + | SPECIFIC | 1.018 | 1.002 - 1.03 | | | | GRAVITY, | | | | | | RANDOM UR | | | | | | POC | | | | | + +-------+ + + + SODIUM, WHOLE BLOOD (07/01/2011 6:35 PM PST) + +-------+ + + + | Component | Value | Ref Range | Performed | Pathologist | | | | | At | Signature | + +-------+ + + + | SODIUM,WHOL | 137 | 134 - 143 | [facility] | | | E BLOOD | | mmol/L | DEPARTMENT | | | | | | OF | | | | | | PATHOLOGY | | + +-------+ + + + + + | Specimen | + + | Blood - Blood | + + + + + + + | Performing | Address | City/State/Zipcode | Phone Number | | Organization | | | | + + + + + | [facility] DEPARTMENT OF | [address] | [place] [address] | | | PATHOLOGY | [address] | | | + + + + + BASIC METABOLIC SET (NA, K, CL, TCO2, BUN, CR, GLU, CA) (07/01/2011 11:10 AM PST) + +---------+ + + + | Component | Value | Ref Range | Performed | Pathologist | | | | | At | Signature | + +---------+ + + + | GLUCOSE, | 108 (H) | 60 - 99 mg/dL | [facility] | | | PLASMA | | | DEPARTMENT | | | (LAB) | | | OF | | | | | | PATHOLOGY | | + +---------+ + + + | BUN, PLASMA | 9 | 6 - 20 mg/dL | [facility] | | | (LAB) | | | DEPARTMENT | | | | | | OF | | | | | | PATHOLOGY | | + +---------+ + + + | CREATININE | 0.90 | 0.70 - 1.30 | [facility] | | | PLASMA | | mg/dL | DEPARTMENT | | | (LAB) | | | OF | | | | | | PATHOLOGY | | + +---------+ + + + | SODIUM, | 139 | 134 - 143 | [facility] | | | PLASMA | | mmol/L | DEPARTMENT | | | (LAB) | | | OF | | | | | | PATHOLOGY | | + +---------+ + + + | POTASSIUM, | 4.2 | 3.4 - 5.0 | [facility] | | | PLASMA | | mmol/L | DEPARTMENT | | | (LAB) | | | OF | | | | | | PATHOLOGY | | + +---------+ + + + | CHLORIDE, | 109 (H) | 97 - 108 mmol/L | [facility] | | | PLASMA | | | DEPARTMENT | | | (LAB) | | | OF | | | | | | PATHOLOGY | | + +---------+ + + + | TOTAL CO2, | 25 | 22 - 29 mmol/L | [facility] | | | PLASMA | | | DEPARTMENT | | | (LAB) | | | OF | | | | | | PATHOLOGY | | + +---------+ + + + | CALCIUM, | 8.2 (L) | 8.6 - 10.2 | [facility] | | | PLASMA | | mg/dL | DEPARTMENT | | | (LAB) | | | OF | | | | | | PATHOLOGY | | + +---------+ + + + | ANION GAP | 5 | 4 - 11 mmol/L | [facility] | | | | | | DEPARTMENT | | | | | | OF | | | | | | PATHOLOGY | | + +---------+ + + + + + | Specimen | + + | Blood - Blood | + + + + + + + | Performing | Address | City/State/Zipcode | Phone Number | | Organization | | | | + + + + + | [facility] | [address] | [place] [address] | | | PATHOLOGY | [address] | | | + + + + + ORDERS OTHER (07/01/2011 12:00 AM PST) + + + | Narrative | Performed At | + + + | | | + + + + + | Transcriptions | + + | Bony Whitlock - 07/05/2011 2:08 PM PST | + + ANESTHESIA/SEDATION (07/01/2011 12:00 AM PST) + + + | Narrative | Performed At | + + + | | | + + + + + | Transcriptions | + + | Bony Whitlock - 07/02/2011 5:33 PM PST | + + ANESTHESIA/SEDATION (07/01/2011 12:00 AM PST) + + + | Narrative | Performed At | + + + | | | + + + + + | Transcriptions | + + | Other, Faculty - 07/01/2011 11:04 AM PST | + + SURGICAL PATHOLOGY (07/01/2011) + + + + + + | Component | Value | Ref Range | Performed | Pathologist | | | | | At | Signature | + + + + + + | SURGICAL | THIS IS AN AMENDED | | [facility] | | | PATHOLOGY | REPORT SOURCE OF | | DEPARTMENT | | | | SPECIMEN:A Pituitary | | OF | | | | lesion Final | | PATHOLOGY | | | | Pathologic | | | | | | Diagnosis:AmendmentThis | | | | | | report is amended to | | | | | | include the results of | | | | | | reticulin staining. | | | | | | Thisrevealed a | | | | | | nonneoplastic | | | | | | architecture of the | | | | | | pituitary. The | | | | | | finaldiagnosis is | | | | | | unchanged. A: | | | | | | Pituitary lesion: | | | | | | - Pituitary tissue | | | | | | and amorphous cellular | | | | | | debris (see comment) | | | | | | Comment: The | | | | | | specimen consists of a | | | | | | small fragment of normal | | | | | | anteriorpituitary gland | | | | | | that stains | | | | | | appropriately with all | | | | | | hormone stains. | | | | | | Thereis also abundant | | | | | | amorphous pink cellular | | | | | | debris. Although no | | | | | | cyst liningis | | | | | | indentified, the overall | | | | | | findings are most | | | | | | consistent with | | | | | | cystcontents. There is | | | | | | no evidence of | | | | | | meningioma, | | | | | | craniopharyngioma,germin | | | | | | nito, or pituitary | | | | | | adenoma in the sample | | | | | | provided. Case | | | | | | seen by:Rob Rojas, | | | | | | M.D. / Neuropathology | | | | | | FellowMadhav Boyer, | | | | | | MSania, PhD. / | | | | | | NeuropathologistT: | | | | | | 07/06/11; gdw | | | | | | Amendment seen by:Madhav | | | | | | Ratna Boyer, PhD. / | | | | | | NeuropathologistT: | | | | | | 07/06/11 Clinical | | | | | | History:The patient is a | | | | | | 31-year-old male who | | | | | | presents with complaint | | | | | | of headache,neck pain, | | | | | | nasal drainage, bizarre | | | | | | smells. He reports loss | | | | | | of energy,weight | | | | | | fluctuations, thinning | | | | | | skin, development of | | | | | | stria, excessive | | | | | | thirst.Imaging showed an | | | | | | 8 mm enhancing nodule | | | | | | in the pituitary | | | | | | infundibulum | | | | | | withpossibilities | | | | | | including small | | | | | | meningioma, papillary | | | | | | variantcraniopharyngioma | | | | | | , germinoma, and | | | | | | aneurysm. Hormone | | | | | | work-up was withinnormal | | | | | | limits. Gross | | | | | | Description:Received is | | | | | | 1 specimen in formalin | | | | | | in a container labeled | | | | | | with the patientname | | | | | | (initials GM) and | | | | | | "pituitary lesion." | | | | | | Received are | | | | | | multipleirregular, soft, | | | | | | gelatinous, | | | | | | xuu-qd-thremih | | | | | | hemorrhagic purple | | | | | | tissuesmeasuring 0.8 x | | | | | | 0.8 x 0.6 cm in | | | | | | aggregate. The entire | | | | | | specimen issubmitted. | | | | | | Cassette Index:A1, | | | | | | [id number] IHC | | | | | | Results:Immunohistochemi | | | | | | tyrel stains are performed | | | | | | on formalin-fixed, | | | | | | paraffinembedded tissue, | | | | | | using a biotin-free | | | | | | protocol that includes | | | | | | appropriatepositive and | | | | | | negative controls. | | | | | | Block [id number]: | | | | | | anterior pituitary cells | | | | | | Marker | | | | | | Result | | | | | | CommentAdrenocorticotr | | | | | | opic Hormone | | | | | | PositiveHuman Growth | | | | | | Hormone | | | | | | PositiveProlactin | | | | | | PositiveCyto-Keratin CAM | | | | | | 5.2 | | | | | | NormalSomatostatin | | | | | | Receptor 2A Positive | | | | | | ugnnsCW60 % Positive | | | | | | < 1%p53 | | | | | | NegativeSF-1 Positive | | | | | | | | | | | | (Analyte specific | | | | | | reagents are used in | | | | | | many laboratory tests | | | | | | necessary forstandard | | | | | | medical care and | | | | | | generally do not require | | | | | | FDA approval. This | | | | | | testwas developed and | | | | | | its performance | | | | | | characteristics | | | | | | determined by [facility] | | | | | [facility]. It has | | | | | | not been cleared or | | | | | | approved by the U.[place]. | | | | | | Food and | | | | | | DrugAdministration.) | | | | | | My electronic | | | | | | signature indicates that | | | | | | I have personally | | | | | | reviewed alldiagnostic | | | | | | slides, the gross and/or | | | | | | microscopic portion of | | | | | | thisreport and | | | | | | formulated the final | | | | | | diagnosis. | | | | | | Rendering Diagnostician: | | | | | | Madhav Boyer M.D., | | | | | | Ph.D.PathologistElectron | | | | | | rosita Signed 07/06/2011 | | | | | | 8:00PM | | | | + + + + + + + + | Specimen | + + | | + + + + + + + | Performing | Address | City/State[facility] | Phone Number | | Organization | | | | + + + + + | [facility] | [address] | [place] [address] | | | PATHOLOGY | [address] | | | + + + + + documented in this encounter Visit Diagnoses + + | Diagnosis | + + | Pituitary adenoma (HCC) - Primary Benign neoplasm of pituitary gland and | | craniopharyngeal duct (pouch) | + + | History of atrial fibrillation Personal history of other diseases of circulatory | | system | + + | Unspecified disorder of the pituitary gland and its hypothalamic control | + + | Neck pain Cervicalgia | + + | Nasal drainage Other diseases of nasal cavity and sinuses | + + | Headache(784.0) Headache | + + | Abnormal smell Disturbances of sensation of smell and taste | + + | BMI 32.0-32.9,adult Body Mass Index 32.0-32.9, adult | + + documented in this encounter Administered Medications + +--------+ +--------+------+------+ | Medication Order | MAR | Action | Dose | Rate | Site | | | Action | Date | | | | + +--------+ +--------+------+------+ | acetaminophen (aka TYLENOL) | Given | 07/02/20 | 650 mg | | | | tablet 325-650 mg 325-650 mg, | | 11 11:00 | | | | | oral, EVERY 6 HOURS NEEDED, | | AM PST | | | | | Starting 07/01/11 at 1149, | | | | | | | Until [facility] 07/02/11 at 2000, pain | | | | | | | or fever greater than 38.5 | | | | | | | degrees C | | | | | | + +--------+ +--------+------+------+ +-------+ +--------+---+---+ | Given | 07/01/20 | 650 mg | | | | | 11 9:15 | | | | | | PM PST | | | | +-------+ +--------+---+---+ | Given | 07/01/20 | 650 mg | | | | | 11 1:07 | | | | | | PM PST | | | | +-------+ +--------+---+---+ + +---+ | | | + +---+ | acetaminophen (aka TYLENOL) | | | tablet 1 dose, Starting Wed | | | 07/01/11 at 1259, Until Wed | | | 07/01/11 at 1307 | | + +---+ | | | + +---+ + +-------+ +-------+---+---+ | atenolol (aka TENORMIN) tablet | Given | 07/02/20 | 50 mg | | | | 50 mg 50 mg, oral, DAILY, First | | 11 10:10 | | | | | dose on Wed07/01/11 at 1600, | | AM PST | | | | | Until Discontinued | | | | | | + +-------+ +-------+---+---+ +---+---+ | | | +---+---+ + +-------+ +-------+---+---+ | citalopram (aka CELEXA) tablet | Given | 07/02/20 | 20 mg | | | | 20 mg 20 mg, oral, DAILY, First | | 11 8:15 | | | | | dose on Wed07/01/11 at 1600, | | AM PST | | | | | Until Discontinued | | | | | | + +-------+ +-------+---+---+ +-------+ +-------+---+---+ | Given | 07/01/20 | 20 mg | | | | | 11 4:35 | | | | | | PM PST | | | | +-------+ +-------+---+---+ +---+---+ | | | +---+---+ + +-------+ +-------+---+---+ | hydrocortisone (aka CORTEF) | Given | 07/02/20 | 20 mg | | | | tablet 20 mg 20 mg, oral, DAILY, | | 11 8:15 | | | | | First dose on Wed07/02/11 at | | AM PST | | | | | 0900, Until Discontinued | | | | | | + +-------+ +-------+---+---+ +---+---+ | | | +---+---+ + +-------+ +-------+---+---+ | hydrocortisone (aka CORTEF) | Given | 07/01/20 | 50 mg | | | | tablet 50 mg 50 mg, oral, DAILY, | | 11 5:30 | | | | | First dose on Wed07/01/11 at | | PM PST | | | | | 1700, Until Discontinued | | | | | | + +-------+ +-------+---+---+ +---+---+ | | | +---+---+ + +---------+ +--------+--------+---+ | HYDROmorphone (aka DILAUDID) | New Bag | 07/01/20 | 0.6 mg | mL/hr | | | injection 0.2-0.5 mg 0.2-0.5 mg, | | 11 2:52 | | | | | intravenous, POSTPROCEDURE PRN, | | PM PST | | | | | Starting 07/01/11 at 0844, | | | | | | | Until 07/01/11 at 1539, | | | | | | | moderate pain | | | | | | + +---------+ +--------+--------+---+ + +---+ | | | + +---+ | HYDROmorphone (aka DILAUDID) | | | injection 1 dose, Starting Wed | | | 07/01/11 at 1258, Until Wed | | | 07/01/11 at 1452 | | + +---+ | | | + +---+ + +-------+ +------+---+---+ | lisinopril (aka PRINIVIL) | Given | 07/02/20 | 5 mg | | | | tablet 5 mg 5 mg, oral, DAILY, | | 11 8:15 | | | | | First dose on 07/01/11 at | | AM PST | | | | | 1600, Until Discontinued | | | | | | + +-------+ +------+---+---+ +-------+ +------+---+---+ | Given | 07/01/20 | 5 mg | | | | | 11 4:35 | | | | | | PM PST | | | | +-------+ +------+---+---+ +---+---+ | | | +---+---+ + +---------+ + + +--------+ | NaCl 0.9 % IV 10 mL/hr, | New Bag | 11/09/20 | 10 mL/hr | 10 mL/hr | Right | | intravenous, PROCEDURE | | 11 6:30 | | | Hand | | CONTINUOUS, Starting Wed07/01/11 | | AM PST | | | | | at 0615, Until Wed07/01/11 at | | | | | | | 1539 | | | | | | + +---------+ + + +--------+ +---+---+ | | | +---+---+ + +---------+ +---+ +---+ | NaCl 0.9%-KCl 20 mEq/L IV | New Bag | 07/01/20 | | 75 mL/hr | | | infusion intravenous, | | 11 1:00 | | | | | CONTINUOUS, Starting Wed07/01/11 | | PM PST | | | | | at 1115, Until Eusebia 07/02/11 at | | | | | | | 2001, at 75 mL/hr | | | | | | + +---------+ +---+ +---+ +---+---+ | | | +---+---+ + +-------+ +---------+---+---+ | nicotine (aka NICOTROL) 14 | Given | 07/01/20 | 1 patch | | | | mg/24 hr 1 Patch 1 patch, | | 11 9:15 | | | | | transdermal, DAILY, First dose on | | PM PST | | | | | 07/01/11 at 1999, Until | | | | | | | Discontinued | | | | | | + +-------+ +---------+---+---+ +---+---+ | | | +---+---+ + +-------+ +------+---+---+ | nicotine polacrilex (aka | Given | 07/01/20 | 2 mg | | | | COMMIT) lozenge 2 mg 2 mg, oral, | | 11 7:40 | | | | | EVERY 1 HOUR NEEDED, Starting | | PM PST | | | | | 07/01/11 at 1931, Until Eusebia | | | | | | | 07/02/11 at 2000, Withdrawal | | | | | | | symptoms | | | | | | + +-------+ +------+---+---+ +---+---+ | | | +---+---+ + +-------+ +-------+---+---+ | oxyCODONE (aka ROXICODONE) oral | Given | 07/02/20 | 15 mg | | | | solution 5-15 mg 5-15 mg, | | 11 2:00 | | | | | feeding tube, EVERY 3 HOURS | | PM PST | | | | | NEEDED, Starting 07/01/11 at | | | | | | | 1149, Until Eusebia 07/02/11 at 2000, | | | | | | | severe pain | | | | | | + +-------+ +-------+---+---+ +-------+ +-------+---+---+ | Given | 07/02/20 | 15 mg | | | | | 11 11:00 | | | | | | AM PST | | | | +-------+ +-------+---+---+ | Given | 07/02/20 | 15 mg | | | | | 11 7:07 | | | | | | AM PST | | | | +-------+ +-------+---+---+ +---+---+ | | | +---+---+ + +-------+ +-------+---+---+ | oxyCODONE (immediate release) | Given | 07/01/20 | 15 mg | | | | (aka ROXICODONE) tablet 1 dose, | | 11 1:07 | | | | | Starting Wed07/01/11 at 1259, | | PM PST | | | | | Until Wed07/01/11 at 1307 | | | | | | + +-------+ +-------+---+---+ +---+---+ | | | +---+---+ + +-------+ +--------+---+---+ | ranitidine (aka ZANTAC) tablet | Given | 07/02/20 | 150 mg | | | | 150 mg 150 mg, oral, TWICE | | 11 8:15 | | | | | DAILY, First dose on Wed07/01/11 | | AM PST | | | | | at 2100, Until Discontinued | | | | | | + +-------+ +--------+---+---+ +-------+ +--------+---+---+ | Given | 07/01/20 | 150 mg | | | | | 11 9:15 | | | | | | PM PST | | | | +-------+ +--------+---+---+ +---+---+ | | | +---+---+ + +-------+ + +---+---+ | senna-docusate (aka SERGIO S) | Given | 07/02/20 | 1 tablet | | | | 8.6-50 mg 1 Tab 1 tablet, oral, | | 11 8:15 | | | | | TWICE DAILY, First dose on Wed | | AM PST | | | | | 07/01/11 at 2100, Until | | | | | | | Discontinued | | | | | | + +-------+ + +---+---+ +-------+ + +---+---+ | Given | 07/01/20 | 1 tablet | | | | | 11 9:15 | | | | | | PM PST | | | | +-------+ + +---+---+ +---+---+ | | | +---+---+ documented in this encounter
--- OUTSIDE RECORDS SUMMARY | ~2020-04-19 | XMS | Encounter Summary ---
Demographics + + + | Address | [address] | | | [place] [address] | + + + | Home Phone | | + + + | Preferred Language | Unknown | + + + | Marital Status | | + + + | Amish Affiliation | 1013 | + + + | Race | White | + + + | Ethnic Group | Not or | + + + Author + + + | Author | [facility] | | | and [place] | + + + | Organization | [facility] | | [...] Team Providers + +------+ + | Care Rate Clerk Name | Role | Phone | + +------+ + | Giovanni Huffman MD | PCP | | + +------+ + Reason for Visit + + + | Reason | Comments | + + + | Follow-up | removal of bump on lip | + + + Service/Procedure (Routine) +--------+--------+ + + + + | Status | Reason | Specialty | Diagnoses / | Referred By | Referred To | | | | | Procedures | Contact | Contact | +--------+--------+ + + + + | Closed | | Otolaryngolog | Diagnoses | Freddy, | Nathan Harris | | | | y | Other | Nathan Stubbs MD | MD [address] | | | | | disturbances | [address] | | | | | of oral | A[address] [place] [address] | [address] [address] [place] | | | | | epithelium, | [place], | [place], [place] | | | | | including | [place] [address] | [address] Phone: | | | | | tongue([phone] | Phone: | [phone] | | | | | 9) | [phone] | Fax: | | | | | Procedures | Fax: | [phone] | | | | | CT EXCIS | [phone] | | | | | | MOUTH | | | | | | | MUCOSA/SUB,S | | | | | | | IMPL REPAIR | | | +--------+--------+ + + + + Encounter Details +--------+---------+ + + + | Date | Type | Department | Care Team | Description | +--------+---------+ + + + | 12/24/ | Office | [facility] | Nathan Harris MD | 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) | | | | [address] [facility] [address] | [address] | | | | | [place], [place] | [address] | | | | | [address] | | | | | | [phone] | | | +--------+---------+ + + + [...] + + + | Blood Pressure | - | - | | + + + + + | Pulse | - | - | | + [...] + + + + | Weight | 106.1 kg (234 lb) | 12/24/2014 1:04 PM | | | | | PDT | | + + + + + | Height | 180.3 cm (5' 11") | 12/24/2014 1:04 PM | | | | | PDT | | + + + + + | Body Mass Index | 32.64 | 12/24/2014 1:04 PM | | | | | PDT | | + + + + + documented in this encounter Progress Notes Nathan Harris MD - 12/24/2014 2:04 PM PDTSee dictation # [id number] signed by Nathan Harris MD at 12/24/2014 2:08 PM PDTdocumented in th is encounter Procedure Notes Nathan Harris MD - 12/24/2014 2:07 PM PDT [facility] OTOLARYNGOLOGY [facility] [address] OFFICE PROCEDURE NATHAN HARRIS MD Patient: URI PIERRE Admitting: MR #: [id number] LOC: PT TYPE: Adm Date: 12/24/2014 : 1980 DATE OF PROCEDURE: 12/24/2014. PREOPERATIVE DIAGNOSIS: Left lower lip mucocele. POSTOPERATIVE DIAGNOSIS: Left lower lip mucocele. OPERATION PERFORMED: Excision of a large left lower lip mucocele. SURGEON: Nathan Harris MD. FINDINGS: The patient had a mucocele. It was about 3/4 of any inches in length, ballooni ng out and filling up a fair share the inside of his left lower lip. PROCEDURE: After the area had initially been treated with some topical Xylocaine, it was injected with 1-percent Xylocaine with epinephrine. Following this, an incision was made ov er the mucocele and dissected down onto the mucocele. The dissection was able to be kathy d around the lateral part of the mucocele with a sharp scissor and a Prema and then going around the top, the mucocele broke and a lot of the normal-appearing mucus came out of the gland. Dissection was then carried distal superiorly holding onto the membrane and dissect ing it free. There was a small extra amount of the mucocele lobule removed from this area . It was then dissected free on its more medial edge and then finally back posteriorly whe re the final part of the mucocele was able to be removed. Once completely removed, the wou nd was closed with interrupted 5-0 Vicryl suture. Antibiotic ointment was applied. PLAN: The patient will use some anti-inflammatory to help him with any pain. He will be back in to have his sutures removed in 1 week's time. NATHAN HARRIS MD Dictated by NATHAN HARRIS MD 12/24/2014 14:07:03 Transcribed on 12/24/2014 22:12:00 by christos job# [id number] Confirmation #: [id number] cc: GIOVANNI HUFFMAN MD docum ented in this encounter Plan of Treatment Not on filedocumented as of this encounter Procedures + +--------+ + + + | Procedure Name | Priori | Date/Time | Associated Diagnosis | Comments | | | ty | | | | + +--------+ + + + | SURGICAL PATHOLOGY | Routin | 12/24/2014 | | Results for this | | EXAM | e | 12:00 AM | | procedure are in the | | | | PDT | | results section. | + +--------+ + + + documented in this encounter Results Surgical Pathology Exam (12/24/2014 12:00 AM PDT) + + | Specimen | + + | | + + + + + | Narrative | Performed At | + + + | SPECIMEN(S): A MUCOCELE OF INSIDE RIGHT LOWER LIP SPECIMEN | [facility] | | SOURCE: A. MUCOCELE OF INSIDE RIGHT LOWER LIP CLINICAL HISTORY: | [facility] | | No preop or clinical information is given on requisition. 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 - Benign squamous mucosa. JVR:[facility]:C2NR | | | GROSS DESCRIPTION: The specimen is labeled "Uri Pierre, | | | removal of mucocele of lip, inside". Submitted in formalin is a 2 x | | | 1.2 x 0.6 cm fragment of pink-santiago soft tissue. There is a 0.6 x 0.3 | | | cm fragment of mucosa on one edge. The specimen is inked blue, | | | serially sectioned and totally embedded in one cassette. J[facility] | | | MICROSCOPIC EXAMINATION: Histologic sections of all submitted blocks | | | are examined by light microscopy. These findings, together with the | | | gross examination, support the pathologic diagnosis. PERFORMING | | | LABORATORY: Tissue processing and slide preparation were performed by | | | [facility], [address], [place] [address] | | | (Cloth Washer Operator: Zak Hernandez M.D.; CLIA#: [id number]). | | | Professional interpretation was performed by [facility], | | | [facility], [address] | | | [place] [address] (Cloth Washer Operator: Zak Hernandez M.D.; CLIA#: | | | [id number]). Diagnostician: Zak Hernandez MD Pathologist | | | Electronically Signed 12/26/2014 | | + + + + +---------+ + + | Performing | Address | City/State/Zipcode | Phone Number | | Organization | | | | + +---------+ + + | [facility] | | | | | [facility] | | | | + +---------+ + + documented in this encounter Visit Diagnoses + + | Diagnosis | + + | Mucocele of salivary gland - Primary | + + documented in this encounter
--- OUTSIDE RECORDS SUMMARY | ~2020-04-19 | XMS | Encounter Summary ---
Demographics + + + | Address | [address] | | | [place] [address] | + + + | Home Phone | | + + + | Preferred Language | Unknown | + + + | Marital Status | | + + + | Restorationist Affiliation | 1013 | + + + | Race | White | + + + | Ethnic Group | Not or | + + + Author + + + | Author | [facility] | | | and [place] | + + + | Organization | [facility] | | | [...] Team Providers + +------+ + | Care Glaze Grinder Name | Role | Phone | + +------+ + | Goivanni Huffman MD | PCP | | + +------+ + Reason for Visit +---------+--------+ + | Reason | Onset | Comments | | | Date | | +---------+--------+ + | Results | 09/26/ | | | | 2012 | | +---------+--------+ + Encounter Details +--------+ + + + + | Date | Type | Department | Care Team | Description | +--------+ + + + + | 09/26/ | Telephone | [facility] | Sam Calabrese MD | Results | | 2012 | | GASTROENTEROLOGY | [address], [place] | | | | | [address] [place] | [address] [place] | | | | | [address] [place], [place] | [address] | | | | | [address] | | | | | | [phone] | | | +--------+ + + + [...] this encounter Miscellaneous Notes Telephone Encounter - Elvin Espinoza RN - 09/26/2012 9:59 AM PSTPatient notified that h- pylori results negative. To continue on omeprazole and carafate. Voiced understanding. Sta giancarlo that rx treatment is working well.Electronically signed by Elvin Espinoza RN at 013 10:00 AM PSTdocumented in this encounter Plan of Treatment Not on filedocumented as of this encounter Visit Diagnoses Not on filedocumented in this encounter"
--- OUTSIDE RECORDS SUMMARY | ~2020-04-19 | XMS | Encounter Summary ---
Demographics + + + | Address | [address] | | | [place] [address] | + + + | Home Phone | | + + + | Preferred Language | Unknown | + + + | Marital Status | | + + + | Zoroastrian Affiliation | 1013 | + + + | Race | White | + + + | Ethnic Group | Not or | + + + Author + + + | Author | [facility] | | | and [place] | + + + | Organization | [facility] | | | [...] Team Providers + +------+ + | Care Molder Wax Ball Name | Role | Phone | + +------+ + PCP | Unavailable | + +------+ + Encounter Details +--------+ + + + + | Date | Type | Department | Care Team | Description | +--------+ + + + + | 08/13/ | Hospital | [facility] | | | | 1996 | Encounter | [facility] | | | | | | CENTER [address] | | | | | | [place], [place] | | | | | | [address] | | | | | | [phone] | | | +--------+ + + + + Social History + +-------+ +--------+------+ | Tobacco Use | Types | Packs/Day | Years | Date | | | | | Used | | + +-------+ +--------+------+ | Never Assessed | | | | | + +-------+ +--------+------+ + + + | Sex Assigned at | Date Recorded | | | | + + + | Not on file | | + + + documented as of this encounter Plan of Treatment Not on filedocumented as of this encounter Visit Diagnoses Not on filedocumented in this encounter"
--- OUTSIDE RECORDS SUMMARY | ~2020-04-19 | XMS | Encounter Summary ---
Demographics + + + | Address | [address] | | | [place] [address] | + + + | Home Phone | | + + + | Preferred Language | Unknown | + + + | Marital Status | Single | + + + | Scientology Affiliation | CHR | + + + [...] Team Providers + +------+ + | Care Electromedical Service Engineer Name | Role | Phone | + +------+ + | Giovanni Hufmfan MD | PCP | | + +------+ + Reason for Referral Diagnostic Testing (Routine) +--------+--------+ + + + + | Status | Reason | Specialty | Diagnoses / | Referred By | Referred To | | | | | Procedures | Contact | Contact | +--------+--------+ + + + + | Closed | | Radiology | Diagnoses | Broadway, Ashley | [facility] | | | | | Pituitary | [address], [place] [address] | [address] | | | | | adenoma | [address] | [place] | | | | | ([facility]) | [place] | Antonio Anderson | | | | | Procedures | Rd | Research | | | | | MR PITUITARY | [facility] [place] | Center | | | | | WWO | [address] | [place], [place] | | | | | CONTRAST | Phone: | [phone] | | | | | | [phone] | Phone: | | | | | | Fax: | [phone] | | | | | | [phone] | Fax: | | | | | | | [phone] | +--------+--------+ + + + + Encounter Details +--------+ + + + + | Date | Type | Department | Care Team | Description | +--------+ + + + + | 09/29/ | Cell Plasterer | Neurosurgery at | Ashley Duron PA | Pituitary adenoma | | 2011 | | [facility] [address] | [address] | ([facility]) (Primary Dx) | | | | [facility] | [place], | | | | | [facility] and He[facility], | [place] [address] | | | | | Building | [phone] | | | | | floor [facility] [place] | | | | | | [address] | | | | | | [phone] | | | +--------+ + + + [...] Not on filedocumented as of this encounter Results MR PITUITARY WWO CONTRAST [...] | | | | | | Sharif Shaw | | | | | | RatnaAuthor: MIKI | | | | | | [...] | | + +---------+ + + | [facility] DEPARTMENT OF | | | | | RADIOLOGY | | | | + +---------+ + + documented in this encounter Visit Diagnoses + + | Diagnosis | + + | Pituitary adenoma (HCC) - Primary Benign neoplasm of pituitary gland and | | craniopharyngeal duct (pouch) | + + documented in this encounter"
--- OUTSIDE RECORDS SUMMARY | ~2020-04-19 | XMS | Encounter Summary ---
Demographics + + + | Address | [address] | | | [place] [address] | + + + | Home Phone | | + + + | Preferred Language | Unknown | + + + | Marital Status | | + + + | Holiness Affiliation | 1013 | + + + | Race | White | + + + | Ethnic Group | Not or | + + + Author + + + | Author | [facility] | | | and [place] | + + + | Organization | [facility] | | | and [...] Team Providers + +------+ + | Care Assistant Administrator Name | Role | Phone | + +------+ + | Giovanni Huffman MD | PCP | | + +------+ + Reason for Visit + + + | Reason | Comments | + + + | Follow-up | suture removal-stitches are going lip in numb | + + + Evaluate & Treat (Routine) +--------+--------+ + + + + | Status | Reason | Specialty | Diagnoses / | Referred By | Referred To | | | | | Procedures | Contact | Contact | +--------+--------+ + + + + | Closed | | Otolaryngolog | Diagnoses | Nathanael, | Hina Harris | | | | y | Neoplasm of | Giovanni Rivas MD | MD [address] | | | | | uncertain | [address] | [address] | | | | | behavior of | [address] 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 [address] | [address] [place] | gland (Primary Dx) | | | | [address] [facility] [address] | [address] [place] | | | | | [place] | [address] | | | | | [address] | | | | | | [phone] | | | +--------+---------+ + + + [...] + + + + | Pulse | 89 | 01/03/2015 2:01 PM | | | | | PDT | | + + + + + | Temperature | - | - | | + + + + + | Respiratory Rate | - | - | | + + + + + | Oxygen Saturation | 96% | 01/03/2015 2:01 PM | | | | | PDT | | + + + + + | Inhaled Oxygen | - | - | | | Concentration | | | | + + + + + | Weight | 106.1 kg (234 lb) | 01/03/2015 2:01 PM | | | | | PDT | | + + + + + | Height | 180.3 cm (5' 11") | 01/03/2015 2:01 PM | | | | | PDT | | + + + + + | Body Mass Index | 32.64 | 01/03/2015 2:01 PM | | | | | PDT | | + + + + + documented in this encounter Progress Notes Hina Harris MD - 01/03/2015 2:17 PM PDT [facility] OTOLARYNGOLOGY [address] [place] [address] OFFICE NOTE HINA HARRIS MD Patient: URI PIERRE Admitting: MR #: [id number] LOC: PT TYPE: Adm Date: 01/03/2015 : 1980 POST-OP VISIT DATE OF VISIT: 01/03/2015 The patient is postop removal of a large mucocele from the inside of his lip on the left h and side and this is one that he popped quite a number of times trying to relieve the press ure. His sutures have extruded on their own. He is healing well. He feels a little bit o f numbness just medial to where the cyst was removed, and he still has a good feeling in h is teeth and so the mental nerve would be intact, but the numbness is present, medial. The patient advised that hopefully over about 6 months' time that this will improve and come b ack. The rest appears to be doing very well as far as normal healing. He has a septal def ormity with nasal obstruction. This occurred after he had surgery on his pituitary. He n eeds to have an skein washer follow him for this. He has one [facility] in the [facility] b ut hopes that he can see an skein washer here locally. He will go back to Dr. Huffman and work on having this set up. Once his pituitary is totally quiet, then surgery to open up his nose that could be considered and he will recheck with ENT. HINA HARRIS MD Dictated by HINA HARRIS MD 01/03/2015 14:17:51 Transcribed on 01/03/2015 21:26:17 by job# [id number] Confirmation #: [id number] cc: GIOVANNI HUFFMAN MD arsh Hina MD - 01/03/2015 2:15 PM PDTSee dictation # [id number] signed by Hina Harris MD at 01/03/2015 2:18 PM PDTdocumented in th is encounter Plan of Treatment Not on filedocumented as of this encounter Visit Diagnoses + + | Diagnosis | + + | Mucocele of salivary gland - Primary | + + documented in this encounter
--- OUTSIDE RECORDS SUMMARY | ~2020-04-19 | XMS | Encounter Summary ---
Demographics + + + | Address | [address] | | | [place] [address] | + + + | Home Phone | | + + + | Preferred Language | Unknown | + + + | Marital Status | | + + + | Restoration Affiliation | [id number] | + + + | Race | White | + + + | Ethnic Group | Not or | + + + Author + + + | Author | [facility] | | | and [place] | + + + | Organization | [facility] | | | [...] Team Providers + +------+ + | Care Grill Attendant Name | Role | Phone | + +------+ + | Giovanni Huffman MD | PCP | | + +------+ + Encounter Details +--------+ + + + + | Date | Type | Department | Care Team | Description | +--------+ + + + + | 03/23/ | Orders Only | [facility] | Rylie Urbano | | | 2018 | | [address] | [address] | | | | | [address] | [address] | | | | | [place], [place] | [place] [address] | | | | | [address] | [phone] | | | | | [phone] | | | +--------+ + + + [...] | + +--------+ + + + | ECHO COMPLETE | Routin | 03/23/2018 | | Results for this | | | e | 10:02 AM | | procedure are in the | | | | PDT | | results section. | + +--------+ + + + documented in this encounter Results ECHO Complete (03/23/2018 10:02 AM PDT) + + | Specimen | + + | | + + + + + | Impressions | Performed At | + + + | 1. The left ventricle is normal in size, wall thickness and mild | | | global impaired systolic function EF 45-50%. 2. The right ventricle | | | is normal in size and function. 3. No significant valvular pathology. | | | 4. There is no pericardial effusion. | | + + + + + + | Narrative | Performed At | + + + | Patient Name: Uri Pierer Date of : 1980 | | | Performing Physician: Arthur Melendez | | | | | | INDICATIONS afib, cardiomyopathy CONCLUSIONS | | | 1. The left ventricle is normal in size, wall thickness | | | and mild global impaired systolic function EF 45-50%. 2. The right | | | ventricle is normal in size and function. 3. No significant valvular | | | pathology. 4. There is no pericardial effusion. FINDINGS | | | -------- ECG rhythm: Sinus rhythm. Study: A 2-dimensional | | | transthoracic echocardiogram with m-mode, spectral and color flow | | | Doppler was perfomed. Study: This was a technically adequate study. | | | Left Ventricle: Overall left ventricular systolic function is mildly | | | impaired with, an EF between 45 - 50 %. Left Ventricle: The left | | | ventricle cavity size is normal. Left Ventricle: Left ventricular | | | wall thickness is normal. Left Ventricle: The diastolic filling | | | pattern is normal for the age of the patient. Right Ventricle: The | | | right ventricle is normal in size and function. Left Atrium: The left | | | atrium is normal in size. Right Atrium: The right atrium is normal | | | in size. Aortic Valve: There is no evidence of aortic regurgitation. | | | Aortic Valve: There is no evidence of aortic stenosis. Aortic Valve: | | | The aortic valve is trileaflet. Mitral Valve: The mitral valve is | | | normal. Mitral Valve: There is trace mitral regurgitation. Tricuspid | | | Valve: The tricuspid valve appears structurally normal. Tricuspid | | | Valve: Trace tricuspid regurgitation present. Tricuspid Valve: | | | Pulmonary artery systolic pressure could not be assessed due to the | | | absence of adequate TR jet. Pulmonic Valve: The pulmonic valve is | | | normal. Pulmonic Valve: No significant valvular pathology. | | | Pericardium: There is no pericardial effusion. Pericardium: No | | | pleural effusion seen. IVC/Hepatic Veins: The IVC is normal size | | | (1.5-2.5cm) and collapses >50% with sniff, consistent with central | | | venous pressures of 5-10mmHg. MEASUREMENTS Ao asc: | | | 2.98 cm IVC: 2.18 cm EDV(Teich): 67.62 ml IVSd: 1.20 | | | cm LVIDd: 3.94 cm LVPWd: 0.97 cm LVOT Area: 4.04 cm2 LVOT | | | Diam: 2.27 cm %FS: 18.95 % EF(Teich): 39.66 % ESV(Teich): | | | 40.80 ml LVIDs: 3.19 cm SV(Teich): 26.82 ml RVIDd: | | | 3.21 cm LVEF MOD A2C: 57.89 % SV MOD A2C: 80.87 ml LVEF MOD | | | A4C: 45.33 % SV MOD A4C: 70.78 ml EF Biplane: 52.56 % | | | LVEDV MOD BP: 148.81 ml LVESV MOD BP: 70.59 ml LVEDV MOD A2C: | | | 139.68 ml LVLd A2C: 10.12 cm LVEDV MOD A4C: 156.13 ml LVLd | | | A4C: 9.87 cm LVESV MOD A2C: 58.81 ml LVLs A2C: 9.08 cm | | | LVESV MOD A4C: 85.34 ml LVLs A4C: 8.92 cm LAESV(A-L): 39.35 | | | ml LAESV Index (A-L): 17.10 ml/m2 LAAs A2C: 16.01 cm2 LAESV | | | A-L A2C: 47.51 ml LALs A2C: 4.57 cm LAAs A4C: 13.25 cm2 | | | LAESV A-L A4C: 30.58 ml LALs A4C: 4.87 cm RAAs: 13.95 cm2 | | | RAESV A-L: 38.56 ml RAESV MOD: 36.43 ml RALs: 4.28 cm Ao | | | Diam: 3.24 cm LA Diam: 3.56 cm LA/Ao: 1.09 TAPSE: 2.28 | | | cm AV maxP.83 mmHg AV meanP.82 mmHg AV Vmax: 1.09 | | | m/s AV Vmean: 0.80 m/s AV VTI: 23.77 cm ADIEL Vmax: 3.17 cm2 | | | ADIEL (VTI): 3.16 cm2 AVAI Vmax: 0.00 cm2/m2 AVAI (VTI): | | | 0.00 cm2/m2 LVOT maxP.97 mmHg LVOT meanP.92 mmHg LVSI | | | Dopp: 32.72 ml/m2 LVSV Dopp: 75.26 ml LVOT Vmax: 0.86 m/s | | | LVOT Vmean: 0.66 m/s LVOT VTI: 18.60 cm MV A Matty: 0.44 m/s | | | MV DecT: 263.62 ms MV E Matty: 0.66 m/s MV E/A Ratio: 1.5 | | | MV PHT: 76.45 ms MVA By PHT: 2.87 cm2 Septal e': 0.07 m/s | | | Septal E/e': 8.53 Lateral e': 0.10 m/s Lateral E/e': 6.50 | | | PV maxP.71 mmHg PV Vmax: 0.82 m/s RAP: 5 mmHg | | | Design Engineering Intern: Authenticated by: Arthur [facility] Report Date/Time: | | | 03-30-2018 18:34:31 | | + + + + + | Procedure Note | + + | Casper, Rad Conversion - 04/13/2019 4:16 PM PDT Patient Name: Adelina Pierre of | | : 1980 Performing Physician: Arthur | | [place] INDICATIONS------ | | -----afib, cardiomyopathy CONCLUSIONS 1. The left ventricle is normal in size, | | wall thickness and mild global impaired systolic function EF 45-50%.2. The right | | ventricle is normal in size and function.3. No significant valvular pathology.4. There | | is no pericardial effusion. FINDINGS--------ECG rhythm: Sinus rhythm.Study: A | | 2-dimensional transthoracic echocardiogram with m-mode, spectral and color flow Doppler | | was perfomed.Study: This was a technically adequate study.Left Ventricle: Overall left | | ventricular systolic function is mildly impaired with, an EF between 45 - 50 %.Left | | Ventricle: The left ventricle cavity size is normal.Left Ventricle: Left ventricular | | wall thickness is normal.Left Ventricle: The diastolic filling pattern is normal for the | | age of the patient.Right Ventricle: The right ventricle is normal in size and | | function.Left Atrium: The left atrium is normal in size.Right Atrium: The right atrium | | is normal in size.Aortic Valve: There is no evidence of aortic regurgitation.Aortic | | Valve: There is no evidence of aortic stenosis.Aortic Valve: The aortic valve is | | trileaflet.Mitral Valve: The mitral valve is normal.Mitral Valve: There is trace mitral | | regurgitation.Tricuspid Valve: The tricuspid valve appears structurally normal.Tricuspid | | Valve: Trace tricuspid regurgitation present.Tricuspid Valve: Pulmonary artery systolic | | pressure could not be assessed due to the absence of adequate TR jet.Pulmonic Valve: | | The pulmonic valve is normal.Pulmonic Valve: No significant valvular | | pathology.Pericardium: There is no pericardial effusion.Pericardium: No pleural effusion | | seen.IVC/Hepatic Veins: The IVC is normal size (1.5-2.5cm) and collapses >50% with | | sniff, consistent with central venous pressures of 5-10mmHg. MEASUREMENTS Ao | | asc: 2.98 cmIVC: 2.18 cmEDV(Teich): 67.62 mlIVSd: 1.20 cmLVIDd: 3.94 cmLVPWd: | | 0.97 cmLVOT Area: 4.04 qt2PVFT Diam: 2.27 cm%FS: 18.95 %EF(Teich): 39.66 | | %ESV(Teich): 40.80 mlLVIDs: 3.19 cmSV(Teich): 26.82 mlRVIDd: 3.21 cmLVEF MOD | | A2C: 57.89 %SV MOD A2C: 80.87 mlLVEF MOD A4C: 45.33 %SV MOD A4C: 70.78 mlEF | | Biplane: 52.56 %LVEDV MOD BP: 148.81 mlLVESV MOD BP: 70.59 mlLVEDV MOD A2C: | | 139.68 mlLVLd A2C: 10.12 cmLVEDV MOD A4C: 156.13 mlLVLd A4C: 9.87 cmLVESV MOD A2C: | | 58.81 mlLVLs A2C: 9.08 cmLVESV MOD A4C: 85.34 mlLVLs A4C: 8.92 cmLAESV(A-L): | | 39.35 mlLAESV Index (A-L): 17.10 ml/m2LAAs A2C: 16.01 [id number] A-L A2C: 47.51 | | mlLALs A2C: 4.57 cmLAAs A4C: 13.25 [id number] A-L A4C: 30.58 mlLALs A4C: 4.87 | | cmRAAs: 13.95 [id number] A-L: 38.56 mlRAESV MOD: 36.43 mlRALs: 4.28 cmAo Diam: | | 3.24 cmLA Diam: 3.56 cmLA/Ao: 1.09TAPSE: 2.28 cmAV maxP.83 mmHgAV meanPG: | | 2.82 mmHgAV Vmax: 1.09 m/Lianet Vmean: 0.80 m/Lianet VTI: 23.77 cmAVA Vmax: 3.17 | | cm2AVA (VTI): 3.16 [id number] Vmax: 0.00 cm2/m2AVAI (VTI): 0.00 cm2/m2LVOT maxPG: | | 2.97 mmHgLVOT meanP.92 mmHgLVSI Dopp: 32.72 ml/m2LVSV Dopp: 75.26 mlLVOT Vmax: | | 0.86 m/sLVOT Vmean: 0.66 m/sLVOT VTI: 18.60 cmMV A Matty: 0.44 m/sMV DecT: | | 263.62 msMV E Matty: 0.66 m/sMV E/A Ratio: 1.5MV PHT: 76.45 msMVA By PHT: 2.87 | | rr0Gjtvta e': 0.07 m/sSeptal E/e': 8.53Lateral e': 0.10 m/sLateral E/e': 6.50PV | | maxP.71 mmHgPV Vmax: 0.82 m/sRAP: 5 mmHg Design Engineering Intern:Authenticated by: Arthur | | [facility] Date/Time: 03-30-2018 18:34:31 IMPRESSION: 1. The left ventricle is normal | | in size, wall thickness and mild global impaired systolic function EF 45-50%.2. The | | right ventricle is normal in size and function.3. No significant valvular pathology.4. | | There is no pericardial effusion. | | | |Ao asc: 2.98 cm | |IVC: 2.18 cm | |EDV(Teich): 67.62 ml | |IVSd: 1.20 cm | |LVIDd: 3.94 cm | |LVPWd: 0.97 cm | |LVOT Area: 4.04 cm2 | |LVOT Diam: 2.27 cm | |%FS: 18.95 % | |EF(Teich): 39.66 % | |ESV(Teich): 40.80 ml | |LVIDs: 3.19 cm | |SV(Teich): 26.82 ml | |RVIDd: 3.21 cm | |LVEF MOD A2C: 57.89 % | |SV MOD A2C: 80.87 ml | |LVEF MOD A4C: 45.33 % | |SV MOD A4C: 70.78 ml | |EF Biplane: 52.56 % | |LVEDV MOD BP: 148.81 ml | |LVESV MOD BP: 70.59 ml | |LVEDV MOD A2C: 139.68 ml | |LVLd A2C: 10.12 cm | |LVEDV MOD A4C: 156.13 ml | |LVLd A4C: 9.87 cm | |LVESV MOD A2C: 58.81 ml | |LVLs A2C: 9.08 cm | |LVESV MOD A4C: 85.34 ml | |LVLs A4C: 8.92 cm | |LAESV(A-L): 39.35 ml | |LAESV Index (A-L): 17.10 ml/m2 | |LAAs A2C: 16.01 cm2 | |LAESV A-L A2C: 47.51 ml | |LALs A2C: 4.57 cm | |LAAs A4C: 13.25 cm2 | |LAESV A-L A4C: 30.58 ml | |LALs A4C: 4.87 cm | |RAAs: 13.95 cm2 | |RAESV A-L: 38.56 ml | |RAESV MOD: 36.43 ml | |RALs: 4.28 cm | |Ao Diam: 3.24 cm | |LA Diam: 3.56 cm | |LA/Ao: 1.09 | |TAPSE: 2.28 cm | |AV maxP.83 mmHg | |AV meanP.82 mmHg | |AV Vmax: 1.09 m/s | |AV Vmean: 0.80 m/s | |AV VTI: 23.77 cm | |ADIEL Vmax: 3.17 cm2 | |ADIEL (VTI): 3.16 cm2 | |AVAI Vmax: 0.00 cm2/m2 | |AVAI (VTI): 0.00 cm2/m2 | |LVOT maxP.97 mmHg | |LVOT meanP.92 mmHg | |LVSI Dopp: 32.72 ml/m2 | |LVSV Dopp: 75.26 ml | |LVOT Vmax: 0.86 m/s | |LVOT Vmean: 0.66 m/s | |LVOT VTI: 18.60 cm | |MV A Matty: 0.44 m/s | |MV DecT: 263.62 ms | |MV E Matty: 0.66 m/s | |MV E/A Ratio: 1.5 | |MV PHT: 76.45 ms | |MVA By PHT: 2.87 cm2 | |Septal e': 0.07 m/s | |Septal E/e': 8.53 | |Lateral e': 0.10 m/s | |Lateral E/e': 6.50 | |PV maxP.71 mmHg | |PV Vmax: 0.82 m/s | |RAP: 5 mmHg | | | |Design Engineering Intern: | |Authenticated by: Arthur Melendez | |Report Date/Time: 03-30-2018 18:34:31 | | | |IMPRESSION: | |1. The left ventricle is normal in size, wall thickness and mild global impaired systolic f unction EF 45-50%. | |2. The right ventricle is normal in size and function. | |3. No significant valvular pathology. | |4. There is no pericardial effusion. | + + documented in this encounter Visit Diagnoses Not on filedocumented in this encounter"
--- OUTSIDE RECORDS SUMMARY | ~2020-04-19 | XMS | Encounter Summary ---
Demographics + + + | Address | [address] | | | [place] [address] | + + + | Home Phone | | + + + | Preferred Language | Unknown | + + + | Marital Status | Single | + + + | Cheondoism Affiliation | CHR | + + + | Race | White | + + + | Ethnic Group | Not or | + + + Author + + + | Author | [facility] | + + + | Organization | [facility] | + + + | Address [...] Team Providers + +------+ + | Care Lead Pourer Name | Role | Phone | + +------+ + | Alejandro Dowling DO | PCP | | + +------+ + Encounter Details +--------+ + + + + | Date | Type | Department | Care Team | Description | +--------+ + + + + | 08/27/ | Telephone | Neurosurgery at | Ashley Duron PA | | | 2011 | | [facility] [address] | [address] | | | | | [facility] | [facility], | | | | | Health and Healing, | [place] [address] | | | | | [facility] [address] | [phone] | | | | | floor [place], [place] | | | | | | [address] | | | | | | [phone] | | | +--------+ + + + [...] this encounter Miscellaneous Notes Telephone Encounter - Ashley Duron PA-C - 08/28/2011 2:51 PM PSTSpoke with Mr. Pierre: Describes ongoing headaches (consistent with pre-op) and intermittent 'waving, squiggly jie es' in his vision that seems related to severity of headache. Also when he tucks his chin i nto his chest he feels a soft bump on the base of his head that he is worried is secondary t o headaches and/or surgery. Denies double vision or loss in vision. Denies N/V. Discussed post skull base bump unlikely related or consequence of transphenoidal surgery, t ana unsure what bump could be. Hesitate to call visual symptoms 'seizure'. Would recomme nd eval by neurologist or headache specialist for headache for new vision concerns. Discuss ed if concern worrisome for seizure, to FU with PCP or ED if urgent. RTC for routine post-op 3 mos follow up. Pt agreeable to plan. elephone Encounter - Yamileth Mota - 08/27/2011 9: 11 AM PSTGregory called to report he is having optical seizures and at the base of his skull and top of the neck there is pain just like before the surgery, and when he puts his chin t o his chest he can feel a bump at the base of his skull. documented in this encounter Plan of Treatment Not on filedocumented as of this encounter Visit Diagnoses Not on filedocumented in this encounter"
--- OUTSIDE RECORDS SUMMARY | ~2020-04-19 | XMS | Encounter Summary ---
Demographics + + + | Address | [address] | | | [place] [address] | + + + | Home Phone [...] Author + + + | Author | [facility] | + + + | Organization | [facility] | + + + | Address [...] Team Providers + +------+ + | Care Methods Analyst Data Processing Name | Role | Phone | + [...] | disorder of | [place] | [address] [facility] | | | | | the | INTERNAL | [address] | | | | | pituitary | MEDICINE | [address] [place], | | | | | gland and | [address] | [place] | | | | | its | [place] | [address] | | | | | hypothalamic | [address] | Phone: | | | | | control | [place], | [phone] | | | | | Family Care | [place] [address] | Fax: | | | | | [facility] ID# | Phone: | [phone] | | | | | [id number] | [phone] | | | | | | Auth# | Fax: | | | | | | [phone] | [phone] | | | | | | 05/19-05/19/12 [...] weight | | 2010 | Visit | [facility] | [address] | gain; Pituitary | | | | and Healing [address] | adenoma (HCC); | | | | [facility] for | [place], [place] | Headache | | | | Health and Healing, | [address] | | | | | [address] | [phone] | | | | | [place], [place] | | | | | | [address] | | | | | | [phone] | | | +--------+---------+ + + + [...] study which you can do at your lo tyrel lab. Please call use after the urine collections are complete and we will discuss the ne xt study (dexamethasone suppression test). Call Stella [phone]. documented in this encounter Progress Notes Carolina Pinzon MD - 06/12/2011 1:14 PM PDTENDOCRINOLOGY STAFF Pt was seen in conjunction with Endocrinology Fellow , Dr Sharmaine Murphy, DM I personally interviewed the patient, duplicated the pertinent parts of the physical examin ation and personally formulated the plan with the Endocrine Fellow. .Please see note below e dited by me for the full details of the visit. I agree with history, exam, assessment and ma nagement plan as detailed there. Discussed at length [...] striae on abdomen EXT: no MELLY, strength 5/5 Labs: Ouside labs: 05/21/11 ACTH 17 pg/mL IGF-1 113 L 115-307 ng/mL AM cortisol 16.9 TSH 0.812 FSH 5.15 LH 5.51 Imaging: MRI brain with contrast 04/17/11 [facility] Diagnostic imaging 8 mm enhancing nodule in the pituitary infundibulum with possibilities: small meningioma, n eurosarcoid, papillary variant craniopharyngioma, germinoma. Assessment: 31 year-old man with new of headaches, fatigue, and weight fluctuations, and new finding of pituitary microadenoma. Microadenoma symptomatic with headaches and fatigue. Currently has some features which are suggestive but not diagnostic of a glucocorticoid excess. Also seei ng neurosurgery today. Plan: 1. ACTH: at this [...]
--- OUTSIDE RECORDS SUMMARY | ~2020-04-19 | XMS | Encounter Summary ---
Demographics + + + | Address | [address] | | | [place] [address] | + + + | Home Phone | | + + + | Preferred Language | Unknown | + + + | Marital Status | Single | + + + | Sabianism Affiliation | CHR | + + + | Race | White | + + + | Ethnic Group | Not or | + + + Author + + + | Author | [facility] | + + + | Organization | [facility] | + + + | Address [...] Team Providers + +------+ + | Care Wheat Farmer Name | Role | Phone | + +------+ + | Giovanni Huffman MD | PCP | | + +------+ + Reason for Visit Office Visit - E/M Services (Routine) +--------+--------+ [...] | | | disorder of | | DNP,INTERNET SOURCER,[place] | | | | | the | | [address] | | | | | pituitary | | Ave | | | | | gland and | | [place], [place] | | | | | its | | [address] | | | | | hypothalamic | | Phone: | | | | | control | | [phone] | | | | | [facility] | | Fax: | | | | | [facility] ID# | | [phone] | | | | | [phone] | | | | | | | Procedures | | | | | | | CONSULT TO | | | | | | | PITUITARY | | | +--------+--------+ + + + + Encounter Details +--------+---------+ + + + | Date | Type | Department | Care Team | Description | +--------+---------+ + + + | 03/18/ | Office | Neurosurgery at | [place], | Unspecified disorder | | 2011 | Visit | [facility] | [place], | of the pituitary | | | | and Healing [address] | DNP,INTERNET SOURCER,[place] [address] | gland and its | | | | [address] [facility] | [address] [place], | hypothalamic | | | | Health and Healing, | [place] [address] | control; Pituitary | | | | Building [address] | [phone] | adenoma (HCC) | | | | [place], [place] | | | | | | [address] | | | | | | [phone] | | | +--------+---------+ + + + [...] + + documented as of this encounter Progress Caitlyn Dhillon DNP, FNP, [place] - 04/08/2012 5:07 PM PDTrescheduled documented in this encounter Plan of Treatment Not on filedocumented as of this encounter Procedures + +--------+ + + + | Procedure Name | Priori | Date/Time | Associated Diagnosis | Comments | | | ty | | | | + +--------+ + + + | CORTISOL, SERUM | Routin | 03/18/2012 | Unspecified | Results for this | | | e | 11:15 AM | disorder of the | procedure are in the | | | | PDT | pituitary gland and | results section. | | | | | its hypothalamic | | | | | | control Pituitary | | | | | | adenoma (HCC) | | + +--------+ + + + | ACTH, PLASMA | Routin | 03/18/2012 | Unspecified | Results for this | | | e | 10:45 AM | disorder of the | procedure are in the | | | | PDT | pituitary gland and | results section. | | | | | its hypothalamic | | | | | | control Pituitary | | | | | | adenoma (HCC) | | + +--------+ + + + | BASIC METABOLIC SET | Routin | 03/18/2012 | Unspecified | Results for this | | (NA, K, CL, TCO2, | e | 10:45 AM | disorder of the | procedure are in the | | BUN, CR, GLU, CA) | | PDT | pituitary gland and | results section. | | | | | its hypothalamic | | | | | | control Pituitary | | | | | | adenoma (HCC) | | + +--------+ + + + | INSULIN GROWTH | Routin | 03/18/2012 | Unspecified | Results for this | | FACTOR-1, SERUM | e | 10:45 AM | disorder of the | procedure are in the | | | | PDT | pituitary gland and | results section. | | | | | its hypothalamic | | | | | | control Pituitary | | | | | | adenoma (HCC) | | + +--------+ + + + | FREE T4 | Routin | 03/18/2012 | Unspecified | Results for this | | | e | 10:45 AM | disorder of the | procedure are in the | | | | PDT | pituitary gland and | results section. | | | | | its hypothalamic | | | | | | control Pituitary | | | | | | adenoma (HCC) | | + +--------+ + + + | PROLACTIN | Routin | 03/18/2012 | Unspecified | Results for this | | | e | 10:45 AM | disorder of the | procedure are in the | | | | PDT | pituitary gland and | results section. | | | | | its hypothalamic | | | | | | control Pituitary | | | | | | adenoma (HCC) | | + +--------+ + + + | TSH | Routin | 03/18/2012 | Unspecified | Results for this | | | e | 10:45 AM | disorder of the | procedure are in the | | | | PDT | pituitary gland and | results section. | | | | | its hypothalamic | | | | | | control Pituitary | | | | | | adenoma (HCC) | | + +--------+ + + + | TESTOSTERONE, SERUM | Routin | 03/18/2012 | Unspecified | Results for this | | | e | 10:45 AM | disorder of the | procedure are in the | | | | PDT | pituitary gland and | results section. | | | | | its hypothalamic | | | | | | control Pituitary | | | | | | adenoma (HCC) | | + +--------+ + + + | CORTISOL, SERUM | Routin | 03/18/2012 | Unspecified | Results for this | | | e | 10:45 AM | disorder of the | procedure are in the | | | | PDT | pituitary gland and | results section. | | | | | its hypothalamic | | | | | | control Pituitary | | | | | | adenoma (HCC) | | + +--------+ + + + documented in this encounter Results CORTISOL, SERUM (03/18/2012 11:15 AM PDT) + + + + + + | Component | Value | Ref Range | Performed | Pathologist | | | | | At | Signature | + + + + + + | CORTISOL, | Not Recd | ug/dl | [facility] | | | [...] + + + | [facility] | [address] | [place] [address] | | | LABORATORY | | | | + + + + + PROLACTIN, SERUM (03/18/2012 10:45 AM PDT) + + + + + + | Component | Value | Ref Range | Performed | Pathologist | | | | | At | Signature | + + + + + + | PROLACTIN | Not Recd | ng/ml | [facility] | | | | [...] + + + | [facility] | [address] | [place] [address] | | | LABORATORY | | | | + + + + + TESTOSTERONE, SERUM (03/18/2012 10:45 AM PDT) + + + + + + | Component | Value | Ref Range | Performed | Pathologist | | | | | At | Signature | + + + + + + | TESTOSTERON | Not Recd | ng/dl | [facility] | | | E, [...] + + + | [facility] | [address] | [place] [address] | | | LABORATORY | | | | + + + + + TSH (03/18/2012 10:45 AM PDT) + + + + + + | Component | Value | Ref Range | Performed | Pathologist | | | | | At | Signature | + + + + + + | TSH | Not Recd | uIU/ml | [facility] | | | | | [...] + + + | [facility] | [address] | [place] [address] | | | LABORATORY | | | | + + + + + INSULIN GROWTH FACTOR-1, SERUM (03/18/2012 10:45 AM PDT) + + + + + + | Component | Value | Ref Range | Performed | Pathologist | | | | | At | Signature | + + + + + + | IGF-1 | Not Recd | ng/mL | [facility] | | | | [...] + + + | [facility] | [address] | [place] [address] | | | LABORATORY | | | | + + + + + FREE T4, SERUM (03/18/2012 10:45 AM PDT) + + + + + + | Component | Value | Ref Range | Performed | Pathologist | | | | | At | Signature | + + + + + + | FREE T4, | Not Recd | ng/dL | [facility] | | | SERUM [...] + + + | [facility] | [address] | [place] [address] | | | LABORATORY | | | | + + + + + BASIC METABOLIC SET (NA, K, CL, TCO2, BUN, CR, GLU, CA) (03/18/2012 10:45 AM PDT) + + + + + + | Component | Value | Ref Range | Performed | Pathologist | | | | | At | Signature | + + + + + + | GLUCOSE, | Not Recd | 60 - 99 mg/dL | [facility] | | | PLASMA | | | DEPARTMENT | | | (LAB) | | | OF | | | | | | PATHOLOGY | | + + + + + + | BUN, PLASMA | Not Recd | 6 - 20 mg/dL | [facility] | | | (LAB) | | | DEPARTMENT | | | | | | OF | | | | | | PATHOLOGY | | + + + + + + | CREATININE | Not Recd | 0.70 - 1.30 | [facility] | | | PLASMA | | mg/dL | DEPARTMENT | | | (LAB) | | | OF | | | | | | PATHOLOGY | | + + + + + + | SODIUM, | Not Recd | 134 - 143 | [facility] | | | PLASMA | | mmol/L | DEPARTMENT | | | (LAB) | | | OF | | | | | | PATHOLOGY | | + + + + + + | POTASSIUM, | Not Recd | 3.4 - 5.0 | [facility] | | | PLASMA | | mmol/L | DEPARTMENT | | | (LAB) | | | OF | | | | | | PATHOLOGY | | + + + + + + | CHLORIDE, | Not Recd | 97 - 108 mmol/L | [facility] | | | PLASMA | | | DEPARTMENT | | | (LAB) | | | OF | | | | | | PATHOLOGY | | + + + + + + | TOTAL CO2, | Not Recd | 22 - 29 mmol/L | [facility] | | | PLASMA | | | DEPARTMENT | | | (LAB) | | | OF | | | | | | PATHOLOGY | | + + + + + + | CALCIUM, | Not Recd | 8.6 - 10.2 | [facility] | | | PLASMA | | mg/dL | DEPARTMENT | | | (LAB) | | | OF | | | | | | PATHOLOGY | | + + + + + + | POTASSIUM | Not Recd | | [facility] | | | CMNT | | | DEPARTMENT | | | [...] DEPARTMENT OF | [address] | [place] [address] | | | PATHOLOGY | [address] | | | + + + + + CORTISOL, SERUM (03/18/2012 10:45 AM PDT) + + + + + + | Component | Value | Ref Range | Performed | Pathologist | | | | | At | Signature | + + + + + + | CORTISOL, | Not Recd | ug/dl | [facility] | | | [...] + + + | [facility] | [address] | [place] [address] | | | LABORATORY | | | | + + + + + ACTH, PLASMA (03/18/2012 10:45 AM PDT) + + + + + + | Component | Value | Ref Range | Performed | Pathologist | | | | | At | Signature | + + + + + + | ACTH,PLASMA | Not Recd | pg/mL | [facility] | | | | [...] + + + | [facility] | [address] | [place] [address] | | | LABORATORY | | | [...]
--- OUTSIDE RECORDS SUMMARY | ~2020-04-19 | XMS | Encounter Summary ---
Demographics + + + | Address | [address] | | | [place] [address] | + + + | Home Phone | | + + + | Preferred Language | Unknown | + + + | Marital Status | | + + + | Roman Catholic Affiliation | 1013 | + + + | Race | White | + + + | Ethnic Group | Not or | + + + Author + + + | Author | [facility] | | | and [place] | + + + | Organization | [facility] | | | and [place] | + + + | Address | Unknown | + + + | Phone | Unavailable | + + + Support + + +---------+ + | Name | Relationship | Address | Phone | + + +---------+ + | Stephani Pierre | ECON | Unknown | | + + +---------+ + | Sudha Giovany | ECON | Unknown | | + + +---------+ + Care Team Providers + +------+ + | Care Corrugated Box Machine Operator Name | Role | Phone | + +------+ + | Giovanni Huffman MD | PCP | | + +------+ + Reason for Visit + + + | Reason | Comments | + + + | Lip Problem | lesion | + + + Evaluate & Treat (Routine) +--------+--------+ + + + + | Status | Reason | Specialty | Diagnoses / | Referred By | Referred To | | | | | Procedures | Contact | Contact | +--------+--------+ + + + + | Closed | | Otolaryngolog | Diagnoses | Nathanael, | Nathan Harris | | | | y | Neoplasm of | Giovanni Rivas MD | MD [address] | | | | | uncertain | [address] | | | | | behavior of | [address] 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); | | | | [address] | [address] [place], [place] | Deviated nasal | | | | [place], [place] | [address] | septum; Hypertrophy | | | | [address] | | of nasal turbinates | | | | [phone] | | | +--------+---------+ + + + [...] + + + + | Pulse | 77 | 11/29/2014 3:56 PM | | | | | PDT | | + + + + + | Temperature | - | - | | + + + + + | Respiratory Rate | - | - | | + + + + + | Oxygen Saturation | 96% | 11/29/2014 3:56 PM | | | | | PDT | | + + + + + | Inhaled Oxygen | - | - | | | Concentration | | | | + + + + + | Weight | 106.1 kg (234 lb) | 11/29/2014 3:56 PM | | | | | PDT | | + + + + + | Height | 180.3 cm (5' 11") | 11/29/2014 3:56 PM | | | | | PDT | | + + + + + | Body Mass Index | 32.64 | 11/29/2014 3:56 PM | | | | | PDT | | + + + + + documented in this encounter Progress Notes Nathan Harris MD - 11/29/2014 4:30 PM PDT [facility] [address] [facility] [address] OFFICE NOTE NATHAN HARRIS MD Patient: URI PIERRE Admitting: MR #: [id number] LOC: PT TYPE: Adm Date: 11/29/2014 : 1980 NEW PATIENT VISIT DATE OF VISIT: 11/29/2014 The patient comes in with a couple of problems. The patient has a lump on the inside of h is lip on the left hand side. It irritates him fairly consistently. He often bites into i t. It has been present now for about 8 months and often is quite tender. The patient also has problems breathing through the nasal passages. He has had surgery for a pituitary ad enoma and with the rearrangement of his nose, he breathes very poorly through the nose. He also has an ingrown hair on the left hand side that he deals with, but is not giving any p roblems at the current time. PHYSICAL EXAMINATION: GENERAL: Shows an alert 34-year-old male. He is communicating well. HEENT: Skin exam of the face, nose and ears, no masses or lesions are noted. Ear canals are open, they are cl praful. The drums were clear. Nasal passages: He has a nasal septal deformity towards the ri ght hand side, very little room to breathe through this side. It also is fractured out in to the nasal passage inferiorly on the left. The floor of the mouth, buccal mucosa, hard p alate, teeth, lips, and gums all are healthy other than he has a fairly large mucocele on t he inside of his lip on the left hand side. No mass seen in the oropharynx. Posterior ph aryngeal wall is smooth. Tongue and soft palate are smooth and move symmetrically. NECK: There are no masses or lymphadenopathy. Thyroid gland is smooth. Trachea is midlin e. Good range of motion of the neck without any pain or discomfort noted. IMPRESSION: 1. 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 2. Nasal septal deformity with nasal obstruction. 3. Hypertrophic inferior turbinates. PLAN: The patient will be scheduled to have the mucocele removed in minor surgery here in the office. The patient is scheduled to be seen over at [facility] to have a followup on the pi tuitary area. If everything is clear, then consideration to help open up his nasal passage s would be able to be planned. He needs to be sure that they do not have to go through e nasal passage to get to his pituitary again. The removal of the mucocele was described w ell to the patient. He desires to have it removed and this is scheduled accordingly. NATHAN HARRIS MD Dictated by NATHAN HARRIS MD 11/29/2014 16:30:42 Transcribed on 11/30/2014 05:06:48 by job# [id number] Confirmation #: [id number] cc: GIOVANNI HUFFMAN MD Nathan Butler MD - 11/29/2014 4:25 PM PDTSee dictation # [id number] signed by Nathan Harris MD at 11/29/2014 4:31 PM PDTdocumented in th is encounter Plan of Treatment Not on filedocumented as of this encounter Visit Diagnoses + + | Diagnosis | + + | Mucocele of salivary gland - Primary | + + | Deviated nasal septum | + + | Hypertrophy of nasal turbinates | + + documented in this encounter
--- OUTSIDE RECORDS SUMMARY | ~2020-04-19 | XMS | Clinical Summary ---
Demographics + + + | Address | [address] | | | [place] [address] | + + + | Home Phone | | + + + | Preferred Language | Unknown | + + + | Marital Status | Single | + + + | Bahai Affiliation | CHR | + + + [...] Team Providers + +------+ + | Care Cotton Breeder Name | Role | Phone | + +------+ + | Figueroa Mazariegos MD | PCP | | + +------+ + Source Comments NINO is fully live on both EpicCare Ambulatory and EpicCare InPatient.[facility] Allerg[facility] + + + + [...] + + Plan of Treatment + + +-------+ + | Health Maintenance | Due Date | Last | Comments | | | | Done | | + + +-------+ + | Pneumococcal | | | | | vaccination (1 of 1 | 4 | | | | - PPSV23) | | | | + + +-------+ + | Influenza (Flu) | | | | | vaccination (#1) | 0 | | | + + +-------+ + Results Not on filefrom Last 3 Months Insurance + +--------+ +--------+-------+---------+--------+ | Payer | Benefi | Subscriber | Effect | Phone | Address | Type | | | t Plan | ID | majo | | | | | | / | | Dates | | | | | | Group | | | | | | + +--------+ +--------+-------+---------+--------+ | CASHIER MEDICAID | CASHIER | [id number] | | | | Medica | | [...] | 1980 | [phone] | [place] [address] | | | hola | | | [...]
--- OUTSIDE RECORDS SUMMARY | ~2020-04-19 | XMS | Encounter Summary ---
Demographics + + + | Address | [address] | | | [place] [address] | + + + | Home Phone | | + + + | Preferred Language | Unknown | + + + | Marital Status | Single | + + + | Buddhist Affiliation | CHR | + + + | Race | White | + + + | Ethnic Group | Not or | + + + Author + + + | Author | [facility] | + + + | Organization | [facility] | + + + | [...] Team Providers + +------+ + | Care Lime Kiln Worker Helper Name | Role | Phone | + +------+ + | Giovanni Huffman MD | PCP | | + +------+ + Encounter Details +--------+ + + + + | Date | Type | Department | Care Team | Description | +--------+ + + + + | 04/01/ | Outside | UNKNOWN DEPARTMENT | Other, Faculty | | | 2011 | Records | [address] | [phone] | | | | | [address] | | | | | | [place], [place] | | | | | | [address] | | | +--------+ + + + [...] documented as of this encounter Miscellaneous Notes Andrei - Bony Whitlock - 12/16/2011 5:01 PM PDTElectronically signed by Bony Whitlock at 5:01 PM PDTdocumented in this encounter Plan of Treatment Not on filedocumented as of this encounter Visit Diagnoses Not on filedocumented in this encounter"
--- OUTSIDE RECORDS SUMMARY | ~2020-04-19 | XMS | Encounter Summary ---
Demographics + + + | Address | [address] | | | [place] [address] | + + + | Home Phone | | + + + | Preferred Language | Unknown | + + + | Marital Status | | + + + | Spiritism Affiliation | 1013 | + + + | Race | White | + + + | Ethnic Group | Not or | + + + Author + + + | Author | [facility] | | | and [place] | + + + | Organization | [facility] | | | and [...] Team Providers + +------+ + | Care Ceramic Tile Mechanic Name | Role | Phone | + +------+ + | Giovanni Huffman MD | PCP | | + +------+ + Reason for Visit + + + | Reason | Comments | + + + | Medication Refill | | + + + Encounter Details +--------+--------+ + + + | Date | Type | Department | Care Team | Description | +--------+--------+ + + + | 04/13/ | Refill | [facility] | Rylie Urbano | Medication Refill | | 2019 | | CARDIOLOGY [facility] | [address] | | | | | [address] | [address] | | | | | [address] | [place] [address] | | | | | [place] | [phone] | | | | | [address] | | | | | | [phone] | | | +--------+--------+ + + + Social History + + [...] + | No | | | Alcoholic | | | | | Drinks/day: socially | + + +---------+ + + + + | Sex Assigned at | Date Recorded | | | | + + + | Not on file | | + + + documented as of this encounter Plan of Treatment Not on filedocumented as of this encounter Visit Diagnoses Not on filedocumented in this encounter"
--- OUTSIDE RECORDS SUMMARY | ~2020-04-19 | XMS | Encounter Summary ---
Demographics + + + | Address | [address] | | | [place] [address] | + + + | Home Phone | | + + + | Preferred Language | Unknown | + + + | Marital Status | | + + + | Zoroastrianism Affiliation | 1013 | + + + [...] Team Providers + +------+ + | Care Supervisor [place] Name | Role | Phone | + +------+ + | Giovanni Huffman MD | PCP | | + +------+ + Encounter Details +--------+ + + + + | Date | Type | Department | Care Team | Description | +--------+ + + + + | 10/06/ | Hospital | [facility] | [facility], | HCV (hepatitis C | | 2013 | Encounter | MED CTR XRAY [address] | Prachi, FIRE ALARM OPERATOR [address] | virus) | | | | [place] | [address] | | | | | [place] [address] | [place], [place] | | | | | [phone] | [address] | | | | | | | | +--------+ + + + [...] | + + + +---------+--------+ + | buPROPion | Take 100 mg by mouth | | 0 | | | | (WELLBUTRIN) 100 mg | 2 times daily. | | | | | | tablet | | | | | | + + + +---------+--------+ + | FLUoxetine | Take 20 mg by mouth | | 0 | | | | (PROZAC) 20 mg | Daily. | | | | | | capsule | | | | | | + + + +---------+--------+ + | fluticasone | 2 sprays by Nasal | | 0 | | | | (FLONASE) 50 | route 2 times daily. | | | | | | mcg/nasal spray | | | | | | + + + +---------+--------+ + | lisinopril | Take 10 mg by mouth | | 0 | | | | (PRINIVIL, ZESTRIL) | Daily. | | | | | | 10 mg tablet | | | | | | + + + +---------+--------+ + | | Place in ear(s). 4 | | 0 | | | | EQMQKZWQ-EIQMISDKI-G | drops 4 times a day | | | | | | C, OTIC, | | | | | | | (CORTISPORIN) 1 % | | | | | | | SOLN | | | | | | + + + +---------+--------+ + | omeprazole | Take 20 mg by mouth | | 0 | | | | (PRILOSEC) 20 mg | nightly. | | | | | | capsule | | | | | | + + + +---------+--------+ + | | Take 1 tablet by | | 0 | | | | oxyCODONE-acetaminop | mouth every 4 hours | | | | | | hen (PERCOCET) | as needed. | | | | | | 10-325 mg per tablet | | | | | | + + + +---------+--------+ + | sucralfate | Take 1 g by mouth 4 | | 0 | | | | (CARAFATE) 1 g | times daily. | | | | | | tablet | | | | | | + + + +---------+--------+ + | carvedilol (COREG) | Take 6.25 mg by | | 0 | | | | 6.25 mg tablet | mouth 2 times daily | | | | 5 | | | (with breakfast & | | | | | | | dinner). | | | | | + + + +---------+--------+ + documented as of this encounter Progress Notes Prachi Esquivel ARNP - 10/11/2012 9:08 AM PST Quick Note: Will follow up after procedure. Please schedule appointment. 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 | | antibodies (UW) | | e | virus) | starting 10/06/2012 | + +---------+--------+ + + | Anti-smooth muscle | Lab | Routin | HCV (hepatitis C | 1 Occurrences | | antibody | | e | virus) | starting 10/06/2012 | + +---------+--------+ + + | [facility] | Lab | Routin | HCV (hepatitis C | 1 Occurrences | | | | e | virus) | starting 10/06/2012 | + +---------+--------+ + + | CBC with | Lab | Routin | HCV (hepatitis C | 1 Occurrences | | Differential | | e | virus) | starting 10/06/2012 | + +---------+--------+ + + | Protime INR | Lab | Routin | HCV (hepatitis C | 1 Occurrences | | | | e | virus) | starting 10/06/2012 | + +---------+--------+ + + | US Guided Biopsy | Imaging | Routin | HCV (hepatitis C | 1 Occurrences | | | | e | virus) | starting 10/06/2012 | + +---------+--------+ + + documented as of this encounter Procedures + +--------+ + + + | Procedure Name | Priori | Date/Time | Associated Diagnosis | Comments | | | ty | | | | + +--------+ + + + | US GUIDED BIOPSY | Routin | 10/06/2012 | | Results for this | | | e | 5:32 PM | | procedure are in the | | | | PST | | results section. | + +--------+ + + + | IRON PROFILE, | Routin | 10/06/2012 | | Results for this | | (FE+IBC+FERR+%SAT) | e | 9:10 AM | | procedure are in the | | | | PST | | results section. | + +--------+ + + + | IRON PROFILE, | Routin | 10/06/2012 | HCV (hepatitis C | Results for this | | (FE+IBC+FERR+%SAT) | e | 9:10 AM | virus) | procedure are in the | | | | PST | | results section. | + +--------+ + + + | [facility] QUANT, IFA | Routin | 10/06/2012 | | Results for this | | | e | 9:10 AM | | procedure are in the | | | | PST | | results section. | + +--------+ + + + | [place] QUANT, IFA | Routin | 10/06/2012 | | Results for this | | | e | 9:10 AM | | procedure are in the | | | | PST | | results section. | + +--------+ + + + | HEPATITIS A IGG.IGM | Routin | 10/06/2012 | | Results for this | | | e | 9:10 AM | | procedure are in the | | | | PST | | results section. | + +--------+ + + + | HEPATITIS A IGG.IGM | Routin | 10/06/2012 | HCV (hepatitis C | Results for this | | | e | 9:10 AM | virus) | procedure are in the | | | | PST | | results section. | + +--------+ + + + | CERULOPLASMIN | Routin | 10/06/2012 | | Results for this | | | e | 9:10 AM | | procedure are in the | | | | PST | | results section. | + +--------+ + + + | CERULOPLASMIN | Routin | 10/06/2012 | HCV (hepatitis C | Results for this | | | e | 9:10 AM | virus) | procedure are in the | | | | PST | | results section. | + +--------+ + + + | ALPHA FETOPROTEIN, | Routin | 10/06/2012 | | Results for this | | TUMOR MARKER | e | 9:10 AM | | procedure are in the | | | | PST | | results section. | + +--------+ + + + | ALPHA FETOPROTEIN, | Routin | 10/06/2012 | HCV (hepatitis C | Results for this | | TUMOR MARKER | e | 9:10 AM | virus) | procedure are in the | | | | PST | | results section. | + +--------+ + + + | HEPATITIS B CORE AB, | Routin | 10/06/2012 | | Results for this | | IGM | e | 9:10 AM | | procedure are in the | | | | PST | | results section. | + +--------+ + + + | HEPATITIS B CORE AB, | Routin | 10/06/2012 | HCV (hepatitis C | Results for this | | IGM | e | 9:10 AM | virus) | procedure are in the | | | | PST | | results section. | + +--------+ + + + | HEPATITIS C | Routin | 10/06/2012 | | Results for this | | GENOTYPING | e | 9:10 AM | | procedure are in the | | | | PST | | results section. | + +--------+ + + + | HEPATITIS C | Routin | 10/06/2012 | HCV (hepatitis C | Results for this | | GENOTYPING | e | 9:10 AM | virus) | procedure are in the | | | | PST | | results section. | + +--------+ + + + | HEPATITIS C | Routin | 10/06/2012 | | Results for this | | RNA,QUANTITATIVE,PCR | e | 9:10 AM | | procedure are in the | | | | PST | | results section. | + +--------+ + + + | HEPATITIS C | Routin | 10/06/2012 | HCV (hepatitis C | Results for this | | RNA,QUANTITATIVE,PCR | e | 9:10 AM | virus) | procedure are in the | | | | PST | | results section. | + +--------+ + + + | MITOCHONDRIAL | Routin | 10/06/2012 | | Results for this | | ANTIBODIES | e | 9:10 AM | | procedure are in the | | | | PST | | results section. | + +--------+ + + + | MITOCHONDRIAL | Routin | 10/06/2012 | | Results for this | | ANTIBODIES | e | 9:10 AM | | procedure are in the | | | | PST | | results section. | + +--------+ + + + | SMOOTH MUSCLE AB | Routin | 10/06/2012 | | Results for this | | | e | 9:10 AM | | procedure are in the | | | | PST | | results section. | + +--------+ + + + | SMOOTH MUSCLE AB | Routin | 10/06/2012 | | Results for this | | | e | 9:10 AM | | procedure are in the | | | | PST | | results section. | + +--------+ + + + | HEPATITIS B SURFACE | Routin | 10/06/2012 | | Results for this | | AB | e | 9:10 AM | | procedure are in the | | | | PST | | results section. | + +--------+ + + + | HEPATITIS B SURFACE | Routin | 10/06/2012 | HCV (hepatitis C | Results for this | | AB | e | 9:10 AM | virus) | procedure are in the | | | | PST | | results section. | + +--------+ + + + | HEPATITIS B SURFACE | Routin | 10/06/2012 | | Results for this | | AG | e | 9:10 AM | | procedure are in the | | | | PST | | results section. | + +--------+ + + + | HEPATITIS B SURFACE | Routin | 10/06/2012 | HCV (hepatitis C | Results for this | | AG | e | 9:10 AM | virus) | procedure are in the | | | | PST | | results section. | + +--------+ + + + | PROTIME INR | Routin | 10/06/2012 | | Results for this | | | e | 9:10 AM | | procedure are in the | | | | PST | | results section. | + +--------+ + + + | PROTIME INR | Routin | 10/06/2012 | HCV (hepatitis C | Results for this | | | e | 9:10 AM | virus) | procedure are in the | | | | PST | | results section. | + +--------+ + + + | CBC WITH | Routin | 10/06/2012 | | Results for this | | DIFFERENTIAL | e | 9:10 AM | | procedure are in the | | | | PST | | results section. | + +--------+ + + + | CBC WITH | Routin | 10/06/2012 | HCV (hepatitis C | Results for this | | DIFFERENTIAL | e | 9:10 AM | virus) | procedure are in the | | | | PST | | results section. | + +--------+ + + + | COMPREHENSIVE | Routin | 10/06/2012 | | Results for this | | METABOLIC PANEL | e | 9:10 AM | | procedure are in the | | | | PST | | results section. | + +--------+ + + + | COMPREHENSIVE | Routin | 10/06/2012 | HCV (hepatitis C | Results for this | | METABOLIC PANEL | e | 9:10 AM | virus) | procedure are in the | | | | PST | | results section. | + +--------+ + + + documented in this encounter Results US Guided Biopsy (10/06/2012 5:32 PM PST) + + | Specimen | + + | | + + + + + | Narrative | Performed At | + + + | [facility] | [facility] | | Department [address] | [facility] | | [ rep [address]] [ rep [facility] | | [facility]] Signed | - IMAGING | | | | | Patient Name: DIANNE PIERREADRIAN Ovalle Physician: | | | BRID.01 : 1980 Age: 32 Sex: M Unit #: [id number] | | | Exam Date: 10/06/12 Location: [facility] | | | Report #: [id number] Page: | | | %(RAD)RES..mtdd.print.filter("pg") of %(RAD) | | | RES..mtdd.print.filter("tpg") | | | | | | Accession Number: [id number] | | | ULTRASOUND NEEDLE BIOPSY 10/06/2012 CLINICAL HISTORY: | | | LIVER BIOPSY. HEPATITIS C. PROCEDURE: Patient's clinical | | | information was reviewed preprocedurally. Patient was evaluated for | | | moderate conscious sedation preprocedurally. Time Out was taken. | | | Patient was placed supine on the sonography table. Preprocedure | | | ultrasound was performed planning subcutaneous access to the right | | | lobe of the liver. Skin entry site was marked. It was then prepped | | | and draped in the usual sterile manner. Local anesthesia was | | | obtained to the skin surface and deep to the liver capsule, under | | | ultrasound guidance, using a 3.5 inch spinal needle and 1% buffered | | | lidocaine. Small skin jose r was made. A 18- gauge BioPince biopsy | | | device was advanced into the liver, under ultrasound guidance. A | | | single 3 cm core sample was obtained. The needle was removed. | | | Hemostasis was achieved at the skin surface with manual pressure. | | | The patient was placed right side down and remained so for | | | approximately 1 hour following the biopsy. During the | | | procedure patient received titrated doses of fentanyl. Total dosage | | | administered was 200 mcg. Following the procedure the patient was | | | recovered in same day surgery. He was administered an additional | | | pain medication consistent with 10 mg dose of oxycodone. This is a | | | patient who is on routine doses of narcotics for chronic pain and | | | this was his breakthrough pain dose typically taken with home | | | medications. This was administered immediately upon arriving to same | | | day surgery. The rest of the patient's recovery was uneventful. He | | | was discharged at approximately 2 hours postprocedural and when | | | appropriate criteria were met. IMPRESSION: SUCCESSFUL | | | ULTRASOUND-GUIDED CORE SAMPLING OF THE LIVER. Dictated | | | Date/Time: 10/06/2012 17:32 Transcribed Date/Time: 10/06/2012 | | | 20:14 Residency Coordinator: <<Signature on | | | File>> | | | Sam | | | Arabella Andrade MD10/07/12 1646 <Electronically signed by Sam Bell | | Kervin Andrade MD> Sam Andrade MD 10/06/12 1732 | | | Residency Coordinator: Zentricholly [id number] | | | MARIUM Christianson | | + + + + + + + + | Performing | Address | City/State/Zipcode | Phone Number | | Organization | | | | + + + + + | [facility] | [address] | [place] | [phone] | | [facility] | | [address] | | | - IMAGING | | | | + + + + + CBC with Differential (10/06/2012 9:10 AM PST) + + + + + + | Component | Value | Ref Range | Performed | Pathologist | | | | | At | Signature | + + + + + + | MANUAL | NO | | [facility] | | | DI[facility] | | | [facility] | | | L ? | | | MEDICAL | | | | | | CENTER - | | | | | | LABORATORY | | + + + + + + | White Blood | 5.7 | 4.0 - 11.0 K/uL | [facility] | | | Cells | | | [facility] | | | | | | MEDICAL | | | | | | CENTER - | | | | | | LABORATORY | | + + + + + + | Red Blood | 4.39 | 4.30 - 5.70 | [facility] | | | Cells | | M/uL | [facility] | | | | | | MEDICAL | | | | | | CENTER - | | | | | | LABORATORY | | + + + + + + | Hemoglobin | 13.8 | 13.5 - 18.0 | [facility] | | | | | gm/dL | . [facility] | | | | | | MEDICAL | | | | | | CENTER - | | | | | | LABORATORY | | + + + + + + | Hematocrit | 41.3 | 40.0 - 51.0 % | [facility] | | | | | | [facility] | | | | | | MEDICAL | | | | | | CENTER - | | | | | | LABORATORY | | + + + + + + | MCV | 94.1 | 83.0 - 101.0 fL | [facility] | | | | | | [facility] | | | | | | MEDICAL | | | | | | CENTER - | | | | | | LABORATORY | | + + + + + + | MCH | 31.4 | 28.0 - 35.0 pg | [facility] | | | | | | [facility] | | | | | | MEDICAL | | | | | | CENTER - | | | | | | LABORATORY | | + + + + + + | MCHC | 33.3 | 32.0 - 36.0 | [facility] | | | | | g/dL | [facility] | | | | | | MEDICAL | | | | | | CENTER - | | | | | | LABORATORY | | + + + + + + | RDW-CV | 13.8 | <15.0 % | [facility] | | | | | | [facility] | | | | | | MEDICAL | | | | | | CENTER - | | | | | | LABORATORY | | + + + + + + | Platelet | 185 | 140 - 440 K/uL | [facility] | | | Count | | | [facility] | | | | | | MEDICAL | | | | | | CENTER - | | | | | | LABORATORY | | + + + + + + | % | 42.6 (L) | 45 - 75 % | [facility] | | | Neutrophils | | | [facility] | | | | | | MEDICAL | | | | | | CENTER - | | | | | | LABORATORY | | + + + + + + | % | 45.5 (H) | 20 - 45 % | [facility] | | | Lymphocytes | | | [facility] | | | | | | MEDICAL | | | | | | CENTER - | | | | | | LABORATORY | | + + + + + + | % Monocytes | 9.8 | 4 - 12 % | [facility] | | | | | | [facility] | | | | | | MEDICAL | | | | | | CENTER - | | | | | | LABORATORY | | + + + + + + | % | 1.2 | 0 - 5 % | [facility] | | | Eosinophils | | | [facility] | | | | | | MEDICAL | | | | | | CENTER - | | | | | | LABORATORY | | + + + + + + | % Basophils | 0.9 | 0 - 1 % | [facility] | | | | | | [facility] | | | | | | MEDICAL | | | | | | CENTER - | | | | | | LABORATORY | | + + + + + + | Absolute | 2.4 | 1.5 - 6.6 K/uL | [facility] | | | Neutrophils | | | [facility] | | | | | | MEDICAL | | | | | | CENTER - | | | | | | LABORATORY | | + + + + + + | Absolute | 2.6 | 0.6 - 3.2 K/uL | [facility] | | | Lymphocytes | | | [facility] | | | | | | MEDICAL | | | | | | CENTER - | | | | | | LABORATORY | | + + + + + + | Absolute | 0.6 | 0.0 - 1.0 K/uL | [facility] | | | Monocytes | | | [facility] | | | | | | MEDICAL | | | | | | CENTER - | | | | | | LABORATORY | | + + + + + + | Absolute | 0.1 | 0.0 - 0.4 K/uL | [facility] | | | Eosinophils | | | [facility] | | | | | | MEDICAL | | | | | | CENTER - | | | | | | LABORATORY | | + + + + + + | Absolute | 0.1 | 0.0 - 0.1 K/uL | [facility] | | | Basophils | | | [facility] | | | | | | MEDICAL | | | | | | CENTER - | | | | | | LABORATORY | | + + + + + + + + | Specimen | + + | | + + + + + + + | Performing | Address | City/State/Zipcode | Phone Number | | Organization | | | | + + + + + | [facility] | [address] | [place] | [phone] | | [facility] | | [address] | | | - LABORATORY | | | | + + + + + | [facility] | [address] | [place] | | | [facility] | | [address] | | | - LABORATORY | | | | + + + + + Smooth Muscle Ab (10/06/2012 9:10 AM PST) + + + + + + | Component | Value | Ref Range | Performed | Pathologist | | | | | At | Signature | + + + + + + | Smooth | POSITIVE (H)Comment: | NEGATIVE | [facility] | | | Muscle Ab | RESULT OF SCREEN AT 1:20 | | [facility] | | | | DILUTION | | MEDICAL | | | | | | CENTER - | | | | | | LABORATORY | | + + + + + + | SMOOTH | 1:40 | NONE DET. | [facility] | | | MUSCLE AB | | | [facility] | | | IGG TITER | | | MEDICAL | | | | | | CENTER - | | | | | | LABORATORY | | + + + + + + + + | Specimen | + + | | + + + + + + + | Performing | Address | City/State/Zipcode | Phone Number | | Organization | | | | + + + + + | [facility] | [address] | [place] | [phone] | | [facility] | | [address] | | | - LABORATORY | | | | + + + + + | [facility] | [address] | [place] | | | [facility] | | [address], [facility] | | | - LABORATORY | | | | + + + + + Mitochondrial antibody (10/06/2012 9:10 AM PST) + + + + + + | Component | Value | Ref Range | Performed | Pathologist | | | | | At | Signature | + + + + + + | MITOCHONDRI | NEGATIVEComment: Result | NEGATIVE | [facility] | | | AL AB | of screen at 1:20 | | [facility] | | | | dilution | | MEDICAL | | | | | | CENTER - | | | | | | LABORATORY | | + + + + + + + + | Specimen | + + | | + + + + + + + | Performing | Address | City/State/Zipcode | Phone Number | | Organization | | | | + + + + + | [facility] | [address] | [place], [place] | [phone] | | [facility] | | [address] | | | - LABORATORY | | | | + + + + + | [facility] | [address] | [place], [place] | | | [facility] | | [address], [facility] | | | - LABORATORY | | | | + + + + + [place] titer by IFA (10/06/2012 9:10 AM PST) + + + + + + | Component | Value | Ref Range | Performed | Pathologist | | | | | At | Signature | + + + + + + | [place] SCREEN | NEGATIVEComment: RESULT | NEGATIVE | [facility] | | | | OF SCREEN AT 1:40 | | [facility] | | | | DILUTION | | MEDICAL | | | | | | CENTER - | | | | | | LABORATORY | | + + + + + + + + | Specimen | + + | | + + + + + + + | Performing | Address | City/State/Zipcode | Phone Number | | Organization | | | | + + + + + | [facility] | [address] | [place], [place] | [phone] | | [facility] | | [address] | | | - LABORATORY | | | | + + + + + | [facility] | [address] | [place], [place] | | | [facility] | | [address] | | | - LABORATORY | | | | + + + + + Protime INR (10/06/2012 9:10 AM PST) + + + + + + | Component | Value | Ref Range | Performed | Pathologist | | | | | At | Signature | + + + + + + | Prothrombin | 12.1 | 11.3 - 13.9 | [facility] | | | Time | | seconds | [facility] | | | | | | MEDICAL | | | | | | CENTER - | | | | | | LABORATORY | | + + + + + + | PATIENT | 12.9 | seconds | [facility] | | | NORMAL MEAN | | | [facility] | | | | | | MEDICAL | | | | | | CENTER - | | | | | | LABORATORY | | + + + + + + | INR | 0.9Comment: INR: USUAL | 0.9 - 1.1 | [facility] | | | | ORAL ANTICOAGULATION | | [facility] | | | | RANGE | | MEDICAL | | | | 2.0-3.0 | | CENTER - | | | | HIGH LEVEL ORAL | | LABORATORY | | | | ANTICOAGULATION RANGE | | | | | | 2.5-3.5 | | | | + + + + + + + + | Specimen | + + | | + + + + + + + | Performing | Address | City/State/Zipcode | Phone Number | | Organization | | | | + + + + + | [facility] | [address] | [place], [place] | [phone] | | [facility] | | [address] | | | - LABORATORY | | | | + + + + + | [facility] | [address] | [place], [place] | | | [facility] | | [address], [facility] | | | - LABORATORY | | | | + + + + + Hepatitis B Surface Ab (10/06/2012 9:10 AM PST) + + + + + + | Component | Value | Ref Range | Performed | Pathologist | | | | | At | Signature | + + + + + + | HEP B | <0.50Comment: <1.00 | () IV | [facility] | | | SURFACE | Non immune | | [facility] | | | ANTIBODY | >=1.00 | | MEDICAL | | | | Indicates vaccine | | CENTER - | | | | response or response to | | LABORATORY | | | | HBV infection. | | | | | | An Index Value (IV) of | | | | | | 1.00 is equivalent to | | | | | | 10 mIU/mL. Samples with | | | | | | an IV of 1.00 or greater | | | | | | are considered reactive | | | | | | (protected) in | | | | | | accordance with the CDC | | | | | | Guidelines. Testing | | | | | | Performed: [facility], [address] | | | | | | [address], [place] | | | | | | [id number] CLIA: [id number] | | | | | | | | | | + + + + + + + + | Specimen | + + | | + + + + + + + | Performing | Address | City/State/Zipcode | Phone Number | | Organization | | | | + + + + + | [facility] | [address] | [place], [place] | [phone] | | [facility] | | [address] | | | - LABORATORY | | | | + + + + + | [facility] | [address] | [place], [place] | | | [facility] | | [address] [place] [address] | | | - LABORATORY | | | | + + + + + Hepatitis B Surface Ag (10/06/2012 9:10 AM PST) + + + + + + | Component | Value | Ref Range | Performed | Pathologist | | | | | At | Signature | + + + + + + | Hepatitis B | Non ReactiveComment: | NR | [facility] | | | Surface Ag | Testing Performed: [facility], | | [facility] | | | | [address], | | MEDICAL | | | | [place] [address] | | CENTER - | | | | [place]: [id number] | | LABORATORY | | + + + + + + + + | Specimen | + + | | + + + + + + + | Performing | Address | City/State/Zipcode | Phone Number | | Organization | | | | + + + + + | [facility] | [address] | [place], [place] | [phone] | | [facility] | | [address] | | | - LABORATORY | | | | + + + + + | [facility] | [address] | [place], [place] | | | [facility] | | [address] | | | - LABORATORY | | | | + + + + + Hepatitis B Core Ab, IgM (10/06/2012 9:10 AM PST) + + + + + + | Component | Value | Ref Range | Performed | Pathologist | | | | | At | Signature | + + + + + + | HEP B CORE | Non ReactiveComment: | NR | [facility] | | | IgM | Testing Performed: [facility], | | [facility] | | | | [address], | | MEDICAL | | | | [place] [address] | | CENTER - | | | | [place]: [id number] | | LABORATORY | | + + + + + + + + | Specimen | + + | | + + + + + + + | Performing | Address | City/State/Zipcode | Phone Number | | Organization | | | | + + + + + | [facility] | [address] | [place] | [phone] | | [facility] | | [address] | | | - LABORATORY | | | | + + + + + | [facility] | [address] | [place] | | | [facility] | | [address], [facility] | | | - LABORATORY | | | | + + + + + Hepatitis A IGG.IGM (10/06/2012 9:10 AM PST) + + + + + + | Component | Value | Ref Range | Performed | Pathologist | | | | | At | Signature | + + + + + + | HEP A TOTAL | Non ReactiveComment: | NR | [facility] | | | AB | Testing Performed: [facility], | | [facility] | | | | [address], | | MEDICAL | | | | [place] [address] | | CENTER - | | | | CLIA: [id number] | | LABORATORY | | + + + + + + | Hepatitis | SEE BELOWComment: No | () | [facility] | | | Interpretat | serologic evidence of | | [facility] | | | ion: | past or current HAV | | MEDICAL | | | | infection. Testing | | CENTER - | | | | Performed: [facility], [address] | LABORATORY | | | | [place] [address], [place] | | | | | | [address] CLIA: [id number] | | | | | | | | | | + + + + + + + + | Specimen | + + | | + + + + + + + | Performing | Address | City/State/Zipcode | Phone Number | | Organization | | | | + + + + + | [facility] | [address] | [place] | [phone] | | [facility] | | [address] | | | - LABORATORY | | | | + + + + + | [facility] | [address] | [place], [place] | | | [facility] | | [address] | | | - LABORATORY | | | | + + + + + Ceruloplasmin (10/06/2012 9:10 AM PST) + + + + + + | Component | Value | Ref Range | Performed | Pathologist | | | | | At | Signature | + + + + + + | CERULOPLASM | 38Comment: Testing | 21 - 53 mg/dL | [facility] | | | [place] | Performed: [facility], [address] | | [facility] | | | | [address] [place] | | MEDICAL | | | | [address] CLIA: [id number] | | CENTER - | | | | | | LABORATORY | | + + + + + + + + | Specimen | + + | | + + + + + + + | Performing | Address | City/State/Zipcode | Phone Number | | Organization | | | | + + + + + | [facility] | [address] | [place], [place] | [phone] | | [facility] | | [address] | | | - LABORATORY | | | | + + + + + | [facility] | [address] | [place], [place] | | | [facility] | | [address] | | | - LABORATORY | | | | + + + + + Hepatitis C RNA, quantitative, PCR (10/06/2012 9:10 AM PST) + + + + + + | Component | Value | Ref Range | Performed | Pathologist | | | | | At | Signature | + + + + + + | HCV Viral | 5.5 (H) | NOTDET Log | [facility] | | | Load, log10 | | IU/mL | [facility] | | | | | | MEDICAL | | | | | | [place] - | | | | | | LABORATORY | | + + + + + + | HCV Quant | [id number] (H)Comment: | NOTDET IU/mL | [facility] | | | | Reportable range HCV RNA | | [facility] | | | | 1.6 to 7.8 Log IU/mL | | MEDICAL | | | | (43 to 69,000,000 | | CENTER - | | | | IU/mL). This assay has a | | LABORATORY | | | | mean concentration | | | | | | limit of detection of | | | | | | 7.1 IU/mL for HCV | | | | | | Genotype 1. This assay | | | | | | was performed using | | | | | | the FDA approved Eileen | | | | | | ROSSY AmpliPrep/ROSSY | | | | | | TaqMan HCV Test. The | | | | | | ROSSY Ampliprep/ROSSY | | | | | | Taqman HCV Test is not | | | | | | intended for use as a | | | | | | screening test for the | | | | | | presence of HCV in | | | | | | blood or blood products. | | | | | | Testing Performed: | | | | | | [facility], [address], | | | | | | [place] [address] | | | | | | CLIA: [id number] | | | | + + + + + + + + | Specimen | + + | | + + + + + + + | Performing | Address | City/State/Zipcode | Phone Number | | Organization | | | | + + + + + | [facility] | [address] | [place] | [phone] | | [facility] | | [address] | | | - LABORATORY | | | | + + + + + | [facility] | [address] | [place] | | | [facility] | | [address] | | | - LABORATORY | | | | + + + + + Hepatitis C Genotyping (10/06/2012 9:10 AM PST) + + + + + + | Component | Value | Ref Range | Performed | Pathologist | | | | | At | Signature | + + + + + + | HCV | Type 3aComment: HCV | () | [facility] | | | Genotype by | genotype was determined | | [facility] | | | PCR | by RT PCR and line probe | | MEDICAL | | | | DNA hybridization | | CENTER - | | | | assay. The line probe | | LABORATORY | | | | assay incorporates 20 | | | | | | DNA probes to detect | | | | | | the 6 major HCV | | | | | | genotypes and their | | | | | | most common subtypes | | | | | | (1a, 1b, 2a/c, 2b, 3a, | | | | | | 3b, 4a through 4h, 5a, | | | | | | and 6a). Analyte | | | | | | Specific Reagents (ASR) | | | | | | are used in many | | | | | | laboratory tests | | | | | | necessary for standard | | | | | | medical care and | | | | | | generally do not require | | | | | | U.S. Food and Drug | | | | | | Administration | | | | | | approval. This test was | | | | | | developed and its | | | | | | performance | | | | | | characteristics | | | | | | determined by [facility] | | | | | | Laboratories. It has | | | | | | not been approved by the | | | | | | FDA. This test should | | | | | | not be regarded as | | | | | | investigational or for | | | | | | research use. Testing | | | | | | Performed: [facility], [address] | | | | | [address], [place] | | | | | | [address] [place]: | | | | | | [id number] | | | | + + + + + + + + | Specimen | + + | | + + + + + + + | Performing | Address | City/State/Zipcode | Phone Number | | Organization | | | | + + + + + | [facility] | [address] | [place], [place] | [phone] | | [facility] | | [address] | | | - LABORATORY | | | | + + + + + | [facility] | [address] | [place], [place] | | | [facility] | | [address], [facility] | | | - LABORATORY | | | | + + + + + Alpha Fetoprotein, Tumor Marker (10/06/2012 9:10 AM PST) + + + + + + | Component | Value | Ref Range | Performed | Pathologist | | | | | At | Signature | + + + + + + | AFP Tumor | 2.1Comment: Reference | 0.6 - 6.6 ng/mL | [facility] | | | Marker | range applies to males | | [facility] | | | | and non | | MEDICAL | | | | females. Testing | | CENTER - | | | | Performed: [facility] | | LABORATORY | | | | [facility] | | | | | | [place], [address], | | | | | | [place] [address] | | | | | | CLIA: [id number] | | | | + + + + + + + + | Specimen | + + | | + + + + + + + | Performing | Address | City/State/Zipcode | Phone Number | | Organization | | | | + + + + + | [facility] | [address] | [place], [place] | [phone] | | [facility] | | [address] | | | - LABORATORY | | | | + + + + + | [facility] | [address] | [place], [place] | | | [facility] | | [address] [place] [address] | | | - LABORATORY | | | | + + + + + Iron Profile (10/06/2012 9:10 AM PST) + + + + + + | Component | Value | Ref Range | Performed | Pathologist | | | | | At | Signature | + + + + + + | Iron | 75 | 50 - 160 ug/dL | [facility] | | | | | | [facility] | | | | | | MEDICAL | | | | | | CENTER - | | | | | | LABORATORY | | + + + + + + | TIBC | 375 | 235 - 425 ug/dL | [facility] | | | | | | [facility] | | | | | | MEDICAL | | | | | | CENTER - | | | | | | LABORATORY | | + + + + + + | % | 20 | 20 - 55 % | [facility] | | | SATURATION | | | [facility] | | | | | | MEDICAL | | | | | | CENTER - | | | | | | LABORATORY | | + + + + + + | FERRITIN | 78.4Comment: Testing | 23.9 - 336.0 | [facility] | | | | performed on the Rosaura | ng/mL | [facility] | | | | [place] [facility] | | MEDICAL | | | | Analyzer. | | CENTER - | | | | | | LABORATORY | | + + + + + + + + | Specimen | + + | | + + + + + + + | Performing | Address | City/State/Zipcode | Phone Number | | Organization | | | | + + + + + | [facility] | [address] | [place] | [phone] | | [facility] | | [address] | | | - LABORATORY | | | | + + + + + | [facility] | [address] | [place] | | | [facility] | | [address] | | | - LABORATORY | | | | + + + + + Comprehensive Metabolic Panel (10/06/2012 9:10 AM PST) + + + + + + | Component | Value | Ref Range | Performed | Pathologist | | | | | At | Signature | + + + + + + | Glucose | 90 | 70 - 109 mg/dL | [facility] | | | | | | [facility] | | | | | | MEDICAL | | | | | | CENTER - | | | | | | LABORATORY | | + + + + + + | Calcium | 9.1 | 8.3 - 10.5 | [facility] | | | | | mg/dL | [facility] | | | | | | MEDICAL | | | | | | CENTER - | | | | | | LABORATORY | | + + + + + + | Alkaline | 68 | 40 - 110 IU/L | [facility] | | | Phosphatase | | | [facility] | | | | | | MEDICAL | | | | | | CENTER - | | | | | | LABORATORY | | + + + + + + | AST | 24 | 10 - 42 IU/L | [facility] | | | | | | [facility] | | | | | | MEDICAL | | | | | | CENTER - | | | | | | LABORATORY | | + + + + + + | ALT | 31 | 6 - 45 IU/L | [facility] | | | | | | [facility] | | | | | | MEDICAL | | | | | | CENTER - | | | | | | LABORATORY | | + + + + + + | Bilirubin | 0.7 | 0.2 - 1.0 mg/dL | [facility] | | | Total | | | [facility] | | | | | | MEDICAL | | | | | | CENTER - | | | | | | LABORATORY | | + + + + + + | Total | 6.5 | 6.0 - 7.8 gm/dL | [facility] | | | Protein | | | [facility] | | | | | | MEDICAL | | | | | | CENTER - | | | | | | LABORATORY | | + + + + + + | Albumin | 3.8 | 3.2 - 5.0 gm/dL | [facility] | | | | | | [facility] | | | | | | MEDICAL | | | | | | CENTER - | | | | | | LABORATORY | | + + + + + + | BUN | 12 | 7 - 18 mg/dL | [facility] | | | | | | [facility] | | | | | | MEDICAL | | | | | | CENTER - | | | | | | LABORATORY | | + + + + + + | Creatinine | 0.87 | 0.60 - 1.30 | [facility] | | | | | mg/dL | [facility] | | | | | | MEDICAL | | | | | | CENTER - | | | | | | LABORATORY | | + + + + + + | Estimated | >60Comment: For | >60 mL/min/A | [facility] | | | GFR | -Americans, | | [facility] | | | | please multiply the | | MEDICAL | | | | result by 1.210 | | CENTER - | | | | This is an estimated | | LABORATORY | | | | GFR and is based on a | | | | | | standard adult | | | | | | body mass (A=1.73m2) and | | | | | | serum creatinine | | | | + + + + + + | BUN/Creatin | 13.8 | 12 - 20 | [facility] | | | ine Ratio | | | [facility] | | | | | | MEDICAL | | | | | | CENTER - | | | | | | LABORATORY | | + + + + + + | Na | 135 (L) | 136 - 149 mEq/L | [facility] | | | | | | [facility] | | | | | | MEDICAL | | | | | | CENTER - | | | | | | LABORATORY | | + + + + + + | K | 4.1 | 3.5 - 5.1 mEq/l | [facility] | | | | | | [facility] | | | | | | MEDICAL | | | | | | CENTER - | | | | | | LABORATORY | | + + + + + + | Cl | 102 | 98 - 109 mEq/l | [facility] | | | | | | [facility] | | | | | | MEDICAL | | | | | | CENTER - | | | | | | LABORATORY | | + + + + + + | CO2 | 25 | 24 - 31 mEq/L | [facility] | | | | | | [facility] | | | | | | MEDICAL | | | | | | CENTER - | | | | | | LABORATORY | | + + + + + + | Anion Gap | 12.1 | 6.0 - 17.0 | [facility] | | | | | | [facility] | | | | | | MEDICAL | | | | | | CENTER - | | | | | | LABORATORY | | + + + + + + + + | Specimen | + + | | + + + + + + + | Performing | Address | City/State/Zipcode | Phone Number | | Organization | | | | + + + + + | [facility] | [address] | [place], [place] | [phone] | | [facility] | | [address] | | | - LABORATORY | | | | + + + + + | [facility] | [address] | [place], [place] | | | [facility] | | [address] | | | - LABORATORY | | | | + + + + + Smooth Muscle Ab (10/06/2012 9:10 AM PST) + + + + + + | Component | Value | Ref Range | Performed | Pathologist | | | | | At | Signature | + + + + + + | Smooth | POSITIVE (A)Comment: | NEGATIVE | [facility] | | | Muscle Ab | RESULT OF SCREEN AT 1:20 | | [facility] | | | | DILUTION | | MEDICAL | | | | | | CENTER - | | | | | | LABORATORY | | + + + + + + | SMOOTH | 1:40 | NONE DET. | [facility] | | | MUSCLE AB | | | [facility] | | | IGG TITER | | | MEDICAL | | | | | | CENTER - | | | | | | LABORATORY | | + + + + + + + + | Specimen | + + | | + + + + + + + | Performing | Address | City/State/Zipcode | Phone Number | | Organization | | | | + + + + + | [facility] | [address] | [place] | [phone] | | [facility] | | [address] | | | - LABORATORY | | | | + + + + + | [facility] | [address] | [place] | | | [facility] | | [address] | | | - LABORATORY | | | | + + + + + Mitochondrial antibody (10/06/2012 9:10 AM PST) + + + + + + | Component | Value | Ref Range | Performed | Pathologist | | | | | At | Signature | + + + + + + | MITOCHONDRI | NEGATIVEComment: Result | NEGATIVE | [facility] | | | AL AB | of screen at 1:20 | | [facility] | | | | dilution | | MEDICAL | | | | | | CENTER - | | | | | | LABORATORY | | + + + + + + + + | Specimen | + + | | + + + + + + + | Performing | Address | City/State/Zipcode | Phone Number | | Organization | | | | + + + + + | [facility] | [address] | [place], [place] | [phone] | | [facility] | | [address] | | | - LABORATORY | | | | + + + + + | [facility] | [address] | [place], [place] | | | [facility] | | [address] | | | - LABORATORY | | | | + + + + + BROOKLYN titer by IFA (10/06/2012 9:10 AM PST) + + + + + + | Component | Value | Ref Range | Performed | Pathologist | | | | | At | Signature | + + + + + + | BROOKLYN SCREEN | NEGATIVEComment: RESULT | NEGATIVE | [facility] | | | | OF SCREEN AT 1:40 | | [facility] | | | | DILUTION | | MEDICAL | | | | | | CENTER - | | | | | | LABORATORY | | + + + + + + + + | Specimen | + + | | + + + + + + + | Performing | Address | City/State/Zipcode | Phone Number | | Organization | | | | + + + + + | [facility] | [address] | [place], [place] | [phone] | | [facility] | | [address] | | | - LABORATORY | | | | + + + + + | [facility] | [address] | [place], [place] | | | [facility] | | [address] [place] [address] | | | - LABORATORY | | | | + + + + + Hepatitis C RNA, quantitative, PCR (10/06/2012 9:10 AM PST) + + + + + + | Component | Value | Ref Range | Performed | Pathologist | | | | | At | Signature | + + + + + + | HCV Viral | 5.5 (A) | NOTDET Log | [facility] | | | Load, log10 | | IU/mL | [facility] | | | | | | MEDICAL | | | | | | CENTER - | | | | | | LABORATORY | | + + + + + + | HCV Quant | [id number] (A)Comment: | NOTDET IU/mL | [facility] | | | | Reportable range HCV RNA | | [facility] | | | | 1.6 to 7.8 Log IU/mL | | MEDICAL | | | | (43 to69,000,000 IU/mL). | | CENTER - | | | | This assay has a mean | | LABORATORY | | | | concentration limitof | | | | | | detection of 7.1 IU/mL | | | | | | for HCV Genotype 1. This | | | | | | assay wasperformed | | | | | | using the FDA approved | | | | | | Eileen | | | | | | COBASAmpliPrep/ROSSY | | | | | | TaqMan HCV Test. The | | | | | | ROSSY | | | | | | Ampliprep/COBASTaqman | | | | | | HCV Test is not intended | | | | | | for use as a screening | | | | | | testfor the presence of | | | | | | HCV in blood or blood | | | | | | products. | | | | | | TestingPerformed: [facility], | | | | | | [address], | | | | | | [place] [address] | | | | | | [place]:[id number] | | | | + + + + + + + + | Specimen | + + | Blood specimen | | (specimen) | + + + + + + + | Performing | Address | City/State/Zipcode | Phone Number | | Organization | | | | + + + + + | [facility] | [address] | [place] | [phone] | | [facility] | | [address] | | | - LABORATORY | | | | + + + + + | [facility] | [address] | [place] | | | [facility] | | [address], [facility] | | | - LABORATORY | | | | + + + + + Hepatitis C genotype (10/06/2012 9:10 AM PST) + + + + + + | Component | Value | Ref Range | Performed | Pathologist | | | | | At | Signature | + + + + + + | HCV | Type 3aComment: HCV | () | [facility] | | | Genotype by | genotype was determined | | [facility] | | | PCR | by RT PCR and line probe | | MEDICAL | | | | DNAhybridization assay. | | CENTER - | | | | The line probe assay | | LABORATORY | | | | incorporates 20DNA | | | | | | probes to detect the 6 | | | | | | major HCV genotypes and | | | | | | theirmost common | | | | | | subtypes (1a, 1b, 2a/c, | | | | | | 2b, 3a, 3b, 4a | | | | | | zrmtgqt4v, 5a, and 6a). | | | | | | Analyte Specific | | | | | | Reagents (ASR) are used | | | | | | inhiawasseey laboratory tests | | | | | | necessary for standard | | | | | | medical careand | | | | | | generally do not require | | | | | | U.S. Food and | | | | | | DrugAdministration | | | | | | approval. This test was | | | | | | developed and | | | | | | itsperformance | | | | | | characteristics | | | | | | determined by [facility] | | | | | | Laboratories.It has not | | | | | | been approved by the | | | | | | FDA. This test should | | | | | | not beregarded as | | | | | | investigational or for | | | | | | research use. | | | | | | TestingPerformed: [facility], | | | | | | [address], | | | | | | [place] [address] | | | | | | CLIA:[id number] | | | | + + + + + + + + | Specimen | + + | Blood specimen | | (specimen) | + + + + + + + | Performing | Address | City/State/Zipcode | Phone Number | | Organization | | | | + + + + + | [facility] | [address] | [place], [place] | [phone] | | [facility] | | [address] | | | - LABORATORY | | | | + + + + + | [facility] | [address] | [place], [place] | | | [facility] | | [address] | | | - LABORATORY | | | | + + + + + Protime-INR (10/06/2012 9:10 AM PST) + + + + + + | Component | Value | Ref Range | Performed | Pathologist | | | | | At | Signature | + + + + + + | Prothrombin | 12.1 | 11.3 - 13.9 | [facility] | | | Time | | seconds | [facility] | | | | | | MEDICAL | | | | | | CENTER - | | | | | | LABORATORY | | + + + + + + | PATIENT | 12.9 | seconds | [facility] | | | NORMAL MEAN | | | [facility] | | | | | | MEDICAL | | | | | | CENTER - | | | | | | LABORATORY | | + + + + + + | INR | 0.9Comment: INR: USUAL | 0.9 - 1.1 | [facility] | | | | ORAL ANTICOAGULATION | | [facility] | | | | RANGE | | MEDICAL | | | | 2.0-3.0 HIGH | | CENTER - | | | | LEVEL ORAL | | LABORATORY | | | | ANTICOAGULATION RANGE | | | | | | 2.5-3.5 | | | | + + + + + + + + | Specimen | + + | Blood specimen | | (specimen) | + + + + + | Narrative | Performed At | + + + | | [facility] | | | [facility] | | | [facility] | | | - LABORATORY | + + + + + + + + | Performing | Address | City/State/Zipcode | Phone Number | | Organization | | | | + + + + + | [facility] | [address] | [place] | [phone] | | [facility] | | [address] | | | - LABORATORY | | | | + + + + + | [facility] | [address] | [place] | | | [facility] | | [address], [facility] | | | - LABORATORY | | | | + + + + + Ceruloplasmin (10/06/2012 9:10 AM PST) + + + + + + | Component | Value | Ref Range | Performed | Pathologist | | | | | At | Signature | + + + + + + | CERULOPLASM | 38Comment: Testing | 21 - 53 mg/dL | [facility] | | | [place] | Performed: [facility], [address] | | [facility] | | | | [address], [place] | | MEDICAL | | | | [id number]: [id number] | | CENTER - | | | | | | LABORATORY | | + + + + + + + + | Specimen | + + | Blood specimen | | (specimen) | + + + + + + + | Performing | Address | City/State/Zipcode | Phone Number | | Organization | | | | + + + + + | [facility] | [address] | [place], [place] | [phone] | | [facility] | | [address] | | | - LABORATORY | | | | + + + + + | [facility] | [address] | [place] | | | [facility] | | [address] [place] [address] | | | - LABORATORY | | | | + + + + + HEPATITIS B SURFACE ANTIBODY (10/06/2012 9:10 AM PST) + + + + + + | Component | Value | Ref Range | Performed | Pathologist | | | | | At | Signature | + + + + + + | HEP B | <0.50Comment: <1.00 | () IV | [facility] | | | SURFACE | Non | | [facility] | | | ANTIBODY | immune>=1.00 | | MEDICAL | | | | Indicates vaccine | | CENTER - | | | | response or response | | LABORATORY | | | | toHBV infection. An | | | | | | Index Value (IV) of 1.00 | | | | | | is equivalent to 10 | | | | | | mIU/mL.Samples with an | | | | | | IV of 1.00 or greater | | | | | | are consideredreactive | | | | | | (protected) in | | | | | | accordance with the | | | | | | CDCGuidelines. Testing | | | | | | Performed: [address] | | | | | | [address], [place] | | | | | | [address] CLIA: [id number] | | | | + + + + + + + + | Specimen | + + | Blood specimen | | (specimen) | + + + + + + + | Performing | Address | City/State/Zipcode | Phone Number | | Organization | | | | + + + + + | [facility] | [address] | [place], [place] | [phone] | | [facility] | | [address] | | | - LABORATORY | | | | + + + + + | [facility] | [address] | [place], [place] | | | [facility] | | [address] | | | - LABORATORY | | | | + + + + + Hepatitis A IGG.IGM (10/06/2012 9:10 AM PST) + + + + + + | Component | Value | Ref Range | Performed | Pathologist | | | | | At | Signature | + + + + + + | HEP A TOTAL | Non ReactiveComment: | NR | [facility] | | | AB | Testing Performed: [facility], | | [facility] | | | | [address], | | MEDICAL | | | | [place] [id number]: | | CENTER - | | | | [id number] | | LABORATORY | | + + + + + + | Hepatitis | SEE BELOWComment: No | () | [facility] | | | Interpretat | serologic evidence of | | [facility] | | | ion: | past or current HAV | | MEDICAL | | | | infection.Testing | | CENTER - | | | | Performed: [facility] [address] | | LABORATORY | | | | [address], [place] | | | | | | [id number]: [id number] | | | | + + + + + + + + | Specimen | + + | Blood specimen | | (specimen) | + + + + + + + | Performing | Address | City/State/Zipcode | Phone Number | | Organization | | | | + + + + + | [facility] | [address] | [place], [place] | [phone] | | [facility] | | [address] | | | - LABORATORY | | | | + + + + + | [facility] | [address] | [place] | | | [facility] | | [address], [facility] | | | - LABORATORY | | | | + + + + + AFP tumor marker (10/06/2012 9:10 AM PST) + + + + + + | Component | Value | Ref Range | Performed | Pathologist | | | | | At | Signature | + + + + + + | AFP Tumor | 2.1Comment: Reference | 0.6 - 6.6 ng/mL | [facility] | | | Marker | range applies to males | | [facility] | | | | and non | | MEDICAL | | | | females.Testing | | CENTER - | | | | Performed: [place] | | LABORATORY | | | | [facility] | | | | | | [place],[address] , | | | | | | [place] [id number] | | | | | | CLIA: [id number] | | | | + + + + + + + + | Specimen | + + | Blood specimen | | (specimen) | + + + + + + + | Performing | Address | City/[facility]/Zipcode | Phone Number | | Organization | | | | + + + + + | [facility] | [address] | [place], [place] | [phone] | | [facility] | | [address] | | | - LABORATORY | | | | + + + + + | [facility] | [address] | [place], [place] | | | [facility] | | [id number], [facility] | | | - LABORATORY | | | | + + + + + HEPATITIS B SURFACE ANTIGEN (10/06/2012 9:10 AM PST) + + + + + + | Component | Value | Ref Range | Performed | Pathologist | | | | | At | Signature | + + + + + + | Hepatitis B | Non ReactiveComment: | NR | [facility] | | | Surface Ag | Testing Performed: [facility], | | [facility] | | | | [address], | | MEDICAL | | | | [place], [place] [id number]: | | CENTER - | | | | [id number] | | LABORATORY | | + + + + + + + + | Specimen | + + | Blood specimen | | (specimen) | + + + + + + + | Performing | Address | City/State/Zipcode | Phone Number | | Organization | | | | + + + + + | [facility] | [address] | [place], [place] | [phone] | | [facility] | | [address] | | | - LABORATORY | | | | + + + + + | [facility] | [address] | [place], [place] | | | [facility] | | [id number] | | | - LABORATORY | | | | + + + + + HEPATITIS B CORE IGM ANTIBODY (10/06/2012 9:10 AM PST) + + + + + + | Component | Value | Ref Range | Performed | Pathologist | | | | | At | Signature | + + + + + + | HEP B CORE | Non ReactiveComment: | NR | [facility] | | | IgM | Testing Performed: [facility], | | [facility] | | | | [address], | | MEDICAL | | | | [place] [id number]: | | CENTER - | | | | [id number] | | LABORATORY | | + + + + + + + + | Specimen | + + | Blood specimen | | (specimen) | + + + + + + + | Performing | Address | City/State/Zipcode | Phone Number | | Organization | | | | + + + + + | [facility] | [address] | [place], [place] | [phone] | | [facility] | | [address] | | | - LABORATORY | | | | + + + + + | [facility] | [address] | [place], [place] | | | [facility] | | [id number] | | | - LABORATORY | | | | + + + + + Iron Profile (10/06/2012 9:10 AM PST) + + + + + + | Component | Value | Ref Range | Performed | Pathologist | | | | | At | Signature | + + + + + + | Iron | 75 | 50 - 160 ug/dL | [facility] | | | | | | [facility] | | | | | | MEDICAL | | | | | | CENTER - | | | | | | LABORATORY | | + + + + + + | TIBC | 375 | 235 - 425 ug/dL | [facility] | | | | | | [facility] | | | | | | MEDICAL | | | | | | CENTER - | | | | | | LABORATORY | | + + + + + + | % | 20 | 20 - 55 % | [facility] | | | SATURATION | | | [facility] | | | | | | MEDICAL | | | | | | CENTER - | | | | | | LABORATORY | | + + + + + + | FERRITIN | 78.4Comment: Testing | 23.9 - 336.0 | [facility] | | | | performed on the Rosaura | ng/mL | [facility] | | | | [place] [facility] | | MEDICAL | | | | Analyzer. | | CENTER - | | | | | | LABORATORY | | + + + + + + + + | Specimen | + + | Blood specimen | | (specimen) | + + + + + + + | Performing | Address | City/State/Zipcode | Phone Number | | Organization | | | | + + + + + | [facility] | [address] | [place] | [phone] | | [facility] | | [address] | | | - LABORATORY | | | | + + + + + | [facility] | [address] | [place] | | | [facility] | | [id number] | | | - LABORATORY | | | | + + + + + Comprehensive metabolic panel (10/06/2012 9:10 AM PST) + + + + + + | Component | Value | Ref Range | Performed | Pathologist | | | | | At | Signature | + + + + + + | Glucose | 90 | 70 - 109 mg/dL | [facility] | | | | | | [facility] | | | | | | MEDICAL | | | | | | CENTER - | | | | | | LABORATORY | | + + + + + + | Calcium | 9.1 | 8.3 - 10.5 | [facility] | | | | | mg/dL | [facility] | | | | | | MEDICAL | | | | | | CENTER - | | | | | | LABORATORY | | + + + + + + | Alkaline | 68 | 40 - 110 IU/L | [facility] | | | Phosphatase | | | [facility] | | | | | | MEDICAL | | | | | | CENTER - | | | | | | LABORATORY | | + + + + + + | AST | 24 | 10 - 42 IU/L | [facility] | | | | | | [facility] | | | | | | MEDICAL | | | | | | CENTER - | | | | | | LABORATORY | | + + + + + + | ALT | 31 | 6 - 45 IU/L | [facility] | | | | | | [facility] | | | | | | MEDICAL | | | | | | CENTER - | | | | | | LABORATORY | | + + + + + + | Bilirubin | 0.7 | 0.2 - 1.0 mg/dL | [facility] | | | Total | | | [facility] | | | | | | MEDICAL | | | | | | CENTER - | | | | | | LABORATORY | | + + + + + + | Total | 6.5 | 6.0 - 7.8 gm/dL | [facility] | | | Protein | | | [facility] | | | | | | MEDICAL | | | | | | CENTER - | | | | | | LABORATORY | | + + + + + + | Albumin | 3.8 | 3.2 - 5.0 gm/dL | [facility] | | | | | | [facility] | | | | | | MEDICAL | | | | | | CENTER - | | | | | | LABORATORY | | + + + + + + | BUN | 12 | 7 - 18 mg/dL | [facility] | | | | | | [facility] | | | | | | MEDICAL | | | | | | CENTER - | | | | | | LABORATORY | | + + + + + + | Creatinine | 0.87 | 0.60 - 1.30 | [facility] | | | | | mg/dL | [facility] | | | | | | MEDICAL | | | | | | CENTER - | | | | | | LABORATORY | | + + + + + + | Estimated | >60Comment: For | >60 mL/min/A | [facility] | | | GFR | -Americans, | | [facility] | | | | please multiply the | | MEDICAL | | | | result by 1.210 | | CENTER - | | | | This is an estimated GFR | | LABORATORY | | | | and is based on a | | | | | | standard adult | | | | | | body mass (A=1.73m2) and | | | | | | serum creatinine | | | | + + + + + + | BUN/Creatin | 13.8 | 12 - 20 | [facility] | | | ine Ratio | | | [facility] | | | | | | MEDICAL | | | | | | CENTER - | | | | | | LABORATORY | | + + + + + + | Na | 135 (L) | 136 - 149 mEq/L | [facility] | | | | | | [facility] | | | | | | MEDICAL | | | | | | CENTER - | | | | | | LABORATORY | | + + + + + + | K | 4.1 | 3.5 - 5.1 mEq/l | [facility] | | | | | | [facility] | | | | | | MEDICAL | | | | | | CENTER - | | | | | | LABORATORY | | + + + + + + | Cl | 102 | 98 - 109 mEq/l | [facility] | | | | | | [facility] | | | | | | MEDICAL | | | | | | CENTER - | | | | | | LABORATORY | | + + + + + + | CO2 | 25 | 24 - 31 mEq/L | [facility] | | | | | | [facility] | | | | | | MEDICAL | | | | | | CENTER - | | | | | | LABORATORY | | + + + + + + | Anion Gap | 12.1 | 6.0 - 17.0 | [facility] | | | | [facility] | | | | | MEDICAL | | | | | | CENTER - | | | | | | LABORATORY | | + + + + + + + + | Specimen | + + | Blood specimen | | (specimen) | + + + + + + + | Performing | Address | City/State/Zipcode | Phone Number | | Organization | | | | + + + + + | [facility] | [address] | [place] | [phone] | | [facility] | | [address] | | | - LABORATORY | | | | + + + + + | [facility] | [address] | [place], [place] | | | [facility] | | [id number] | | | - LABORATORY | | | | + + + + + CBC w/ Differential (10/06/2012 9:10 AM PST) + + + + + + | Component | Value | Ref Range | Performed | Pathologist | | | | | At | Signature | + + + + + + | White Blood | 5.7 | 4.0 - 11.0 K/uL | [facility] | | | Cells | | | [facility] | | | | | | MEDICAL | | | | | | CENTER - | | | | | | LABORATORY | | + + + + + + | Red Blood | 4.39 | 4.30 - 5.70 | [facility] | | | Cells | | M/uL | [facility] | | | | | | MEDICAL | | | | | | CENTER - | | | | | | LABORATORY | | + + + + + + | Hemoglobin | 13.8 | 13.5 - 18.0 | [facility] | | | | | gm/dL | [facility] | | | | | | MEDICAL | | | | | | CENTER - | | | | | | LABORATORY | | + + + + + + | Hematocrit | 41.3 | 40.0 - 51.0 % | [facility] | | | | | | [facility] | | | | | | MEDICAL | | | | | | CENTER - | | | | | | LABORATORY | | + + + + + + | MCV | 94.1 | 83.0 - 101.0 fL | [facility] | | | | | | [facility] | | | | | | MEDICAL | | | | | | CENTER - | | | | | | LABORATORY | | + + + + + + | MCH | 31.4 | 28.0 - 35.0 pg | [facility] | | | | | | [facility] | | | | | | MEDICAL | | | | | | CENTER - | | | | | | LABORATORY | | + + + + + + | MCHC | 33.3 | 32.0 - 36.0 | [facility] | | | | | g/dL | [facility] | | | | | | MEDICAL | | | | | | CENTER - | | | | | | LABORATORY | | + + + + + + | RDW-CV | 13.8 | <15.0 % | [facility] | | | | | | [facility] | | | | | | MEDICAL | | | | | | CENTER - | | | | | | LABORATORY | | + + + + + + | Platelet | 185 | 140 - 440 K/uL | [facility] | | | Count | | | [facility] | | | | | | MEDICAL | | | | | | CENTER - | | | | | | LABORATORY | | + + + + + + | % | 42.6 (L) | 45 - 75 % | [facility] | | | Neutrophils | | | [facility] | | | | | | MEDICAL | | | | | | CENTER - | | | | | | LABORATORY | | + + + + + + | % | 45.5 (H) | 20 - 45 % | [facility] | | | Lymphocytes | | | [facility] | | | | | | MEDICAL | | | | | | CENTER - | | | | | | LABORATORY | | + + + + + + | % Monocytes | 9.8 | 4 - 12 % | [facility] | | | | | | [facility] | | | | | | MEDICAL | | | | | | CENTER - | | | | | | LABORATORY | | + + + + + + | % | 1.2 | 0 - 5 % | [facility] | | | Eosinophils | | | [facility] | | | | | | MEDICAL | | | | | | CENTER - | | | | | | LABORATORY | | + + + + + + | % Basophils | 0.9 | 0 - 1 % | [facility] | | | | | | [facility] | | | | | | MEDICAL | | | | | | CENTER - | | | | | | LABORATORY | | + + + + + + | Absolute | 2.4 | 1.5 - 6.6 K/uL | [facility] | | | Neutrophils | | | [facility] | | | | | | MEDICAL | | | | | | CENTER - | | | | | | LABORATORY | | + + + + + + | Absolute | 2.6 | 0.6 - 3.2 K/uL | [facility] | | | Lymphocytes | | | [facility] | | | | | | MEDICAL | | | | | | CENTER - | | | | | | LABORATORY | | + + + + + + | Absolute | 0.6 | 0.0 - 1.0 K/uL | [facility] | | | Monocytes | | | [facility] | | | | | | MEDICAL | | | | | | CENTER - | | | | | | LABORATORY | | + + + + + + | Absolute | 0.1 | 0.0 - 0.4 K/uL | [facility] | | | Eosinophils | | | [facility] | | | | | | MEDICAL | | | | | | CENTER - | | | | | | LABORATORY | | + + + + + + | Absolute | 0.1 | 0.0 - 0.1 K/uL | [facility] | | | Basophils | | | [facility] | | | | | | MEDICAL | | | | | | CENTER - | | | | | | LABORATORY | | + + + + + + + + | Specimen | + + | Blood specimen | | (specimen) | + + + + + + + | Performing | Address | City/State/Zipcode | Phone Number | | Organization | | | | + + + + + | [facility] | [address] | [place] | [phone] | | [facility] | | [address] | | | - LABORATORY | | | | + + + + + | [facility] | [address] | [place], [place] | | | [facility] | | [address] | | | - LABORATORY | | | | + + + + + documented in this encounter Visit Diagnoses + + | Diagnosis | + + | HCV (hepatitis C virus) Unspecified viral hepatitis C without hepatic coma | + + documented in this encounter
--- OUTSIDE RECORDS SUMMARY | ~2020-04-19 | XMS | Encounter Summary ---
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[address] | [address] | | | | | pituitary | Rd | Research | | | | | gland and | [place], [place] | Center | | | | | its | [address] | [place], [place] | | | | | hypothalamic | Phone: | [address] | | | | | control | [phone] | Phone: | | | | | Procedures | Fax: | [phone] | | | | | MR PITUITARY | [phone] | Fax: | | | | | WWO | | [phone] | | | | | CONTRAST | | | +--------+--------+ + + + + Encounter Details +--------+ + + + + | Date | Type | Department | Care Team | Description | +--------+ + + + + | 07/02/ | Motorcyles Final Inspector | Neurosurgery at | Ashley Duron PA | Unspecified disorder | | 2010 | | [facility] [address] | [address] | of the pituitary | | | | [address] [facility] | [address] [place], | gland and its | | | | [facility], | [place] [address] | hypothalamic control | | | | | [phone] | (Primary Dx) | | | | floor [place], [place] | | | | | | [address] | | | | | | [phone] | | | +--------+ + + + [...] | | + +---------+ + + | [facility] DEPARTMENT OF | | | | | RADIOLOGY | | | | + +---------+ + + documented in this encounter Visit Diagnoses + + | Diagnosis | + + | 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
--- OUTSIDE RECORDS SUMMARY | ~2020-04-19 | XMS | Encounter Summary ---
Demographics + + + | Address | [address] | | | [place] [address] | + + + | Home Phone [...] Author + + + | Author | [facility] | + + + | Organization | [facility] | + + + | Address [...] Team Providers + +------+ + | Care Adjunct Faculty Mathematics Department Name | Role | Phone | + [...] Follow-up | | 2011 | Visit | [facility] [address] | MD | examination, | | | | [facility] for | | following other | | | | Health and Healing, | | surgery (Primary Dx) | | | | Building , | | | | | | floor [place], [place] | | | | | | [address] | | | | | | [phone] | | | +--------+---------+ + + + [...] 09/25/2011 with Ms. Duron during clinic. Uri Pierre is being followed for the surgical [...] concerns I spent more than 15 minutes [id number] with the patient of which greater than 50% was sp ent counseling the patient regarding the details of their progress. I answered all question s and the patient expressed understanding at the conclusion of this office visit. In additi on, I instructed the patient to call the office or return should any issues or concerns gregg carroll omptonAshley PA- C - 09/25/2011 12:54 PM [facility] PN Uri Pierre returns to clinic for [...] mos for repeat MRI. FU with Dr. Franchesca shaw NEUROSURGERY [address] [place] Mailcode: Ch8n [facility], [address] [facility] [address] documented in this enco unter Plan of Treatment Not on filedocumented as of this encounter Visit Diagnoses + + | Diagnosis | + + | Follow-up examination, following other surgery - Primary | + + documented in this encounter
--- OUTSIDE RECORDS SUMMARY | ~2020-04-19 | XMS | Encounter Summary ---
Demographics + + + | Address | [address] | | | [place] [address] | + + + | Home Phone | | + + + | Preferred Language | Unknown | + + + | Marital Status | | + + + | Baptism Affiliation | 1013 | + + + | Race | White | + + + | Ethnic Group | Not or | + + + Author + + + | Author | [facility] | | | and [place] | + + + | Organization | [facility] | | | [...] Providers + +------+ + | Care Manager Psychiatry Name | Role | Phone | + +------+ + | Giovanni Huffman MD | PCP | | + +------+ + Encounter Details +--------+ + + + + | Date | Type | Department | Care Team | Description | +--------+ + + + + | 01/09/ | Orders Only | [facility] | Odalis Bade | | | 2016 | | CONVERSION [address] | [address] | | | | | [address] | [place], | | | | | [facility], [place] | [address] [place], | | | | | [address] | [place] [address] | | | | | [phone] | [phone] | | | | | | | [...] + +--------+ + + + | ECHO INTERPRETATION | Routin | 01/10/2016 | | Results for this | | OF OUTSIDE FILMS | e | 7:32 AM | | procedure are in the | | | | PDT | | results section. | + +--------+ + + + documented in this encounter Results ECHO Interpretation of Outside Films (01/10/2016 7:32 AM PDT) + + | Specimen | + + | | + + + + + | Impressions | Performed At | + + + | 1. See Dictation. Sinus rhythm. 2. Cardiac chamber dimensions NML. | | | LV systolic and diastolic functions NML, biplane LVEF 58%. 3. | | | Valves appear NML. No /AI. Trace PI. 4. No Pericardial effusion. | | | 5. IVC appears NML, inadequate TR to estimate PAP. | | + + + + + + | Narrative | Performed At | + + + | Patient Name: Uri Pierre Date of : 1980 | | | Performing Physician: Osiel Jiménez MD | | | | | | INDICATIONS HTN, SOB, A-fib CONCLUSIONS | | | 1. See Dictation. Sinus rhythm. 2. Cardiac chamber dimensions NML. | | | LV systolic and diastolic functions NML, biplane LVEF 58%. 3. | | | Valves appear NML. No /AI. Trace PI. 4. No Pericardial effusion. | | | 5. IVC appears NML, inadequate TR to estimate PAP. FINDINGS | | | -------- [no group]: See Dictation ECG rhythm: Sinus rhythm. Study: | | | This was a technically adequate study. Left Ventricle: Overall left | | | ventricular systolic function is normal with, an EF between 55 - 60 %. | | | Left Ventricle: The left ventricle cavity size is normal. Left | | | Ventricle: Left ventricular wall thickness is normal. Left Ventricle: | | | The diastolic filling pattern is normal for the age of the patient. | | | Right Ventricle: The right ventricle is normal in size and function. | | | Left Atrium: The left atrium is normal in size. Right Atrium: The | | | right atrium is normal in size. Aortic Valve: The aortic valve is | | | trileaflet, and appears anatomically normal. No aortic stenosis or | | | regurgitation. Mitral Valve: The mitral valve is normal. Mitral | | | Valve: No mitral regurgitation. Tricuspid Valve: The tricuspid valve | | | appears structurally normal. Tricuspid Valve: No regurgitation noted | | | Pulmonic Valve: Pulmonic valve appears structurally normal. Pulmonic | | | Valve: Trace pulmonic regurgitation. Pericardium: There is no | | | pericardial effusion. IVC/Hepatic Veins: The IVC is small (<1.5cm) | | | and collapses with sniff, consistent with central venous pressures of | | | 0-5mmHg. MEASUREMENTS Primary Special Education Teacher: | | | Authenticated by: Osiel Jiménez MD Report Date/Time: 01-14-2016 | | | 08:58:15 | | + + + + + | Procedure Note | + + | Casper, Chang Conversion - 04/14/2019 11:11 AM PDT Patient Name: Adelina Pierre of | | : 1980 Performing Physician: Osiel Jiménez | | INDICATIONS H | | TN, SOB, A-fib CONCLUSIONS 1. See Dictation. Sinus rhythm. 2. Cardiac chamber | | dimensions NML. LV systolic and diastolic functions NML, biplane LVEF 58%. 3. Valves | | appear NML. No /AI. Trace PI. 4. No Pericardial effusion. 5. IVC appears NML, | | inadequate TR to estimate PAP. FINDINGS--------[no group]: See DictationECG rhythm: | | Sinus rhythm.Study: This was a technically adequate study.Left Ventricle: Overall left | | ventricular systolic function is normal with, an EF between 55 - 60 %.Left Ventricle: | | The left ventricle cavity size is normal.Left Ventricle: Left ventricular wall thickness | | is normal.Left Ventricle: The diastolic filling pattern is normal for the age of the | | patient.Right Ventricle: The right ventricle is normal in size and function.Left Atrium: | | The left atrium is normal in size.Right Atrium: The right atrium is normal in | | size.Aortic Valve: The aortic valve is trileaflet, and appears anatomically normal. No | | aortic stenosis or regurgitation.Mitral Valve: The mitral valve is normal.Mitral Valve: | | No mitral regurgitation.Tricuspid Valve: The tricuspid valve appears structurally | | normal.Tricuspid Valve: No regurgitation notedPulmonic Valve: Pulmonic valve appears | | structurally normal.Pulmonic Valve: Trace pulmonic regurgitation.Pericardium: There is | | no pericardial effusion.IVC/Hepatic Veins: The IVC is small (<1.5cm) and collapses with | | sniff, consistent with central venous pressures of 0-5mmHg. MEASUREMENTS | | Primary Special Education Teacher: FREDYuthenticated by: Osiel Jiménez MDReptexas county memorial hospital Date/Time: 01-14-2016 08:58:15 | | IMPRESSION: 1. See Dictation. Sinus rhythm. 2. Cardiac chamber dimensions NML. LV | | systolic and diastolic functions NML, biplane LVEF 58%. 3. Valves appear NML. No /AI. | | Trace PI. 4. No Pericardial effusion. 5. IVC appears NML, inadequate TR to estimate | | PAP. | |Right Ventricle: The right ventricle is normal in size and function. | |Left Atrium: The left atrium is normal in size. | |Right Atrium: The right atrium is normal in size. | |Aortic Valve: The aortic valve is trileaflet, and appears anatomically normal. No aortic st enosis or regurgitation. | |Mitral Valve: The mitral valve is normal. | |Mitral Valve: No mitral regurgitation. | |Tricuspid Valve: The tricuspid valve appears structurally normal. | |Tricuspid Valve: No regurgitation noted | |Pulmonic Valve: Pulmonic valve appears structurally normal. | |Pulmonic Valve: Trace pulmonic regurgitation. | |Pericardium: There is no pericardial effusion. | |IVC/Hepatic Veins: The IVC is small (<1.5cm) and collapses with sniff, consistent with cent ral venous pressures of 0-5mmHg. | | | |MEASUREMENTS | | | | | |Primary Special Education Teacher: | |Authenticated by: Osiel Jiménez MD | |Report Date/Time: 01-14-2016 08:58:15 | | | |IMPRESSION: | |1. See Dictation. Sinus rhythm. 2. Cardiac chamber dimensions NML. LV systolic and diasto lic functions NML, biplane LVEF 58%. 3. Valves appear NML. No /AI. Trace PI. 4. No Peric ardial effusion. 5. IVC appears NML, inadequate TR to estimate PAP. | + + documented in this encounter Visit Diagnoses Not on filedocumented in this encounter"
--- OUTSIDE RECORDS SUMMARY | ~2020-04-19 | XMS | Encounter Summary ---
Demographics + + + | Address | [address] | | | [place] [address] | + + + | Home Phone | | + + + | Preferred Language | Unknown | + + + | Marital Status | | + + + | Restoration Affiliation | 1013 | + + + | Race | White | + + + | Ethnic Group | Not or | + + + Author + + + | Author | [facility] | | | and [place] | + + + | Organization | [facility] | | | [...] Team Providers + +------+ + | Care Machining Manager Name | Role | Phone | + +------+ + | Giovanni Huffman MD | PCP | | + +------+ + Encounter Details +--------+ + + + + | Date | Type | Department | Care Team | Description | +--------+ + + + + | 03/14/ | Orders Only | [facility] | Rylie Urbano | | | 2018 | | CARDIOLOGY [place] | [address] | | | | | [address] | [address] | | | | | [place], [place] | [place] [address] | | | | | [address] | [phone] | | | | | [phone] | | | +--------+ + + + [...] | + +--------+ + + + | LIPID PANEL | Routin | 03/14/2018 | | Results for this | | | e | 10:29 AM | | procedure are in the | | | | PDT | | results section. | + +--------+ + + + | COMPREHENSIVE | Routin | 03/14/2018 | | Results for this | | METABOLIC PANEL | e | 10:29 AM | | procedure are in the | | | | PDT | | results section. | + +--------+ + + + documented in this encounter Results Lipid Panel (03/14/2018 10:29 AM PDT) + + + + + + | Component | Value | Ref Range | Performed | Pathologist | | | | | At | Signature | + + + + + + | Cholesterol | 221 (A) | 200 mg/dL | EXTERNAL | | | | | | LAB | | + + + + + + | Triglycerid | 203 (A) | 30 - 150 mg/dL | EXTERNAL | | | es | | | LAB | | + + + + + + | HDL | 30.1 (A) | 40 mg/dl | EXTERNAL | | | | | | LAB | | + + + + + + | LDL, | 150 (A) | 100 mg/dL | EXTERNAL | | | Calculated | | | LAB | | + + + + + + | LDl/HDL | | | EXTERNAL | | | Ratio | | | LAB | | + + + + + + | Chol/HDL | 7.3 (A) | 4.97 | EXTERNAL | | | Ratio | | | LAB | | + + + + + + | VLDL | 41 (A) | 4 - 40 mg/dL | EXTERNAL | | | | | | LAB | | + + + + + + | Non HDL | 191 (A) | 130 | EXTERNAL | | | Chol. | | | LAB | | | (LDL+VLDL) | | | | | + + + + + + + + | Specimen | + + | Blood specimen | | (specimen) | + + + +---------+ + + | Performing | Address | City/State/Zipcode | Phone Number | | Organization | | | | + +---------+ + + | EXTERNAL LAB | | | | + +---------+ + + Comprehensive Metabolic Panel (03/14/2018 10:29 AM PDT) + +-------+ + + + | Component | Value | Ref Range | Performed | Pathologist | | | | | At | Signature | + +-------+ + + + | Glucose, | 85 | 70 - 100 mg/dL | EXTERNAL | | | Fasting | | | LAB | | + +-------+ + + + | BUN | 15 | 6 - 23 mg/dL | EXTERNAL | | | | | | LAB | | + +-------+ + + + | Creatinine | 0.82 | 0.60 - 1.35 | EXTERNAL | | | | | mg/dL | LAB | | + +-------+ + + + | BUN/Creatin | 18.3 | 6.0 - 28.6 | EXTERNAL | | | ine Ratio | | | LAB | | + +-------+ + + + | Calcium | 9.5 | 8.5 - 10.3 | EXTERNAL | | | | | mg/dL | LAB | | + +-------+ + + + | Protein, | 7.0 | 6.0 - 8.3 g/dL | EXTERNAL | | | Total | | | LAB | | + +-------+ + + + | Albumin | 4.0 | 3.5 - 5.0 | EXTERNAL | | | | | | LAB | | + +-------+ + + + | Globulin | 3.0 | 1.8 - 3.5 | EXTERNAL | | | | | | LAB | | + +-------+ + + + | A/G Ratio | 1.3 | 1.1 - 2.4 | EXTERNAL | | | | | | LAB | | + +-------+ + + + | Bilirubin | 0.8 | 0.0 - 1.2 mg/dL | EXTERNAL | | | Total | | | LAB | | + +-------+ + + + | ALP, | 60 | 31 - 120 | EXTERNAL | | | External | | | LAB | | + +-------+ + + + | ALT | 52 | 7 - 52 U/L | EXTERNAL | | | | | | LAB | | + +-------+ + + + | AST | 28 | 13 - 39 U/L | EXTERNAL | | | | | | LAB | | + +-------+ + + + | Na | 139 | 132 - 143 | EXTERNAL | | | | | mmol/L | LAB | | + +-------+ + + + | K | 4.2 | 3.6 - 5.1 | EXTERNAL | | | | | mmol/L | LAB | | + +-------+ + + + | Cl | 103 | 95 - 112 mmol/L | EXTERNAL | | | | | | LAB | | + +-------+ + + + | CO2 | 23 | 19 - 31 mmol/L | EXTERNAL | | | | | | LAB | | + +-------+ + + + | Anion Gap | 17.2 | 7 - 21 mmol/L | EXTERNAL | | | | | | LAB | | + +-------+ + + + | Estimated | 105 | 60 mg/dL | EXTERNAL | | | GFR | | | LAB | | + +-------+ + + + + + | Specimen | + + | Blood specimen | | (specimen) | + + + +---------+ + + | Performing | Address | City/State/Zipcode | Phone Number | | Organization | | | | + +---------+ + + | EXTERNAL LAB | | | | + +---------+ + + documented in this encounter Visit Diagnoses Not on filedocumented in this encounter"
--- OUTSIDE RECORDS SUMMARY | ~2020-04-19 | XMS | Encounter Summary ---
Demographics + + + | Address | [address] | | | [place] [address] | + + + | Home Phone [...] Author + + + | Author | [facility] | + + + | Organization | [facility] | + + + | [...] Team Providers + +------+ + | Care Revit Drafter Name | Role | Phone | + [...] | | | | | pituitary | [place] | [place] | | | | | gland and | [address] | [address] | | | | | craniopharyn | | | | | | | geal duct | | | | | | | (HCC) DX: | | | | | | | 237.0 CPT: | | | | | | | [id number]/ | | | | | | | [id number] | | | | | | | Procedures | | | | | | | [place] EXCIS | | | | | | | SUPRATENT | | | | | | | BRAIN TUMOR | | | | | | | [place] SCAN | | | | | | | PROC CRANIAL | | | | | | | INTRA [place] | | | | | | | SCAN PROC | | | | | | | CRANIAL | | | | | | | EXTRA [place] | | | | | | | MICROSURG | | | | | | | TECHNIQUES,R | | | | | | | EQ OPER | | | | | | | MICROSCOPE | | | | | | | [place] | | | | | | | NEUROENDOSCO | | | | | | | P,EXC,PIT | | | | | | | RHYS,TRANSNAS | | | | | | | /SPHEN [place] | | | | | | | SCAN PROC | | | | | | | CRANIAL | | | | | | | INTRA [place] | | | | | | | [...] Visit | Head and Neck | | ([facility]); Nasal | | | | Surgery Services at | | drainage | | | | [facility] [address] | | | [address] | | | | | | Physician's | | | | | | Pavilion, 2nd floor | | | | | | [place], [place] | | | | | | [address] | | | | | | [phone] | | | +--------+---------+ + + + [...] will not refill Hamzah Sorensen M.D., F.A.C.S. Pictures Editor, Head & Neck Surgery and Oncology Thyroid and Parathyroid Surgery Director, Head & Neck /Thyroid Robotic Surgery Apprentice Technician, Head & Neck Clinical Trials [facility] Cancer Clare [email or web address] d in this encounter Plan of Treatment Not on filedocumented as of this encounter Procedures + +--------+ + + + | Procedure Name | Priori | Date/Time | Associated Diagnosis | Comments | | | ty | | | | + +--------+ + + + | [place] | Routin | 08/04/2011 | Nasal drainage [...]
--- OUTSIDE RECORDS SUMMARY | ~2020-04-19 | XMS | Encounter Summary ---
Demographics + + + | Address | [address] | | | [place] [address] | + + + | Home Phone | | + + + | Preferred Language | Unknown | + + + | Marital Status | Single | + + + | Adventist Affiliation | CHR | + + + [...] Team Providers + +------+ + | Care Acute Care Clinical Nurse Specialist Name | Role | Phone | + +------+ + | Figueroa Mazariegos MD | PCP | | + +------+ + Encounter Details +--------+ + + + + | Date | Type | Department | Care Team | Description | +--------+ + + + + | 02/18/ | Abstract | [facility] | Clinic, | | | 2014 | | Center at [facility] [address] | Gastroenterology | | | | | [facility] | | | | | | for Health and | | | | | | Healing, [address] | | | | | | [place], [place] | | | | | | [address] | | | | | | [phone] | | | +--------+ + + + [...]
--- OUTSIDE RECORDS SUMMARY | ~2020-04-19 | XMS | Encounter Summary ---
Demographics + + + | Address | [address] | | | [place] [address] | + + + | Home Phone [...] + + + | Author | [facility] | | | and [place] | + + + | Organization | [facility] | | | [...] Team Providers + +------+ + | Care Gristmiller Name | Role | Phone | + +------+ + | Giovanni Huffman MD | PCP | | + +------+ + Reason for Visit + + + | Reason | Comments | + + + | Follow-up | liver biopsy | + + + Encounter Details +--------+---------+ + + + | Date | Type | Department | Care Team | Description | +--------+---------+ + + + | 10/13/ | Office | [facility] | [facility], | HCV (hepatitis C | | 2012 | Visit | GASTROENTEROLOGY | [address] | virus) (Primary Dx); | | | | [address] [place] | [address] | Marijuana use; | | | | [address] | [place] | Liver disease | | | | [address] | [address] | | | | | [phone] | | | +--------+---------+ + + + Social History + +-------+ [...] + + + | Blood Pressure | 120/80 | 10/13/2012 7:55 AM | | | | | PST | | + + + + + | Pulse | 74 | 10/13/2012 7:55 AM | | | | | PST | | + + + + + | Temperature | 35.9 C (96.7 F) | 10/13/2012 7:55 AM | | | | | PST | | + + + + + | Respiratory Rate | 16 | 10/13/2012 7:55 AM | | | | | PST | | + + + + + | Oxygen Saturation | - | - | | + + + + + | Inhaled Oxygen | - | - | | | Concentration | | | | + + + + + | Weight | 125.2 kg (276 lb) | 10/13/2012 7:55 AM | | | | | PST | | + + + + + | Height | 180.3 cm (5' 11") | 10/13/2012 7:55 AM | | | | | PST | | + + + + + | Body Mass Index | 38.49 | 10/13/2012 7:55 AM | | | | | PST | | + + + + + documented in this encounter Progress Notes Prachi Esquivel ARNP - 10/13/2012 8:03 AM PSTFormatting of this note might be differe nt from the original. Subjective: Patient ID: Uri Pierre is a 32 y.o. male. HPI Patient feels well today. Only complains of being tired and headache. Here following liver biopsy for HCV. He is here for results of labs and biopsy. Review of Systems Constitutional: Negative for fever, chills and unexpected weight change. Respiratory: Positive for cough, shortness of breath and wheezing. Cardiovascular: Negative for chest pain, palpitations and leg swelling. Gastrointestinal: Negative for nausea, vomiting, abdominal pain, diarrhea, constipation, bl ood in stool, abdominal distention and rectal pain. Musculoskeletal: Negative for arthralgias. Skin: Negative for rash. Psychiatric/Behavioral: Negative for disturbed wake/sleep cycle. Objective: Physical Exam Physical Exam General: Alert and oriented, NAD Eyes: Sclera clear, MMM Extremities: No clubbing or edema Skin: Warm, dry, intact. No rashes noted Neuro: Cranial nerves 2-12 grossly intact. Psych: Appropriate mood and affect. Hospital Outpatient Visit on 10/06/2012 Component Date Value Range Status WBC 10/06/2012 5.7 4.0 - 11.0 K/uL Final RBC 10/06/2012 4.39 4.30 - 5.70 M/uL Final HGB 10/06/2012 13.8 13.5 - 18.0 gm/dL Final HCT 10/06/2012 41.3 40.0 - 51.0 % Final MCV 10/06/2012 94.1 83.0 - 101.0 fL Final MCH 10/06/2012 31.4 28.0 - 35.0 pg Final MCHC 10/06/2012 33.3 32.0 - 36.0 g/dL Final RDW 10/06/2012 13.8 <15.0 % Final PLT 10/06/2012 185 140 - 440 K/uL Final % Neutrophils 10/06/2012 42.6* 45 - 75 % Final % Lymphocytes 10/06/2012 45.5* 20 - 45 % Final % Monocytes 10/06/2012 9.8 4 - 12 % Final % Eosinophils 10/06/2012 1.2 0 - 5 % Final % Basophils 10/06/2012 0.9 0 - 1 % Final Absolute Neutrophils 10/06/2012 2.4 1.5 - 6.6 K/uL Final Absolute Lymphocytes 10/06/2012 2.6 0.6 - 3.2 K/uL Final Absolute Monocytes 10/06/2012 0.6 0.0 - 1.0 K/uL Final Absolute Eosinophils 10/06/2012 0.1 0.0 - 0.4 K/uL Final Absolute Basophils 10/06/2012 0.1 0.0 - 0.1 K/uL Final GLUCOSE 10/06/2012 90 70 - 109 mg/dL Final CALCIUM 10/06/2012 9.1 8.3 - 10.5 mg/dL Final ALK 10/06/2012 68 40 - 110 IU/L Final AST 10/06/2012 24 10 - 42 IU/L Final ALT 10/06/2012 31 6 - 45 IU/L Final BILIRUBIN TOTAL 10/06/2012 0.7 0.2 - 1.0 mg/dL Final TOTAL PROTEIN 10/06/2012 6.5 6.0 - 7.8 gm/dL Final ALBUMIN 10/06/2012 3.8 3.2 - 5.0 gm/dL Final BUN 10/06/2012 12 7 - 18 mg/dL Final CREA 10/06/2012 0.87 0.60 - 1.30 mg/dL Final Estimated GFR 10/06/2012 >60 >60 mL/min/A Final Comment: For -Americans, please multiply the result by 1.210 This is an estimated GFR and is based on a standard adult body mass (A=1.73m2) and serum creatinine BUN/Creatinine Ratio 10/06/2012 13.8 12 - 20 Final NA 10/06/2012 135* 136 - 149 mEq/L Final K 10/06/2012 4.1 3.5 - 5.1 mEq/l Final CL 10/06/2012 102 98 - 109 mEq/l Final CO2 10/06/2012 25 24 - 31 mEq/L Final ANION GAP 10/06/2012 12.1 6.0 - 17.0 Final IRON 10/06/2012 75 50 - 160 ug/dL Final TIBC 10/06/2012 375 235 - 425 ug/dL Final % SATURATION 10/06/2012 20 20 - 55 % Final FERRITIN 10/06/2012 78.4 23.9 - 336.0 ng/mL Final Testing performed on the [employer] Access Analyzer. HEP B CORE IgM 10/06/2012 Non Reactive NR Final Comment: Testing Performed: [address], [place] [address] CLIA: [id number] HEP B S AG 10/06/2012 Non Reactive NR Final Comment: Testing Performed: [address], [place] [address] CLIA: [id number] AFP Tumor Marker 10/06/2012 2.1 0.6 - 6.6 ng/mL Final Comment: Reference range applies to males and non females. Testing Performed: [facility], [address], [place] [address] CLIA: [id number] HEP A TOTAL AB 10/06/2012 Non Reactive NR Final Comment: Testing Performed: [address], [place] [address] CLIA: [id number] Hepatitis Interpretation: 10/06/2012 SEE BELOW () Final Comment: No serologic evidence of past or current HAV infection. Testing Performed: [address], [place] [address] CLIA: [id number] HEP B SURFACE ANTIBODY 10/06/2012 <0.50 () IV Final Comment: <1.00 Non immune >=1.00 Indicates vaccine response or response to HBV infection. An Index Value (IV) of 1.00 is equivalent to 10 mIU/mL. Samples with an IV of 1.00 or greater are considered reactive (protected) in accordance with the CDC Guidelines. Testing Performed: [address], [place] [address] CLIA: [id number] CERULOPLASMIN 10/06/2012 38 21 - 53 mg/dL Final Comment: Testing Performed: [address], [place] [address] CLIA: [id number] PROTIME 10/06/2012 12.1 11.3 - 13.9 seconds Final PATIENT NORMAL MEAN 10/06/2012 12.9 Final INR 10/06/2012 0.9 0.9 - 1.1 Final Comment: INR: USUAL ORAL ANTICOAGULATION RANGE 2.0-3.0 HIGH LEVEL ORAL ANTICOAGULATION RANGE 2.5-3.5 HCV Genotype by PCR 10/06/2012 Type 3a () Final Comment: HCV genotype was determined by RT PCR and line probe DNA hybridization assay. The line probe assay incorporates 20 DNA probes to detect the 6 major HCV genotypes and their most common subtypes (1a, 1b, 2a/c, 2b, 3a, 3b, 4a through 4h, 5a, and 6a). Analyte Specific Reagents (ASR) are used in many laboratory tests necessary for standard medical care and generally do not require U.S. Food and Drug Administration approval. This test was developed and its performance characteristics determined by [employer]. It has not been approved by the FDA. This test should not be regarded as investigational or for research use. Testing Performed: [address], [place] [address] CLIA: [id number] HCV VIRAL LOAD (LOG 10) 10/06/2012 5.5* NOTDET Log IU/mL Final HCV RNA QNT RESULT 10/06/2012 [id number]* NOTDET IU/mL Final Comment: Reportable range HCV RNA 1.6 to 7.8 Log IU/mL (43 to 69,000,000 IU/mL). This assay has a mean concentration limit of detection of 7.1 IU/mL for HCV Genotype 1. This assay was performed using the FDA approved [employer] ROSSY AmpliPrep/ROSSY TaqMan HCV Test. The ROSSY Ampliprep/ROSSY Taqman HCV Test is not intended for use as a screening test for the presence of HCV in blood or blood products. Testing Performed: [address], [place] [address] CLIA: [id number] [place] SCREEN 10/06/2012 NEGATIVE NEGATIVE Final RESULT OF SCREEN AT 1:40 DILUTION MITOCHONDRIAL AB 10/06/2012 NEGATIVE NEGATIVE Final Result of screen at 1:20 dilution Smooth Muscle Antibody 10/06/2012 POSITIVE* NEGATIVE Final RESULT OF SCREEN AT 1:20 DILUTION SMOOTH MUSCLE AB IGG TITER 10/06/2012 1:40 NONE DET. Final Hospital Outpatient Visit on 09/16/2012 Component Date Value Range Status GASTRIC BIOPSY UREASE TEST 09/16/2012 Final Value:H. PYLORI BIOPSY: Negative for Urease Assessment: HCV genotype 3a Marijuana use, last reported use 2 months ago. 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 Advised that in order to be a candidate fo r HCV treatment he will need to remain sober from all illegal drugs including marijuana and alcohol for at least 6 months. He will also need to be on medication for depression for at l east 6 weeks prior to initiation of HCV treatment (which he already is), if any evidence of underlying depression. Patient should maintain a normal BMI, avoid high fat foods, keep trig lycerides under control, and ensure vaccinations are up to date. Patient HBV vaccination does not show immunity. Recommended repeating vaccination series. He is to call in 4 months if HCV treatment is desired. Will check toxicology screen for THC at that time. Patient is to call with any question or concerns. Any fevers, chills, chest pain, SOB or other serious symptoms patient is to call the office or go to ER Cc: Giovanni Huffman Reviewed most recent labs, imaging, and procedures. documented in t his encounter Plan of Treatment Not on filedocumented as of this encounter Visit Diagnoses + + | Diagnosis | + + | HCV (hepatitis C virus) - Primary Unspecified viral hepatitis C without hepatic coma | + + | Marijuana use Cannabis abuse, unspecified | + + | Liver disease Unspecified disorder of liver | + + documented in this encounter
--- OUTSIDE RECORDS SUMMARY | ~2020-04-19 | XMS | Clinical Summary ---
Demographics + + + | Address | [address] | | | [place] [address] | + + + | Home Phone | | + + + | Preferred Language | Unknown | + + + | Marital Status | | + + + | Scientology Affiliation | 1013 | + + + | Race | White | + + + | Ethnic Group | Not or | + + + Author + + + | Author | [facility] | | | and [place] | + + + | Organization | [facility] | | | and [...] Team Providers + +------+ + | Care A Operator Name | Role | Phone | + +------+ + | Giovanni Huffman MD | PCP | | + +------+ + Allergies + [...] + | Metoprolol | Diarrhea | | 04/09/20 | | | | | | 15 | | + + + + + + | Penicillins | Anaphylaxis | High | //20 | | | | | | 11 [...] 0 | | | Activ | | [id number] | drops 4 times a day | [...] 25 mg | nightly. | | | 2/20 | | e | | capsule | | | | 18 | | | + + + +---------+------+------+-------+ | tiotropium | Inhale 18 mcg into | | 0 | 07/1 | | Activ | | (SPIRIVA HANDIHALER) | the lungs Daily. | | | 4/20 | | e | | 18 mcg [...] mg by mouth | | 0 | 07/ | | Activ | | (PRILOSEC) 20 mg | Daily. | | | 4/ | | e | | capsule | | | | 18 | | | + + + +---------+------+------+-------+ | atorvaSTATin | take 1 tablet by | 30 | 11 | / | | Activ | | (LIPITOR) 20 mg | mouth every evening | tablet | | 2/20 | | e | | tablet | [...] pain | 06/12/2011 | + + + Immunizations + + + + | Name | Administration Dates | Next Due | + + + [...] | Blood Pressure | 129/85 | 12/12/2018 10:34 AM | | | | | PDT | | + + + + + | Pulse | 63 | 12/12/2018 10:34 AM | | | | | PDT | | + + + + + | Temperature | 36.1 C (97 F) | 12/12/2018 10:34 AM | | | | | PDT | | + + + + + | Respiratory Rate | 16 | 12/12/2018 10:34 AM | | | | | PDT [...] | 121.6 kg (268 lb) | 12/12/2018 10:34 AM | | | | | PDT | | + + + + + | Height | 185.4 cm (6' 1") | 12/12/2018 10:34 AM | | | | | PDT | | + + + + + | Body Mass Index | 35.36 | 12/12/2018 10:34 AM | | | | | PDT | | + + + + + Plan of Treatment + + + + + | Health Maintenance | Due Date | Last | Comments | | | | Done | | + + + + + | Medication | | | | | Management | 8 | | | + + + + + | Vaccine: | | | | | Pneumococcal 19-64 | 4 | | | | (1 of 1 - PPSV23) | | | | + + + + + | Med Mgmt: BUN | | 06/06/20 | | | | 9 | 18, | | | | | 03/14/20 | | | | | 18, | | | | | 10/12/19 | | | | | 15, | | | | | Addition | | | | | al | | | | | history | | | | | exists | | + + + + + | Med Mgmt: Cr | | 06/06/20 | | | | 9 | 18, | | | | | 03/14/20 | | | | | 18, | | | | | 10/12/19 | | | | | 15, | | | | | Addition | | | | | al | | | | | history | | | | | exists | | + + + + + | Med Mgmt: K | | 06/06/20 | | | | 9 | 18, | | | | | 03/14/20 | | | | | 18, | | | | | 10/12/19 | | | | | 15, | | | | | Addition | | | | | al | | | | | history | | | | | exists | | + + + + + | Med Mgmt: eGFR | | 06/06/20 | | | | 9 | 18, | | | | | 07/23/20 | | | | | 18, | | | | | 10/12/19 | | | | | 15, | | | | | Addition | | | | | al | | | | | history | | | | | exists | | + + + + + | Vaccine: Influenza | | | | | (#1) | 0 | | | + + + + + | Vaccine: | | 12/02/19 | | | Dtap/Tdap/Td (2 - | 3 | 13, | | | Td) | | 12/02/19 | | | | | 13 | | + + + + + | Hepatitis C | Completed | 03/20/20 | | | Screening | | 19, | | | | | 12/13/19 | | | | | 19, | | | | | 11/29/19 | | | | | 19, | | | | | Addition | | | | | al | | | | | history | | | | | exists | | + + + + + [...] | [employer] | [facility] | [id number] | | [phone] | | [employer] | [...] | [birth year] | | [address] | | | al/Fam | | 1980 | [phone] | [place] | | | [place]a | | | 2 (Home) | [address] | + +--------+ +--------+ + + Advance Directives + + + + + | Type | Date Recorded | Patient | Explanation | | | | Music Sound Light Technician | | + + + + + | Power of | | | | | Reconciliation Analyst | | | | + + + + + | Advance | | | | | Directive | | | | + + + + +
--- OUTSIDE RECORDS SUMMARY | ~2020-04-19 | XMS | Encounter Summary ---
Demographics + + + | Address | [address] | | | [place] [address] | + + + | Home Phone | | + + + | Preferred Language | Unknown | + + + | Marital Status | | + + + | Anabaptism Affiliation | 1013 | + + + | Race | White | + + + | Ethnic Group | Not or | + + + Author + + + | Author | [facility] | | | and [place] | + + + | Organization | [facility] | | | and [...] Team Providers + +------+ + | Care Logistics Intern Name | Role | Phone | + +------+ + | Giovanni Huffman MD | PCP | | + +------+ + Reason for Referral Service/Procedure (Routine) +--------+--------+ + + + + | Status | Reason | Specialty | Diagnoses / | Referred By | Referred To | | | | | Procedures | Contact | Contact | +--------+--------+ + + + + | Closed | | Otolaryngolog | Diagnoses | Hayes, | Hayes, Nathan | | | | y | Other | Nathan E, MD | E, MD [address] | | | | | disturbances | [address] | | | | | of oral | [address] [place] [address] [place] [address] [place] | | | | | epithelium, | [place], | [place], [place] | | | | | including | [place] [address] | [address] Phone: | | | | | tongue([phone] | Phone: | [phone] | | | | | 9) | [phone] | Fax: | | | | | Procedures | Fax: | [phone] | | | | | NC EXCIS | [phone] | | | | | | MOUTH | | | | | | | MUCOSA/SUB,S | | | | | | | IMPL REPAIR | | | +--------+--------+ + + + + Encounter Details +--------+ + + + + | Date | Type | Department | Care Team | Description | +--------+ + + + + | 12/04/ | Orders Only | [facility] | Nathan Hayes MD | 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 | | OTOLARYNGOLOGY [address] | [address] [place] | gland (Primary Dx) | | | | [address] | [address] [place], [place] | | | | | [place], [place] | [address] | | | | | [address] | | | | | | [phone] | | | +--------+ + + + [...] of this encounter Plan of Treatment + + +--------+ + + | Name | Type | Priori | Associated Diagnoses | Order Schedule | | | | ty | | | + + +--------+ + + | Ambulatory referral | Outpatient | Routin | Mucocele of | Ordered: 12/04/2014 | | to ENT | Referral | e | salivary gland | | + + +--------+ + + documented as of this encounter Visit Diagnoses + + | Diagnosis | + + | Mucocele of salivary gland - Primary | + + documented in this encounter"
--- OUTSIDE RECORDS SUMMARY | ~2020-04-19 | XMS | Encounter Summary ---
Demographics + + + | Address | [address] | | | [place] [address] | + + + | Home Phone | | + + + | Preferred Language | Unknown | + + + | Marital Status | Single | + + + | Jewish Affiliation | CHR | + + + | Race | White | + + + | Ethnic Group | Not or | + + + Author + + + | Author | [facility] | + + + | Organization | [facility] | + + + | Address [...] Team Providers + +------+ + | Care Wind Tunnel Mechanic Name | Role | Phone | + +------+ + | Giovanni Huffman MD | PCP | | + +------+ + Encounter Details +--------+ + + + + | Date | Type | Department | Care Team | Description | +--------+ + + + + | 06/07/ | Documentati | Neurosurgery at | Ashley Duron PA | | | 2011 | on | [facility] [address] | [address] | | | | | [facility] | [facility], | | | | | Health and Healing, | [place] [address] | | | | | Building | [phone] | | | | | floor [place], [place] | | | | | | [address] | | | | | | [phone] | | | +--------+ + + + [...] Telephone Encounter - Ashley Duron PA-C - 06/14/2012 4:[address] Elliott, no new recs . Continue care as per pituitary team. 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 Had pituitary FU and surveillance MRI WWO obtainashlyn d today for surveillance. Will review films, discuss need for NSG clinic FU with Dr. Elliott. documented in this encou nter Plan of Treatment Not on filedocumented as of this encounter Visit Diagnoses Not on filedocumented in this encounter"
--- OUTSIDE RECORDS SUMMARY | ~2020-04-19 | XMS | Encounter Summary ---
Demographics + + + | Address | [address] | | | [place] [address] | + + + | Home Phone | | + + + | Preferred Language | Unknown | + + + | Marital Status | Single | + + + | Zoroastrianism Affiliation | CHR | + + + | Race | White | + + + | Ethnic Group | Not or | + + + Author + + + | Author | [facility] | + + + | Organization | [facility] | + + + | [...] Team Providers + +------+ + | Care Rn Er Name | Role | Phone | + [...] | | | | | | [facility] | | | | | | [facility], | | | | | | | | | | | | floor [place], [place] | | | | | | [address] | | | | | | [phone] | | | +--------+ + + + [...] this encounter Miscellaneous Notes Telephone Encounter - Cindy Ugalde LPN - 07/15/2011 3:55 PM PSTAttempted to call debo rox, office is closed. P STTelephone Encounter - Ashley Duron PA-C - 07/15/2011 3:31 PM PSTYes, pls follow up next w p[place]enta to clarify who is filling pts meds. Thanks. elephone Encounter - Cindy Ugalde LPN - 07/15/2011 1:21 PM PS TCall back from Dee, she reports that patient did receive refill yesterday from PCP. Would you like me to contact patient regarding this office refilling medications? Gabriella becker signed by Cindy Ugalde LPN at 07/15/2011 1:22 PM PSTTelephone Encounter - Carroll Hastings - 07/15/2011 12:29 PM PSTPt returned call, he stated the drainage had improved and th at he hadn't taken his pain medication the day he had called. He stated he has been taking i t since, and the pain is much improved. I reminded him he shouldn't be blowing his nose forc efully, he stated he had been but lightly. He asked if he could wait until September for f/u appt., but I let him know he was wanted in two weeks after discharge according to chart note s. He stated he would call for an appt after I verified he had the correct number.Electronic ally signed by Carroll Hastings at 07/15/2011 12:44 PM PSTTelephone Encounter - Carroll Hastings - 10:58 AM PSTCalled Pt, left message to call back. elephone Encounter - Ashley Duron PA-C - 07/15/2011 10:41 AM P STNoted, thank you for clarification. Dr. Sorensen' office will schedule appt for eval of pain , bloody nasal draiange. Will follow. Electronically signed by Ashley Duron PA-C at 011 10:43 AM PSTTelephone Encounter - Cindy Ugalde LPN - 07/15/2011 10:33 AM PSTShe exp ressed only concern that he required additional refill. She stated that she was only concer enrique he was underplaying his pain level, and by doing so we could not treat appropriately. A call back to Dee reporting that his medical team was aware of the 07/06 Rx refill and that a request had come in but no refills had yet been approved. She will contact his phar nancy and follow up with us who approved yesterday's medication. elephone Encounter - Ashley Duron PA-C - 07/15 10:30 AM PSTAppreciate her input but please clarify reasoning for her concerns. Is pt is receiving rx from multiple providers? Our last rx prescribed for oxycodone is from 06/23 4 and no other records of rx provided from [facility] per [facility]. Will cease writing rx if pt has a lternative provider providing narcotics. Electronically signed by Ashley Duron PA-C at 07/15 10:33 AM PSTTelephone Encounter - Cindy Ugalde LPN - 07/15/2011 9:27 AM JOCE chew oncourtney Price, his insurance outpatient case manager, She calls today to express concern that Christopher might not be honest with the intensity of his pain. She concerned that he received oxycodone on 07/06/11 and then again yesterday receive d an additional 60 tablets on07/14/11. I told her we appreciated her concern and that I would pass this on to his providing team. documented in this encounter Plan of Treatment Not on filedocumented as of this encounter Visit Diagnoses Not on filedocumented in this encounter"
--- OUTSIDE RECORDS SUMMARY | ~2020-04-19 | XMS | Encounter Summary ---
Demographics + + + | Address | [address] | | | [place] [address] | + + + | Home Phone | | + + + | Preferred Language | Unknown | + + + | Marital Status | Single | + + + | Baptist Affiliation | CHR | + + + | Race | White | + + + | Ethnic Group | Not or | + + + Author + + + | Author | [facility] | + + + | Organization | [facility] | + + + | Address [...] Team Providers + +------+ + | Care Regrader Name | Role | Phone | + +------+ + | Alejandro Dowling DO | PCP | | + +------+ + Reason for Visit + +--------+ + | Reason | Onset | Comments | | | Date | | + +--------+ + | Refill Request | 07/06/ | | | | 2010 | | + +--------+ + Encounter Details +--------+--------+ + + + | Date | Type | Department | Care Team | Description | +--------+--------+ + + + | 07/06/ | Refill | Neurosurgery at | Alek Elliott, | Refill Request | | 2010 | | [facility] [id number] | | | | | | [facility] | | | | | | [facility], | | | | | | Building | | | | | | floor [place], [place] | | | | | | [address] | | | | | | [phone] | | | +--------+--------+ + + + [...] Notes Telephone Encounter - Carol Huang - 07/06/2011 12:20 PM PSTJosie opened in error. documented in this encou nter Plan of Treatment Not on filedocumented as of this encounter Visit Diagnoses Not on filedocumented in this encounter"
--- OUTSIDE RECORDS SUMMARY | ~2020-04-19 | XMS | Encounter Summary ---
Demographics + + + | Address | [address] | | | [place] [address] | + + + | Home Phone | | + + + | Preferred Language | Unknown | + + + | Marital Status | | + + + | Scientologist Affiliation | 1013 | + + + | Race | White | + + + | Ethnic Group | Not or | + + + Author + + + | Author | [facility] | | | and [place] | + + + | Organization | [facility] | | | and [...] Team Providers + +------+ + | Care Collateral Specialist Name | Role | Phone | + +------+ + | Giovanni Huffman MD | PCP | | + +------+ + Encounter Details +--------+ + + + + | Date | Type | Department | Care Team | Description | +--------+ + + + + | 03/20/ | Orders Only | [facility] | Provider, | Chronic viral | | 2018 | | [facility] | MD [address] | hepatitis C (HCC); | | | | CONVERSION [address] | [place] | Hepatic fibrosis; | | | | [address] [place], [place] | [place] [address] | Hyperlipidemia; | | | | [address] | | Abnormal levels of | | | | [phone] | | other serum enzymes | +--------+ + + + + Social [...] of this encounter Plan of Treatment + +------+--------+ + + | Name | Type | Priori | Associated Diagnoses | Order Schedule | | | | ty | | | + +------+--------+ + + | Reference Lab Test | Lab | Routin | Chronic viral | Expected: | | Panel | | e | hepatitis C (HCC) | 06/02/2018, Expires: | | | | | Hepatic fibrosis | 06/02/2019 | + +------+--------+ + + | CBC with | Lab | Routin | Chronic viral | Expected: | | Differential | | e | hepatitis C (HCC) | 06/02/2018, Expires: | | | | | Hepatic fibrosis | 06/02/2019 | + +------+--------+ + + | Protime INR | Lab | Routin | Chronic viral | Expected: | | | | e | hepatitis C (HCC) | 06/02/2018, Expires: | | | | | Hepatic fibrosis | 06/02/2019 | + +------+--------+ + + | HIV 1 and 2 Ab, | Lab | Routin | Chronic viral | Expected: | | Reflex | | e | hepatitis C (HCC) | 06/02/2018, Expires: | | | | | Hepatic fibrosis | 06/02/2019 | + +------+--------+ + + | Alpha Fetoprotein, | Lab | Routin | Chronic viral | Expected: | | Tumor Marker | | e | hepatitis C (HCC) | 06/02/2018, Expires: | | | | | Hepatic fibrosis | 06/02/2019 | + +------+--------+ + + | Hepatitis C, | Lab | Routin | Chronic viral | Expected: | | Fibrosure Panel | | e | hepatitis C (HCC) | 06/02/2018, Expires: | | | | | Hepatic fibrosis | 06/02/2019 | + +------+--------+ + + | Hepatitis B Surface | Lab | Routin | Chronic viral | Expected: | | Ag | | e | hepatitis C (HCC) | 06/02/2018, Expires: | | | | | Hepatic fibrosis | 06/02/2019 | + +------+--------+ + + | Hepatitis B Core Ab, | Lab | Routin | Chronic viral | Expected: | | Total | | e | hepatitis C (HCC) | 06/02/2018, Expires: | | | | | Hepatic fibrosis | 06/02/2019 | + +------+--------+ + + | Hepatitis C RNA, | Lab | Routin | Chronic viral | 2 Occurrences | | Quant, NAAT | | e | hepatitis C (HCC) | starting 04/07/2019 | | | | | | until 06/23/2019 | + +------+--------+ + + | Hepatitis C RNA, | Lab | Routin | Chronic viral | Expected: | | Quant, NAAT | | e | hepatitis C (HCC) | 09/01/2018, Expires: | | | | | | 08/30/2019 | + +------+--------+ + + | Hepatitis C RNA, | Lab | Routin | Chronic viral | Expected: | | Quant, NAAT | | e | hepatitis C (HCC) | 11/24/2018, Expires: | | | | | | 08/30/2019 | + +------+--------+ + + | Comprehensive | Lab | Routin | Hyperlipidemia | Expected: | | Metabolic Panel | | e | Chronic viral | 11/09/2018, Expires: | | | | | hepatitis C (HCC) | 11/10/2019 | | | | | Abnormal levels of | | | | | | other serum enzymes | | + +------+--------+ + + | Lipid Panel | Lab | Routin | Hyperlipidemia | Expected: | | | | e | | 11/09/2018, Expires: | | | | | | 11/10/2019 | + +------+--------+ + + documented as of this encounter Visit Diagnoses + + | Diagnosis | + + | Chronic viral hepatitis C (HCC) Chronic hepatitis C without mention of hepatic coma | + + | Hepatic fibrosis Cirrhosis of liver without mention of alcohol | + + | Hyperlipidemia Other and unspecified hyperlipidemia | + + | Abnormal levels of other serum enzymes | + + documented in this encounter"
--- OUTSIDE RECORDS SUMMARY | ~2020-04-19 | XMS | Encounter Summary ---
Demographics + + + | Address | [address] | | | [place] [address] | + + + | Home Phone | | + + + | Preferred Language | Unknown | + + + | Marital Status | | + + + | Buddhist Affiliation | 1013 | + + + | Race | White | + + + | Ethnic Group | Not or | + + + Author + + + | Author | [facility] | | | and [place] | + + + | Organization | [facility] | | [...] Providers + +------+ + | Care Assistant Warehouse Manager Name | Role | Phone | + +------+ + | Giovanni Huffman MD | PCP | | + +------+ + Encounter Details +--------+ + + + + | Date | Type | Department | Care Team | Description | +--------+ + + + + | 08/10/ | Abstract | [facility] | | | 2011 | | GASTROENTEROLOGY | [facility] [address] | | | | | [address] [place] | [address] | | | | | [address] [place], [place] | [place], [place] | | | | | [address] | [address] | | | | | [phone] | | | +--------+ + + + [...]
--- OUTSIDE RECORDS SUMMARY | ~2020-04-19 | XMS | Encounter Summary ---
Demographics + + + | Address | [address] | | | [place] [address] | + + + | Home Phone | | + + + | Preferred Language | Unknown | + + + | Marital Status | | + + + | Sikh Affiliation | 1013 | + + + | Race | White | + + + | Ethnic Group | Not or | + + + Author + + + | Author | [facility] | | | and [place] | + + + | Organization | [facility] | | | and [...] Team Providers + +------+ + | Care Punch Press Feeder Name | Role | Phone | + +------+ + | Giovanni Huffman MD | PCP | | + +------+ + Reason for Referral Evaluate & Treat (Routine) +--------+ + + + + + | Status | Reason | Specialty | Diagnoses / | Referred By | Referred To | | | | | Procedures | Contact | Contact | +--------+ + + + + + | Closed | Specialty | Gastroenterol | Diagnoses | | [place], | | | Services | ogy | HCV | [place], | [place], | | | Required | | (hepatitis C | [place], | [facility] [address] | | | | | virus) | [facility] [address] | | | | | | [address] | [address] | | | | | | [address] | [place], | | | | | | [place], | [place] [address] | | | | | | [place] [address] | Phone: | | | | | | Phone: | [phone] | | | | | | [phone] | Fax: | | | | | | Fax: | [phone] | | | | | | [phone] | | +--------+ + + + + + Evaluate & Treat (Routine) +--------+ + + + + + | Status | Reason | Specialty | Diagnoses / | Referred By | Referred To | | | | | Procedures | Contact | Contact | +--------+ + + + + + | Closed | Specialty | Gastroenterol | Diagnoses | | [place], | | | Services | ogy | HCV | [facility], | Sam Stubbs MD | | | Required | | (hepatitis C | [place], | [address], | | | | | virus) | [facility] [address] | [address] | | | | | Heartburn | [address] | [place], | | | | | Procedures | [address] | [place] [address] | | | | | MD UPPER GI | [place], | Phone: | | | | | ENDOSCOPY,DI | [place] [address] | [phone] | | | | | AGNOSIS MD | Phone: | Fax: | | | | | UPPER GI | [phone] | [phone] | | | | | ENDOSCOPY,BI | Fax: | | | | | | OPSY | [phone] | | +--------+ + + + + + Reason for Visit + + + | Reason | Comments | + + + | Other | hep c | + + + | Gastroesophageal | | | Reflux | | + + + Encounter Details +--------+---------+ + + + | Date | Type | Department | Care Team | Description | +--------+---------+ + + + | 08/24/ | Office | [facility] | [facility], | HCV (hepatitis C | | 2012 | Visit | GASTROENTEROLOGY | MARY Velarde [address] | virus) (Primary Dx); | | | | [address] | [address] | Heartburn | | | | [address] [place], [place] | [place], [place] | | | | | [address] | [address] | | | | | [phone] | | | +--------+---------+ + + + [...] + | Tobacco Cessation: Ready to Quit: Yes; Counseling Given: Yes | + + + [...] + + + | Blood Pressure | 132/100 | 08/24/2012 9:10 AM | | | | | PST | | + + + + + | Pulse | 66 | 08/24/2012 9:10 AM | | | | | PST | | + + + + + | Temperature | 36.4 C (97.6 F) | 08/24/2012 9:10 AM | | | | | PST | | + + + + + | Respiratory Rate | 16 | 08/24/2012 9:10 AM | | | | | PST | | + + + + + | Oxygen Saturation | - | - | | + + + + + | Inhaled Oxygen | - | - | | | Concentration | | | | + + + + + | Weight | 117.5 kg (259 lb) | 08/24/2012 9:10 AM | | | | | PST | | + + + + + | Height | 180.3 cm (5' 11") | 08/24/2012 9:10 AM | | | | | PST | | + + + + + | Body Mass Index | 36.12 | 08/24/2012 9:10 AM | | | | | PST | | + + + + + documented in this encounter Progress Notes TigrePrachi singletonMARY - 08/24/2012 9:25 AM PSTFormatting of this note might be differe nt from the original. Subjective: Patient ID: Uri Pierre is a 32 y.o. male. HPI Patient notes he was diagnosed with HCV about 2 years ago. He did have issue with IVDU abou t 15 years ago. He has not used any IV drugs since he was 15. He has stopped drinking alcoho l about 1.5 years ago. He does smoke marijuana. He also notes heartburn that increased about 1 year ago. He takes omeprazole 20 mg daily an d carafate 4 times per day. He can have breakthrough heartburn. He has woken up at night to vomit due to heartburn. Denies dysphagia or hematemesis. He also notes he has chronic pain related to pituitary adenoma. Patient has had surgery ho wever had continued headache and pain especially in his neck and low back. Patient notes he does have symptoms of fevers, chills, diarrhea, and increased blood pressure when he is out of his pain pills. He notes at the marijuana he is a central pain when he is out of his pa in medication. He was advised by primary provider he did not be put on a pain contract and telemetry discontinues marijuana. Allergies Allergen Reactions Penicillins Anaphylaxis Metoclopramide Stomach upset Past Medical History Diagnosis Date Hepatitis C Alcohol abuse Osteoarthritis Atrial fibrillation Chronic back pain Depression GERD (gastroesophageal reflux disease) Migraine headache Hypertension Hyperlipidemia, mixed Convulsions H/O peptic ulcer Allergy Past Surgical History Procedure Date Removal pituitary adenoma 2011 Umbilical hernia repair 2002 Family History Problem Relation Age of Onset Cancer Mother stomach and lung Diabetes Mother Heart disease Father Stroke Paternal Grandfather History Social History Marital Status: Single Spouse Name: N/A Number of Children: N/A Years of Education: N/A Occupational History Not on file. Social History Main Topics Smoking status: Current Everyday Smoker -- 0.5 packs/day Smokeless tobacco: Never Used Alcohol Use: No quit one year ago, was a heavy drinker for 15 years one fifth per day Drug Use: Yes Special: Marijuana Sexually Active: Not on file Other Topics Concern Not on file Social History Narrative No narrative on file Review of Systems Constitutional: Positive for fever and chills. HENT: Positive for congestion. Negative for hearing loss, rhinorrhea, trouble swallowing, p ostnasal drip and tinnitus. Eyes: Negative for pain, redness and itching. Respiratory: Positive for cough, shortness of breath and wheezing. Cardiovascular: Positive for chest pain and palpitations. Negative for leg swelling. Gastrointestinal: Positive for nausea, vomiting, abdominal pain and diarrhea. Negative for constipation, blood in stool, abdominal distention and anal bleeding. Genitourinary: Positive for frequency. Negative for dysuria, urgency, hematuria and difficu lty urinating. Musculoskeletal: Positive for back pain. Negative for joint swelling and arthralgias. Neurological: Positive for weakness, numbness and headaches. Negative for dizziness, seizur es and syncope. Hematological: Negative for adenopathy. Psychiatric/Behavioral: Positive for dysphoric mood. Objective: Physical Exam Physical Exam General: well developed, well nourished, in no acute distress. Head: normocephalic and atraumatic Eyes: Sclera clear Mouth: MMM Lungs: Clear to asucultate bilaterally and throughout Heart: regular rate and rhythm Abdomen: Soft, nontender, nondistended, bowel tones positive times 4 quadrants, negative Rodriguez' s sign, negative rebound tenderness, no gaurding, no hepatosplenomegaly palpated Rectal: rectal exam prior to procedure. Msk: symmetrical with no deformity, with normal posture and gait, normal strength. Extremities: no clubbing, cyanosis, edema, or deformity noted Neurologic: no focal deficits, cranial nerves II-XII grossly intact Skin: intact without lesions or rashes. Psych: alert and cooperative; normal mood and affect; normal attention span and concentration. Assessment: Hepatitis C Heartburn Plan: Scheduled liver biopsy, and additional labs including CBC, CMP, PT/INR, Iron studies, Autoi mmune pannel, Thyroid studies, HCV genotype and quant. Will follow up with patient with resu lts of all tests. Discussed Hepatitis C, current treatment, future treatments, and progressi on of liver disease. Requirements for HCV treatments discussed with patient including abstin ence from all illegal drugs, including marijuana, and alcohol for at least 6 months and erasmo atment and stabalization of underlying depression for at least 6 weeks prior to treatment. Will discuss further at followup appt. Patient to have EGD for further evaluation.The procedural techniques, risks, indications, a nd alternatives were discussed. Among the risks, are perforation, bleeding, infection, fidel rgic/adverse reactions to medications, and cardiovascular complications. Each of these coul d result in hospitalization, additional procedures (including surgery), or other life threat ening complications. Patient verbalized understanding.Patient to call with any questions or concerns prior to procedure. Will follow up with results. Patient is to call with any question or concerns. Any fevers, chills, chest pain, SOB or other serious symptoms patient is to call the office or go to ER . Cc: Giovanni Huffman Reviewed most recent labs, imaging, and procedures. documented in t his encounter Miscellaneous Notes Addendum Note - Luz Collins - 08/24/2012 10:50 AM PST Addended by: JUDY COLLINS on: 08/24/2012 10:50 Modules accepted: Orders, Level of Service iluiza - EMPERATRIZ SE SCAN [facility] - 08/24/2012 12:00 AM PST 10 :10 AM PSTdocumented in this encounter Plan of Treatment + +---------+--------+ + + | Name | Type | Priori | Associated Diagnoses | Order Schedule | | | | ty | | | + +---------+--------+ + + | US Guided Biopsy | Imaging | Routin | HCV (hepatitis C | Expected: | | | | e | virus) | 08/24/2012, Expires: | | | | | | 08/24/2013 | + +---------+--------+ + + | Mitochondrial | Lab | Routin | HCV (hepatitis C | 1 Occurrences | | antibodies (UW) | | e | virus) | starting 08/24/2012 | | | | | | until 08/24/2013 | + +---------+--------+ + + | Anti-smooth muscle | Lab | Routin | HCV (hepatitis C | 1 Occurrences | | antibody | | e | virus) | starting 08/24/2012 | | | | | | until 08/24/2013 | + +---------+--------+ + + | [facility] | Lab | Routin | HCV (hepatitis C | 1 Occurrences | | | | e | virus) | starting 08/24/2012 | | | | | | until 08/24/2013 | + +---------+--------+ + + + + +--------+ + + | Name | Type | Priori | Associated Diagnoses | Order Schedule | | | | ty | | | + + +--------+ + + | Ambulatory referral | Outpatient | Routin | HCV (hepatitis C | Expected: | | to Gastroenterology | Referral | e | virus) Heartburn | 09/16/2012, Expires: | | | | | | 08/24/2013 | + + +--------+ + + | Ambulatory referral | Outpatient | Routin | HCV (hepatitis C | Expected: 09/01/2012 | | to Gastroenterology | Referral | e | virus) | (Approximate), | | | | | | Expires: 08/24/2013 | + + +--------+ + + documented as of this encounter Results Hepatitis C RNA, quantitative, PCR (10/06/2012 9:10 AM PST) + + + + + + | Component | Value | Ref Range | Performed | Pathologist | | | | | At | Signature | + + + + + + | HCV Viral | 5.5 (A) | NOTDET Log | [facility] | | | Load, log10 | | IU/mL | [facility] | | | | | | MEDICAL | | | | | | CENTER - | | | | | | LABORATORY | | + + + + + + | HCV Quant | [id number] (A)Comment: | NOTDET IU/mL | [facility] | [...] Dr, | | | | | | [place] [address] | | | | | | CLIA:[id number] | | | | + + + + + + + + | Specimen | + + | Blood specimen | | (specimen) | + + + + + + + | Performing | Address | City/State/Zipcode | Phone Number | | Organization | | | | + + + + + | [facility] | [address] | [place], [place] | [phone] | | [facility] | | [address] | | | - LABORATORY | | | | + + + + + | [facility] | [address] | [place], [place] | | | [facility] | | [id number] | | | - LABORATORY | [...] 4a | | | | | | xlfgsya4b, 5a, and 6a). | | | | | | Analyte Specific | | | | | | Reagents (ASR) are used | | | | | | inmany laboratory tests | | | | | [...] | | | | | determined by [facility] | | | | | | [...] [address], | | | | | | [place] [address] | | | | | | CLIA:[id number] | | | | + + + + + + + + | Specimen | + + | Blood specimen | | (specimen) | + + + + + + + | Performing | Address | City/State/Zipcode | Phone Number | | Organization | | | | + + + + + | [facility] | [address] | [place] | [phone] | | [facility] | | [address] | | | - LABORATORY | | | | + + + + + | [facility] | [address] | [place] | | | [facility] | | [address], [facility] | | | - LABORATORY | | | | + + + + + Protime-INR (10/06/2012 9:10 AM PST) + + + + + + | Component | Value | Ref Range | Performed | Pathologist | | | | | At | Signature | + + + + + + | Prothrombin | 12.1 | 11.3 - 13.9 | [facility] | | | Time | | seconds | [facility] | | | | [...] At | + + + | | [facility] | | | [facility] | | | [facility] | | | - LABORATORY | + + + + + + + + | Performing | Address | City/State/Zipcode | Phone Number | | Organization | | | | + + + + + | [facility] | [address] | [place], [place] | [phone] | | [facility] | | [address] | | | - LABORATORY | | | | + + + + + | [facility] | [address] | [place], [place] | | | [facility] | | [address] [place] [address] | | | - LABORATORY | | | | + + + + + Ceruloplasmin (10/06/2012 9:10 AM PST) + + + + + + | Component | Value | Ref Range | Performed | Pathologist | | | | | At | Signature | + + + + + + | CERULOPLASM | 38Comment: Testing | 21 - 53 mg/dL | [facility] | | | [place] | Performed: [facility], [address] | | [facility] | | | | [address] [place] | | MEDICAL | | | | [id number]: [id number] | | CENTER - | | | [...] + | [facility] | [address] | [place], [place] | [phone] | | [facility] | | [address] | | | - LABORATORY | | | | + + + + + | [facility] | [address] | [place], [place] | | | [facility] | | [address], [facility] | | | - LABORATORY | [...] | | | | | Performed: [facility], [address] | | | | | | [address], [place] | | | | | | [address] CLIA: [id number] | | | | + + + + + + + + | Specimen | + + | Blood specimen | | (specimen) | + + + + + + + | Performing | Address | City/State/Zipcode | Phone Number | | Organization | | | | + + + + + | [facility] | [address] | [place], [place] | [phone] | | [facility] | | [address] | | | - LABORATORY | | | | + + + + + | [facility] | [address] | [place], [place] | | | [facility] | | [address] | | | - LABORATORY | [...] MEDICAL | | | | [place] [id number]: | | CENTER - | | | | [id number] | | LABORATORY | | + + + + + + | Hepatitis | SEE BELOWComment: No | () | [facility] | | | Interpretat | serologic evidence of | | [facility] | | | ion: | past or current HAV | | MEDICAL | | | | infection.Testing | | CENTER - | | | | Performed: [facility], [address] | | LABORATORY | | | | [address], [place] | | | | | | [id number]: [id number] | | | | + + + + + + + + | Specimen | + + | Blood specimen | | (specimen) | + + + + + + + | Performing | Address | City/State/Zipcode | Phone Number | | Organization | | | | + + + + + | [facility] | [address] | [place], [place] | [phone] | | [facility] | | [address] | | | - LABORATORY | | | | + + + + + | [facility] | [address] | [place], [place] | | | [facility] | | [id number] [place] [address] | | | - LABORATORY | | [...] CENTER - | | | | Performed: [facility] | | LABORATORY | | | | [facility] | | | | | | [address], | | | | | | [place] [address] | | | | | | CLIA: [id number] | | | | + + + + + + + + | Specimen | + + | Blood specimen | | (specimen) | + + + + + + + | Performing | Address | City/State/Zipcode | Phone Number | | Organization | | | | + + + + + | [facility] | [address] | [place] | [phone] | | [facility] | | [address] | | | - LABORATORY | | | | + + + + + | [facility] | [address] | [place], [place] | | | [facility] | | [address], [facility] | | | - LABORATORY | [...] | | MEDICAL | | | | [place], [place] [id number]: | | CENTER - | | | | [id number] | | LABORATORY | | + + + + + + + + | Specimen | + + | Blood specimen | | (specimen) | + + + + + + + | Performing | Address | City/State/Zipcode | Phone Number | | Organization | | | | + + + + + | [facility] | [address] | [place] | [phone] | | [facility] | | [address] | | | - LABORATORY | | | | + + + + + | [facility] | [address] | [place], [place] | | | [facility] | | [address], [facility] | | | - LABORATORY | [...] IgM | Testing Performed: [facility], | | [facility] | | | | [address], | | MEDICAL | | | | [place], [place] [address]ZHJF: | | CENTER - | | | | [id number] | | LABORATORY | | + + [...] [address] | [place] | [phone] | | [facility] | | [address] | | | - LABORATORY | | | | + + + + + | [facility] | [address] | [place] | | | [facility] | | [address], [facility] | | | - LABORATORY | [...] | [facility] | | | | [facility] | | MEDICAL | | | [...] + | [facility] | [address] | [place] | [phone] | | [facility] | | [address] | | | - LABORATORY | | | | + + + + + | [facility] | [address] | [place], [place] | | | [facility] | | [address], [facility] | | | - LABORATORY | [...] | >60Comment: For | >60 mL/min/A | [facility] | | | GFR | -Americans, | [...] | ine Ratio | | | [facility] | | [...] | 12.1 | 6.0 - 17.0 | [facility] | | | | | | [facility] | | | | | | [...] [address] | [place] | [phone] | | [facility] | | [address] | | | - LABORATORY | | | | + + + + + | [facility] | [address] | [place] | | | [facility] | | [address] | | | - LABORATORY | [...] | Cells | | M/uL | [facility] | | | | [...] 0.1 | 0.0 - 0.1 K/uL | [facility] | | | Basophils | | | [facility] | | [...] ST. | [address] | [place] | [phone] | | [facility] | | [address] | | | - LABORATORY | | | | + + + + + | [facility] | [address] | [place], [place] | | | [facility] | | [address], [facility] | | | - LABORATORY | | | | + + + + + documented in this encounter Visit Diagnoses + + | Diagnosis | + + | HCV (hepatitis C virus) - Primary Unspecified viral hepatitis C without hepatic coma | + + | Heartburn | + + documented in this encounter
--- OUTSIDE RECORDS SUMMARY | ~2020-04-19 | XMS | Encounter Summary ---
Demographics + + + | Address | [address] | | | [place] [address] | + + + | Home Phone [...] + + + | Author | [facility] | + + + | Organization | [facility] | + + + [...] Team Providers + +------+ + | Care Thermal Cutter Helper Name | Role | Phone | [...] Closed | | Radiology | Diagnoses | Hassell, Ashley | Rad [facility] | | | | | Unspecified | [address] [place] [address] | [address] | | | | | disorder of | [address] | [address] | | | | | obdulia | [address] | [address] | | | | | pituitary | Rd | Research | | | | | gland and | [place], [place] | Center | | | | | its | [address] | [place] | | | | | hypothalamic | Phone: | [phone] | | | | | control | [phone] | Phone: | | | | | Procedures | Fax: | [phone] | | | | | MR PITUITARY | [phone] | Fax: | | | | | WWO | | [phone] | | | | | CONTRAST | | | +--------+--------+ + + + + Reason for Visit Diagnostic Testing (Routine) +--------+--------+ + + + + | Status | Reason | Specialty | Diagnoses / | Referred By | Referred To | | | | | Procedures | Contact | Contact | +--------+--------+ + + + + | Closed | | Radiology | Diagnoses | Hassell, Ashley | Rad Mri Hrc | | | | | Unspecified | [place] [place] [address] | [address] | | | | | disorder of | [address] | [address] | | | | | the | [facility] | [address] | | | | | pituitary | Rd | Research | | | | | gland and | [place], [place] | Center | | | | | its | [address] | [place], [place] | | | | | hypothalamic | Phone: | [address] | | | | | control | [phone] | Phone: | | | | | Procedures | Fax: | [phone] | | | | | MR PITUITARY | [phone] | Fax: | | | | | WWO | | [phone] | | | | | CONTRAST | | | +--------+--------+ + + + + Encounter Details +--------+ + + + + | Date | Type | Department | Care Team | Description | +--------+ + + + + | 09/25/ | Hospital | Radiology/Imaging | | | | 2011 | Encounter | Lab at [facility] [address] | | | | | [address] [facility] | | | | | | [facility], | | | | | | [place] [address], [facility] | | | | | | Floor [place], [place] | | | | | | [address] | | | | | | [phone] | | | +--------+ + + + [...] +---------+--------+ + documented as of this encounter Miscellaneous Notes Scan - Kamlesh [facility] - 10/05/2011 11:32 AM PSTElectronically signed by Faculty Other at 11:32 AM PSTScan - Kamlesh [facility] - 10/01/2011 7:50 AM PST documented in this encounter Plan of Treatment [...] | | + +---------+ + + | [facility] DEPARTMENT OF | | | | [...] 1.0 | 0.7 - 1.3 mg/dL | [facility], | | | POC | | | [...] + + | [facility] | [address] [facility] | [place] [address] | | | OF CARE TESTS | | | | + + + + + documented in this encounter Visit Diagnoses + + | Diagnosis | + + | 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
--- OUTSIDE RECORDS SUMMARY | ~2020-04-19 | XMS | Encounter Summary ---
Demographics + + + | Address | [address] | | | [place] [address] | + + + | Home Phone [...] Team Providers + +------+ + | Care Weft Straightener Name | Role | Phone | + +------+ + | Alejandro Dowling DO | PCP | | + +------+ + Encounter Details +--------+------+ + + + | Date | Type | Department | Care Team | Description | +--------+------+ + + + | 08/03/ | Lab | Laboratory at [facility] | | Pituitary adenoma | | 2010 | | [address] | | ([facility]); Headache; | | | | [facility] | | Nocturnal polyuria | | | | and Healing, | | | | | | Building [address] | | | | | | [place], [place] | | | | | | [address] | | | | | | [phone] | | | +--------+------+ + + + [...] At | + + + | [facility] ([facility]) | [facility] | | [facility] [place] [address] [facility] | REGIONAL | | [place] [address] | LABORATORY | + + + + + + + + | Performing | Address | City/State/Zipcode | Phone Number | | Organization | | | | + + + + + | [facility] | [address] | [place] [address] | | | LABORATORY | | | [...] + + | [facility] ([facility]) [place] | [place] | | [place] [address] [address] [facility] | [facility] | | [place] [address] | LABORATORY | + + + + + + + + | Performing | Address | City/State/Zipcode | Phone Number | | Organization | | | | + + + + + | [facility] | [address] | [place] [address] | | | LABORATORY | | | [...] + + + | [facility] ([facility]) [facility] | [facility] | | [place] [address] [facility] | REGIONAL | | [place] [address] | LABORATORY | + + + + + + + + | Performing | Address | City/State/Zipcode | Phone Number | | Organization | | | | + + + + + | [facility] | [address] | [place] [address] | | | LABORATORY | | | [...] [facility] | [facility] | | [place] [address] | REGIONAL | | [place] [address] | LABORATORY | + + + + + + + + | Performing | Address | City/State/Zipcode | Phone Number | | Organization | | | | + + + + + | [facility] | [address] | [place] [address] | | | LABORATORY | | | [...] Way Lab) [facility] | [facility] | | [facility] [address] | REGIONAL | | [place] [address] | LABORATORY | + + + + + + + + | Performing | Address | City/State/Zipcode | Phone Number | | Organization | | | | + + + + + | [facility] | [address] | [place] [address] | | | LABORATORY | | | [...] | | | DEPARTMENT | | | CROATIAN | | | OF | | | [...] DEPARTMENT OF | [address] | [place] [address] | | | PATHOLOGY | [address] [...] | + + + + + | [facility] | [address] | [place] [address] | | | PATHOLOGY | [address] [...] | + + + + + | [facility] | [address] | [place] [address] | | | PATHOLOGY | [address] [...]
--- OUTSIDE RECORDS SUMMARY | ~2020-04-19 | XMS | Encounter Summary ---
Demographics + + + | Address | [address] | | | [place] [address] | + + + | Home Phone [...] Author + + + | Author | [facility] | + + + | Organization | [facility] | + + + | [...] Team Providers + +------+ + | Care Aniline Press Worker Name | Role | Phone | + +------+ + | Giovanni Huffman MD | PCP | | + +------+ + Encounter Details +--------+ + + + + | Date | Type | Department | Care Team | Description | +--------+ + + + + | 04/21/ | MyChart | Neurosurgery at | [place], | RE:Neurosurgery Appt | | 2011 | Encounter | [place] [facility] | [place], | | | | | and Healing [address] | [place] [address] | | | | | [facility] | [address] [place], | | | | | Health and Healing, | [place] [address] | | | | | [place] [address] | [phone] | | | | | [facility] [place] | | | | | | [address] | | | | | | [phone] | | | +--------+ + + + [...]
--- OUTSIDE RECORDS SUMMARY | ~2020-04-19 | XMS | Encounter Summary ---
Demographics + + + | Address | [address] | | | [place] [address] | + + + | Home Phone [...] Team Providers + +------+ + | Care Solar Electric/Photovoltaic Installer Name | Role | Phone | + [...] | | | | | | [place] for | | | | | | Health and Healing, | | | | | | | | | | | | floor [place], [place] | | | | | | [address] | | | | | | [phone] | | | +--------+ + + + [...] this encounter Miscellaneous Notes Telephone Encounter - Alek Elliott MD - 07/20/2011 9:44 AM PSTI spoke with Mr. Mirna lentz and gave him the results of his pathology report. I answered questions about nasal rinsing, pain control, significance of pathology report and future directions regarding maritza tment and decision making. He has follow-up with us in September. 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 Can discuss with pt next week if he prefers. elephone Encounter - Cindy King LPN - 07/15/2011 1:55 PM PSTPatient calling, would like pathology results from 07/01/11. Please advise and I can call the patient. documented in this encounter Plan of Treatment Not on filedocumented as of this encounter Visit Diagnoses Not on filedocumented in this encounter"
--- OUTSIDE RECORDS SUMMARY | ~2020-04-19 | XMS | Encounter Summary ---
Demographics + + + | Address | [address] | | | [place] [address] | + + + | Home Phone | | + + + | Preferred Language | Unknown | + + + | Marital Status | | + + + | Synagogue Affiliation | 1013 | + + + | Race | White | + + + | Ethnic Group | Not or | + + + Author + + + | Author | [facility] | | | and [place] | + + + | Organization | [facility] | | [...] Team Providers + +------+ + | Care Proration Clerk Name | Role | Phone | + +------+ + PCP | Unavailable | + +------+ + Encounter Details +--------+ + + + + | Date | Type | Department | Care Team | Description | +--------+ + + + + | 11/17/ | Hospital | [facility] | | | | 1996 | Encounter | MED CTR LABORATORY | | | | | | [address] [place] | | | | | | [place] | | | | | | [address] | | | | | | [phone] | | | +--------+ + + + [...]
--- OUTSIDE RECORDS SUMMARY | ~2020-04-19 | XMS | Encounter Summary ---
Demographics + + + | Address | [address] | | | [place] [address] | + + + | Home Phone | | + + + | Preferred Language | Unknown | + + + | Marital Status | | + + + | Jew Affiliation | 1013 | + + + | Race | White | + + + | Ethnic Group | Not or | + + + Author + + + | Author | [facility] | | | and [place] | + + + | Organization | [facility] | | | [...] Team Providers + +------+ + | Care Head Bellhop Captain Name | Role | Phone | + +------+ + | Giovanni Huffman MD | PCP | | + +------+ + Reason for Visit +--------+--------+ + | Reason | Onset | Comments | | | Date | | +--------+--------+ + | Other | 08/25/ | insurance | | | 2012 | | +--------+--------+ + Encounter Details +--------+ + + + + | Date | Type | Department | Care Team | Description | +--------+ + + + + | 08/25/ | Telephone | [facility] | [facility], | Other (insurance) | | 2012 | | GASTROENTEROLOGY | MARY [address] | | | | | [address] [facility] | [facility] [address] | | | | | [address] [place], [place] | [place], [place] | | | | | [address] | [id number] | | | | | [phone] | | | +--------+ + + + [...] this encounter Miscellaneous Notes Telephone Encounter - DennisLuz - 08/25/2012 4:09 PM PSTSpoke to Christopher, he was fariba d earlier that his insurance is not good for this year, he went and checked, said he thinks he can get back on it in a few weeks. He would like me to send him a jaja care form to [facility] out. He would like to keep appointment for his procedure with Dr. Calabrese for September 16. Lisbet goldberg does not want to schedule his liver biopsy until he hears back from [facility] Jaja.He will c all us when he gets this straightened out. Also he requested his lab orders be faxed to [facility]. I will do this. 4:2 0 PM PSTdocumented in this encounter Plan of Treatment Not on filedocumented as of this encounter Visit Diagnoses Not on filedocumented in this encounter"
--- OUTSIDE RECORDS SUMMARY | ~2020-04-19 | XMS | Encounter Summary ---
Demographics + + + | Address | [address] | | | [place] [address] | + + + | Home Phone | | + + + | Preferred Language | Unknown | + + + | Marital Status | | + + + | Restoration Affiliation | 1013 | + + + | Race | White | + + + | Ethnic Group | Not or | + + + Author + + + | Author | [facility] | | | and [place] | + + + | Organization | [facility] | | [...] Team Providers + +------+ + | Care Swatcher Name | Role | Phone | + +------+ + PCP | Unavailable | + +------+ + Encounter Details +--------+ + + + + | Date | Type | Department | Care Team | Description | +--------+ + + + + | /05/ | Hospital | [facility] | | | | 1996 | Encounter | MED CTR EMERGENCY | | | | | | CENTER [address] | | | | | | [place], [place] | | | | | | [address] | | | | | | [phone] | | | +--------+ + + + [...]
--- OUTSIDE RECORDS SUMMARY | ~2020-04-19 | XMS | Encounter Summary ---
Demographics + + + | Address | [address] | | | [place] [address] | + + + | Home Phone [...] Team Providers + +------+ + | Care Boiler House Mechanic Name | Role | Phone | [...] | | | Pituitary | [place], | [address] | | | | | adenoma | DNP,MATERIAL STOCKKEE[place] | [place] | | | | | (HCC) | [address] | [address] | | | | | Procedures | Ave | Research | | | | | MRI | [place], [place] | Center | | | | | PITUITARY | [address] | [facility] [place] | | | | | WWO CONTRAST | Phone: | [address] | | | | | | [phone] | Phone: | | | | | | Fax: | [phone] | | | | | | [phone] | Fax: | | | | | | | [phone] | +--------+--------+ + + + + Encounter Details +--------+ + + + + | Date | Type | Department | Care Team | Description | +--------+ + + + + | 03/21/ | Local Sales Associate | Neurosurgery at | [place], | Pituitary adenoma | | 2013 | | [facility] | [place] | ([facility]) (Primary Dx) | | | | and Healing [address] | DNP,[place] [address] | | | | | [facility]ope [facility] for | [address] [place], | | | | | Health and Healing, | [place] [address] | | | | | Building [address] | [phone] | | | | | [place], [place] | | | | | | [address] | | | | | | [phone] | | | +--------+ + + + [...] this encounter Miscellaneous Notes Telephone Encounter - Ailyn Roberts LPN - 03/22/2014 10:14 AM PDTNo action needed. Ordered pituitary MRI per Bob Mccormack DNP last OV on 06/07/12. elephone Encounter - Yamileth Mota - 2013 9:10 AM PDTGe Mccormack pt needs Pituitary MRI. Please place and sign order so that I may schedule. documented in this encounte r Plan of Treatment + +---------+--------+ + + | Name | Type | Priori | Associated Diagnoses | Order Schedule | | | | ty | | | + +---------+--------+ + + | MRI PITUITARY WWO | Imaging | Routin | Pituitary adenoma | Expected: | | CONTRAST | | e | (HCC) | 02/11/2021, Expires: | | | | | | 02/11/2021 | + +---------+--------+ + + documented as of this encounter Visit Diagnoses + + | Diagnosis | + + | Pituitary adenoma (HCC) - Primary Benign neoplasm of pituitary gland and | | craniopharyngeal duct (pouch) | + + documented in this encounter"
--- OUTSIDE RECORDS SUMMARY | ~2020-04-19 | XMS | Encounter Summary ---
Demographics + + + | Address | [address] | | | [place] [address] | + + + | Home Phone | | + + + | Preferred Language | Unknown | + + + | Marital Status | Single | + + + | Mosque Affiliation | CHR | + + + [...] Team Providers + +------+ + | Care Multimedia Programmer Name | Role | Phone | + [...] | | pituitary | MEDICINE | [address] [place], | | | | | gland and | [address] | [place] | | | | | its | [place] | [address] | | | | | hypothalamic | [address] | Phone: | | | | | control | [place], | [phone] | | | | | Family Care | [place] [address] | Fax: | | | | | OHP ID# | Phone: | [phone] | | | | | [phone] | [phone] | | | | | | Auth# | Fax: | | | | | | [id number] | [phone] | | | | | | 05/19-05/19/12 [...] adenoma | | 2011 | Visit | [place] [facility] | [address] | ([facility]) (Primary Dx); | | | | and Healing [address] | Headache; History of | | | | [address] [place] for | [place], [place] | adrenal | | | | Health and Healing, | [address] | insufficiency | | | | [facility] 1 | [phone] | | | | | [facility] [place] | | | | | | [address] | | | | | | [phone] | | | +--------+---------+ + + + [...] Madhav Boyer M.D., PhD. / Neuropathologist ; w Amendment seen by: Madhav Boyer M.D., PhD. [...] lesion." Received are multiple irregular, soft, gelatinous, xuo-of-ijetcbq hemorrhagic purple tissues measuring 0.8 x 0.8 [...] developed and its performance characteristics determined by [employer]. It has not been cleared or approved [...] (LAB) 8.6 - 10.2 mg/dL EGFR - SOMALI > 60 mL/min EGFR NON -SOMALI > 60 mL/min ANION GAP 4 - [...] - 5.60 uIU/ml 0.60 Component Latest Ref Rn 08/03/2011 08/03/2011 08/03/2011 12:15 PM 12:15 PM [...] 8.6 - 10.2 mg/dL 9.6 EGFR - SOMALI > 60 mL/min > 60 EGFR NON -SOMALI > 60 mL/min > 60 ANION GAP [...] (LAB) 8.6 - 10.2 mg/dL EGFR - SOMALI > 60 mL/min EGFR NON -SOMALI > 60 mL/min ANION GAP 4 - [...] RTC at 9 mths post op for CREATIVE SERVICES WRITER with MRI. I explained the pt that pathology was consistent with cyst but this was done at [facility] and did not contain the lesion in his stalk. He will discuss further with Dr Elliott I answered pt questions to his satisfaction Plan: 1. Pituitary functions. 1.1. Adrenal. The patient has a history of adrenal insufficiency. CREATIVE SERVICES WRITER this visit. Will cont inue hydrocortisone 20mg [...] and review timing of MRI. Uri Pierre, [id number] Reason for visit: Chief Complaint Patient presents [...] and follow up. I spent 40 minutes [id number] time with this patient ( separately from [...] (LAB) 8.6 - 10.2 mg/dL EGFR - SOMALI > 60 mL/min EGFR NON -SOMALI > 60 mL/min ANION GAP 4 - 11 mmol/L CORTISOL, TOTAL SERUM ug/dl TIME Hrs:mins SITE FREE T4, SERUM 0.6 - 1.2 ng/dL FSH,SERUM < 19 mIU/mL LUTEINIZING HORMONE,SERUM < 11 mIU/mL PROLACTIN 3 - 13 ng/ml 8 TESTOSTERONE, SERUM 175 - 781 ng/dl 321 TSH 0.34 - 5.60 uIU/ml 1.37 CREATININE, POC 0.7 - 1.3 mg/dL 1.0 Component Latest Ref Rn 09/25/2011 09/25/2011 09/25/2011 09/25/2011 12:15 PM 12:15 [...] 8.6 - 10.2 mg/dL 9.0 EGFR - SOMALI > 60 mL/min > 60 EGFR NON -SOMALI > 60 mL/min > 60 ANION GAP [...] (LAB) 8.6 - 10.2 mg/dL EGFR - SOMALI > 60 mL/min EGFR NON -SOMALI > 60 mL/min ANION GAP 4 - [...] Regards, MD Yamileth Luciano, 6 mo MRI, CREATIVE SERVICES WRITER/RM ,CGY, eLxi ( duong Ramirez order MRI after you ask Dr Elliott if he wants a regular pituitary one or someth ing else to look better at the stalk pathology) Thanks, [place] documented in this en counter Miscellaneous Notes Scan - Other, Faculty - 12/08/2011 12:44 PM PDTElectronically signed by Faculty Other at 12:44 PM PDTdocumented in this encounter Plan of [...] | | e | 12:45 PM | (HCC) | procedure are in [...] [facility] ([facility]) | | | [facility] [address] | | | [place] [address] | | + + + + + + + + | Performing | Address | City/State/Zipcode | Phone Number | | Organization | | | | + + + + + | [facility] | [address] | [place] [address] | | | LABORATORY | | | [...] | [facility] | | [place] [address] | REGIONAL | | [place] [address] | LABORATORY | + + + + + + + + | Performing | Address | City/State/Zipcode | Phone Number | | Organization | | | | + + + + + | [facility] | [address] | [place] [address] | | | LABORATORY | | | [...] At | + + + | [facility] ([facility]) [facility] | [facility] | | [place] [address] [facility] | REGIONAL | | [place] [address] | LABORATORY | + + + + + + + + | Performing | Address | City/State/Zipcode | Phone Number | | Organization | | | | + + + + + | [facility] | [address] | [place] [address] | | | LABORATORY | | | [...] At | + + + | R[facility] ([employer] [facility]) [place] | [facility] | | [place] [address] [address] [facility] | REGIONAL | | [place] [address] | LABORATORY | + + + + + + + + | Performing | Address | City/State/Zipcode | Phone Number | | Organization | | | | + + + + + | [facility] | [address] | [place] [address] | | | LABORATORY | | | [...] [facility] | [facility] | | [place] [address] | REGIONAL | | [place] [address] | LABORATORY | + + + + + + + + | Performing | Address | City/State/Zipcode | Phone Number | | Organization | | | | + + + + + | [facility] | [address] | [place] [address] | | | LABORATORY | | | [...] Way Lab) [facility] | [facility] | | [place] [address] [address] | REGIONAL | | [place] [address] | LABORATORY | + + + + + + + + | Performing | Address | City/State/Zipcode | Phone Number | | Organization | | | | + + + + + | [facility] | [address] | [place] [address] | | | LABORATORY | | | [...] [facility] | [facility] | | [place] [address] | REGIONAL | | [place] [address] | LABORATORY | + + + + + + + + | Performing | Address | City/State/Zipcode | Phone Number | | Organization | | | | + + + + + | [facility] | [address] | [place] [address] | | | LABORATORY | | | [...] Way Lab) [facility] | [facility] | | [place] [address] | REGIONAL | | [place] [address] | LABORATORY | + + + + + + + + | Performing | Address | City/State/Zipcode | Phone Number | | Organization | | | | + + + + + | [facility] | [address] | [place] [address] | | | LABORATORY | | | [...] | | | DEPARTMENT | | | S[place] | | | OF | | | [...] | + + + + + | [facility] DEPARTMENT OF | [address] | [place] [address] | | | PATHOLOGY | [address] [...] [facility] ([facility]) | | | [facility] [address] | | | [place] [address] | | + + + + + + + + | Performing | Address | City/State/Zipcode | Phone Number | | Organization | | | | + + + + + | [facility] | [address] | [place] [address] | | | LABORATORY | | | [...] At | + + + | [facility] ([facility]) | [facility] | | [place] [facility] [address] | REGIONAL | | [place] [address] | LABORATORY | + + + + + + + + | Performing | Address | City/State/Zipcode | Phone Number | | Organization | | | | + + + + + | [facility] | [address] | [place] [address] | | | LABORATORY | | | [...]
--- OUTSIDE RECORDS SUMMARY | ~2020-04-19 | XMS | Encounter Summary ---
Demographics + + + | Address | [address] | | | [place] [address] | + + + | Home Phone [...] Team Providers + +------+ + | Care Claims Adjuster Crop Name | Role | Phone | + [...] Encounter | Non-Invasive Testing | [address] | | | | | at [facility] | [facility] | | | | | [address] | [place] [address] | | | | | [address] | | | | | | [address] | | | | | | [place], [place] | | | | | | [address] | | | | | | [phone] | | | +--------+ + + + [...] of this encounter Miscellaneous Notes Scan - Other, Faculty - 06/12/2011 8:57 PM PDTElectronically signed by Faculty Other at 8:57 PM PDTdocumented in this encounter Plan of [...] view image for the detailed interpretation from [employer] results. | CARDIOLOGY | + + + + + + + + | Performing | Address | City/State/Zipcode | Phone Number | | Organization | | | | + + + + + | [facility] | [address] | [place], [place] | | | CARDIOLOGY | [address] | [address] | | + + + + + documented in this encounter Visit Diagnoses Not on filedocumented in this encounter
--- OUTSIDE RECORDS SUMMARY | ~2020-04-19 | XMS | Encounter Summary ---
Demographics + + + | Address | [address] | | | [place] [address] | + + + | Home Phone | | + + + | Preferred Language | Unknown | + + + | Marital Status | Single | + + + | Religion Affiliation | CHR | + + + [...] Team Providers + +------+ + | Care Rag Cutting Machine Operator Name | Role | Phone | + +------+ + | Daniel Velez DO | PCP | | + +------+ + Reason for Visit + +--------+ + | Reason | Onset | Comments | | | Date | | + +--------+ + | Neoplasm of | 06/22/ | | | pituitary gland | 2010 | | + +--------+ + Encounter Details +--------+ + + + + | Date | Type | Department | Care Team | Description | +--------+ + + + + | 06/22/ | Telephone | Neurosurgery at | Alek Elliott, | Neoplasm of | | 2010 | | [facility] [address] | | pituitary gland | | | | [place] [facility] | | | | | | Health and Healing, | | | | | | Building | | | | | | floor [place], [place] | | | | | | [address] | | | | | | [phone] | | | +--------+ + + + [...] Telephone Encounter - Alek Elliott MD - 06/22/2011 10:00 AM PDTI reviewed Mr. Pierre' s CT,CTA and MRI results on IMPAX. There is a hypo-enhancing lesion in the base of the glan d. The stalk is thickened and there is enhancement of it as well. After reviewing these st udies, my plan is to perform an endoscopic endonasal transsphenoidal biopsy of the gland for the goal of establishing a diagnosis. Another discussion regarding the patient's presentation, examination, and imaging studies w as had. The surgical plan of transsphenoidal surgery was reviewed. This included a descrip tion of the procedure in detail, the risks and benefits of the surgery, as well as therapeut ic alternatives. I specifically discussed the risks of bleeding, infection, stroke, hormone dysfunction, neurological deficits (including but not limited to paralysis, sensory loss, v ision loss, double vision, swallowing difficulties, hearing loss, coma, ) and leakage o f cerebrospinal fluid. I reviewed the risks of general anesthesia and its effects on the he art and lungs. I made it clear that this may not be the definitive operation and that subse quent surgery in the future may be indicated. I answered all questions and the patient expr essed understanding at the conclusion of this encounter. The patient has agreed to surgery and we will proceed with planning for July 01, 2011. documented in this encounter Plan of Treatment Not on filedocumented as of this encounter Visit Diagnoses Not on filedocumented in this encounter"
--- OUTSIDE RECORDS SUMMARY | ~2020-04-19 | XMS | Encounter Summary ---
Demographics + + + | Address | [address] | | | [place] [address] | + + + | Home Phone [...] Team Providers + +------+ + | Care Proof Reader Name | Role | Phone | + [...] Closed | | Radiology | Diagnoses | Willards, Ashley | [facility] | | | | | Pituitary | [address] [place] [address] | [address] | | | | | adenoma | [address] | [place] | | | | | ([facility]) | [place] | [address] | | | | | Procedures | Rd | Research | | | | | MR PITUITARY | [place], [place] | Center | | | | | WWO | [address] | [place], [place] | | | | | CONTRAST | Phone: | [phone] | | | | | | [phone] | Phone: | | | | | | Fax: | [phone] | | | | | | [phone] | Fax: | | | | | | | [phone] | +--------+--------+ + + + + Reason for Visit Diagnostic Testing (Routine) +--------+--------+ + + + + | Status | Reason | Specialty | Diagnoses / | Referred By | Referred To | | | | | Procedures | Contact | Contact | +--------+--------+ + + + + | Closed | | Radiology | Diagnoses | Willards, Ashley | [facility] | | | | | Pituitary | [address] [place] [address] | [address] | | | | | adenoma | [address] | [place] | | | | | ([facility]) | [place] | [address] | | | | | Procedures | Rd | Research | | | | | MR PITUITARY | [place], [place] | Center | | | | | [address] | [address] | [place], [place] | | | | | CONTRAST | Phone: | [phone] | | | | | | [phone] | Phone: | | | | | | Fax: | [phone] | | | | | | [phone] | Fax: | | | | | | | [phone] | +--------+--------+ + + + + Encounter Details +--------+ + + + + | Date | Type | Department | Care Team | Description | +--------+ + + + + | 06/07/ | Hospital | Radiology/Imaging | | | | 2011 | Encounter | Lab at [facility] [address] | | | | | | [facility] | | | | | | [facility], | | | | | | [address] | | | | | | Floor [place], [place] | | | | | | [address] | | | | | | [phone] | | | +--------+ + + + [...] of this encounter Miscellaneous Notes Scan - Bony Whitlock - 06/20/2012 1:27 PM PDTElectronically signed by Bony Whitlock at 1:27 PM PDTdocumented in this encounter Plan of [...] CONTRAST | e | 11:09 AM | ([facility]) | procedure are in the | | | | PDT | | results section. | + +--------+ + + + | MARIKA, POC | Routin | 06/07/2012 | | [...] | | + +---------+ + + | [facility] DEPARTMENT OF | | | | | [...] 1.0 | 0.7 - 1.3 mg/dL | NINO CURRIE, | | | POC | | | [...] + + | TEJA VEL[facility]ZQUEZ | [address] [facility] | [place] [address] | | | OF CARE TESTS | | | | + + + + + documented in this encounter Visit Diagnoses + + | Diagnosis | + + | Pituitary adenoma (HCC) Benign neoplasm of pituitary gland and craniopharyngeal duct | | (pouch) | + + documented in this encounter"
--- OUTSIDE RECORDS SUMMARY | ~2020-04-19 | XMS | Encounter Summary ---
Demographics + + + | Address | [address] | | | [place] [address] | + + + | Home Phone | | + + + | Preferred Language | Unknown | + + + | Marital Status | Single | + + + | Sabianist Affiliation | CHR | + + + [...] Team Providers + +------+ + | Care Gun Mechanic Name | Role | Phone | [...] | | disorder of | [place] | [address] | | | | | the | INTERNAL [address] | | | | | pituitary | MEDICINE | [place], [place] | | | | | gland and | [address] | [address] | | | | | its | [place] | | | | | | hypothalamic | [address] | | | | | | control | [place], | | | | | | Family Care | [place] [address] | | | | | | OHP ID# | Phone: | | | | | | [id number] | [phone] | | | | | | Procedures | Fax: | | | | | | CONSULT TO | [phone] | | | | | | PITUITARY | | | +--------+--------+ + + + + Encounter Details +--------+---------+ + + + | Date | Type | Department | Care Team | Description | +--------+---------+ + + + | 06/12/ | Office | Neurosurgery at | Alek Elliott, | Edilberto or | | 2010 | Visit | [address] | MD | suprasellar mass | | | | [facility] | | (Primary Dx) | | | | [facility] He[facility], | | | | | | Building | | | | | | floor [place], [place] | | | | | | [address] | | | | | | [phone] | | | +--------+---------+ + + + [...] July 01, 2011. I spent 60 minutes [id number] with the patient. I spent more than 50% of this visit in [facility]. I answered all questions and the patient expressed understanding at the conclusi on of this office visit. In addition, I instructed the patient to call the office or return should any issues or concerns arise. documented in this encounter Procedure Notes Other, Faculty - 07/09/2011 10:12 AM PSTAssociated Order(s): LAB REPORTSElectronically sign ed by Faculty Other at 07/09/2011 10:12 AM PSTOther, Faculty - 07/09/2011 10:11 AM PSTAssoci ated Order(s): RADIOLOGY th er, Faculty - 07/09/2011 10:11 AM PSTAssociated Order(s): RADIOLOGY ther, Faculty - 06/30/2011 7:18 AM PSTAssociated O rder(s): RADIOLOGY ther, Fa cult - 06/26/2011 3:35 PM PDTAssociated Order(s): RADIOLOGY documented in this encounter Miscellaneous Notes Scan - Other Faculty - 06/23/2011 3:00 PM PDTElectronically signed by Faculty Other at 3:00 PM PDTdocumented in this encounter Plan of [...] | + + | Other, Faculty - 07/09/2011 10:11 AM PST | + + RADIOLOGY (06/12/2011 12:00 AM PDT) + + + | Narrative | Performed At | + + + | | | + + + + + | Transcriptions | + + | Other, Faculty - 06/30/2011 7:18 AM PST | + [...]
--- OUTSIDE RECORDS SUMMARY | ~2020-04-19 | XMS | Encounter Summary ---
Demographics + + + | Address | [address] | | | [place] [address] | + + + | Home Phone | | + + + | Preferred Language | Unknown | + + + | Marital Status | | + + + | Mosque Affiliation | 1013 | + + + | Race | White | + + + | Ethnic Group | Not or | + + + Author + + + | Author | [facility] | | | and [place] | + + + | Organization | [facility] | | | [...] Team Providers + +------+ + | Care Mortgage Loan Officer Name | Role | Phone | + +------+ + | Giovanni Huffman MD | PCP | | + +------+ + Encounter Details +--------+ + + + + | Date | Type | Department | Care Team | Description | +--------+ + + + + | 12/04/ | Abstract | [facility] [place] | [facility], | | | 2015 | | GASTROENTEROLOGY | [facility] [address] | | | | | [address] [place] | [address] | | | | | [address] [place], [place] | [place], [place] | | | | | [address] | [address] | | | | | [phone] | | | +--------+ + + + [...] | + +--------+ + + + | EXTERNAL LAB: BUN | Routin | 10/12/2014 | | Results for this | | | e | | | procedure are in the | | | | | | results section. | + +--------+ + + + | EXTERNAL LAB: | Routin | 10/12/2014 | | Results for this | | GLUCOSE | e | | | procedure are in the | | | | | | results section. | + +--------+ + + + | EXTERNAL LAB: ALT | Routin | 10/12/2014 | | Results for this | | | e | | | procedure are in the | | | | | | results section. | + +--------+ + + + | EXTERNAL LAB: AST | Routin | 10/12/2014 | | Results for this | | | e | | | procedure are in the | | | | | | results section. | + +--------+ + + + | EXTERNAL LAB: | Routin | 10/12/2014 | | Results for this | | ALKALINE PHOSPHATASE | e | | | procedure are in the | | | | | | results section. | + +--------+ + + + | EXTERNAL LAB: | Routin | 10/12/2014 | | Results for this | | BILIRUBIN, TOTAL | e | | | procedure are in the | | | | | | results section. | + +--------+ + + + | EXTERNAL LAB: | Routin | 10/12/2014 | | Results for this | | ALBUMIN | e | | | procedure are in the | | | | | | results section. | + +--------+ + + + | EXTERNAL LAB: | Routin | 10/12/2014 | | Results for this | | PROTEIN, TOTAL | e | | | procedure are in the | | | | | | results section. | + +--------+ + + + | EXTERNAL LAB: | Routin | 10/12/2014 | | Results for this | | CALCIUM | e | | | procedure are in the | | | | | | results section. | + +--------+ + + + | EXTERNAL LAB: CARBON | Routin | 10/12/2014 | | Results for this | | DIOXIDE | e | | | procedure are in the | | | | | | results section. | + +--------+ + + + | EXTERNAL LAB: | Routin | 10/12/2014 | | Results for this | | CHLORIDE | e | | | procedure are in the | | | | | | results section. | + +--------+ + + + | EXTERNAL LAB: | Routin | 10/12/2014 | | Results for this | | POTASSIUM | e | | | procedure are in the | | | | | | results section. | + +--------+ + + + | EXTERNAL LAB: SODIUM | Routin | 10/12/2014 | | Results for this | | | e | | | procedure are in the | | | | | | results section. | + +--------+ + + + | EXTERNAL LAB: CBC | Routin | 10/12/2014 | | Results for this | | | e | | | procedure are in the | | | | | | results section. | + +--------+ + + + | EXTERNAL LAB: EGFR | Routin | 10/12/2014 | | Results for this | | | e | | | procedure are in the | | | | | | results section. | + +--------+ + + + | EXTERNAL LAB: | Routin | 10/12/2014 | | Results for this | | CREATININE | e | | | procedure are in the | | | | | | results section. | + +--------+ + + + | HEPATITIS C | Routin | 10/12/2014 | | Results for this | | RNA,QUANTITATIVE,PCR | e | | | procedure are in the | | | | | | results section. | + +--------+ + + + | HIV 1 AND 2 AB, | Routin | 10/12/2014 | | Results for this | | REFLEX | e | | | procedure are in the | | | | | | results section. | + +--------+ + + + | CBC WITH | Routin | 10/12/2014 | | Results for this | | DIFFERENTIAL | e | | | procedure are in the | | | | | | results section. | + +--------+ + + + | COMPREHENSIVE | Routin | 10/12/2014 | | Results for this | | METABOLIC PANEL | e | | | procedure are in the | | | | | | results section. | + +--------+ + + + documented in this encounter Results Hepatitis C RNA, quantitative, PCR (10/12/2014) + + + + + + | Component | Value | Ref Range | Performed | Pathologist | | | | | At | Signature | + + + + + + | HCV Viral | 6.8 (A) | 0 - 0 | [facility] | | | Load, log10 | | | [facility] | | | | | | [facility] | | | | | | [facility] - | | | | | | LABORATORY | | + + + + + + | HCV Viral | [id number] (A) | 0 - 0 | [facility] | | | Load | | | [facility] | | | | | | MEDICAL | | | | | | CENTER - | | | | | | LABORATORY | | + + + + + + | HEPATITIS C | Type 3, no subtype | | [facility] | | | GENOTYPE | | | [facility] | | [...] [address] | [place] | | | [facility] | | [id number] | | | - LABORATORY | | | | + + + + + HIV 1 and 2 Ab, Reflex (10/12/2014) + + + + + + | Component | Value | Ref Range | Performed | Pathologist | | | | | At | Signature | + + + + + + | HIV 1+2 Ab, | NegativeComment: Non | | [facility] | | | External | Reactive | | [facility] | | | [...] [address] | [place] | | | [facility] | | [address], [facility] | | | - LABORATORY | | | | + + + + + CBC with Differential (10/12/2014) + +-------+ + + + | Component | Value | Ref Range | Performed | Pathologist | | | | | At | Signature | + +-------+ + + + | MCH | 31.7 | 27.0 - 34.0 pg | | | + +-------+ + + + | MCHC | 34.3 | 32.0 - 35.5 % | | | + +-------+ + + + | % Basophils | 0.6 | 0.0 - 2.0 % | | | + +-------+ + + + + + | Specimen | + + | Blood specimen | | (specimen) | + + Comprehensive Metabolic Panel (10/12/2014) + +-------+ + + + | Component | Value | Ref Range | Performed | Pathologist | | | | | At | Signature | + +-------+ + + + | Anion Gap | 5 | 5 - 16 mmol/L | [facility] | | | | | | [facility] | | | | | | MEDICAL | | | | | | CENTER - | | | | | | LABORATORY | | + +-------+ + + + | BUN/Creatin | 22.4 | 11.0 - 35.0 | [facility] | | | ine Ratio | | Ratio | [facility] | | | | [...] | + + + + + | [address] | [address] | [place] | | | [facility] | | [address] | | | - LABORATORY | | | | + + + + + External Lab: CBC (10/12/2014) + +-------+ + + + | Component | Value | Ref Range | Performed | Pathologist | | | | | At | Signature | + +-------+ + + + | WBC, | 7.9 | 3.8 - 11 | EXTERNAL | | | External | | | LAB | | + +-------+ + + + | HGB, | 15.3 | 13.2 - 17 | EXTERNAL | | | External | | | LAB | | + +-------+ + + + | HCT, | 44.6 | 39 - 50 | EXTERNAL | | | External | | | LAB | | + +-------+ + + + | PLT, | 228 | 150 - 400 | EXTERNAL | | | External | | | LAB | | + +-------+ + + + | Neutrophils | 50.0 | 40 - 75 | EXTERNAL | | | %, | | | LAB | | | External | | | | | + +-------+ + + + | Lymphocytes | 38.0 | 15 - 48 | EXTERNAL | | | %, | | | LAB | | | External | | | | | + +-------+ + + + | Monocytes | 9.8 | 0 - 12 | EXTERNAL | | | %, External | | | LAB | | + +-------+ + + + | Eosinophils | 1.6 | 0 - 7 | EXTERNAL | | | %, | | | LAB | | | External | | | | | + +-------+ + + + | Neutrophils | 3.90 | 1.9 - 7.4 | EXTERNAL | | | , Absolute, | | | LAB | | | External | | | | | + +-------+ + + + | Lymphocytes | 3.00 | 1 - 3.9 | EXTERNAL | | | , Absolute, | | | LAB | | | External | | | | | + +-------+ + + + | Monocytes, | 0.8 | 0 - 0.8 | EXTERNAL | | | Absolute, | | | LAB | | | External | | | | | + +-------+ + + + | Eosinophils | 0.10 | 0 - 0.5 | EXTERNAL | | | , Absolute | | | LAB | | + +-------+ + + + | Basophils, | 0.00 | 0 - 0.1 | EXTERNAL | | | Absolute | | | LAB | | + +-------+ + + + | RBC, | 4.82 | 4.2 - 5.7 | EXTERNAL | | | External | | | LAB | | + +-------+ + + + | MCV, | 92 | 80 - 100 | EXTERNAL | | | External | | | LAB | | + +-------+ + + + | RDW, | 14.7 | 11 - 16.6 | EXTERNAL | | | External | | | LAB | | + +-------+ + + + + + | Resulting Agency Comment | + + | [facility] | + + + +---------+ + + | Performing | Address | City/State/Zipcode | Phone Number | | Organization | | | | + +---------+ + + | EXTERNAL LAB | | | | + +---------+ + + External Lab: eGFR (10/12/2014) + +-------+ + + + | Component | Value | Ref Range | Performed | Pathologist | | | | | At | Signature | + +-------+ + + + | eGFR, | >60 | 60 | EXTERNAL | | | External | | | LAB | | + +-------+ + + + + + | Specimen | + + | Blood specimen | | (specimen) | + + + + | Resulting Agency Comment | + + | [facility] | + + + +---------+ + + | Performing | Address | City/State/Zipcode | Phone Number | | Organization | | | | + +---------+ + + | EXTERNAL LAB | | | | + +---------+ + + External Lab: BUN (10/12/2014) + +-------+ + + + | Component | Value | Ref Range | Performed | Pathologist | | | | | At | Signature | + +-------+ + + + | BUN, | 17 | 8 - 25 | EXTERNAL | | | External | | | LAB | | + +-------+ + + + + + | Resulting Agency Comment | + + | [facility] | + + + +---------+ + + | Performing | Address | City/State/Zipcode | Phone Number | | Organization | | | | + +---------+ + + | EXTERNAL LAB | | | | + +---------+ + + External Lab: Glucose (10/12/2014) + +-------+ + + + | Component | Value | Ref Range | Performed | Pathologist | | | | | At | Signature | + +-------+ + + + | Glucose, | 83 | 65 - 99 | EXTERNAL | | | External | | | LAB | | + +-------+ + + + + + | Resulting Agency Comment | + + | [facility] | + + + +---------+ + + | Performing | Address | City/State/Zipcode | Phone Number | | Organization | | | | + +---------+ + + | EXTERNAL LAB | | | | + +---------+ + + External Lab: ALT (10/12/2014) + +-------+ + + + | Component | Value | Ref Range | Performed | Pathologist | | | | | At | Signature | + +-------+ + + + | ALT, | 98 | | EXTERNAL | | | External | | | LAB | | + +-------+ + + + + + | Resulting Agency Comment | + + | [facility] | + + + +---------+ + + | Performing | Address | City/State/Zipcode | Phone Number | | Organization | | | | + +---------+ + + | EXTERNAL LAB | | | | + +---------+ + + External Lab: AST (10/12/2014) + +--------+ + + + | Component | Value | Ref Range | Performed | Pathologist | | | | | At | Signature | + +--------+ + + + | AST, | 49 (A) | 10 - 45 | EXTERNAL | | | External | | | LAB | | + +--------+ + + + + + | Resulting Agency Comment | + + | [facility] | + + + +---------+ + + | Performing | Address | City/State/Zipcode | Phone Number | | Organization | | | | + +---------+ + + | EXTERNAL LAB | | | | + +---------+ + + External Lab: Alkaline Phosphatase (10/12/2014) + +-------+ + + + | Component | Value | Ref Range | Performed | Pathologist | | | | | At | Signature | + +-------+ + + + | ALP, | 81 | 35 - 115 | EXTERNAL | | | External | | | LAB | | + +-------+ + + + + + | Resulting Agency Comment | + + | [facility] | + + + +---------+ + + | Performing | Address | City/State/Zipcode | Phone Number | | Organization | | | | + +---------+ + + | EXTERNAL LAB | | | | + +---------+ + + External Lab: Bilirubin, Total (10/12/2014) + +-------+ + + + | Component | Value | Ref Range | Performed | Pathologist | | | | | At | Signature | + +-------+ + + + | Bilirubin, | 0.7 | 0.1 - 1.5 | EXTERNAL | | | Total, | | | LAB | | | External | | | | | + +-------+ + + + + + | Resulting Agency Comment | + + | [facility] | + + + +---------+ + + | Performing | Address | City/State/Zipcode | Phone Number | | Organization | | | | + +---------+ + + | EXTERNAL LAB | | | | + +---------+ + + External Lab: Albumin (10/12/2014) + +-------+ + + + | Component | Value | Ref Range | Performed | Pathologist | | | | | At | Signature | + +-------+ + + + | Albumin, | 4.5 | 3.6 - 5 | EXTERNAL | | | External | | | LAB | | + +-------+ + + + + + | Resulting Agency Comment | + + | [facility] | + + + +---------+ + + | Performing | Address | City/State/Zipcode | Phone Number | | Organization | | | | + +---------+ + + | EXTERNAL LAB | | | | + +---------+ + + External Lab: Protein, Total (10/12/2014) + +-------+ + + + | Component | Value | Ref Range | Performed | Pathologist | | | | | At | Signature | + +-------+ + + + | Protein, | 7.3 | 6.2 - 8.2 | EXTERNAL | | | Total, | | | LAB | | | External | | | | | + +-------+ + + + + + | Resulting Agency Comment | + + | [facility] | + + + +---------+ + + | Performing | Address | City/State/Zipcode | Phone Number | | Organization | | | | + +---------+ + + | EXTERNAL LAB | | | | + +---------+ + + External Lab: Calcium (10/12/2014) + +-------+ + + + | Component | Value | Ref Range | Performed | Pathologist | | | | | At | Signature | + +-------+ + + + | Calcium, | 9.8 | 8.5 - 10.2 | EXTERNAL | | | External | | | LAB | | + +-------+ + + + + + | Resulting Agency Comment | + + | [facility] | + + + +---------+ + + | Performing | Address | City/State/Zipcode | Phone Number | | Organization | | | | + +---------+ + + | EXTERNAL LAB | | | | + +---------+ + + External Lab: Carbon Dioxide (10/12/2014) + +-------+ + + + | Component | Value | Ref Range | Performed | Pathologist | | | | | At | Signature | + +-------+ + + + | Carbon | 30 | 22 - 31 | EXTERNAL | | | Dioxide, | | | LAB | | | External | | | | | + +-------+ + + + + + | Resulting Agency Comment | + + | [facility] | + + + +---------+ + + | Performing | Address | City/State/Zipcode | Phone Number | | Organization | | | | + +---------+ + + | EXTERNAL LAB | | | | + +---------+ + + External Lab: Chloride (10/12/2014) + +-------+ + + + | Component | Value | Ref Range | Performed | Pathologist | | | | | At | Signature | + +-------+ + + + | Chloride, | 107 | 99 - 109 | EXTERNAL | | | External | | | LAB | | + +-------+ + + + + + | Resulting Agency Comment | + + | [facility] | + + + +---------+ + + | Performing | Address | City/State/Zipcode | Phone Number | | Organization | | | | + +---------+ + + | EXTERNAL LAB | | | | + +---------+ + + External Lab: Potassium (10/12/2014) + +-------+ + + + | Component | Value | Ref Range | Performed | Pathologist | | | | | At | Signature | + +-------+ + + + | Potassium, | 4.6 | 3.5 - 5.3 | EXTERNAL | | | External | | | LAB | | + +-------+ + + + + + | Resulting Agency Comment | + + | [facility] | + + + +---------+ + + | Performing | Address | City/State/Zipcode | Phone Number | | Organization | | | | + +---------+ + + | EXTERNAL LAB | | | | + +---------+ + + External Lab: Sodium (10/12/2014) + +-------+ + + + | Component | Value | Ref Range | Performed | Pathologist | | | | | At | Signature | + +-------+ + + + | Sodium, | 142 | 135 - 145 | EXTERNAL | | | External | | | LAB | | + +-------+ + + + + + | Resulting Agency Comment | + + | [facility] | + + + +---------+ + + | Performing | Address | City/State/Zipcode | Phone Number | | Organization | | | | + +---------+ + + | EXTERNAL LAB | | | | + +---------+ + + External Lab: Creatinine (10/12/2014) + +-------+ + + + | Component | Value | Ref Range | Performed | Pathologist | | | | | At | Signature | + +-------+ + + + | Creatinine, | 0.76 | 0.7 - 1.3 | EXTERNAL | | | External | | | LAB | | + +-------+ + + + + + | Specimen | + + | Blood specimen | | (specimen) | + + + + | Resulting Agency Comment | + + | [facility] | + + + +---------+ + + | Performing | Address | City/State/Zipcode | Phone Number | | Organization | | | | + +---------+ + + | EXTERNAL LAB | | | | + +---------+ + + documented in this encounter Visit Diagnoses Not on filedocumented in this encounter"
--- OUTSIDE RECORDS SUMMARY | ~2020-04-19 | XMS | Encounter Summary ---
Demographics + + + | Address | [address] | | | [place] [address] | + + + | Home Phone | | + + + | Preferred Language | Unknown | + + + | Marital Status | | + + + | Judaism Affiliation | 1013 | + + + | Race | White | + + + | Ethnic Group | Not or | + + + Author + + + | Author | [facility] | | | and [place] | + + + | Organization | [facility] | | [...] Team Providers + +------+ + | Care Outdoor Adventure Instructor Name | Role | Phone | + +------+ + | Giovanni Huffman MD | PCP | | + +------+ + Reason for Visit + +--------+ + | Reason | Onset | Comments | | | Date | | + +--------+ + | Labs Only | 09/14/ | | | | 2012 | | + +--------+ + Encounter Details +--------+ + + + + | Date | Type | Department | Care Team | Description | +--------+ + + + + | 09/14/ | Telephone | [facility] | [facility], | Labs Only | | 2012 | | GASTROENTEROLOGY | [address]ARY [address] | | | | | [address] [place] | [address] [facility] [address] | | | | | [address] [place], [place] | [place] | | | | | [address] | [address] | | | | | [phone] | | | +--------+ + + + [...] this encounter Miscellaneous Notes Telephone Encounter - Yoko Hayes, RN - 09/14/2012 2:43 PM PSTPatient called in malissa [place] about lab work that he had drawn a few weeks ago, states couldn't see them on my chart, danny luke had them drawn at [facility] therefore would not be on my chart advised will call to g et the labs sent here if not already, found chart labs were not all here called [facility], t hey are sending them over, tried to call the patient the number we have has been disconnecte d need new number to call the patient.Electronically signed by Yoko Hayes RN at 3 2:45 PM PSTdocumented in this encounter Plan of Treatment Not on filedocumented as of this encounter Visit Diagnoses Not on filedocumented in this encounter"
--- OUTSIDE RECORDS SUMMARY | ~2020-04-19 | XMS | Encounter Summary ---
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, | dysfunction (HCC) | | | | and Healing [address] | DNP,INCIDENT RESPONSE CONSULTANT,[place] [address] | (Primary Dx); | | | | [address] [facility] | [address] [place], | Headache; Abnormal | | | | Health and Healing, | [place] [address] | weight gain; | | | | Building 1 | [phone] | 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 Uri Pierre, [id number] Reason for visit: Chief Complaint Patient presents [...] and follow up. I spent 40 minutes fsmx-rw-evaa time with this patient independent of the time spent in testing, of which over 50% was spen t in medically indicated counseling and education pertaining to the issues discussed above MARGARET OTT DNP, [place] [facility] [address] [facility] [address] documented in this encounter Plan of Treatment [...] R[facility] ([address] [facility]) | | | [place] [address] | | | [place] [address] | | + + + + + + + + | Performing | Address | City/State/Zipcode | Phone Number | | Organization | | | | + + + + + | [facility] | [address] | [place] [address] | | | LABORATORY | | | [...] ng/mL* | | | | | | *(Baker CL et al. | | | | [...] | + + + + + | [facility] | [address] | [place] [address] | | | PATHOLOGY | [address] | | | + + + + + IGF-1 INSULIN GROWTH FACTOR-1, SERUM SENDOUT (06/12/2011 10:00 AM PDT) + + + + + + | Component | Value | Ref Range | Performed | Pathologist | | | | | At | Signature | + + + + + + | IGF-1, | 154Comment: Infant | 132 - 333 ng/mL | [facility] [...] | | | | | | [address] [facility] | | | | | | [place], [place] | | | | | | [address] | | | | + + + + + + + + | Specimen | + + | Blood - Blood | + + + + + + + | Performing | Address | City/State/Zipcode | Phone Number | | Organization | | | | + + + + + | [facility] | [address] | [facility], | | | | | [place] [address] | | + + + + + [...] Way Lab) | [facility] | | [facility] [place] [address] | REGIONAL | | [place] [address] | LABORATORY | + + + + + + + + | Performing | Address | City/State/Zipcode | Phone Number | | Organization | | | | + + + + + | [facility] | [address] | [place] [address] | | | LABORATORY | | | [...] At | + + + | [facility] ([address] [facility]) [facility] | [facility] | | [facility] [address] [facility] | REGIONAL | | [place] [address] | LABORATORY | + + + + + + + + | Performing | Address | City/State/Zipcode | Phone Number | | Organization | | | | + + + + + | [facility] | [address] | [place] [address] | | | LABORATORY | | | [...] [facility] | [facility] | | [place] [place] [address] | REGIONAL | | [place] [address] | LABORATORY | + + + + + + + + | Performing | Address | City/State/Zipcode | Phone Number | | Organization | | | | + + + + + | [facility] | [address] | [place] [address] | | | LABORATORY | | | [...] + + + | [facility] ([address] [facility]) [facility] | [facility] | | [place] [address] | REGIONAL | | [place] [address] | LABORATORY | + + + + + + + + | Performing | Address | City/State/Zipcode | Phone Number | | Organization | | | | + + + + + | [facility] | [address] | [place] [address] | | | LABORATORY | | | [...] At | + + + | R[facility] ([address] [facility]) [facility] | [facility] | | [place] [address] | [facility] | | [place] [address] | LABORATORY | + + + + + + + + | Performing | Address | City/State/Zipcode | Phone Number | | Organization | | | | + + + + + | [facility] | [address] | [place] [address] | | | LABORATORY | | | [...] + + | R[facility] ([address] [facility]) [facility] | [facility] | | [facility] [place] [address] [address] [facility] | [facility] | | [place] [address] | LABORATORY | + + + + + + + + | Performing | Address | City/State/Zipcode | Phone Number | | Organization | | | | + + + + + | [facility] | [address] | [place] [address] | | | LABORATORY | | | [...] Way Lab) [facility] | [facility] | | [facility] [address] [facility] | [facility] | | [place] [address] | LABORATORY | + + + + + + + + | Performing | Address | City/State/Zipcode | Phone Number | | Organization | | | | + + + + + | [facility] | [address] [facility] | [place] [address] | | | LABORATORY | | | [...] | | | DEPARTMENT | | | [place] | | | OF | | | [...] + + + + + | [facility] | [address] | [place] [address] | | | PATHOLOGY | [address] [...] Way Lab) [facility] | REGIONAL | | [facility] [place] [address] | LABORATORY | | [place] [address] | | + + + + + + + + | Performing | Address | City/State/Zipcode | Phone Number | | Organization | | | | + + + + + | [facility] | [address] | [place] [address] | | | LABORATORY | | | [...] R[facility] ([address] [facility]) | | | [facility] [place] [address] | | | [address] [place] [facility] [place] [address] | | + + + + + + + + | Performing | Address | City/State/Zipcode | Phone Number | | Organization | | | | + + + + + | [facility] | [address] | [place] [address] | | | LABORATORY | | | [...] + + + | RLB ([address] [facility]) | [facility] | | [facility] [place] [address] | REGIONAL | | [place] [address] | LABORATORY | + + + + + + + + | Performing | Address | City/State/Zipcode | Phone Number | | Organization | | | | + + + + + | [facility] | [address] | [place] [address] | | | LABORATORY | | | [...]
--- OUTSIDE RECORDS SUMMARY | ~2020-04-19 | XMS | Encounter Summary ---
Demographics + + + | Address | [address] | | | [place] [address] | + + + | Home Phone | | + + + | Preferred Language | Unknown | + + + | Marital Status | Single | + + + | Hindu Affiliation | CHR | + + + [...] Team Providers + +------+ + | Care Director For Beauty [employer] Name | Role | Phone | + +------+ + | Daniel Velez DO | PCP | | + +------+ + Reason for Visit + +--------+ + | Reason | Onset | Comments | | | Date | | + +--------+ + | Pre-Op Question | 06/18/ | | | | 2010 | | + +--------+ + Encounter Details +--------+ + + + + | Date | Type | Department | Care Team | Description | +--------+ + + + + | 06/18/ | Telephone | Neurosurgery at | Alek Elliott, | Pre-Op Question | | 2010 | | [facility] [address] | | | | | | [facility] | | | | | | Health and Healing, | | | | | | Building | | | | | | floor [place], [place] | | | | | | [address] | | | | | | [phone] | | | +--------+ + + + [...] Telephone Encounter - Ashley Duron PA-C - 06/18/2011 4:46 PM PDTNo further workup needed. Already had pre-op appt, labs, ekg. Tooth extraction shld not change course of surgery, herbert y have been indicated prior to intubation.Electronically signed by Ashley Duron PA-C at 06/18 4:47 PM PDTTelephone Encounter - Yoko Ray MA - 06/18/2011 9:48 AM PDTPatibrenden t states that he dropped off his Urinalysis, and would like to know if there is anything els e that he needs to do prior to the surgery on Jul 01. Please advise, thank you! Patient is supposed to get a tooth pulled at 1:30 pm today, and would like to know if this is going to be okay? documented in this encounter Plan of Treatment Not on filedocumented as of this encounter Visit Diagnoses Not on filedocumented in this encounter"
--- OUTSIDE RECORDS SUMMARY | ~2020-04-19 | XMS | Encounter Summary ---
Demographics + + + | Address | [address] | | | [place] [address] | + + + | Home Phone | | + + + | Preferred Language | Unknown | + + + | Marital Status | | + + + | Religion Affiliation | 1013 | + + + | Race | White | + + + | Ethnic Group | Not or | + + + Author + + + | Author | [facility] | | | and [place] | + + + | Organization | [facility] | | [...] Team Providers + +------+ + | Care Adult Basic Education Instructor Name | Role | Phone | + +------+ + | Giovanni Huffman MD | PCP | | + +------+ + Reason for Visit + +--------+ + | Reason | Onset | Comments | | | Date | | + +--------+ + | Appointment | 09/21/ | liver biopsy | | | 2012 | | + +--------+ + Encounter Details +--------+ + + + + | Date | Type | Department | Care Team | Description | +--------+ + + + + | 09/21/ | Telephone | [facility] | [facility] | Appointment (liver | | 2012 | | GASTROENTEROLOGY | [address] | biopsy) | | | | [address] [place] | [address] | | | | | [address] [place] | [facility] [place] | | | | | [address] | [address] | | | | | [phone] | | | +--------+ + + + [...] this encounter Miscellaneous Notes Telephone Encounter - Luz Collins - 09/22/2012 8:22 AM PSTSpoke to patient, let him know that the labs have been ordered.Want him to go to lab first thing September1012 then come see Teresa at 0830 then he checks in for biopsy at 0900. Patient verbalized u nderstanding. elephone Encounter - Prachi Esquivel ARNP - 09/22/2012 8:18 AM PSTOrdered labs to be done luis e grande of appt and biopsy. Thank you elephone Toi moss - Luz Collins - 09/21/2012 3:19 PM PSTSpoke to Christopher and scheduled him for liver biopsy October 06 check in at 0900, NPO after midnight. He needs history and physical w ith Teresa before the procedure so he is scheduled to see Teresa that morning. Will ask Teresa to put in order for new labs for the biopsy. Patient does not have insurance at this time, but he is willing to sign a self pay waiver at time of service. I will send patient instructions for biopsy. elephone Enoc magallon - Jacquelyn Marquez - 09/21/2012 12:07 PM PSTPatient would also like to schedule liver biopsy elephone Encounter - Christina Logan - 09/21/2012 12:04 PM PSTPatient returned call to nurse saying that the phone gera billy on file is current. Brett cumented in this encounter Plan of Treatment + +------+--------+ + + | Name | Type | Priori | Associated Diagnoses | Order Schedule | | | | ty | | | + +------+--------+ + + | CBC with | Lab | Routin | HCV (hepatitis C | 1 Occurrences | | Differential | | e | virus) | starting 09/22/2012 | | | | | | until 09/22/2013 | + +------+--------+ + + | Protime INR | Lab | Routin | HCV (hepatitis C | 1 Occurrences | | | | e | virus) | starting 09/22/2012 | | | | | | until 09/22/2013 | + +------+--------+ + + documented as of this encounter Visit Diagnoses + + | Diagnosis | + + | HCV (hepatitis C virus) - Primary Unspecified viral hepatitis C without hepatic coma | + + documented in this encounter"
--- OUTSIDE RECORDS SUMMARY | ~2020-04-19 | XMS | Encounter Summary ---
Demographics + + + | Address | [address] | | | [place] [address] | + + + | Home Phone | | + + + | Preferred Language | Unknown | + + + | Marital Status | | + + + | Caodaism Affiliation | 1013 | + + + | Race | White | + + + | Ethnic Group | Not or | + + + Author + + + | Author | [facility] | | | and [place] | + + + | Organization | [facility] | | | [...] Team Providers + +------+ + | Care Protective Signal Operator Name | Role | Phone | + +------+ + PCP | Unavailable | + +------+ + Encounter Details +--------+ + + + + | Date | Type | Department | Care Team | Description | +--------+ + + + + | 08/27/ | Hospital | [facility] | | | | 1995 | Encounter | [facility] | | | | | | CENTER [address] | | | | | | [place], [place] | | | | | | [address] | | | | | | [phone] | | | +--------+ + + + [...]
--- OUTSIDE RECORDS SUMMARY | ~2020-04-19 | XMS | Encounter Summary ---
Demographics + + + | Address | [address] | | | [place] [address] | + + + | Home Phone | | + + + | Preferred Language | Unknown | + + + | Marital Status | Single | + + + | Mormon Affiliation | CHR | + + + [...] Team Providers + +------+ + | Care Business Process Modeler Name | Role | Phone | + [...] | | | disorder of | | DNP,[place] | | | | | the | | [address] | | | | | pituitary | | Ave | | | | | gland and | | [place], [place] | | | | | its | | [address] | | | | | hypothalamic | | Phone: | | | | | control | | [phone] | | | | | Family Care | | Fax: | | | | | OHP ID# | | [phone] | | | | | [id number] | | | | | | | [...] | | and Healing [address] | DNP,[place] [address] | gland and its | | | | [address] [facility] | [address] [place], | hypothalamic | | | | Health and Healing, | [place] [address] | control; 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) | | | | [place], [place] | | | | | | [address] | | | | | | [phone] | | | +--------+---------+ + + + [...] in this encounter Progress Notes Caitlyn Mccormack, [place] - 06/07/2012 12:00 PM PDTFormatting of this [...] Memory problems: Worse (06/07/121130) Poor concentration: Worse (06/07/121130) Sleep disturbances: Worse (06/07/121130) Fatigue: Worse (06/07/121130) Anxiety: Worse (06/07/121130) Depression: Worse (06/07/121130) Emotional ups and downs: Worse (06/07/121130) Feelings of social isolation: Worse (06/07/121130) Dizziness with standing: Worse (06/07/121130) Headaches continuous [...] to light. Extraocular movements are intact. Visual spualding are normal to confrontation as are the [...] Madhav Boyer M.D., PhD. / Neuropathologist ; [facility] Amendment seen by: Madhav Boyer M.D., [...] lesion." Received are multiple irregular, soft, gelatinous, kcv-gv-ixyjjxe hemorrhagic purple tissues measuring 0.8 x 0.8 [...] developed and its performance characteristics determined by [employer]. It has not been cleared or approved [...] years. Recommend he follow up with local community service representative for VF exam in a bout 9 [...] lost to follow up x 22 mths. JAVA GROOVY DEVELOPER pending but no hydrocortisone is anticipated to [...] Followup.is scheduled for 12-18 months with MRI, JAVA GROOVY DEVELOPER. RM or as per current labs. Uri Pierre, [id number] Reason for visit: Chief Complaint Patient presents [...] and follow up. I spent 40 minutes kszu-lt-gwam time with this patient independent of the time spent in testing, of which over 50% was spen t in medically indicated counseling and education pertaining to the issues discussed above CAITLYN MCCORMACK DNP, [place], [place] Awning Installer [facility] [address] [facility] [place] [address] ACTH,PLASMA (pg/mL) Date Value 06/07/2012 16 03/18/2012 [...] field exam. Electronically si gned by Caitlyn Mccormack DNP,[place] at 06/13/2012 1:06 PM PDTdocumented in this encounter Procedure Notes Other, Faculty - 10/26/2014 9:48 AM PSTAssociated Order(s): LAB REPORTSElectronically sign ed by Faculty Other at 10/26/2014 9:48 AM PSTdocumented in this encounter Miscellaneous Notes Scan - Other, Faculty - 10/26/2014 9:48 AM PSTElectronically signed by Faculty Other at 9:48 AM PSTdocumented in this encounter Plan of [...] | Procedure Note | + + | Kamlesh Faculty - 10/26/2014 9:48 AM PST | [...] + + + | [facility] | [address] | [place] [address] | | | LABORATORY | | | [...] + + + | [facility] | [address] | [place] [address] | | | LABORATORY | | | [...] + + + | [facility] | [address] | [place] [address] | | | LABORATORY | | | [...] + + + | [facility] | [address] | [place] [address] | | | LABORATORY | | | [...] + + + | [facility] | [address] | [place] [address] | | | LABORATORY | | | [...] + + + | [facility] | [address] | [place] [address] | | | LABORATORY | | | [...] | | | DEPARTMENT | | | [place] | | | OF | | | [...] | + + + + + | [facility] | [address] | [place] [address] | | | PATHOLOGY | [address] [...] + + + | [facility] | [address] | [place] [address] | | | LABORATORY | | | [...] + + + | [facility] | [address] | [place] [address] | | | LABORATORY | | | [...]
--- OUTSIDE RECORDS SUMMARY | ~2020-04-19 | XMS | Encounter Summary ---
Demographics + + + | Address | [address] | | | [place] [address] | + + + | Home Phone | | + + + | Preferred Language | Unknown | + + + | Marital Status | | + + + | Islam Affiliation | 1013 | + + + | Race | White | + + + | Ethnic Group | Not or | + + + Author + + + | Author | [facility] | | | and [place] | + + + | Organization | [facility] | | | [...] Team Providers + +------+ + | Care Probe Operator Name | Role | Phone | + +------+ + | Giovanni Huffman MD | PCP | | + +------+ + Reason for Visit +--------+--------+ + | Reason | Onset | Comments | | | Date | | +--------+--------+ + | Other | 03/23/ | 6 month recall | | | 2012 | | +--------+--------+ + Encounter Details +--------+ + + + + | Date | Type | Department | Care Team | Description | +--------+ + + + + | 03/23/ | Telephone | [facility] | [facility], | Other (6 month | | 2012 | | GASTROENTEROLOGY | [address] | recall) | | | | [address] [place] | [address] | | | | | [address] [place], [place] | [place], [place] | | | | | [address] | [address] | | | | | [phone] | | | +--------+ + + + [...] this encounter Miscellaneous Notes Telephone Encounter - Prachi Esquivel ARNP - 03/23/2013 9:28 AM PDTPatient is due for liver ultrasound and labs for routine screening September 2013. Thank youElectronically sig enrique by MARY Riddle at 03/23/2013 9:29 AM PDTTelephone Encounter - Adam Collins - 03/23/2013 8:16 AM PDTPatient is due for 6 month follow up labs and ultrasound for hep c. documented in th is encounter Plan of Treatment Not on filedocumented as of this encounter Visit Diagnoses Not on filedocumented in this encounter"
--- OUTSIDE RECORDS SUMMARY | ~2020-04-19 | XMS | Encounter Summary ---
Demographics + + + | Address | [address] | | | [place] [address] | + + + | Home Phone | | + + + | Preferred Language | Unknown | + + + | Marital Status | Single | + + + | Gnosticism Affiliation | CHR | + + + | Race | White | + + + | Ethnic Group | Not or | + + + Author + + + | Author | [facility] | + + + | Organization | [facility] | + + + | Address [...] Team Providers + +------+ + | Care Floor Cleaner Name | Role | Phone | + +------+ + | Alejandro Dowling DO | PCP | | + +------+ + Reason for Visit + +--------+ + | Reason | Onset | Comments | | | Date | | + +--------+ + | Sinus congestion | 07/14/ | | | | 2010 | | [...] | | | | | | [facility] [address] | | | | | [address] | | | | | | Physician's | | | | | | [place], [facility] floor | | | | | | [place], [place] | | | | | | [address] | | | | | | [phone] | | | +--------+ + + + [...] this encounter Miscellaneous Notes Telephone Encounter - Carroll Hastings - 07/14/2011 2:52 PM PSTPlease call Pt to schedule an a ppt. elephone Encounter - Carol Ann nieto, November - 07/14/2011 12:[address] with Dr[address] Elliott's office regarding his sinu s congestion issues and patient was instructed to call our office. Patient has been having nasal discharge of blood and mucus, headaches, sinus pain and pressure. Please call patient to advise. documented in thi s encounter Plan of Treatment Not on filedocumented as of this encounter Visit Diagnoses Not on filedocumented in this encounter"
--- OUTSIDE RECORDS SUMMARY | ~2020-04-19 | XMS | Encounter Summary ---
Demographics + + + | Address | [address] | | | [place] [address] | + + + | Home Phone | | + + + | Preferred Language | Unknown | + + + | Marital Status | | + + + | Oriental Orthodox Affiliation | 1013 | + + + | Race | White | + + + | Ethnic Group | Not or | + + + Author + + + | Author | [facility] | | | and [place] | + + + | Organization | [facility] | | | and [...] + +------+ + | Care Fire Control Officer Name | Role | Phone | + +------+ + | Giovanni Huffman MD | PCP | | + +------+ + Encounter Details +--------+ + + + + | Date | Type | Department | Care Team | Description | +--------+ + + + + | 09/16/ | Hospital | [facility] | Sam Calabrese MD | | | 2012 | Encounter | MED CTR MP INTRA OP | [address], [place] | | | | | [address] | [address] [place], [place] | | | | | [place], [place] | [address] | | | | | [address] | | | | | | [phone] | | | +--------+ + + + [...] | | 0 | | | | [id number] | drops 4 times a day | [...] documented as of this encounter Miscellaneous Notes Op Note - Sam Calabrese MD - 09/16/2012 12:55 [place] [address] Patient Name: URI PIERRE Provider: Sam Calabrese MD Unit #[id number] 1980 Patient Name: Urivan Pierre Gender: M Procedure Date: 09/16/2012 12:55 PM Date of : 1980 Age: 32 Admit Type: Outpatient Room: Endo Room 1 Note Status: Finalized Attending MD: Sam Calabrese MD Procedure: Upper GI endoscopy Indications: Suspected esophageal reflux, Follow-up of esophageal reflux, For therapy of esophageal reflux Providers: Sam Calabrese MD, Kaci Chambers RN, Ailyn Lau, Ventilated Rib Fitter, Ricardo Almendarez MD (Anesthesia Staff) Referring MD: Giovanni Huffman MD Medicines: Sedation Required Anesthesia Staff Assistance Complicati ons: No immediate complications. Estimated blood loss: None. Procedure: - Prior to the procedure, a History and Physical was performed, and patient medications, allergies and sensitivities have been reviewed. The patient's tolerance of previous anesthesia has been reviewed. - The risks and benefits of the procedure and the sedation options and risks were discussed with the patient. All questions were answered and informed consent was obtained. - Patient identification and proposed procedure were verified prior to the procedure by the physician, the nurse, the anesthesiologist and the dental technician metal. The procedure was verified in the endoscopy suite. - ASA Grade Assessment: III - A patient with severe systemic disease. - After reviewing the risks and benefits, the patient was deemed in satisfactory condition to undergo the procedure. - Anesthesia under the supervision of an anesthesiologist using IV propofol was determined to be medically necessary for this procedure based on ASA Grade III-V, patient's history of sleep apnea, patient's dependence on opiates, sedatives or hypnotics and patient's history of drug or alcohol abuse. - Immediately prior to administration of medications, the patient was re-assessed for adequacy to receive sedatives. - The heart rate, respiratory rate, oxygen saturations, blood pressure, adequacy of pulmonary ventilation, and response to care were monitored throughout the procedure. - The physical status of the patient was re-assessed after the procedure. After obtaining informed consent, the endoscope was passed under direct vision. Throughout the procedure, the patient's blood pressure, pulse, and oxygen saturations were monitored continuously. The endoscope was introduced through the mouth, and advanced to the third part of duodenum. The upper GI endoscopy was accomplished without difficulty. The patient tolerated the procedure well. Findings: The cricopharyngeus, upper third of the esophagus, middle third of the esophagus, lower third of the esophagus and lower esophageal sphincter were normal. The Z-line was regular and was found 41 cm from the incisors. Suspect gastroparesis due to absence of peristalsis. Diffuse moderate inflammation characterized by congestion (edema), erythema and friability was found on the greater curvature of the stomach, on the lesser curvature of the stomach and in the gastric antrum. Biopsies were taken with a cold forceps for Helicobacter pylori testing using CLOtest. Estimated blood loss was minimal. The duodenal bulb, first part of the duodenum, 2nd part of the duodenum, area of the papilla and 3rd part of the duodenum were normal. The retroflexed view confirmed previous findings, Impression: - Normal at the cricopharyngeus, in the upper third of the esophagus, in the middle third of the esophagus, in the lower third of the esophagus and lower esophageal sphincter. - Z-line regular, 41 cm from the incisors. - Gastroparesis. - Chronic bile gastritis. This was biopsied. - Normal duodenal bulb, first part of the duodenum, 2nd part of the duodenum, area of the papilla and 3rd part of the duodenum. Recommendation: - Discharge patient to home (ambulatory). - Return to previous diet today. - Continue present medications. - Use sucralfate tablets at 1 gram by mouth four times a day. - Await pathology results. - Return to primary care physician as previously scheduled. - Telephone GI clinic for pathology results in 1 week. Sam Calabrese MD Signed Date: 09/16/2012 1:14 PM Number of Addenda: 0 Note initiated on 09/16/2012 12:56 PM Scope Withdrawal Time: N/A Total Procedure Duration Time: 03 minutes 49 seconds Sam Calabrese MD [id number] documented in this e ncounter Plan of Treatment Not on filedocumented as of this encounter Procedures + +--------+ + + + | Procedure Name | Priori | Date/Time | Associated Diagnosis | Comments | | | ty | | | | + +--------+ + + + | HELICOBACTER PYLORI | Routin | 09/16/2012 | | Results for this | | BIOPSY | e | 3:25 PM | | procedure are in the | | | | PST | | results section. | + +--------+ + + + | HELICOBACTER PYLORI | Routin | 09/16/2012 | | Results for this | | BIOPSY | e | 1:04 PM | | procedure are in the | | | | PST | | results section. | + +--------+ + + + documented in this encounter Results Helicobactor pylori Biopsy (09/16/2012 3:25 PM PST) + + + + + + | Component | Value | Ref Range | Performed | Pathologist | | | | | At | Signature | + + + + + + | GASTRIC | Negative for Urease | | [facility] | | | [facility] | | | [facility] | | | UREASE TEST | | | MEDICAL | | | [...] + | [facility] | [address] | [place] | [phone] | | [facility] | | [address] | | | - LABORATORY | | | | + + + + + | [facility] | [address] | [place], [place] | | | [facility] | | [address] | | | - LABORATORY | | | | + + + + + Helicobactor pylori Biopsy (09/16/2012 1:04 PM PST) + + + + + + | Component | Value | Ref Range | Performed | Pathologist | | | | | At | Signature | + + + + + + | GASTRIC | H. PYL[facility]I BIOPSY: | | [facility] | | | BIOPSY | Negative for Urease | | [facility] | | | UREASE TEST | | | MEDICAL | | | | | | CENTER - | | | | | | LABORATORY | | + + + + + + + + | Specimen | + + | Soft tissue sample | | (specimen) - Other | + + + + + | Narrative | Performed At | + + + | Collect By: | [facility] | | | [facility] | | | [facility] | | | - LABORATORY | + + + + + + + + | Performing | Address | City/State/Zipcode | Phone Number | | Organization | | | | + + + + + | [facility] | [address] | [place] | [phone] | | [facility] | | [address] | | | - LABORATORY | | | | + + + + + | [facility] | [address] | [place] | | | [facility] | | [address] | | | - LABORATORY | | | | + + + + + documented in this encounter Visit Diagnoses Not on filedocumented in this encounter"
--- OUTSIDE RECORDS SUMMARY | ~2020-04-19 | XMS | Encounter Summary ---
Demographics + + + | Address | [address] | | | [place] [address] | + + + | Home Phone | | + + + | Preferred Language | Unknown | + + + | Marital Status | Single | + + + | Congregational Affiliation | CHR | + + + | Race | White | + + + | Ethnic Group | Not or | + + + Author + + + | Author | [facility] | + + + | Organization | [facility] | + + + | Address | [...] Team Providers + +------+ + | Care Account Manager Trainee Name | Role | Phone | + [...] | disorder of | [place] | [address] | | | | | the | INTERNAL | [place] | | | | | pituitary | MEDICINE | [address] [place], | | | | | gland and | [address] | [place] | | | | | its | [place] | [address] | | | | | hypothalamic | [address] | Phone: | | | | | control | [place], | [phone] | | | | | Family Care | [place] [address] | Fax: | | | | | OHP ID# | Phone: | [phone] | | | | | [id number] | [phone] | | | | | | Auth# | Fax: | | | | | | [id number] | [phone] | | | | | | 05/19-05/19/12 [...] adenoma | | 2010 | Visit | [facility] | [place], | ([facility]) (Primary Dx); | | | | and Healing [address] | DNP,VP DESIGN,[place] [address] | Headache; Nocturnal | | | | [facility] | [facility], | polyuria | | | | Health and Healing, | [place] [address] | | | | | Building | [phone] | | | | | [place], [place] | | | | | | [address] | | | | | | [phone] | | | +--------+---------+ + + + [...] in this encounter Progress Notes Caitlyn Mccormack, ABRAHAM,VP DESIGN,[place] - 08/03/2011 11:55 AM PSTReason for visit: [...] (08/03/11 1149) Blurry Vision, intermittent: Worse (08/03/11 1149)Diarrhea: Worse (08/03/11 1149) Belly discomfort: Worse (08/03/11 1149) Nausea: Worse (08/03/11 1149) Vomiting: Worse (08/03/11 1149) Temperature fluctuations: Worse (08/03/11 1149) Temperature fluctuations - Hot, Cold, or Both?: Both hot & cold (08/03/11 1149) Night sweats: Worse (08/03/11 1149) Decreased sexual interest: Worse (08/03/11 1149) Increased urination: Worse (08/03/11 114) Increased urination - Day , Night or Both?: Night (08/03/11 114) Heart racing or pounding: Worse (08/03/11 1149) Chest pain: Worse (08/03/11 1149) Shortness of breath: Worse (08/03/11 1149) Weakness: Worse (08/03/11 1149) Weakness - Arms, Legs, Both?: Both: Arms & Legs (08/03/11 1149) Tremor: Worse (08/03/11 1149)Memory problems: Worse (08/03/11 1149) Poor concentration: Worse (08/03/11 1149) Sleep disturbances: Worse (08/03/11 1149) Fatigue: Worse (08/03/11 1149) Anxiety: Worse (08/03/11 1149) Depression: Worse (08/03/11 1149) Emotional ups and downs: Worse (08/03/11 1149) Dizziness with standing: Worse (08/03/11 1149) Headaches daily Presented to [facility] with URI [...] lesion." Received are multiple irregular, soft, gelatinous, [id number] hemorrhagic purple tissues measuring 0.8 x 0.8 [...] developed and its performance characteristics determined by [facility] laboratories. It has not been cleared or [...] recent infection and ADY, will no do SAP ABAP PROGRAMMER at this visi t and will have [...] RTC at 3 mths post op for SAP ABAP PROGRAMMER with MRI. I answered pt questions to his satisfaction Plan: 1. Pituitary functions. 1.1. Adrenal. The patient has a history of adrenal insufficiency. SAP ABAP PROGRAMMER at next visit. Will c ontinue hydrocortisone [...] MRI and review I spent 30 minutes roko-vg-lmeb time with this patient of which over 50% was spent in medic ally indicated counseling and education pertaining to the issues discussed above. CAITLYN MCCORMACK DNP, MARGARET, TAYLER [facility] [address] [facility] [address] documented in this encounter Procedure Notes Kamlesh, Faculty - 09/18/2011 3:34 PM PSTAssociated Order(s): LAB REPORTSElectronically sign ed by Faculty Other at 09/18/2011 3:34 PM PSTdocumented in this encounter Plan of [...] ([address] [facility]) | [facility] | | [place] [address] | REGIONAL | | [place] [address] | LABORATORY | + + + + + + + + | Performing | Address | City/State/Zipcode | Phone Number | | Organization | | | | + + + + + | [facility] | [address] | [place] [address] | | | LABORATORY | | | [...] Way Lab) [facility] | [facility] | | [facility] [place] [address] [facility] | [facility] | | [place] [address] | LABORATORY | + + + + + + + + | Performing | Address | City/State/Zipcode | Phone Number | | Organization | | | | + + + + + | [facility] | [address] [facility] | [place] [address] | | | LABORATORY | | | [...] [facility] | [facility] | | [place] [address] | REGIONAL | | [place] [address] | LABORATORY | + + + + + + + + | Performing | Address | City/State/Zipcode | Phone Number | | Organization | | | | + + + + + | [facility] | [address] | [place] [address] | | | LABORATORY | | | [...] [facility] | [facility] | | [place] [address] | REGIONAL | | [place] [address] | LABORATORY | + + + + + + + + | Performing | Address | City/State/Zipcode | Phone Number | | Organization | | | | + + + + + | [facility] | [address] | [place] [address] | | | LABORATORY | | | [...] [facility] | [facility] | | [place] [address] [address] [facility] | REGIONAL | | [place] [address] | LABORATORY | + + + + + + + + | Performing | Address | City/State/Zipcode | Phone Number | | Organization | | | | + + + + + | [facility] | [address] | [place] [address] | | | LABORATORY | | | [...] | | | DEPARTMENT | | | [facility]INC[facility] | | | OF | | | [...] DEPARTMENT OF | [address] | [place] [address] | | | PATHOLOGY | [address] [...] | + + + + + | [facility] DEPARTMENT OF | [address] | [place] [address] | | | PATHOLOGY | [address] [...] + + + + + | [facility] | [address] | [place] [address] | | | PATHOLOGY | [address] [...]
--- OUTSIDE RECORDS SUMMARY | ~2020-04-19 | XMS | Encounter Summary ---
Demographics + + + | Address | [address] | | | [place] [address] | + + + | Home Phone | | + + + | Preferred Language | Unknown | + + + | Marital Status | Single | + + + | Mandaen Affiliation | CHR | + + + [...] Team Providers + +------+ + | Care Community Health Nurse Supervisor Name | Role | Phone | + +------+ + | Daniel Velez DO | PCP | | + +------+ + Encounter Details +--------+ + + + + | Date | Type | Department | Care Team | Description | +--------+ + + + + | 06/15/ | MyChart | Neurosurgery at | [place], | RE: Pulse | | 2010 | Encounter | [facility] | [place], | | | | | and Healing [address] | DNP,SALES SPECIAL AGENT,[place] [address] | | | | | [address] [facility] | [address] [place], | | | | | Health and Healing, | [place] [address] | | | | | [facility] | [phone] | | | | | [place], [place] | | | | | | [address] | | | | | | [phone] | | | +--------+ + + + [...]
--- OUTSIDE RECORDS SUMMARY | ~2020-04-19 | XMS | Encounter Summary ---
Demographics + + + | Address | [address] | | | [place] [address] | + + + | Home Phone [...] + + + | Author | [facility] | + + + | Organization | [facility] | + + + | [...] Team Providers + +------+ + | Care Currency Exchange Specialist Name | Role | Phone | [...] | | | | | adenoma | DNP,SUPERVISOR CABINETMAKER,[place] | [place] | | | | | (HCC) | [address] | | | | | Procedures | Ave | Research | | | | | MR PITUITARY | [place], [place] | Center | | | | | W[place] | [address] | [place], [place] | | | | | CONTRAST | Phone: | [address] | | | | | | [phone] | Phone: | | | | | | Fax: | [phone] | | | | | | [phone] | Fax: | | | | | | | [phone] | +--------+--------+ + + + + Encounter Details +--------+ + + + + | Date | Type | Department | Care Team | Description | +--------+ + + + + | 06/20/ | Smudger | Neurosurgery at | [place], | Pituitary adenoma | | 2011 | | [facility] [address] | [place] | ([facility]) (Primary Dx) | | | | Ave [facility] for | DNP,SUPERVISOR CABINETMAKER,[place] [address] | | | | | Health and Healing, | [address] [place], | | | | | Building | [place] [address] | | | | | floor [place], [place] | [phone] | | | | | [address] | | | | | | [phone] | | | +--------+ + + + [...] Telephone Encounter - Ailyn Roberts LPN - 06/20/2012 11:42 AM PDTPer carlitos Almanzar Pituitary MRI. Please schedule as appropriate. Thank you. documented in this encounter Plan of Treatment [...]
--- OUTSIDE RECORDS SUMMARY | ~2020-04-19 | XMS | Encounter Summary ---
Demographics + + + | Address | [address] | | | [place] [address] | + + + | Home Phone [...] Team Providers + +------+ + | Care Obstetrician Name | Role | Phone | + +------+ + | Giovanni Huffman MD | PCP | | + +------+ + Encounter Details +--------+ + + + + | Date | Type | Department | Care Team | Description | +--------+ + + + + | 04/01/ | Outside | UNKNOWN DEPARTMENT | Other, Faculty | | | 2011 | Records | [address] [facility] | [phone] | | | | | [address] | | | | | | [place], [place] | | | | | | [address] | | | +--------+ + + + [...]
--- OUTSIDE RECORDS SUMMARY | ~2020-04-19 | XMS | Encounter Summary ---
Demographics + + + | Address | [address] | | | [place] [address] | + + + | Home Phone [...] Author + + + | Author | [facility] | + + + | Organization | [facility] | + + + | Address [...] Team Providers + +------+ + | Care Paper Products Printer Name | Role | Phone | + +------+ + | Giovanni Huffman MD | PCP | | + +------+ + Reason for Visit + +--------+ + | Reason | Onset | Comments | | | Date | | + +--------+ + | Refill Request | 09/14/ | | | | 2011 | | + +--------+ + Encounter Details +--------+ + + + + | Date | Type | Department | Care Team | Description | +--------+ + + + + | 09/14/ | Telephone | Neurosurgery at | [place], | Refill Request | | 2011 | | [facility] | [place], | | | | | and Healing [address] | DNP,RUG CLEANING SUPERVISOR,[place] [address] | | | | | [address] [facility] | [address] [place], | | | | | Health and Healing, | [place] [address] | | | | | Building [address] | [phone] | | | | | [place], [place] | | | | | | [address] | | | | | | [phone] | | | +--------+ + + + [...]
--- OUTSIDE RECORDS SUMMARY | ~2020-04-19 | XMS | Encounter Summary ---
Demographics + + + | Address | [address] | | | [place] [address] | + + + | Home Phone | | + + + | Preferred Language | Unknown | + + + | Marital Status | | + + + | Church Affiliation | 1013 | + + + | Race | White | + + + | Ethnic Group | Not or | + + + Author + + + | Author | [facility] | | | and [place] | + + + | Organization | [facility] | | [...] Team Providers + +------+ + | Care Educational Consultant Name | Role | Phone | + +------+ + | Giovanni Huffman MD | PCP | | + +------+ + Reason for Visit +--------+ + | Reason | Comments | +--------+ + | Other | Hep C | +--------+ + Encounter Details +--------+---------+ + + + | Date | Type | Department | Care Team | Description | +--------+---------+ + + + | 10/06/ | Office | [facility], | HCV (hepatitis C | | 2012 | Visit | GASTROENTEROLOGY | [address] | virus) (Primary Dx) | | | | [address] [place] | [address] | | | | | [address] [place], [place] | [place], [place] | | | | | [address] | [address] | | | | | [phone] | | | +--------+---------+ + + + [...] + + + | Blood Pressure | 130/80 | 10/06/2012 9:25 AM | | | | | PST | | + + + + + | Pulse | 64 | 10/06/2012 9:25 AM | | | | | PST | | + + + + + | Temperature | 36.6 C (97.8 F) | 10/06/2012 9:25 AM | | | | | PST | | + + + + + | Respiratory Rate | 16 | 10/06/2012 9:25 AM | | | | | PST | | + + + + + | Oxygen Saturation | - | - | | + + + + + | Inhaled Oxygen | - | - | | | Concentration | | | | + + + + + | Weight | 117.5 kg (259 lb) | 10/06/2012 9:25 AM | | | | | PST | | + + + + + | Height | 180.3 cm (5' 11") | 10/06/2012 9:25 AM | | | | | PST | | + + + + + | Body Mass Index | 36.12 | 10/06/2012 9:25 AM | | | | | PST | | + + + + + documented in this encounter Progress Notes Prachi Esquivel ARNP - 10/06/2012 9:47 AM PSTFormatting of this note might be differe nt from the original. Subjective: Patient ID: Uri Pierre is a 32 y.o. male. HPI Patient is here for update in history and physical for liver biopsy today. Patient notes headache. She denies any other concerns at this time. Review of Systems Constitutional: Negative for fever, chills and unexpected weight change. HENT: Negative for hearing loss, congestion, rhinorrhea, trouble swallowing, postnasal drip and tinnitus. Eyes: Negative for pain, redness and itching. Respiratory: Positive for wheezing. Negative for cough and shortness of breath. Cardiovascular: Negative for chest pain, palpitations and leg swelling. Gastrointestinal: Negative for nausea, vomiting, abdominal pain, diarrhea, constipation, bl ood in stool, abdominal distention, anal bleeding and rectal pain. Genitourinary: Negative for dysuria, urgency, hematuria and difficulty urinating. Musculoskeletal: Negative for back pain, joint swelling and arthralgias. Skin: Negative for rash. Neurological: Positive for headaches. Negative for dizziness, seizures, syncope, weakness a nd numbness. Hematological: Negative for adenopathy. Psychiatric/Behavioral: Positive for dysphoric mood. Negative for disturbed wake/sleep cycl e. The patient is nervous/anxious. Objective: Physical Exam Physical Exam General: well developed, well nourished, in no acute distress. Head: normocephalic and atraumatic Eyes: Sclera clear Mouth: MMM Lungs: Clear to asucultate bilaterally and throughout Heart: regular rate and rhythm Abdomen: Soft, tender to right upper quadrant, nondistended, bowel tones positive times 4 quadra nts, negative Rodriguez's sign, negative rebound tenderness, no gaurding, no hepatosplenomegaly palpated. Msk: symmetrical with no deformity, with normal posture and gait, normal strength. Extremities: no clubbing, cyanosis, edema, or deformity noted Neurologic: no focal deficits, cranial nerves II-XII grossly intact Skin: intact without lesions or rashes. Psych: alert and cooperative; normal mood and affect; normal attention span and concentration. Assessment: HCV Plan: Patient to have liver biopsy today. Patient to followup in approximately one week with results of the laboratory tests as well as liver biopsy. Will follow up with results. Patient is [...]
--- OUTSIDE RECORDS SUMMARY | ~2020-04-19 | XMS | Encounter Summary ---
Demographics + + + | Address | [address] | | | [place] [address] | + + + | Home Phone | | + + + | Preferred Language | Unknown | + + + | Marital Status | | + + + | Bahai Affiliation | 1013 | + + + | Race | White | + + + | Ethnic Group | Not or | + + + Author + + + | Author | [facility] | | | and [place] | + + + | Organization | [facility] | | | and [place] | + + + | Address | Unknown | + + + | Phone | Unavailable | + + + Support + + +---------+ + | Name | Relationship | Address | Phone | + + +---------+ + | Stephani Ignacio | ECON | Unknown | | + + +---------+ + | Sudha Giovany | ECON | Unknown | | + + +---------+ + Care Team Providers + +------+ + | Care Wastewater Plant Operator Name | Role | Phone | + +------+ + PCP | Unavailable | + +------+ + Encounter Details +--------+ + + + + | Date | Type | Department | Care Team | Description | +--------+ + + + + | 11/07/ | Hospital | [facility] | Dariusz Gaines, | | | 2010 | Encounter | [facility] | MD [address] | | | | | CENTER [address] | [facility] [place] | | | | | [place], [place] | [place] [address] | | | | | [address] | [phone] | | | | | [phone] | | | +--------+ + + + [...] + + documented as of this encounter ED Notes Dariusz Gaines MD - 11/07/2010 7:19 AM PDTDATE: 11/07/2010 IDENTIFICATION: This is a 30-year-old male. CHIEF COMPLAINT: Not feeling well. HISTORY OF PRESENT ILLNESS: This patient presented to the emergency department for evaluat ion. He states, about an hour ago he started not feeling well. He felt kind of tingly all o hawa, it was hard f or him to breathe. He developed a kind of pressure-like chest pain without radiation with nausea, no vomiting. He states his kidneys hurt and he developed a headache. He was at work at that time. He works as a co ok. He says, this happens on a fairly regular basis, but It was worse today, and his boss at [facility] sent javier booker out to be evaluated. He states he has no primary care physician. He states that this episode just came on spontaneously, nothing seems to make it better or worse. PAST MEDICAL HISTORY: Recently diagnosed with atrial fibrillation at [facility]. He has been trying to cut down on smoking since. He does have a history of hepatitis C, and he has had a n umbilical hernia repair. MEDICATIONS 1. Metoprolol is new. 2. Aspirin. ALLERGIES: PENICILLIN. SOCIAL HISTORY: Providing his own history. Does smoke. Works as a cook. REVIEW OF SYSTEMS GENERAL: No fevers. He does feel fatigued. HEAD: He has a generalized headache. EYES: No change in vision. EARS: No change in hearing. THROAT: No sore throat. HEART: He had a pressure-like substernal chest discomfort. RESPIRATORY: No cough or wheezing, but he states it feels like it is hard to breathe. GI: Some nausea, no vomiting, no diarrhea or constipation. : No burning with urination, frequency, or urgency. MUSCULOSKELETAL: No specific aches or complaints. DERMATOLOGY: No skin lesions. NEUROLOGIC: No seizure or stroke-like symptoms. He did have a headache and felt tingly. PHYSICAL EXAM VITAL SIGNS: Blood pressure 164/100, pulse 85, respirations 25, temp 95.9, saturation 95% on room ai r. GENERAL: This is a moderately obese 30-year-old male. HEENT: No obvious trauma. Pupils equal, conjunctivae pink. Mucous membranes moist. NECK: Supple. No adenopathy. No thyromegaly. HEART: Regular rate and rhythm without murmur heard. LUNGS: He has mild expiratory wheezing bilaterally. CHEST: Nontender. ABDOMEN: Soft, nontender, nondistended. Bowel sounds are positive. EXTREMITIES: Warm and well perfused without edema. Good range of motion. BACK: No acute lesions. NEUROLOGIC: He is alert, interactive. Good muscle tone and strength. EMERGENCY ROOM COURSE / TEST REVIEW: The patient was seen and examined shortly after arriv ing in the emergency department. History and physical obtained. Vital signs were noted. Comprehensive metabolic profile, CBC, and EKG were obtained. EKG shows normal sinus rhythm. There is some noise in the leads. T-waves are flat in 3 and V6. There is no acute ST elevation or depression. There is good R-wave progression. It is basically an unre markable E KG. CBC and comprehensive metabolic profile are normal. Troponin was less than 0.01. Portable chest x-ray shows no acute cardiopulmonary disease. Patient is doing well here at this point. I do think that there is definitely a degree of h yperventil ation syndrome that caused some of his symptoms. I am going to have him follow up with his primary care ph ysician. Lisbet goldberg was treated with aspirin here and 2 [place] tablets. He was given an albuterol treatment, and he is going t o be discharged to home. IMPRESSIONS 1. ATYPICAL CHEST PAIN. 2. MALAISE. PLAN: The patient is being discharged home in improved condition. I want him to be off wor k, rest, s yeimi well hydrated, and establish a primary care physician and follow up with them. Return immediatel y if he wo rsens or other concerns develop. DICTATED BY: Dariusz Gaines MD Emergency Medicine JOB #: [id number] EXT JOB #:[id number] <Electronicall y Signed by Dariusz Gaines MD> 11/20/10 0434 documented in this encounter Plan of Treatment Not on filedocumented as of this encounter Procedures + +--------+ + + + | Procedure Name | Priori | Date/Time | Associated Diagnosis | Comments | | | ty | | | | + +--------+ + + + | TROPONIN I | Routin | 11/07/2010 | | Results for this | | | e | 8:12 AM | | procedure are in the | | | | PDT | | results section. | + +--------+ + + + | CBC WITH | Routin | 11/07/2010 | | Results for this | | DIFFERENTIAL | e | 8:12 AM | | procedure are in the | | | | PDT | | results section. | + +--------+ + + + | COMPREHENSIVE | Routin | 11/07/2010 | | Results for this | | METABOLIC PANEL | e | 8:12 AM | | procedure are in the | | | | PDT | | results section. | + +--------+ + + + | XR CHEST AP PORTABLE | | 11/07/2010 | | Results for this | | | | 7:19 AM | | procedure are in the | | | | PDT | | results section. | + +--------+ + + + documented in this encounter Results Comprehensive Metabolic Panel (11/07/2010 8:12 AM PDT) + + + + + + | Component | Value | Ref Range | Performed | Pathologist | | | | | At | Signature | + + + + + + | Glucose | 97 | 70 - 109 mg/dL | [facility] | | | | | | [facility] | | | | | | MEDICAL | | | | | | CENTER - | | | | | | LABORATORY | | + + + + + + | Calcium | 8.9 | 8.3 - 10.5 | [facility] | | | | | mg/dL | [facility] | | | | | | MEDICAL | | | | | | CENTER - | | | | | | LABORATORY | | + + + + + + | Alkaline | 57 | 40 - 110 IU/L | [facility] | | | Phosphatase | | | [facility] | | | | | | MEDICAL | | | | | | CENTER - | | | | | | LABORATORY | | + + + + + + | AST | 18 | 10 - 42 IU/L | [facility] | | | | | | [facility] | | | | | | MEDICAL | | | | | | CENTER - | | | | | | LABORATORY | | + + + + + + | ALT | 21 | 6 - 45 IU/L | [facility] | | | | | | [facility] | | | | | | MEDICAL | | | | | | CENTER - | | | | | | LABORATORY | | + + + + + + | Bilirubin | 1.5 (H) | 0.2 - 1.0 mg/dL | [facility] | | | Total | | | [facility] | | | | | | MEDICAL | | | | | | CENTER - | | | | | | LABORATORY | | + + + + + + | Total | 6.7 | 6.0 - 7.8 gm/dL | [facility] [...] 12 | 7 - 18 mg/dL | [facility] | | | | | | [facility] | | | | | | MEDICAL | | | | | | CENTER - | | | | | | LABORATORY | | + + + + + + | Creatinine | 0.97 | 0.60 - 1.30 | [facility] | | | | | mg/dL | [facility] | | | | | | MEDICAL | | | | | | CENTER - | | | | | | LABORATORY | | + + + + + + | Estimated | >60Comment: For | >60 mL/min/A | [facility] | | | GFR | -Americans, | | [facility] | | | | please multiply the | | MEDICAL | | | | result by 1.210 | | CENTER - | | | | This is an estimated | | LABORATORY | | | | GFR and is based on | | | | | | a standard body | | | | | | mass and serum | | | | | | creatinine | | | | + + + + + + | BUN/Creatin | 12.4 | 12 - 20 | [facility] | | | ine Ratio | | | [facility] | | | | | | MEDICAL | | | | | | CENTER - | | | | | | LABORATORY | | + + + + + + | Na | 137 | 136 - 149 mEq/L | [facility] | | | | | | [facility] | | | | | | MEDICAL | | | | | | CENTER - | | | | | | LABORATORY | | + + + + + + | K | 3.8 | 3.5 - 5.1 mEq/l | [facility] | | | | | | [facility] | | | | | | MEDICAL | | | | | | CENTER - | | | | | | LABORATORY | | + + + + + + | Cl | 107 | 98 - 109 mEq/l | [facility] | | | | | | [facility] | | | | | | MEDICAL | | | | | | CENTER - | | | | | | LABORATORY | | + + + + + + | CO2 | 23 (L) | 24 - 31 mEq/L | [facility] | | | | | | [facility] | | | | | | MEDICAL | | | | | | CENTER - | | | | | | LABORATORY | | + + + + + + | Anion Gap | 10.8 | 6.0 - 17.0 | [facility] | [...] + | [facility] | [address] | [place], [place] | [phone] | | [facility] | | [id number] | | | - LABORATORY | | | | + + + + + | [facility] | [address] | [place], [place] | | | [facility] | | [id number], [facility] | | | - LABORATORY | | | | + + + + + Troponin I (11/07/2010 8:12 AM PDT) + + + + + + | Component | Value | Ref Range | Performed | Pathologist | | | | | At | Signature | + + + + + + | Troponin I | <0.01Comment: Reference | <0.10 ng/mL | [facility] | | | | Ranges: | | [facility] | | | | 0.00-0.09 = NORMAL | | MEDICAL | | | | 0.10-0.50 | | CENTER - | | | | = | | LABORATORY | | | | INDETERMINATE-SUSPICIOUS | | | | | | FOR | | | | | | | | | | | | NON-INFARCT | | | | | | MYOCARDIAL INJURY | | | | | | >0.50 = | | | | | | CONSISTENT WITH | | | | | | MYOCARDIAL INFARCT | | | | | | Results in the | | | | | | Indeterminate range can | | | | | | reflect a pre-infarct | | | | | | acute coronary | | | | | | syndrome, but can also | | | | | | reflect myocardial | | | | | | necrosis or injury | | | | | | that is not due to | | | | | | coronary artery | | | | | | disease. Some of these | | | | | | causes are sepsis, | | | | | | hypocolemia, atrial | | | | | | fibrillation, heart | | | | | | failure, pulmonary | | | | | | embolism, myocarditis, | | | | | | myocardial contusion, | | | | | | and renal failure. | | | | | | Testing performed on | | | | | | the Rosaura Marbury | | | | | | Access Analyzer. | | | | + + + + + + + + | Specimen | + + | | + + + + + + + | Performing | Address | City/State/Zipcode | Phone Number | | Organization | | | | + + + + + | [facility] | [address] | [place], [place] | [phone] | | [facility] | | [address] | | | - LABORATORY | | | | + + + + + | [facility] | [address] | [place], [place] | | | [facility] | | [id number], [facility] | | | - LABORATORY | | | | + + + + + CBC with Differential (11/07/2010 8:12 AM PDT) + +-------+ + + + | Component | Value | Ref Range | Performed | Pathologist | | | | | At | Signature | + +-------+ + + + | White Blood | 8.2 | 4.0 - 11.0 K/uL | [facility] | | | Cells | | | [facility] | | | | | | MEDICAL | | | | | | CENTER - | | | | | | LABORATORY | | + +-------+ + + + | Red Blood | 4.75 | 4.30 - 5.70 | [facility] | | | Cells | | M/uL | [facility] | | | | | | MEDICAL | | | | | | CENTER - | | | | | | LABORATORY | | + +-------+ + + + | Hemoglobin | 14.9 | 13.5 - 18.0 | [facility] | | | | | gm/dL | [facility] | | | | | | MEDICAL | | | | | | CENTER - | | | | | | LABORATORY | | + +-------+ + + + | Hematocrit | 44.5 | 40.0 - 51.0 % | [facility] | | | | | | [facility] | | | | | | MEDICAL | | | | | | CENTER - | | | | | | LABORATORY | | + +-------+ + + + | MCV | 93.8 | 83.0 - 101.0 fL | [facility] | | | | | | [facility] | | | | | | MEDICAL | | | | | | CENTER - | | | | | | LABORATORY | | + +-------+ + + + | MCH | 31.5 | 28.0 - 35.0 pg | [facility] | | | | | | [facility] | | | | | | MEDICAL | | | | | | CENTER - | | | | | | LABORATORY | | + +-------+ + + + | MCHC | 33.5 | 32.0 - 36.0 | [facility] | | | | | g/dL | [facility] | | | | | | MEDICAL | | | | | | CENTER - | | | | | | LABORATORY | | + +-------+ + + + | RDW-CV | 12.9 | <15.0 % | [facility] | | | | | | [facility] | | | | | | MEDICAL | | | | | | CENTER - | | | | | | LABORATORY | | + +-------+ + + + | Platelet | 180 | 140 - 440 K/uL | [facility] | | | Count | | | [facility] | | | | | | MEDICAL | | | | | | CENTER - | | | | | | LABORATORY | | + +-------+ + + + | % | 63.6 | 45 - 82 % | [facility] | | | Neutrophils | | | [facility] | | | | | | MEDICAL | | | | | | CENTER - | | | | | | LABORATORY | | + +-------+ + + + | % | 27.7 | 20 - 45 % | [facility] | | | Lymphocytes | | | [facility] | | | | | | MEDICAL | | | | | | CENTER - | | | | | | LABORATORY | | + +-------+ + + + | % Monocytes | 6.8 | 4 - 12 % | [facility] | | | | | | [facility] | | | | | | MEDICAL | | | | | | CENTER - | | | | | | LABORATORY | | + +-------+ + + + | % | 1.6 | 0 - 5 % | [facility] | | | Eosinophils | | | [facility] | | | | | | MEDICAL | | | | | | CENTER - | | | | | | LABORATORY | | + +-------+ + + + | % Basophils | 0.3 | 0 - 1 % | [facility] | | | | | | [facility] | | | | | | MEDICAL | | | | | | CENTER - | | | | | | LABORATORY | | + +-------+ + + + | Absolute | 5.2 | 1.8 - 8.5 K/uL | [facility] | | | Neutrophils | | | [facility] | | | | | | MEDICAL | | | | | | CENTER - | | | | | | LABORATORY | | + +-------+ + + + | Absolute | 2.3 | 0.6 - 3.2 K/uL | [facility] | | | Lymphocytes | | | [facility] | | | | | | MEDICAL | | | | | | CENTER - | | | | | | LABORATORY | | + +-------+ + + + | Absolute | 0.6 | 0.0 - 1.0 K/uL | [facility] | | | Monocytes | | | [facility] | | | | | | MEDICAL | | | | | | CENTER - | | | | | | LABORATORY | | + +-------+ + + + | Absolute | 0.1 | 0.0 - 0.4 K/uL | [facility] | | | Eosinophils | | | [facility] | | | | | | MEDICAL | | | | | | CENTER - | | | | | | LABORATORY | | + +-------+ + + + | Absolute | 0.0 | 0.0 - 0.1 K/uL | [facility] [...] + | [facility] | [address] | [place], [place] | [phone] | | [facility] | | [address] | | | - LABORATORY | | | | + + + + + | [facility] | [address] | [place], [place] | | | [facility] | | [address] [place] [address] | | | - LABORATORY | | | | + + + + + XR Chest AP Portable (11/07/2010 7:19 AM PDT) + + | Specimen | + + | | + + + + + | Narrative | Performed At | + + + | [facility] | [facility] | | [address] [facility] | [facility] | | SINGLE VIEW CHEST, 11/07/2010 | [facility] | | CLINICAL HISTORY: CHEST PAIN. TECHNIQUE: A single view | | | of the chest obtained at 0824 hours without prior study available for | | | comparison. FINDINGS: The mediastinal and cardiac | | | silhouette is unremarkable. No radiographically detectable pleural | | | effusion or pneumothorax is seen. Lung spaulding are clear without | | | infiltrate or consolidate. Osseous elements are unremarkable. | | | IMPRESSION: 1. NO ACUTE PROCESS OF THE THORAX IS SEEN. | | | Dictated Date/Time: 11/07/2010 09:15 Transcribed Date/Time: | | | 11/07/2010 13:50 Executive Pastry Chef: <Electronically | | | Signed by Sam Kim DO> 11/07/10 1608 | | + + + + --------+ | Procedure Note | + --------+ | [place], Rad Conversion - 09/29/2013 2:29 PM [facility] | | Diagnostic Imaging Department [address] [place] [address] | | SINGLE VIEW CHEST, 11/07/2010 CLINICAL HISTORY: CHEST | | PAIN. TECHNIQUE: A single view of the chest obtained at 0824 hours without prior | | study available for comparison. FINDINGS: The mediastinal and cardiac silhouette is | | unremarkable. No radiographically detectable pleural effusion or pneumothorax is seen. | | Lung spaulding are clear without infiltrate or consolidate. Osseous elements are | | unremarkable. IMPRESSION: 1. NO ACUTE PROCESS OF THE THORAX IS SEEN. Dictated | | Date/Time: 11/07/2010 09:15 Transcribed Date/Time: 11/07/2010 13:50 Executive Pastry Chef: | | <Electronically Signed by Sam Kim DO> 11/07/10 1608 | |TECHNIQUE: A single view of the chest obtained at 0824 hours without prior study available for | |comparison. | | | |FINDINGS: The mediastinal and cardiac silhouette is unremarkable. No radiographically | |detectable pleural effusion or pneumothorax is seen. Lung spaulding are clear without infiltr ate or | |consolidate. Osseous elements are unremarkable. | | | |IMPRESSION: | |1. NO ACUTE PROCESS OF THE THORAX IS SEEN. | | | |Dictated Date/Time: 11/07/2010 09:15 | |Transcribed Date/Time: 11/07/2010 13:50 | |Executive Pastry Chef: | |<Electronically Signed by Sam Kim, > 11/07/10 1608 | + --------+ + +---------+ + + | Performing | Address | City/State/Zipcode | Phone Number | | Organization | | | | + +---------+ + + | [facility] | | | | | [facility] | | | | + +---------+ + + documented in this encounter Visit Diagnoses Not on filedocumented in this encounter"
[~2020-04-19 14:47] MED LIST changes: +VALIUM10 MG PO
[2020-04-19] MEDS ORDERED: MOBIC15 MG (14:57)
[2020-04-19] MEDS ORDERED: CYCLOBENZAPRINE10 MG PO (15:36)
== END 2020-04-19 15:43 | disposition home or self-care (01) ==
LOC: ED 14:47
DX: S16.1XXA Strain of muscle, fascia and tendon at neck level, initial encounter (principal); S39.012A Strain of muscle, fascia and tendon of lower back, initial encounter; I10 Essential (primary) hypertension; I48.91 Unspecified atrial fibrillation; F17.200 Nicotine dependence, unspecified, uncomplicated; Z88.0 Allergy status to penicillin; Z88.8 Allergy status to other drugs, medicaments and biological substances; Z79.899 Other long term (current) drug therapy; V49.9XXA Car occupant (driver) (passenger) injured in unspecified traffic accident, initial encounter
CPT/HCPCS: 99283; A9270